=== PATIENT | male | born 1975 | race Caucasian/White ===

== ENCOUNTER → 2017-07-01 14:59 | Outpatient (CLI) | payer BC, SELFPAY ==
[2017-07-01 18:27] LABS: Anion Gap 12 (5-15); BUN 12 mg/dL (7-18); BUN/Creat Ratio 13.6 RATIO (10-20); Calcium,Total 9.1 mg/dL (8.5-10.1); Chloride 104 mmol/L (98-107); Cholesterol 168 mg/dL (200); Creatinine, Serum 0.88 mg/dL (0.70-1.30); EST Glomerular Filtration Rate 102 mL/min (>60); Est Glom Filt Rate - Afr Amer 123 mL/min (>60); Glucose 87 mg/dL (70-110); High Density Lipoprotein 36 mg/dL; Potassium 3.6 mmol/L (3.5-5.1); Sodium Level 140 mmol/L (136-145); Thyroid Stim Hormone (TSH) 1.14 uIU/mL (0.358-3.74); Triglycerides 164 mg/dL; Very Low Density Lipoprotein 33 mg/dL (5-40)
== END ==
PROVIDERS: Visit Provider Family Medicine
DX: Z00.00 Encounter for general adult medical examination without abnormal findings (principal)
CPT/HCPCS: 36415; 80048; 80061; 84403; 84443

== ENCOUNTER 2017-08-09 15:55 | Emergency (ER) | payer BC, SELFPAY ==
[2017-08-09 15:56] VITALS: BP 135/89; PULSE 117; RESP 18; TEMP 36.5; O2SAT 100; BMI 32.3
--- NOTE | 2017-08-09 16:50 | CT_ITS ---
STUDY: CT ABDOMEN AND PELVIS WITH CONTRAST REASON FOR EXAM: Male, 42 years old. Abdominal pain. RADIATION DOSAGE (If Supplied By Facility): CTDIvol = ( 16.91 ) mGy, DLP = ( 1388.03 ) mGycm TECHNIQUE: Transaxial images were obtained from the dome of the diaphragm to the symphysis pubis without oral contrast. 100CC ml of Isovue 300 contrast was administered. Sagittal and coronal images were reconstructed. Individualized dose optimization techniques were used for this CT. COMPARISON: None. FINDINGS: There is atelectasis at the lung bases. The visualized portions of the heart and pericardium are within normal limits. There are no calcified gallstones present. The liver is within normal limits. There are no suspicious hepatic lesions. The spleen is normal in size. The pancreas is within normal limits. The adrenal glands are within normal limits. There are no obstructing renal stones. There is no hydronephrosis. There are no focal renal lesions. Normal visualized stomach. There are multiple dilated loops of proximal to mid small bowel with collapsed loops noted distally. This is consistent with a small bowel obstruction. There is possible partial malrotation with the majority of the colon being in the right abdomen. However, the small bowel appears evenly distributed throughout the abdomen. The cecum is located in the right upper quadrant anteriorly. The appendix is normal. The aorta is normal in caliber. There is no abdominal or pelvic free air, free fluid, fluid collection or lymphadenopathy. There are no destructive osseous lesions. CT/Abdomen/Pelvis W IV Cont ONLY IMPRESSION: Small bowel obstruction. Possible partial malrotation with the majority of the colon being in the right abdomen and the cecum in the right upper quadrant anteriorly. However, the small bowel appears evenly distributed throughout the abdomen. Electronically Signed: Librado Valdez, at 17:58 EST Tel , Service support ,
--- NOTE | 2017-08-09 16:51 | ED.VISSUMM ---
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 Patient states he still has his appendix and gallbladder. He has had no further abdominal surgeries since he was very small. He normally does not have a lot of abdominal pain. He states around 6:00 this morning. Gradual onset of abdominal cramping that is progressively worse. It is now constant pain that waxes and wanes in severity. Associated nausea. No vomiting. No diarrhea. No fever. No dysuria. He denies any melena. He denies any abdominal trauma. Physical Examination: Middle-aged male complaining of pain. Vital signs are stable and afebrile. He does not look septic or toxic. He does have significant ways of pain. HEENT exam unremarkable. Neck nontender. Lungs clear to auscultation bilaterally. Heart regular rhythm no murmur. Heart rate approximately 110-120. Abdomen is mildly distended. Diffusely tender. Decreased bowel sounds. Well-healed large prior surgical incision. No obvious hernias or masses. This may be consistent with an early small bowel obstruction. External exam nontender. No hernias. No masses. He is moving all 4 extremities. Neurovascular intact. No edema. Back exam nontender. Neurologic exam normal. Test Results: CBC is elevated at 21,700. H&H of 19 and 55. Chemistries are unremarkable. BUN is 16 creatinine 1.1. Normal anion gap. Liver enzymes are unremarkable. Lipase is normal at 202. UA is pending. CT abdomen and pelvis with IV contrast shows dilated bowel consistent with small bowel obstruction and most likely a prior malrotation. No signs of perforation. This was read by the radiologist and I have him on page to discuss the CAT scan with him. Emergency Department Course and Treatment: Patient has waxing and waning abdominal pain with a large prior abdominal surgery from a congenital bowel abnormality. Screening labs along with urinalysis and CT will be obtained. He will be treated with IV Dilaudid and Zofran and IV fluids. Treatment Plan: I discussed patient's care with general surgery on-call Dr. Naveen Stone he has concerns with the patient's significant past medical history and prior surgery. He is concerned due to the patient's atypical abdominal anatomy and that there could potentially be bowel infarction developing. And was patient transferred to higher acuity tertiary center. I have [facility] page. Disposition: Admission Impression: Acute abdominal pain acute small bowel obstruction Leukocytosis This note was generated with [employer] dictation software. It may contain incorrect words, spelling, and punctuation that were not noted in review of the chart prior to signing ED Disposition - Plan for ED Patient: Chief Complaint: Abd Pain Referrals: Masoud Lundy [Primary Care Provider] -
--- NOTE | 2017-08-09 16:54 | ED.DCSUM_ITS ---
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 Patient states he still has his appendix and gallbladder. He has had no further abdominal surgeries since he was very small. He normally does not have a lot of abdominal pain. He states around 6: 00 this morning. Gradual onset of abdominal cramping that is progressively worse. It is now constant pain that waxes and wanes in severity. Associated nausea. No vomiting. No diarrhea. No fever. No dysuria. He denies any melena. He denies any abdominal trauma. Physical Examination: Middle-aged male complaining of pain. Vital signs are stable and afebrile. He does not look septic or toxic. He does have significant ways of pain. HEENT exam unremarkable. Neck nontender. Lungs clear to auscultation bilaterally. Heart regular rhythm no murmur. Heart rate approximately 110-120. Abdomen is mildly distended. Diffusely tender. Decreased bowel sounds. Well-healed large prior surgical incision. No obvious hernias or masses. This may be consistent with an early small bowel obstruction. External exam nontender. No hernias. No masses. He is moving all 4 extremities. Neurovascular intact. No edema. Back exam nontender. Neurologic exam normal. Test Results: CBC is elevated at 21,700. H&H of 19 and 55. Chemistries are unremarkable. BUN is 16 creatinine 1.1. Normal anion gap. Liver enzymes are unremarkable. Lipase is normal at 202. UA is pending. CT abdomen and pelvis with IV contrast shows dilated bowel consistent with small bowel obstruction and most likely a prior malrotation. No signs of perforation. This was read by the radiologist and I have him on page to discuss the CAT scan with him. Emergency Department Course and Treatment: Patient has waxing and waning abdominal pain with a large prior abdominal surgery from a congenital bowel abnormality. Screening labs along with urinalysis and CT will be obtained. He will be treated with IV Dilaudid and Zofran and IV fluids. Treatment Plan: I discussed patient's care with general surgery on-call Dr. Naveen Stone he has concerns with the patient's significant past medical history and prior surgery. He is concerned due to the patient's atypical abdominal anatomy and that there could potentially be bowel infarction developing. And was patient transferred to higher acuity tertiary center. I have [facility] page. Disposition: Admission Impression: Acute abdominal pain acute small bowel obstruction Leukocytosis This note was generated with [employer] dictation software. It may contain incorrect words, spelling, and punctuation that were not noted in review of the chart prior to signing ED Disposition - Plan for ED Patient: Chief Complaint: Abd Pain Referrals: Masoud Lundy [Primary Care Provider] -
[2017-08-09] MEDS: 0.9% Normal Saline 1,000 ML 1000 ML IV (16:59)
[2017-08-09] MEDS: HYDROmorphone 1 MG/ML Syringe IV ×3 (16:59→19:26)
[2017-08-09] MEDS: Ondansetron 4 MG/2 ML Vial IV (16:59)
[2017-08-09 17:02] LABS: Absolute Lymphocyte Count 1.24 X10^3/ul (0.83-4.51); Absolute Neutrophil Count 18.7 X10^3/uL (2.0-7.7); BUN 16 mg/dL (7-18); Basophil# 0.02 X10^3/uL; Basophil% 0.1 % (0-1); Eosinophil# 0.05 X10^3/uL; Eosinophils% 0.2 % (0-5); Glucose 122 mg/dL (74-106); Hematocrit 55.4 % (40-54); Lymphocyte # 1.24 X10^3/ul (4.0); Lymphocyte % 5.7 % (19-41); Mean Corp Hgb Conc 34.7 g/gl (32-36); Mean Corpuscular Volume 89.4 fL (80-94); Monocyte# 1.66 X10^3/uL; Monocyte% 7.7 % (0-10); Neutrophil # 18.67 X10^3/uL (2.7-7.7); Neutrophil % 86.1 % (47-70); Platelet Count 255 K/mm3 (150-450); RBC Distribution Width CV 12.2 % (11.6-14.6); RBC Distribution Width SD 39.3 fl (35.1-43.9); White Blood Count 21.7 K/mm3 (4.4-11.0)
[2017-08-09 17:03] LABS: Anion Gap 8 (5-15); BUN/Creat Ratio 14.5 RATIO (10-20); Calcium,Total 9.8 mg/dL (8.5-10.1); Chloride 104 mmol/L (98-107); EST Glomerular Filtration Rate 79 mL/min (>60); Est Glom Filt Rate - Afr Amer 95 mL/min (>60); Estimated Creatinine Clearance 95.08 ml/min; Potassium 3.7 mmol/L (3.5-5.1); Sodium Level 139 mmol/L (136-145)
[2017-08-09 17:17] LABS: Differential Indicated SCAN CRITERIA MET; Hemoglobin 19.2 g/dl (13.0-16.5); POSITIVE COUNT NO; POSITIVE DIFFERENTIAL YES; POSITIVE MORPHOLOGY NO
[2017-08-09 17:24] LABS: Anisocytosis RARE; Platelet Estimate ADEQUATE (ADEQ)
[2017-08-09 17:43] LABS: AST(SGOT) 26 U/L (15-37); Alanine Aminotransfer ALT/SGPT 50 U/L (16-61); Albumin, Serum 4.6 g/dL (3.2-5.0); Alkaline Phosphatase 140 U/L (45-117); Bilirubin, Direct 0.18 mg/dL (0.00-0.30); Globulin 4.1 g/dL (2.2-4.2); Lipase 202 U/L (73-393); Protein, Total 8.7 g/dL (6.4-8.2)
--- NOTE | 2017-08-09 19:31 | NURSING ---
[facility] ACCEPTED [id number] MELTON
[2017-08-09 19:37] LABS: Amylase 26 U/L (25-115)
--- NOTE | 2017-08-09 19:42 | PCM.CONS.GEN ---
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 He has required 3 separate dosing of Dilaudid which only lasts for 1 hour and then he has severe pain.. Laboratories markedly abnormal white count of 21.7. He is hemoconcentrated. He has a CT scan suggesting malrotation with small bowel obstruction. 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 He has intermittently had pain in the right mid upper abdomen. His pain today is acute and severe. Past Medical History Allergies CILLINS Allergy (Uncoded 08/09/17 15:58) Other Home Medications: Ambulatory Orders Medication Instructions Recorded NK [NK] 08/09/17 Smoking Status: Never smoker Patient Problems: Active and Suspected Problems Small bowel obstruction (Acute) Omphalocele (Acute) Malrotation colon (Acute) - Physical Exam Abdomen: Bowel Sounds Not Present, Distended, Tender Vital Signs Temp Pulse Resp BP Pulse Ox 97.7 F L 117 H 18 135/89 H 100 08/09/17 15:56 08/09/17 15:56 08/09/17 15:56 08/09/17 15:56 08/09/17 15:56 Weight: 232 lb Body Mass Index (BMI) 32.3 Laboratory Tests Past 24 Hrs 08/09/17 08/09/17 08/09/17 16:30 16:30 16:30 WBC 21.7 H RBC 6.20 Hgb 19.2 H* Hct 55.4 H MCV 89.4 MCH 31.0 MCHC 34.7 RDW 12.2 RDW Differential 39.3 Plt Count 255 MPV 10.0 Immature Gran % (Auto) 0.200 Neut % (Auto) 86.1 H Lymph % (Auto) 5.7 L Lanier % (Auto) 7.7 Eos % (Auto) 0.2 Baso % (Auto) 0.1 Absolute Neuts (auto) 18.7 H Absolute Lymphs (auto) 1.24 Total Counted Not Reportable Differential Comment SEE COMMENT Diff Path Review May foll Platelet Estimate ADEQUATE Anisocytosis RARE Sodium 139 Potassium 3.7 Chloride 104 Carbon Dioxide 27.0 Anion Gap 8 BUN 16 Creatinine 1.10 Estim Creat Clear Calc 95.08 Est GFR (MDRD) Af Amer 95 Est GFR (MDRD) Non-Af 79 BUN/Creatinine Ratio 14.5 Glucose 122 H Lactic Acid Calcium 9.8 Total Bilirubin 0.60 Direct Bilirubin 0.18 AST 26 ALT 50 Alkaline Phosphatase 140 H Total Protein 8.7 H Albumin 4.6 Globulin 4.1 Amylase Lipase 202 08/09/17 08/09/17 19:00 19:00 WBC RBC Hgb Hct MCV MCH MCHC RDW RDW Differential Plt Count MPV Immature Gran % (Auto) Neut % (Auto) Lymph % (Auto) Lanier % (Auto) Eos % (Auto) Baso % (Auto) Absolute Neuts (auto) Absolute Lymphs (auto) Total Counted Differential Comment Diff Path Review Platelet Estimate Anisocytosis Sodium Potassium Chloride Carbon Dioxide Anion Gap BUN Creatinine Estim Creat Clear Calc Est GFR (MDRD) Af Amer Est GFR (MDRD) Non-Af BUN/Creatinine Ratio Glucose Lactic Acid Pending Calcium Total Bilirubin Direct Bilirubin AST ALT Alkaline Phosphatase Total Protein Albumin Globulin Amylase 26 Lipase Assessment/Plan Active and Suspected Problems Small bowel obstruction (Acute) Omphalocele (Acute) Malrotation colon (Acute) His colon appears to be markedly decompressed. Appears to be slightly coiled in the pelvis and then mostly on the right. The small bowel appears to be significantly distended. Although his lactic acid level still pending I believe that he has an acute small bowel obstruction that will require urgent surgical intervention. Because of his previous congenital procedures this will clearly be at increased technical and operative risk. I recommend tertiary referral. The patient and Dr. Cayetano Salvador concur and appropriate transfer has been made. Naveen Stone M.D., F.A.C.S.
[2017-08-09 19:56] VITALS: BP 139/83; PULSE 108; RESP 18; TEMP 36.7; O2SAT 94
[2017-08-09] MEDS: HYDROmorphone 1 MG/ML Syringe 0.5 MG IV (20:22)
[2017-08-11 09:12] LABS: Pathologist Review Reviewed
== END 2017-08-09 20:28 | disposition short-term general hospital (02) ==
PROVIDERS: Emergency Provider Emergency Medicine; Family Provider Family Medicine; PCP Family Medicine
DX: K56.609 Unspecified intestinal obstruction, unspecified as to partial versus complete obstruction (principal); R10.84 Generalized abdominal pain; Q79.2 Exomphalos; Q43.3 Congenital malformations of intestinal fixation; D72.829 Elevated white blood cell count, unspecified
CPT/HCPCS: 74177; 80048; 80076; 82150; 83605; 83690; 85025; 96361; 96374; 96375; 96376; 99285; J7030; Q9967; A4216; J2405

== ENCOUNTER → 2019-05-09 10:19 | Outpatient (CLI) | payer BC, SELFPAY | PROVIDERS: Family Provider Family Medicine; PCP Family Medicine; Referring Provider Family Medicine; Visit Provider Family Medicine | DX: L02.91 Cutaneous abscess, unspecified (principal) | CPT/HCPCS: 87070; 87205 ==

== ENCOUNTER 2019-07-20 11:34 | Inpatient (IN) | payer BC, SELFPAY ==
[2019-07-20] VITALS (14 sets, daily range): BP systolic 96–151; BP diastolic 65–84; PULSE 73–137; RESP 16–18; TEMP 36.1–37.2; O2SAT 94–98; BMI 32.1; BMI 33.5
--- NOTE | 2019-07-20 11:35 | RAD_ITS ---
STUDY: X-RAY CHEST REASON FOR EXAM: Male, 44 years old. PT IN AFIB, HYPERTENSION TECHNIQUE: Single AP portable view of the chest. COMPARISON: None. FINDINGS: The lungs are clear and expanded. There is no demonstrated pleural abnormality. Normal size heart. Normal mediastinum and arnaldo. Normal visualized pulmonary arteries. Normal visualized aortic arch and descending thoracic aorta. Normal visualized thoracic spine. Normal visualized ribs, clavicles, and shoulders. There is no demonstrated abnormality of the visualized soft tissue structures of the upper abdomen. RAD/Chest 1 View (Portable) IMPRESSION: Normal x-ray examination of the chest. Electronically Signed: Patel Son MD at 12:02 EST Tel , Service support ,
--- NOTE | 2019-07-20 11:35 | EKG12_ITS ---
Test Reason : NEW ONSET AFIB Blood Pressure : / mmHG Vent. Rate : 156 BPM Atrial Rate : 178 BPM P-R Int : 000 ms QRS Dur : 076 ms QT Int : 250 ms P-R-T Axes : 000 021 050 degrees QTc Int : 402 ms Atrial fibrillation with rapid ventricular response Nonspecific T wave abnormality Abnormal ECG Confirmed by AMY MORA ([id number]), editorial intern TOYIN ZHENG ([id number]) on 07/23/2019 3:39:40 PM Referred By: Odette Morales Confirmed By:AMY MORA
--- NOTE | 2019-07-20 11:40 | ED.RN ---
NO OLD EKG
--- NOTE | 2019-07-20 11:48 | ED.VIS.GEN ---
History of Present Illness Chief Complaint: Palpitations Informant: Patient Onset: - - Unknown Context: Onset with activity Current Severity: Moderate Maximum Severity: Moderate Narrative: Patient presents from the PCPs office he had a routine visit and was found to be tachycardic, a office EKG showed atrial fibrillation. Patient overall is asymptomatic, he does not feel palpitations, he does not know an onset of his symptoms. Denies chest pain, shortness of breath fever or chills, he does snore quite a bit and sleeps in a different room than his secondary to his snoring, he has not had any obstructive sleep apnea testing. He does drink caffeine. He has no other symptoms Past Medical History - Allergies and Home Meds Allergies/Adverse Reactions: Allergies CILLINS Allergy (Uncoded 07/20/19 11:34) Other Primary Care Physician: Masoud Lundy [Primary Care Provider] - 2 Days Past Medical History: - - Hypertension. Smoking Status: Never smoker Review of Systems General: Denies: Fever Eyes: Denies: Visual changes - bilaterally ENT: Reports: - - Negative Cardiovascular: Denies: Chest pain Respiratory: Denies: Dyspnea, Cough Gastrointestinal: Denies: Abdominal pain, Nausea Genitourinary: Denies: Dysuria Skin: Denies: Rash Neurological: Denies: Headache, Weakness Endocrine: Denies: Polyuria Hematologic: Denies: Easy bruising Physical Exam Vital Signs/Narrative: Vital Signs Temp Pulse Resp BP Pulse Ox 07/20/19 11:35 96.9 F L 78 17 151/78 H 98 General: Well nourished, Obese Head: Normocephalic Eyes: Perrl, EOMI ENT: Moist mucous membranes Cardiovascular: Irregular, Tachycardia Respiratory: No distress, CTA bilaterally Abdomen: Soft, Nontender Back: Nontender, Normal Inspection. Negative for: CVA tenderness Extremities: Nontender, No edema Skin: Normal color Neurological: Alert, Oriented x3, Normal Sensation Psychological: Normal affect Diagnostic/Tx/Re-eval Chest X-Ray - ED: 1 View, Read by ED Physician, Read by Radiologist, Normal, Heart, Lungs, Mediastinum, Bony Structures - Rhythm Strip Rhythm Strip: A-fib Rate: 156 Ectopy: None - EKG Initial EKG Interpretation: - - Atrial fibrillation with a rate of 156. Normal QTc interval. Nonspecific ST changes throughout. Interpreted by emergency doctor - Medical Decision Making Patient's heart rate significantly improved, however it still in the 110s and 120s, I talked to his PCP who would like the patient admitted, I gave him p.oBob Hearn, he can probably go to a regular floor. Otherwise he has elevated hemoglobin level but not white count or platelets. This may need to be worked up outpatient. The likely cause of his A. fib is undiagnosed obstructive sleep apnea. ED Disposition - Plan for ED Patient: Disposition: Acute Care [facility] Diagnosis: Atrial fibrillation
[2019-07-20] MEDS: dilTIAZem 25 MG/5 ML Vial 20 MG IV BOLUS ×2 (11:49→15:38)
[2019-07-20] MEDS: Aspirin 81 MG TAB.CHEW 324 MG PO (11:55)
[2019-07-20 11:56] LABS: Absolute Lymphocyte Count 2.37 X10^3/uL (0.83-4.51); Absolute Neutrophil Count 5.4 X10^3/uL (2.0-7.7); Basophil# 0.07 X10^3/uL; Basophil% 0.8 % (0-1); Eosinophil# 0.19 X10^3/uL; Eosinophils% 2.1 % (0-5); Hematocrit 53.9 % (40-54); Lymphocyte # 2.37 X10^3/ul (4.0); Lymphocyte % 26.1 % (19-41); Mean Corp Hgb Conc 33.4 g/dL (32-36); Mean Corpuscular Volume 92.9 fL (80-94); Mean Platelet Vol. 9.8 fl (6.2-12.0); Monocyte# 1.01 X10^3/uL; Monocyte% 11.1 % (0-10); NRBC Flagged by Analyzer 0 % (0-5); Neutrophil % 59.6 % (47-70); Platelet Count 240 K/mm3 (150-450); RBC Distribution Width CV 12.2 % (11.6-14.6); RBC Distribution Width SD 42.2 fl (35.1-43.9); White Blood Count 9.1 K/mm3 (4.4-11.0)
[2019-07-20 12:05] LABS: Differential Indicated SCAN CRITERIA MET
[2019-07-20 12:09] LABS: Anion Gap 4 (5-15); BUN 15 mg/dL (7-18); BUN/Creat Ratio 13.8 RATIO (10-20); Calcium,Total 9.3 mg/dL (8.5-10.1); Chloride 108 mmol/L (98-107); Creatinine, Serum 1.09 mg/dL (0.70-1.30); EST Glomerular Filtration Rate 79 mL/min (>60); Est Glom Filt Rate - Afr Amer 95 mL/min (>60); Estimated Creatinine Clearance 94.03 ml/min; Glucose 126 mg/dL (74-106); Potassium 4.3 mmol/L (3.5-5.1); Sodium Level 139 mmol/L (136-145)
[2019-07-20] MEDS: dilTIAZem 25 MG/5 ML Vial 10 MG IV BOLUS (12:37)
[2019-07-20] MEDS: dilTIAZem CD 240 MG Capsule PO (12:52)
--- NOTE | 2019-07-20 14:37 | ECHOCS_ITS ---
Reason For Study: Afib, Aflutter Procedure This was a 2D Doppler, Color Flow transthoracic echocardiogram. Contrast injection was performed. Exam performed portable in patient room. Left Ventricle Mildly dilated left ventricle. The estimated ejection fraction is 40 %. Unable to assess diastolic dysfunction due to arrhythmia. There is moderate global hypokinesis of the left ventricle. Right Ventricle Normal size and thickness. Normal systolic function. Atria Normal left atrium. Normal right atrium. Normal atrial septum. Mitral Valve The mitral valve is structurally normal. No prolapse or stenosis seen. Trivial mitral valve insufficiency. Tricuspid Valve Normal tricuspid valve. Trivial tricuspid valve insufficiency. Right ventricular systolic pressure estimated to be 33 mmHg. Aortic Valve Normal aortic valve. Trisinus/trileaflet aortic valve. Pulmonic Valve Normal pulmonic valve. Great Vessels Normal aortic root. Normal arch. Normal inferior vena cava. Inferior vena cava collapse with sniff. Pericardium/Pleural No pericardial effusion. Medication Diluted definity 5ml given slow IV push to enhance endocardial definition. MMode/2D Measurements & Calculations LVIDd: 4.6 cm IVSd: 1.1 cm Ao root diam: 2.9 cm LVIDs: 3.7 cm LVPWd: 1.3 cm RVDd: 3.3 cm FS: 19.5 % LAV(MOD-bp): 41.4 ml LA A4 area: 16.2 cm2 LA dimension(2D): 4.4 cm LAV(MOD-bp) Indexed: 18.5 ml/m2 LAV(MOD-sp2): 42.1 ml LAV(MOD-sp4): 41.5 ml RA A4 area: 7.7 cm2 Doppler Measurements & Calculations MV E max eva: 70.4 cm/sec Ao V2 max: 112.5 cm/sec LV V1 max: 82.6 cm/sec Ao max P.1 mmHg LV V1 max P.8 mmHg Ao V2 mean: 87.0 cm/sec Ao mean P.2 mmHg Ao V2 VTI: 18.8 cm PA V2 max: 76.2 cm/sec TR max vea: 212.2 cm/sec TR max P.0 mmHg Interpretation Summary Mildly dilated left ventricle. The estimated ejection fraction is 40 %. Unable to assess diastolic dysfunction due to arrhythmia. There is moderate global hypokinesis of the left ventricle. Trivial mitral valve insufficiency. Trivial tricuspid valve insufficiency. Right ventricular systolic pressure estimated to be 33 mmHg. The study was technically difficult. There is no comparison study available. Contrast injection was performed. Ordering Physician: Odette Morales Referring Physician: Masoud Lundy Performed By: Joellen Fowler, ROBSON, RVT
[2019-07-20 15:13] LABS: AST(SGOT) 35 U/L (15-37); Alanine Aminotransfer ALT/SGPT 58 U/L (16-61); Albumin, Serum 4.1 g/dL (3.2-5.0); Alkaline Phosphatase 126 U/L (45-117); Bilirubin, Direct 0.16 mg/dL (0.00-0.30); Globulin 3.8 g/dL (2.2-4.2); Magnesium 2.1 mg/dL (1.6-2.6); Protein, Total 7.9 g/dL (6.4-8.2); Thyroid Stim Hormone (TSH) 0.99 uIU/mL (0.358-3.74)
[2019-07-20] MEDS: 0.9% Normal Saline 1,000 ML 75 ML IV (15:36)
[2019-07-20] MEDS: Metoprolol Tartrate 50 MG Tablet PO ×2 (15:36→22:07)
[2019-07-20] MEDS: Enoxaparin 100 MG/ML Syringe SC ×2 (15:39→22:07)
--- NOTE | 2019-07-20 17:22 | EKG12_ITS ---
Test Reason : RHYTHM CHANGE Blood Pressure : / mmHG Vent. Rate : 069 BPM Atrial Rate : 069 BPM P-R Int : 138 ms QRS Dur : 082 ms QT Int : 392 ms P-R-T Axes : 030 022 013 degrees QTc Int : 420 ms Normal sinus rhythm Normal ECG When compared with ECG of 20-JUL-2019 11:43, MANUAL COMPARISON REQUIRED, DATA IS UNCONFIRMED Confirmed by AMY MORA ([id number]), scientific editor MICHELLE ABARCA ([id number]) on 07/26/2019 9:52:08 AM Referred By: Odette Morales Confirmed By:AMY MORA
--- NOTE | 2019-07-20 20:30 | PCM.HP.STD ---
Problem List (1) Marijuana smoker Status: Chronic (2) Tobacco dependence due to chewing tobacco Status: Chronic (3) Tobacco dependence due to cigarettes Status: Chronic (4) Hypertension Status: Chronic (5) Anxiety Status: Chronic (6) Sleep-disordered breathing Status: Chronic Comment: suspect KATELIN (7) Polycythemia Status: Acute (8) Atrial fibrillation Status: Acute Qualifiers: Atrial fibrillation type: paroxysmal Qualified Code(s): I48.0 - Paroxysmal atrial fibrillation Comment: With rapid ventricular response (9) Malrotation colon Status: Chronic (10) Omphalocele Status: Resolved (11) Small bowel obstruction Status: Resolved (12) Hyperglycemia Status: Acute (13) Lesion of buccal mucosa Status: Acute Comment: right side near the upper back teeth - lesion is pale and white, non-tender History of Present Illness Date of Admission: 07/20/19 Chief Complaint: sent to the Ed by Dr. Lundy for PAF with RVR The patient is a 44 year old M with a past medical history of hypertension, tobacco dependence with cigarettes, tobacco dependence with chewing tobacco, marijuana use and anxiety who presented to the ED at [facility] from Dr. Masoud Lundy's office because he was noted to be in atrial fibrillation with rapid ventricular response. Patient denies chest pain, palpitations, syncope or any history of cardiovascular disease. No history of strokes or TIAs. His states that she and her have not slept together for at least 1 year because he snores so loudly. She has also observed him to stop breathing while sleeping and then jerk and take a deep breath. He is chronically tired. Denies restless leg. He has never had a sleep study. He has not seen a primary care physician in about 10 years. Vital signs at presentation to the emergency department were temperature 96.9, pulse rate was in the 150s, blood pressure was 151/78, respiratory rate was 17 and he was 98% saturated on room air. The hemoglobin is increased at 18 with a hematocrit of 53.9. The white blood cell differential is within normal limits. Platelets are also normal. MCV and MCH are normal. Potassium is 4.3 and the BUN is 15 with a creatinine of 1.09. A random blood sugar was elevated at 126 and he has no history of diabetes mellitus. LFTs were unremarkable. Troponin was less than 0.015. TSH is normal at 0.99. Chest x-ray showed no pleural effusions, infiltrates or pulmonary vascular congestion. He was treated with 20 mg of IV Cardizem in the emergency department with subsequent improvement in heart rate. He admits to being very stressed in his job. Past Medical History Past Medical History (Chronic Problems): Chronic Problems Malrotation colon (Chronic) Marijuana smoker (Chronic) Tobacco dependence due to chewing tobacco (Chronic) Tobacco dependence due to cigarettes (Chronic) Hypertension (Chronic) Anxiety (Chronic) Sleep-disordered breathing (Chronic) suspect KATELIN Allergies CILLINS Allergy (Uncoded 07/20/19 11:34) Other Home Medications: Ambulatory Orders Medication Instructions Recorded Lisinopril [Zestril] 10 mg PO DAILY 07/20/19 Multivitamin with Minerals 1 ea PO DAILY 07/20/19 [Multiple Vitamin] Surgical History: - - Abdominal surgery to repair and omphalocele and vasectomy Psychiatric History: Anxiety Lives: Spouse/ Significant Other Smoking Status: Current some day smoker Tobacco Use: Cigarettes, Chew - everyday Alcohol: Occasional Drugs: Marijuana - *Family History Maternal History Items: Cancer - His mother with lung cancer Paternal History Items: Heart Disease Review of Systems Constitutional: Denies: Chills, Fever, Weight Change HEENT: Denies: Head Aches, Sinus Congestion, Sinus Drainage, Sore Throat Cardiovascular: Denies: Chest Pain, Claudication, Edema, Light Headedness, Orthopnea, Palpitations, Syncope Respiratory: Reports: Shortness of breath upon exertion - sometimes. Denies: Cough, Shortness of breath at rest, Sputum production Gastrointestinal: Denies: Abdominal Pain, Constipation, Diarrhea, Nausea, Vomiting Genitourinary: Denies: Dysuria Musculoskeletal: Denies: Joint Pain, Joint Tenderness Skin: Denies: Jaundice, Rash, Wounds Neurological: Denies: Slurred speech, Confusion, Focal weakness, Numbness, Tingling, Tremor, Seizures Psychiatric: Denies: Anxiety, Depression, Homicidal Ideations, Suicidal Ideations Endocrine: Reports: Change in Body Habitus - has been trying to lose weight. Denies: Heat/ Cold Intolerance Hematologic/ Lymphatic: Denies: Easy Bruising, Easy Bleeding, Hx of blood clot VTE Information - Inpt Only VTE Present on Admission: No VTE Mechan Device Prophylaxis: None VTE Pharm Prophylaxis ordered?: No Reason prophylaxis not ordered:: Treatment Not Indicated - on full dose Lovenox for PAF Patient Problems: Active and Suspected Problems Atrial fibrillation (Acute) With rapid ventricular response Polycythemia (Acute) Hyperglycemia (Acute) Lesion of buccal mucosa (Acute) right side near the upper back teeth - lesion is pale and white, non-tender - Physical Exam Vitals/I&O's: Vital Signs Temp Pulse Resp BP Pulse Ox 98.7 F 77 16 116/84 H 98 07/20/19 14:47 07/20/19 19:00 07/20/19 14:47 07/20/19 14:47 07/20/19 14:47 Oxygen Delivery Method Room Air Weight: 240 lb 4.862 oz Body Mass Index (BMI) 33.5 General: Alert, Oriented x3, Cooperative, No apparent distress, Well developed, Well nourished HEENT: Atraumatic, PERRLA, EOMI, Normocephalic Oral: Moist Mucosa, - - he has a white lesion of the buccal mucosa on the right side near the upper back molar Neck: Supple, No JVD, Negative Carotid Bruits Lungs: Clear to auscultation, Normal air movement Cardiovascular: Normal S1, Normal S2, No murmurs, Irregular Rate - he is AF and the HR is ranging from 118 - 150, No rub noted, No Gallop Abdomen: Bowel Sounds Present, Soft, Non Tender, Non-Distended Extremities: No clubbing, No cyanosis, No edema, Capillary Refill Less than 3 Seconds Skin: No rashes, No breakdown Musculoskeletal: No Tenderness to Palpation of Joints or Extremities Neurological: Cranial nerves II-XII grossly intact, Neuro grossly intact Psych/Mental Status: Appropriate, Anxious Laboratory Results 07/20/19 11:45: WBC 9.1, RBC 5.80, Hgb 18.0 H*, Hct 53.9, MCV 92.9, MCH 31.0, MCHC 33.4, RDW Std Deviation 42.2, RDW Coeff of [place] 12.2, Plt Count 240, MPV 9.8, Immature Gran % (Auto) 0.300, Neut % (Auto) 59.6, Lymph % (Auto) 26.1, [place] % (Auto) 11.1 H, Eos % (Auto) 2.1, Baso % (Auto) 0.8, Absolute Neuts (auto) 5.4, Absolute Lymphs (auto) 2.37, Nucleated RBC % 0, Differential Comment COMMENT, Diff Path Review October foll 07/20/19 11:45: Sodium 139, Potassium 4.3, Chloride 108 H, Carbon Dioxide 27.0, Anion Gap 4 L, BUN 15, Creatinine 1.09, Estim Creat Clear Calc 94.03, Est GFR (MDRD) Af Amer 95, Est GFR (MDRD) Non-Af 79, BUN/Creatinine Ratio 13.8, Glucose 126 H, Calcium 9.3, Troponin I < 0.015 07/20/19 11:45: Magnesium 2.1, Total Bilirubin 0.70, Direct Bilirubin 0.16, AST 35, ALT 58, Alkaline Phosphatase 126 H, Total Protein 7.9, Albumin 4.1, Globulin 3.8, TSH 0.99 07/20/19 15:00: Troponin I < 0.015 07/20/19 18:20: Troponin I < 0.015 Current Medications Acetaminophen (Tylenol) 650 mg PO Q6H PRN PRN PRN Reason: Pain Score 1-10/Temp > 100.7 F Aspirin (Aspirin) 325 mg PO DAILY@0800 [facility] Enoxaparin Sodium (Lovenox) 100 mg 1 mg/kg (100 mg) SC Q12 [facility] Last Admin: 07/20/19 15:39 Dose: 100 mg Documented by: Sodium Chloride () 1,000 mls @ 75 mls/hr IV .[id number] [facility] Last Admin: 07/20/19 15:36 Dose: 75 mls/hr Documented by: Sodium Chloride () 250 mls @ 15 mls/hr IV .[id number] PRN PRN Reason: Saline Flush Sodium Chloride () 250 mls @ 15 mls/hr IV .[id number] PRN PRN Reason: Additional IVPB Infusion Metoprolol Tartrate (Lopressor (Beta Darnell)) 50 mg PO BID [facility] Last Admin: 07/20/19 15:36 Dose: 50 mg Documented by: Ondansetron HCl (Zofran) 4 mg IV Q8H PRN PRN PRN Reason: NAUSEA/VOMITING Sodium Chloride () 10 - 40 ml IV UD PRN PRN Reason: SALINE FLUSH Temazepam (Restoril) 15 mg PO QHS PRN PRN PRN Reason: INSOMNIA Assessment/Plan All Active Problems Atrial fibrillation (Acute) Polycythemia (Acute) Hyperglycemia (Acute) Lesion of buccal mucosa (Acute) Omphalocele (Resolved) Small bowel obstruction (Resolved) Impressions 1. Paroxysmal atrial fibrillation with rapid ventricular response -patient is not aware of being in atrial fibrillation and the duration is indeterminate at this time. TSH is normal. Echocardiogram has been ordered. He is very anxious and rather than giving Cardizem will start metoprolol to blunt the catecholamine response. Check a magnesium level. Potassium is 4.3. Will need an evaluation for coronary artery disease at some point with a stress test. Check a lipid panel in the AM. Maintain the potassium at 4 or above and the magnesium at 2 or above. 2. sleep disordered breathing - suspect KATELIN. Will need referred to pulmonary medicine for a sleep study. 3. Anxiety-smokes marijuana to help control anxiety. He has a very stressful job. May benefit from psychotherapy and/or medication to control his anxiety. 4. Polycythemia-possibly related to smoking? 5. Buccal mucosal lesion in a patient who chews tobacco daily on the right side near the upper back molar. I suggested he follow up with a dentist or an oral surgeon to have this looked at and possibly biopsied. 6. Tobacco dependence with cigarettes and chew. Smoking cessation and chewing cessation was advised and the patient was given counseling. Will order inpatient smoking cessation counseling. 7. Hyperglycemia in a patient who has no history of diabetes mellitus-hemoglobin A1c ordered 8. Hypertension-discontinue lisinopril and start a beta-darnell. Patient has had a chronic dry cough in the morning to the point where he actually gags and vomits. This may be a adverse reaction to the MARCOS inhibitor. We will know if the cough resolves with cessation of the Lisinopril. Code Visit OBSV E&M: 86083 Initial observation care L2
[2019-07-20] MEDS: Temazepam 15 MG Capsule PO (22:07)
[2019-07-21] VITALS (11 sets, daily range): BP systolic 111–144; BP diastolic 67–76; PULSE 57–88; RESP 16–18; TEMP 36.6–36.9; O2SAT 96–97
[2019-07-21] MEDS: 0.9% Normal Saline 1,000 ML 75 ML IV (04:49)
--- NOTE | 2019-07-21 06:56 | STEWCON_ITS ---
Reason For Study: AFIB/FLUTTER Stress Results Protocol: Norm Protocol WITH DEFINITY Maximum Predicted HR: 178 bpm Target HR: 151 bpm % Maximum Predicted HR: 86 % DurationHeart Rate Stage (mm:ss) (bpm) BP Comment BASELINE 72 118/844 CC DEFINITY FOR ENTIRE TEST STAGE 1 3:00 98 130/84 STAGE 2 3:00 112 132/82 STAGE 3 3:00 126 158/80SL. SOB, LEG DISCOMFORT STAGE 4 1:15 153 / RECOVERY 93 130/80 Stress Duration: 10:15 mm:ss Maximum Stress HR: 153 bpm Baseline Echocardiogram Findings The estimated ejection fraction is 40 %. Stress Echo Wall motion Data Resting WM Intermediate WM Stress WM Resting Wall Motion Wall Motion Stress Global moderate LV dysfunction All torres appear to contract with an EF of 40% at rest. normally at peak exercise. Maximum LVEF of 55%. EKG Data The baseline ECG displays normal sinus rhythm. The patient exercised according to the regular Norm protocol for a total duration of 10:15. The maximum heart rate attained was 153 beats per minute. This was 85% of maximum predicted heart rate. The patient exercised into stage 4 of the Norm protocol. During stress, there were no ST or T wave changes noted to suggest ischemia. No clinical angina was noted. Interpretation Summary The estimated ejection fraction is 40 %. Normal, adequate, treadmill echocardiogram. Negative for ischemia by EKG and echocardiographic criteria. No anginal symptoms noted. Rare PVC noted. Average exercise capacity for age. Test terminated due to target heart rate achieved and leg discomfort. Patient had baseline global LV dysfunction of a moderate degree with an EF around 40% which improved to 55% at peak exercise. Patient tolerated procedure well. Decrease sensitivity due to poor echo windows requiring Definity agent. No complications. The study was technically difficult. Contrast injection was performed. Ordering Physician: Radhames Salas Referring Physician: Odette Morales Performed By: Meri Torres RDCS
[2019-07-21 08:10] LABS: Absolute Neutrophil Count 6.7 X10^3/uL (2.0-7.7); Basophil# 0.06 X10^3/uL; Basophil% 0.5 % (0-1); Eosinophil# 0.29 X10^3/uL; Eosinophils% 2.6 % (0-5); Hematocrit 45.8 % (40-54); Hemoglobin 15.2 g/dL (13.0-16.5); Lymphocyte % 26.4 % (19-41); Mean Corp Hgb Conc 33.2 g/dL (32-36); Mean Corpuscular Hgb 31.5 pg (27.0-32.0); Mean Corpuscular Volume 94.8 fL (80-94); Mean Platelet Vol. 10.8 fl (6.2-12.0); Monocyte# 1.03 X10^3/uL; Monocyte% 9.4 % (0-10); NRBC Flagged by Analyzer 0 % (0-5); Neutrophil # 6.69 X10^3/uL (2.7-7.7); Neutrophil % 60.8 % (47-70); Platelet Count 181 K/mm3 (150-450); RBC Distribution Width CV 12.4 % (11.6-14.6); RBC Distribution Width SD 43.2 fl (35.1-43.9); Red Blood Count 4.83 M/mm3 (4.6-6.2)
[2019-07-21 08:35] LABS: Cholesterol 141 mg/dL (200); High Density Lipoprotein 29 mg/dL; Triglycerides 174 mg/dL; Very Low Density Lipoprotein 35 mg/dL (5-40)
[2019-07-21] MEDS: Aspirin 325 MG Tablet PO (09:19)
[2019-07-21] MEDS: Metoprolol Tartrate 50 MG Tablet PO (09:19)
[2019-07-21 09:38] LABS: Hemoglobin A1c 5.6 % (4.2-6.3)
--- NOTE | 2019-07-21 10:11 | PCM.CONS.C ---
Problem List (1) Atrial fibrillation Status: Acute Qualifiers: Atrial fibrillation type: paroxysmal Qualified Code(s): I48.0 - Paroxysmal atrial fibrillation Comment: With rapid ventricular response (2) Tobacco dependence due to chewing tobacco Status: Chronic (3) Hypertension Status: Chronic (4) Sleep-disordered breathing Status: Chronic Comment: suspect KATELIN Reason for Consult Date of Consultation: 07/21/19 Reason for Consultation: Atrial fibrillation, LV dysfunction, possible obstructive sleep apnea, tobacco abuse. History of Present Illness: The patient is a 44 year old M moderately obese, nondiabetic, non-cigarette smoking but uses chewing tobacco, excessive use of caffeine on a daily basis, with no previous known history of coronary occlusive disease. Patient was recently diagnosed with hypertension about 3 months ago and has been treated with antihypertensive therapy in the form of lisinopril only. He has no known history of atrial fibrillation and was seen in his PCPs office yesterday after a very hectic morning. Patient had been under significant stress and upon arrival he was found to be in new onset asymptomatic atrial fibrillation. He was referred to [facility] where an EKG was performed which showed atrial fibrillation with rapid ventricular response. No acute changes noted. He ruled out for myocardial infarction. In addition he underwent a 2D echo with Doppler on 07/20/2019 with the following results: Mildly dilated left ventricle. The estimated ejection fraction is 40 %. Unable to assess diastolic dysfunction due to arrhythmia. There is moderate global hypokinesis of the left ventricle. Trivial mitral valve insufficiency. Trivial tricuspid valve insufficiency. Right ventricular systolic pressure estimated to be 33 mmHg. Patient appears to be in atrial fibrillation. The study was technically difficult. There is no comparison study available. Contrast injection was performed. The patient spontaneously converted to normal sinus rhythm, and underwent a walking treadmill echocardiogram on 07/21/2019. Patient's baseline LVEF was around 40% which improved around 55%, he walked for 10 minutes 15 seconds, had no anginal symptoms and had global improvement of his LV function to a maximum 55%. Decrease sensitivity due to poor echo windows requiring Definity agent. On further history the patient is unaware of his atrial fibrillation, denies any chest pain, angina, shortness of breath or dyspnea on exertion. He has been compliant with his lisinopril. He notes that he has an excessive snore, and was scheduled to undergo a sleep study about 2 years ago but this did not take place. 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 Patient drinks a significant amount of caffeine but denies any illicit substances or [id number] medications. He drinks about 2 beers several times per week, but used to drink more than that when he was younger. [] Past Medical History Allergies/Adverse Reactions: Allergies CILLINS Allergy (Uncoded 07/20/19 11:34) Other Home Medications: Ambulatory Orders Medication Instructions Recorded Lisinopril [Zestril] 10 mg PO DAILY 07/20/19 Multivitamin with Minerals 1 ea PO DAILY 07/20/19 [Multiple Vitamin] Past Medical History (Chronic Problems): Chronic Problems Malrotation colon (Chronic) Marijuana smoker (Chronic) Tobacco dependence due to chewing tobacco (Chronic) Tobacco dependence due to cigarettes (Chronic) Hypertension (Chronic) Anxiety (Chronic) Sleep-disordered breathing (Chronic) suspect KATELIN Surgical History: - - Abdominal surgery to repair and omphalocele and vasectomy Psychiatric History: Anxiety - *Family History Maternal History Items: Cancer - His mother with lung cancer Paternal History Items: Heart Disease Lives: Spouse/ Significant Other Smoking Status: Current some day smoker Tobacco Use: Cigarettes, Chew - everyday Alcohol: Occasional Drugs: Marijuana Review of Systems - Review of Systems General: Denies: Fever, Night Sweats, Fatigue Cardiovascular: Denies: Chest Discomfort, Shortness of Breath, Orthopnea, PND, Peripheral Edema, Palpitations, Lightheadedness, Dizziness, Near Syncope, Syncope Respiratory: Denies: Cough, Sputum Production, Hemoptysis Gastrointestinal: Denies: Hematemesis, Hematochezia, Melena Genitourinary: Denies: Dysuria, Hematuria Skin: Denies: Rash Subjectve: Patient laying in bed, no acute distress. Objective: Vital Signs Temp Pulse Resp BP Pulse Ox 98.4 F 77 18 124/70 H 96 07/21/19 09:16 07/21/19 09:19 07/21/19 09:16 07/21/19 09:16 07/21/19 09:16 Oxygen Delivery Method Room Air Weight: 240 lb 4.862 oz Body Mass Index (BMI) 33.5 Intake and Output for Last 24 Hours 07/19/19 07/20/19 07/21/19 23:59 23:59 23:59 Intake Total 480 / 480 1661.25 / 1661.25 Balance 480 / 480 1661.25 / 1661.25 General: Awake, Alert, Oriented x 3 HEENT: PERRL, EOMI, Sclera Non Icteric Neck: Supple, Good ROM, No Lymph Node Enlargement Lungs: Clear to auscultation Cardiovascular: Regular Rhythm, Normal S1, Normal S2, No Murmurs, No Rubs, No Gallops Vascular: No Carotid Bruits, Normal Femoral Pulses, Normal Radial Pulses, Normal Dorsalis Pedal Pulse, Normal Posterior Tibial Pulses Abdomen: Bowel Sounds Present, Soft, Non Tender, No HSM, No Organomegaly Extremities: No Cyanosis, No Clubbing, No edema Neurological: No Focal Motor or Sensory Deficit 07/20/19 11:45: WBC 9.1, RBC 5.80, Hgb 18.0 H*, Hct 53.9, MCV 92.9, MCH 31.0, MCHC 33.4, Plt Count 240, MPV 9.8, Immature Gran % (Auto) 0.300, Neut % (Auto) 59.6, Lymph % (Auto) 26.1, [place] % (Auto) 11.1 H, Eos % (Auto) 2.1, Baso % (Auto) 0.8, Absolute Neuts (auto) 5.4, Nucleated RBC % 0 07/20/19 11:45: Sodium 139, Potassium 4.3, Chloride 108 H, Carbon Dioxide 27.0, Anion Gap 4 L, BUN 15, Creatinine 1.09, Est GFR (MDRD) Af Amer 95, Est GFR (MDRD) Non-Af 79, BUN/Creatinine Ratio 13.8, Glucose 126 H, Calcium 9.3, Troponin I < 0.015 07/20/19 11:45: Magnesium 2.1, Total Bilirubin 0.70, Direct Bilirubin 0.16 07/20/19 15:00: Troponin I < 0.015 07/20/19 18:20: Troponin I < 0.015 07/21/19 06:44: Triglycerides 174, Cholesterol 141, LDL Cholesterol 77, VLDL Cholesterol 35, HDL Cholesterol 29 L 07/21/19 06:44: Hemoglobin A1c 5.6 07/21/19 06:44: WBC 11.0, RBC 4.83, Hgb 15.2, Hct 45.8, MCV 94.8 H, MCH 31.5, MCHC 33.2, Plt Count 181, MPV 10.8, Immature Gran % (Auto) 0.300, Neut % (Auto) 60.8, Lymph % (Auto) 26.4, [place] % (Auto) 9.4, Eos % (Auto) 2.6, Baso % (Auto) 0.5, Absolute Neuts (auto) 6.7, Nucleated RBC % 0 Rhythm: EKG: ECHO: As above Stress Test: Cardiac Cath: PCI: CT Surgery: Holter monitor: EPS: PPM: CXR: Chest CT Scan: Assessment/Plan 1. LV dysfunction: Patient has evidence of moderate LV dysfunction by echocardiogram, confirmed by stress echocardiogram as well. His baseline LVEF is 40% and he now presents with asymptomatic atrial fibrillation superimposed on LV dysfunction. Although the patient's stress test was negative for overt ischemia, and he had global improvement of his LV function, he nonetheless has evidence of global LV dysfunction which may be coronary related. Patient is several risk factors for coronary occlusive disease including his age, previous smoker, marijuana use, and hyperglycemia. To ensure the patient can endure an exercise program and that he has no reversible causes of his LV dysfunction, I recommended the patient undergo a left heart catheterization this upcoming Tuesday to confirm/deny the presence of significant coronary occlusive disease. If he has no significant coronary occlusive disease, we will discontinue his Plavix and treat him medically. In the meantime I recommend that we start him on Coreg 3.125 mg p.o. twice daily for heart rate control and afterload reduction. We will titrate this up to assist with heart rate control. In addition he will continue his lisinopril 20 mg p.o. daily for afterload reduction. I do not believe he requires diuretic therapy at this time. In addition I strongly recommended he discontinue all tobacco products, including chewing tobacco as he has a buccal mucosa lesion, discontinue all coffee and caffeine which may contribute to his atrial fibrillation, discontinue all alcohol which may contribute to his cardiomyopathy and discontinue marijuana as well. Hopefully with medications, cardiac rehab, and substance abuse cessation, his LV function will improve. We will repeat his echocardiogram in 3 to 4 months time. 2. Obstructive sleep apnea: Patient has signs and symptoms of possible obstructive sleep apnea, and I believe would benefit from an outpatient sleep study. 3. Hyperlipidemia: His LDL cholesterol is at goal and his HDL is low most likely secondary to tobacco abuse and genetic predisposition. Will await evaluation of his coronary arteries prior to application of antilipid therapy. 4. Atrial fibrillation: The patient is asymptomatic paroxysmal atrial fibrillation which is converted to normal sinus rhythm. I do not believe he requires antiarrhythmic therapy at this time. We will continue subcu Lovenox for prophylaxis while in the hospital. Given his LV dysfunction as well as the asymptomatic paroxysmal nature of his atrial fibrillation, the patient may benefit from transient use of anticoagulation at home until he has demonstrated that his atrial fibrillation has improved. Would recommend a 30-day event monitor to determine if he has multiple episodes of atrial fibrillation that may be contributing to his LV dysfunction. 4. Thank you very much for the opportunity to participate in the cardiac care of your patient. Consultation time took place between 930 and 10 AM. Code Visit Inpatient E&M: 75581 Init Hosp L2
[2019-07-21] MEDS: Clopidogrel Bisulfate 300 MG Tablet PO (11:31)
--- NOTE | 2019-07-21 13:17 | PN_ITS ---
Patient Problems: Active and Suspected Problems Atrial fibrillation (Acute) With rapid ventricular response Polycythemia (Acute) Hyperglycemia (Acute) Lesion of buccal mucosa (Acute) right side near the upper back teeth - lesion is pale and white, non-tender Subjective: Patient seen and examined. He was admitted from his PCPs office after he was found to be in a A. fib. He had never had palpitations and had no history of A. fib. He has been managed for new onset A. fib. Cardiology was consulted. Patient feels well this morning. He denied any chest pain, palpitations or dizziness, nausea vomiting or diarrhea. Review of systems otherwise negative. Labs and vitals reviewed. TSH was 0.99. Vitals/I&O's: Vital Signs Temp Pulse Resp BP Pulse Ox 98.4 F 77 18 124/70 H 96 07/21/19 09:16 07/21/19 09:19 07/21/19 09:16 07/21/19 09:16 07/21/19 11:00 Oxygen Delivery Method Room Air Weight: 240 lb 4.862 oz Body Mass Index (BMI) 33.5 Intake and Output for Last 24 Hours 07/19/19 07/20/19 07/21/19 23:59 23:59 23:59 Intake Total 480 / 480 2187.50 / 2187.50 Balance 480 / 480 2187.50 / 2187.50 General: Alert, Oriented x3, Cooperative, No apparent distress HEENT: Atraumatic, PERRLA, EOMI, Normocephalic Oral: Dry Mucosa Neck: Supple, No JVD, Negative Carotid Bruits Lungs: Clear to auscultation, Normal air movement, No rhonchi, No wheeze, No rales Cardiovascular: Regular rate, Regular Rhythm, Normal S1, Normal S2, No murmurs Abdomen: Bowel Sounds Present, Soft, Non Tender, Non-Distended, No Hepato-sp lenomegaly Extremities: No clubbing, No cyanosis, No edema, Capillary Refill Less than 3 Seconds Skin: No rashes, No breakdown Musculoskeletal: No Tenderness to Palpation of Joints or Extremities Lymphatic: No Cervical, Supraclavicular, or Inguinal Adenopathy Neurological: Cranial nerves II-XII grossly intact, Neuro grossly intact, Motor Exam 5/5 strength throughout Psych/Mental Status: Normal Affect, Appropriate, Alert and oriented to time, place, person, mood and affect Laboratory Results 07/20/19 11:45: Magnesium 2.1, Total Bilirubin 0.70, Direct Bilirubin 0.16, AST 35, ALT 58, Alkaline Phosphatase 126 H, Total Protein 7.9, Albumin 4.1, Globulin 3.8, TSH 0.99 07/20/19 15:00: Troponin I < 0.015 07/20/19 18:20: Troponin I < 0.015 07/21/19 06:44: Triglycerides 174, Cholesterol 141, LDL Cholesterol 77, VLDL Cholesterol 35, HDL Cholesterol 29 L 07/21/19 06:44: Hemoglobin A1c 5.6 07/21/19 06:44: WBC 11.0, RBC 4.83, Hgb 15.2, Hct 45.8, MCV 94.8 H, MCH 31.5, MCHC 33.2, RDW Std Deviation 43.2, RDW Coeff of [place] 12.4, Plt Count 181, MPV 10. 8, Immature Gran % (Auto) 0.300, Neut % (Auto) 60.8, Lymph % (Auto) 26.4, [place] % (Auto) 9.4, Eos % (Auto) 2.6, Baso % (Auto) 0.5, Absolute Neuts (auto) 6.7, Absolute Lymphs (auto) 2.90, Nucleated RBC % 0 Diagnostic Data Chest X-Ray 07/20/19 11:35 IMPRESSION: Normal x-ray examination of the chest. Electronically Signed: Paetl Son MD at 12:02 EST Tel , Service support , Current Medications Acetaminophen (Tylenol) 650 mg PO Q6H PRN PRN PRN Reason: Pain Score 1-10/Temp > 100.7 F Aspirin (Aspirin) 325 mg PO DAILY@0800 [facility] Last Admin: 07/21/19 09:19 Dose: 325 mg Documented by: Carvedilol (Coreg) 3.125 mg PO BID [facility] Clopidogrel Bisulfate (Plavix) 75 mg PO DAILY [facility] Enoxaparin Sodium (Lovenox) 100 mg 1 mg/kg (100 mg) SC Q12 [facility] Last Admin: 07/21/19 08:48 Dose: Not Given Documented by: Sodium Chloride () 250 mls @ 15 mls/hr IV .[id number] PRN PRN Reason: Saline Flush Sodium Chloride () 250 mls @ 15 mls/hr IV .[id number] PRN PRN Reason: Additional IVPB Infusion Ondansetron HCl (Zofran) 4 mg IV Q8H PRN PRN PRN Reason: NAUSEA/VOMITING Sodium Chloride () 10 - 40 ml IV UD PRN PRN Reason: SALINE FLUSH Temazepam (Restoril) 15 mg PO QHS PRN PRN PRN Reason: INSOMNIA Last Admin: 07/20/19 22:07 Dose: 15 mg Documented by: STROKE Vital Signs/Narrative: Vital Signs Pulse Pulse Ox 07/21/19 11:00 96 07/21/19 09:19 77 Medical Necessity - Tobacco Use Smoking Status: Current some day smoker Tobacco Use: Cigarettes, Chew - everyday Assessment/Plan All Active Problems Atrial fibrillation (Acute) Polycythemia (Acute) Hyperglycemia (Acute) Lesion of buccal mucosa (Acute) Omphalocele (Resolved) Small bowel obstruction (Resolved) 1. New onset paroxysmal afib * was in RVR when he was admitted, but has now converted to sinus rhythm * TSH was 0.99. * cardiology consulted; on therapeutic lovenox * on carvedilol * magnesium was 2.1. K was 4.3 * He likely has KATELIN, which is contributing to Afib * 2D echo: showed EF of 40%, with moderate global hypokinesis of left ventricle; unable to assess diastolic dysfunction due to arrhythmia. RVSP of 33mmHg * per cardiology, for cardiac cath Tuesday 2. Probable KATELIN * says he snores at home; likely has KATELIN which is contributing to Afib. * will need sleep study on outpatient basis. * 3.Secondary polycythemia:Hb was 18. now 15.2. 4. Hyperglycemia: was 126. A1C was 5.6. Will monitor 5.Hypertension: lisinopril discontinued o/a of chronic cough, which may be a side effect of lisinopril. No on carvedilol. 6. Buccal lesion: has a history of chewing tobaccoe daily. Will need follow up with dentist/oral surgeon to get it biopsied and evaluated DVT propylaxis: on therapeutic lovenox Code Visit OBSV E&M: 33462 Subsequent observation care L2
--- NOTE | 2019-07-21 17:02 | CM.UR ---
Heart Cath is planned for Tuesday07/23/19. According to his Vinod plan via website using his ID, in network facilities include (but not limited to): [facility] for any additional questions, contact case management.
[2019-07-21] MEDS: Carvedilol 3.125 MG TABLET PO (21:11)
[2019-07-21] MEDS: Enoxaparin 100 MG/ML Syringe SC (21:11)
[2019-07-22] VITALS (9 sets, daily range): BP systolic 116–145; BP diastolic 71–99; PULSE 64–88; RESP 16; TEMP 36.6–37.1; O2SAT 97–100
[2019-07-22] MEDS: Carvedilol 3.125 MG TABLET PO ×2 (09:04→21:08)
[2019-07-22] MEDS: Aspirin 325 MG Tablet PO (09:04)
[2019-07-22] MEDS: Clopidogrel Bisulfate 75 MG Tablet PO (09:04)
--- NOTE | 2019-07-22 11:25 | PN.CARD_ITS ---
Subjectve: Patient doing well this morning, no 24-hour events. Telemetry negative. Objective: Vital Signs Temp Pulse Resp BP Pulse Ox 97.8 F 72 16 138/99 H 97 07/22/19 09:00 07/22/19 09:00 07/22/19 09:00 07/22/19 09:00 07/22/19 09:54 Oxygen Delivery Method Room Air Weight: 240 lb 4.862 oz Body Mass Index (BMI) 33.5 Intake and Output for Last 24 Hours 07/20/19 07/21/19 07/22/19 23:59 23:59 23:59 Intake Total 480 / 480 3067.50 / 3067.50 120 / 120 Balance 480 / 480 3067.50 / 3067.50 120 / 120 General: Awake, Alert, Oriented x 3 HEENT: PERRL, EOMI, Sclera Non Icteric Neck: Supple, Good ROM, No Lymph Node Enlargement Lungs: Clear to auscultation Cardiovascular: Regular Rhythm, Normal S1, Normal S2, No Murmurs, No Rubs, No Gallops Vascular: No Carotid Bruits, Normal Femoral Pulses, Normal Radial Pulses, Normal Dorsalis Pedal Pulse, Normal Posterior Tibial Pulses Abdomen: Bowel Sounds Present, Soft, Non Tender, No HSM, No Organomegaly Extremities: No Cyanosis, No Clubbing, No edema Neurological: No Focal Motor or Sensory Deficit Rhythm: EKG: ECHO: Stress Test: Cardiac Cath: PCI: CT Surgery: Holter monitor: EPS: PPM: CXR: Chest CT Scan: Medical Necessity - Tobacco Use Smoking Status: Current some day smoker Tobacco Use: Cigarettes, Chew - everyday Assessment/Plan 1. LV dysfunction: Patient has evidence of moderate LV dysfunction by echocardiogram, confirmed by stress echocardiogram as well. His baseline LVEF is 40% and he now presents with asymptomatic atrial fibrillation superimposed on LV dysfunction. Although the patient's stress test was negative for overt ischemia, and he had global improvement of his LV function, he nonetheless has evidence of global LV dysfunction which may be coronary related. Patient is several risk factors for coronary occlusive disease including his age, previous smoker, marijuana use, and hyperglycemia. To ensure the patient can endure an exercise program and that he has no rever sible causes of his LV dysfunction, I recommended the patient undergo a left heart catheterization this upcoming 07/23/2019, to confirm/deny the presence of significant coronary occlusive disease. If he has no significant coronary occlusive disease, we will discontinue his Plavix and treat him medically. In the meantime I recommend that we start him on Coreg 3.125 mg p.o. twice daily for heart rate control and afterload reduction. We will titrate this up to assist with heart rate control. In addition he will continue his lisinopril 20 mg p.o. daily for afterload reduction. I do not believe he requires diuretic therapy at this time. In addition I strongly recommended he discontinue all tobacco products, including chewing tobacco as he has a buccal mucosa lesion, discontinue all coffee and caffeine which may contribute to his atrial fibrillation, discontinue all alcohol which may contribute to his cardiomyopathy and discontinue marijuana as well. Hopefully with medications, cardiac rehab, and substance abuse cessation, his LV function will improve. We will repeat his echocardiogram in 3 to 4 months time. 2. Obstructive sleep apnea: Patient has signs and symptoms of possible obstructive sleep apnea, and I believe would benefit from an outpatient sleep study. 3. Hyperlipidemia: His LDL cholesterol is at goal and his HDL is low most likely secondary to tobacco abuse and genetic predisposition. Will await evaluation of his coronary arteries prior to application of antilipid therapy. 4. Atrial fibrillation: The patient developed asymptomatic paroxysmal atrial fibrillation which is converted to normal sinus rhythm. I do not believe he requires antiarrhythmic therapy at this time. We will continue subcu Lovenox for prophylaxis while in the hospital. Given his LV dysfunction as well as the asymptomatic paroxysmal nature of his atrial fibrillation, the patient may benefit from transient use of anticoagulation at home until he has demonstrated that his atrial fibrillation has improved. Would recommend a 30-day event monitor to determine if he has multiple episodes of atrial fibrillation that may be contributing to his LV dysfunction. If his catheterization is negative he may discharged home tomorrow morning. We will start anticoagulation therapy with Eliquis 5 mg p.o. twice daily 3 days after his catheterization. 4. Thank you very much for the opportunity to participate in the cardiac care of your patient. Cardiac catheterization to follow tomorrow morning, 07/23/2019. Code Visit Inpatient E&M: 11833 Subs Hosp L2
--- NOTE | 2019-07-22 12:45 | PN_ITS ---
Patient Problems: Active and Suspected Problems Atrial fibrillation (Acute) With rapid ventricular response Polycythemia (Acute) Hyperglycemia (Acute) Lesion of buccal mucosa (Acute) right side near the upper back teeth - lesion is pale and white, non-tender Subjective: Patient seen and examined. He had no complaints. He is for cardiac cath tomorrow. Labs and vitals reviewed. He has remained hemodynamically stable. Vitals/I&O's: Vital Signs Temp Pulse Resp BP Pulse Ox 97.8 F 72 16 138/99 H 97 07/22/19 09:00 07/22/19 09:00 07/22/19 09:00 07/22/19 09:00 07/22/19 09:54 Oxygen Delivery Method Room Air Weight: 240 lb 4.862 oz Body Mass Index (BMI) 33.5 Intake and Output for Last 24 Hours 07/20/19 07/21/19 07/22/19 23:59 23:59 23:59 Intake Total 480 / 480 3067.50 / 3067.50 520 / 520 Balance 480 / 480 3067.50 / 3067.50 520 / 520 General: Alert, Oriented x3, Cooperative, No apparent distress HEENT: Atraumatic, PERRLA, EOMI, Normocephalic Oral: Moist Mucosa Neck: Supple, No JVD, Negative Carotid Bruits Lungs: Clear to auscultation, Normal air movement, No rhonchi, No wheeze Cardiovascular: Regular rate, Regular Rhythm, Normal S1, Normal S2, No murmurs Abdomen: Bowel Sounds Present, Soft, Non Tender Extremities: No clubbing, No cyanosis, No edema, Capillary Refill Less than 3 Seconds Skin: No rashes, No breakdown Musculoskeletal: No Tenderness to Palpation of Joints or Extremities Lymphatic: No Cervical, Supraclavicular, or Inguinal Adenopathy Neurological: Cranial nerves II-XII grossly intact, Neuro grossly intact, Motor Exam 5/5 strength throughout Psych/Mental Status: Normal Affect, Appropriate, Alert and oriented to time, place, person, mood and affect Current Medications Acetaminophen (Tylenol) 650 mg PO Q6H PRN PRN PRN Reason: Pain Score 1-10/Temp > 100.7 F Aspirin (Aspirin) 325 mg PO DAILY@0800 [facility] Last Admin: 07/22/19 09:04 Dose: 325 mg Documented by: Carvedilol (Coreg) 3.125 mg PO BID [facility] Last Admin: 07/22/19 09:04 Dose: 3.125 mg Documented by: Clopidogrel Bisulfate (Plavix) 75 mg PO DAILY [facility] Last Admin: 07/22/19 09:04 Dose: 75 mg Documented by: Diphenhydramine HCl (Benadryl) 50 mg PO X1 ONE Stop: 07/23/19 07:01 Enoxaparin Sodium (Lovenox) 100 mg 1 mg/kg (100 mg) SC Q12 [facility] Last Admin: 07/22/19 09:03 Dose: Not Given Documented by: Sodium Chloride () 250 mls @ 15 mls/hr IV .[id number] PRN PRN Reason: Saline Flush Sodium Chloride () 250 mls @ 15 mls/hr IV .[id number] PRN PRN Reason: Additional IVPB Infusion Sodium Chloride () 1,000 mls @ 15 mls/hr IV .Q48H [facility] Ondansetron HCl (Zofran) 4 mg IV Q8H PRN PRN PRN Reason: NAUSEA/VOMITING Polyethylene Glycol (Miralax) 17 gm PO BID [facility] Sodium Chloride () 10 - 40 ml IV UD PRN PRN Reason: SALINE FLUSH Temazepam (Restoril) 15 mg PO QHS PRN PRN PRN Reason: INSOMNIA Last Admin: 07/20/19 22:07 Dose: 15 mg Documented by: STROKE Vital Signs/Narrative: Vital Signs Temp Pulse Resp BP Pulse Ox 07/22/19 09:54 97 07/22/19 09:00 97.8 F 72 16 138/99 H 100 Medical Necessity - Tobacco Use Smoking Status: Current some day smoker Tobacco Use: Cigarettes, Chew - everyday Assessment/Plan All Active Problems Atrial fibrillation (Acute) Polycythemia (Acute) Hyperglycemia (Acute) Lesion of buccal mucosa (Acute) Omphalocele (Resolved) Small bowel obstruction (Resolved) 1. New onset paroxysmal afib * in sinus rhythm now. * TSH was 0.99. * cardiology consulted; on therapeutic lovenox * on carvedilol * He likely has KATELIN, which is contributing to Afib * 2D echo: showed EF of 40%, with moderate global hypokinesis of left ventricle; unable to assess diastolic dysfunction due to arrhythmia. RVSP of 33mmHg * he had stress echocardiogram, which was negative for ischemia. * per cardiology, for cardiac cath tomorrow * 2. Probable KATELIN * says he snores at home; likely has KATELIN which is contributing to Afib. * will need sleep study on outpatient basis and follow up with pulmonology * 3.Secondary polycythemia:Hb was 18. now 15.2. 4. Hyperglycemia: was 126. A1C was 5.6. 5.Hypertension: lisinopril discontinued o/a of chronic cough. Now on carvedilol. 6. Buccal lesion: has a history of chewing tobacco daily. Will need follow up with dentist/oral surgeon to get it biopsied and evaluated DVT prophylaxis: on therapeutic lovenox. consider switching to DOACs after cardiac cath Code Visit Inpatient E&M: 93393 Subs Hosp L2
[2019-07-22] MEDS: Polyethylene Glycol 3350 17 GM PACKET PO ×2 (13:12→21:08)
[2019-07-22] MEDS: Enoxaparin 100 MG/ML Syringe SC (21:08)
[2019-07-23] VITALS (14 sets, daily range): BP systolic 108–140; BP diastolic 57–90; PULSE 61–87; RESP 14–18; TEMP 36.6; O2SAT 93–100
--- NOTE | 2019-07-23 05:55 | EKG12_ITS ---
Test Reason : AM EKG Blood Pressure : / mmHG Vent. Rate : 068 BPM Atrial Rate : 068 BPM P-R Int : 138 ms QRS Dur : 084 ms QT Int : 398 ms P-R-T Axes : 029 042 030 degrees QTc Int : 423 ms Normal sinus rhythm Normal ECG When compared with ECG of 20-JUL-2019 17:33, MANUAL COMPARISON REQUIRED, DATA IS UNCONFIRMED Confirmed by AMY MORA ([id number]), film editor MICHELLE ABARCA ([id number]) on 07/26/2019 9:59:42 AM Referred By: Odette Morales Confirmed By:AMY MORA
[2019-07-23 05:59] LABS: Absolute Lymphocyte Count 2.35 X10^3/uL (0.83-4.51); Absolute Neutrophil Count 3.6 X10^3/uL (2.0-7.7); Basophil# 0.05 X10^3/uL; Basophil% 0.7 % (0-1); Eosinophil# 0.25 X10^3/uL; Eosinophils% 3.5 % (0-5); Hematocrit 46.4 % (40-54); Hemoglobin 15.4 g/dL (13.0-16.5); Lymphocyte # 2.35 X10^3/ul (4.0); Mean Corp Hgb Conc 33.2 g/dL (32-36); Mean Corpuscular Hgb 31.2 pg (27.0-32.0); Mean Corpuscular Volume 94.1 fL (80-94); Mean Platelet Vol. 10.2 fl (6.2-12.0); Monocyte# 0.79 X10^3/uL; Monocyte% 11.1 % (0-10); NRBC Flagged by Analyzer 0 % (0-5); Neutrophil # 3.64 X10^3/uL (2.7-7.7); Neutrophil % 51.1 % (47-70); Platelet Count 183 K/mm3 (150-450); RBC Distribution Width SD 41.4 fl (35.1-43.9); Red Blood Count 4.93 M/mm3 (4.6-6.2); White Blood Count 7.1 K/mm3 (4.4-11.0)
[2019-07-23 06:23] LABS: Anion Gap 5 (5-15); BUN 13 mg/dL (7-18); BUN/Creat Ratio 14.5 RATIO (10-20); Calcium,Total 8.8 mg/dL (8.5-10.1); Chloride 106 mmol/L (98-107); EST Glomerular Filtration Rate 99 mL/min (>60); Est Glom Filt Rate - Afr Amer 120 mL/min (>60); Estimated Creatinine Clearance 113.88 ml/min; Glucose 99 mg/dL (74-106); Potassium 3.9 mmol/L (3.5-5.1); Sodium Level 140 mmol/L (136-145)
[2019-07-23] MEDS: Aspirin 325 MG Tablet PO (06:37)
[2019-07-23] MEDS: Carvedilol 3.125 MG TABLET PO (06:37)
[2019-07-23] MEDS: Clopidogrel Bisulfate 75 MG Tablet PO (06:37)
[2019-07-23] MEDS: 0.9% Saline Lock 10 ML Syringe IV (06:42)
[2019-07-23] MEDS: 0.9% Normal Saline 1,000 ML 15 ML IV (06:55)
[2019-07-23] MEDS: DiphenhydrAMINE 25 MG Capsule 50 MG PO (06:55)
--- NOTE | 2019-07-23 08:19 | CL.D_ITS ---
Patient Name: RHYS GUDINO Study Date: 07/23/2019 Performing: Radhames Salas MD Ht: 70.86 inches 180 cm : 1975 Wt: 240.3 lbs 109 kg Age: 44 Gender: male BSA: 2.28 PROCEDURE(S) PERFORMED PE31-PEN/COR/LV CLINICAL PROFILE AND INDICATIONS Indications: Suspected CAD, Cardiac Arrythmia, LV Dysfunction Heart Failure: NYHA Class: 2, Newly Diagnosed: Yes, Heart Failure Type: Systolic Stress/Imaging Date: 07/21/2019 Angina Classification Anginal Classification w/in 2 Weeks: Anginal Equivalent Dyspnea CAD Presentations: No Sxs, no angina. Comorbidities/Risk Factors: Hypertension Dyslipidemia CONCLUSIONS Global LV systolic dysfunction- Moderate LVEF: by LV gram 45 % Elevated Left Ventricular End Diastolic Pressure RECOMMENDATIONS Management as per referring Hotel Receptionist d/c plavix, reduce to baby asa for non obst. CAD, start cozaar 25mg po daily. start lipitor 20mg po q hs. Outpatient sleep study. 30 day event monitor for PAF and start eliquis in 3 days for asymptomat ic PAF. Manual sheath removal. D/w with Dr Elizabeth. DESCRIPTION OF PROCEDURE The patient arrived to the procedure lab. The risks and benefits of the procedure as well as a full d escription of our services here and current unavailability of surgical backup were fully explained to the patient and/or their significant other prior to the catheterization. The Timeout was completed, verifying the correct patient and procedure. The patient's procedural site was prepped and draped in the usual fashion. Local anesthetic was given subcutaneously to right groin region with Lidocaine 2%. Using a modified Seldinger technique, arterial access was obtained via the right femoral artery, a 4 Fr sheath was inserted Left Coronary Artery selective angiography was performed in multiple views us ing a 4 Fr. JL5 catheter. Right Coronary Artery selective angiography was then performed in multiple views using a 4 Fr. 3DRC catheter. Left Ventriculography was performed in CHUA projection using a 4 Fr . Pigtail catheter. LV to AO pullback pressures were then recorded.The arterial sheath was pulled and manual compression applied until hemostasis is achieved. CORONARY ANGIOGRAPHY DOMINANCE: Right Dominant LEFT HEART ASSESSMENT Left Ventricular Ejection Fraction: by LV Gram 45 % Global Hypokinesis - Moderate Depressed Left Ventricular systolic function LVEDP: 20 mmHg Elevated Left Ventricular End Diastolic Pressure LEFT MAIN: Angiographically normal LEFT ANTERIOR DESCENDING ARTERY: Angiographically normal CIRCUMFLEX ARTERY: Angiographically normal RIGHT CORONARY ARTERY: PROX RCA: Mild luminal irregularities less than 30% COMPLICATIONS No Complications PROCEDURE MEDICATIONS Versed 1 mg IV Oxygen: 2 L/min via nasal cannula SUMMARY OF HEMODYNAMIC DATA Time AIR REST ECG 07:37:14 AO 148/91 (117) SA 07:55:38 LV 136/-11, 9 08:01:21 LV 139/-13, 20 08:01:28 LVp 146/-16, 19 08:01:31 AOp 133/77 (102) 08:01:36 Signed By Radhames Salas MD On 07/23/2019 8:18:08 AM Radhames Salas MD
[2019-07-23] MEDS: Losartan Potassium 25 MG Tablet PO (09:49)
--- NOTE | 2019-07-23 12:13 | PN_ITS ---
Patient Problems: Active and Suspected Problems Atrial fibrillation (Acute) With rapid ventricular response Hyperglycemia (Acute) Polycythemia (Acute) Lesion of buccal mucosa (Acute) right side near the upper back teeth - lesion is pale and white, non-tender Vitals/I&O's: Vital Signs Temp Pulse Resp BP Pulse Ox 97.8 F 87 16 108/69 98 07/23/19 09:10 07/23/19 11:25 07/23/19 11:25 07/23/19 11:25 07/23/19 11:25 Oxygen Delivery Method Room Air Weight: 109 kg Body Mass Index (BMI) 33.5 Intake and Output for Last 24 Hours 07/21/19 07/22/19 07/23/19 23:59 23:59 23:59 Intake Total 3547.50 / 3547.50 920 / 920 840 / 840 Output Total 825 / 825 Balance 3547.50 / 3547.50 920 / 920 Laboratory Results 07/23/19 05:20: WBC 7.1, RBC 4.93, Hgb 15.4, Hct 46.4, MCV 94.1 H, MCH 31.2, MCHC 33.2, RDW Std Deviation 41.4, RDW Coeff of Carol Ann 12.0, Plt Count 183, MPV 10.2, Immature Gran % (Auto) 0.600, Neut % (Auto) 51.1, Lymph % (Auto) 33.0, [place] % (Auto) 11.1 H, Eos % (Auto) 3.5, Baso % (Auto) 0.7, Absolute Neuts (auto) 3.6, Absolute Lymphs (auto) 2.35, Nucleated RBC % 0 07/23/19 05:20: Sodium 140, Potassium 3.9, Chloride 106, Carbon Dioxide 29.0, Anion Gap 5, BUN 13, Creatinine 0.90, Estim Creat Clear Calc 113.88, Est GFR (MDRD) Af Amer 120, Est GFR (MDRD) Non-Af 99, BUN/Creatinine Ratio 14.5, Glucose 99, Calcium 8.8 Current Medications Acetaminophen (Tylenol) 650 mg PO Q6H PRN PRN PRN Reason: Pain Score 1-10/Temp > 100.7 F Aspirin (Aspirin, Baby) 81 mg PO DAILY@0800 [facility] Atorvastatin Calcium (Lipitor) 20 mg PO QHS [facility] Carvedilol (Coreg) 3.125 mg PO BID [facility] Last Admin: 07/23/19 06:37 Dose: 3.125 mg Documented by: Heparin Sodium (Beef Lung) (Heparin 500 Unit/5 Ml (100/Ml)) 500 unit IV UD PRN PRN Reason: HEPARIN FLUSH Sodium Chloride () 250 mls @ 15 mls/hr IV .[id number] PRN PRN Reason: Saline Flush Sodium Chloride () 250 mls @ 15 mls/hr IV .[id number] PRN PRN Reason: Additional IVPB Infusion Sodium Chloride () 1,000 mls @ 15 mls/hr IV .Q48H [facility] Last Admin: 07/23/19 06:55 Dose: 15 mls/hr Documented by: Labetalol HCl (Trandate) 5 mg IV X1 PRN PRN Reason: SBP > 160 prior to sheath pull Stop: 07/25/19 08:05 Losartan Potassium (Cozaar) 25 mg PO DAILY [facility] Last Admin: 07/23/19 09:49 Dose: 25 mg Documented by: Ondansetron HCl (Zofran) 4 mg IV Q8H PRN PRN PRN Reason: NAUSEA/VOMITING Polyethylene Glycol (Miralax) 17 gm PO BID [facility] Last Admin: 07/23/19 09:49 Dose: Not Given Documented by: Sodium Chloride () 10 - 40 ml IV UD PRN PRN Reason: SALINE FLUSH Last Admin: 07/23/19 06:42 Dose: 10 ml Documented by: Temazepam (Restoril) 15 mg PO QHS PRN PRN PRN Reason: INSOMNIA Last Admin: 07/20/19 22:07 Dose: 15 mg Documented by: STROKE Vital Signs/Narrative: Vital Signs Temp Pulse Resp BP Pulse Ox 07/23/19 11:25 87 16 108/69 98 07/23/19 11:03 84 07/23/19 10:25 86 14 132/72 H 95 07/23/19 09:55 77 16 138/85 H 96 07/23/19 09:25 74 16 121/71 H 98 07/23/19 09:10 97.8 F 78 14 131/74 H 96 07/23/19 08:55 70 18 125/69 H 93 07/23/19 08:40 79 16 120/75 95 07/23/19 08:25 78 16 138/89 H 97 Medical Necessity - Tobacco Use Smoking Status: Current some day smoker Tobacco Use: Cigarettes, Chew - everyday Assessment/Plan All Active Problems Atrial fibrillation (Acute) Hyperglycemia (Acute) Polycythemia (Acute) Lesion of buccal mucosa (Acute) Omphalocele (Resolved) Small bowel obstruction (Resolved)
--- NOTE | 2019-07-23 12:42 | CASEMGMT ---
TIFFANY WILSON assessment: Face to Face with patient for initial transition planning/care coordination assessment. RN KATIE introduced self and role at [facility], pt voices understanding and consents to assessment at this time. Pt is sitting up in bed in no distress at this time. Pt is A/Ox4 at this time and answers all questions appropriately at this time. Pt's is at bedside during assessment. Care providers, pharmacy, and demographics verified at this time. Presentation: Sent from PCP office for afib on EKG Admitting dx: Afib RVR PCP: [facility]ron Specialists: Pt states currently no specialists. Preferred Pharmacy: [facility] Insurance: Tobias Prescription Benefit: Tobias Living Will/HPOA: Pt states has LW/HPOA and they are currently on file at [facility] at this time. Pt's , Lilibeth Bentley, is HPOA. LNOK: Lilibeth Bentley, /HPOA Living Arrangements: Pt states lives with in home and states no concerns at home at this time. Pt is independent with ADL's. Transportation: Pt states drives self and states no transportation concerns at this time. DME/HHC: Pt states no current DME or need for any at this time. Pt states no hx of HHC or SNF. Pt states no concerns with going home at time of discharge. 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 Pt states does not smoke cigarettes and rarely drinks ETOH. Pt states no further concerns/needs at this time. CM to follow for any further discharge planning/needs. Advised pt to ask for CM if any further questions/concerns/needs arise, voices understanding. Pt Goal: Home Plan[place] WIL[place]
--- NOTE | 2019-07-23 12:45 | PCM.DC ---
- Discharge Diagnoses Current Active Problems: Current Active and Chronic Problems Atrial fibrillation (Acute) With rapid ventricular response Hypertension (Chronic) Hyperglycemia (Acute) Sleep-disordered breathing (Chronic) suspect KATELIN Polycythemia (Acute) Tobacco dependence due to cigarettes (Chronic) Marijuana smoker (Chronic) Tobacco dependence due to chewing tobacco (Chronic) Anxiety (Chronic) Lesion of buccal mucosa (Acute) right side near the upper back teeth - lesion is pale and white, non-tender Reason(s) for Visit for Discharge Instructions: Abnormal EKG You will use the following diet at home:: Cardiac Your food should be the consistency of: Regular Your liquids should be the consistency of: Regular/Thin Discharge Activity: Return to Normal Activity Instructions: Atrial Fibrillation, Controlling High Blood Pressure, Eating a Low-Salt Diet, Low-Salt Choices, Taking Blood Pressure Medications, Taking Your Blood Pressure, Planning to Quit Smoking, The Benefits of Living Smoke Free Additional Instructions: Start taking Eliquis in 3 days, on 07/26/19. Take note of changes to your medications. Take all your medications as prescribed. Take your blood pressure everyday and show a log of your BP to your primary care doctor. Allergies/Adverse Reactions: Allergies CILLINS Allergy (Uncoded 07/20/19 11:34) Other Medications to take at Discharge Multivitamin with Minerals [Multiple Vitamin] 1 ea PO DAILY 07/20/19 Acetaminophen [Tylenol Tablet] 650 mg PO Q6H PRN PRN tab 07/23/19 Apixaban [Eliquis] 5 mg PO BID 30 Days #60 tab 07/23/19 Aspirin [Aspirin, Baby] 81 mg PO DAILY@0800 30 Days #30 tab.chew 07/23/19 Atorvastatin Calcium [Lipitor] 20 mg PO QHS #30 tab 07/23/19 Carvedilol [Coreg (Beta Darnell)] 3.125 mg PO BID 30 Days #60 tab 07/23/19 Losartan Potassium [Cozaar] 25 mg PO DAILY 30 Days #30 tab 07/23/19 The following prescriptions were given: Aspirin [Aspirin, Baby] 81 mg PO DAILY@0800 30 Days #30 tab.chew Transmission Status: P[facility] to [facility] Carvedilol [Coreg (Beta Darnell)] 3.125 mg PO BID 30 Days #60 tab Losartan Potassium [Cozaar] 25 mg PO DAILY 30 Days #30 tab Apixaban [Eliquis] 5 mg PO BID 30 Days #60 tab Transmission Status: Pending to [facility] Atorvastatin Calcium [Lipitor] 20 mg PO QHS #30 tab Transmission Status: Pending to [facility] Orders to be completed after discharge: 30 Day Event Recorder [facility] [[facility]] Location: None Selected Primary Care Physician: Masoud Lundy [Primary Care Provider] - Please follow up with your Primary Care Physician in: withi 1-2 weeks Test Results: Test results from this visit will be discussed in further detail at your follow-up appointment, if applicable. Please Follow Up With: Maria Isabel Contreras PA When: in 4 weeks Proposed Discharge Date: 07/23/19
--- NOTE | 2019-07-23 12:51 | PCM.DC.SUM ---
Discharge Date and Diagnosis Date of Admission: 07/20/19 Date of Discharge: 07/23/19 - Primary Discharge Diagnosis Active and Suspected Problems New onset paroxysmal atrial fibrillation with RVR Probable KATELIN Secondary polycythemia Hyperglycemia without diabetes - Secondary Discharge Diagnosis Chronic Problems Hypertension (Chronic) Sleep-disordered breathing (Chronic) suspect KATELIN Tobacco dependence due to cigarettes (Chronic) Marijuana smoker (Chronic) Tobacco dependence due to chewing tobacco (Chronic) Malrotation colon (Chronic) Anxiety (Chronic) Hospital Course and Treatment Imaging Results: Clinical Impression(s) from Imaging Studies Chest X-Ray 07/20/19 11:35 IMPRESSION: Normal x-ray examination of the chest. Electronically Signed: Patel Son MD at 12:02 EST Tel , Service support , Cardiology Operations: None Procedures: Cardiac catheterization Summary of Care Provided: The patient is a 44 year old M with past medical history of hypertension, nicotine dependence with cigarettes and chewing tobacco, marijuana use, anxiety/depression was admitted from the primary care doctor's office with atrial fibrillation with RVR. Patient had denied any symptoms of chest pain or palpitations dizziness. He was treated with IV Cardizem in the emergency department, and continued on metoprolol. Patient converted to normal sinus rhythm. Cardiology was consulted. 2D echo showed moderate global hypokinesis of the left ventricle. Patient underwent cardiac cath that showed minimal coronary artery disease. It was recommended that he follows up with his primary care doctor for sleep study. He was continued on aspirin, statin, beta-darnell. His home lisinopril was switched to losartan and carvedilol on account of cough. He was advised to quit smoking and using illicit drugs. Was discharged also on Eliquis which he would resume 3 days from discharge. He was also discharged on a 30-day event monitor. He will follow-up with cardiology in a month. Subjective: On the day of discharge, patient was seen and examined. Denied any new complaints. - Physical Exam Vitals/I&O's: Vital Signs Temp Pulse Resp BP Pulse Ox 97.8 F 84 16 126/75 H 95 07/23/19 09:10 07/23/19 12:30 07/23/19 12:30 07/23/19 12:30 07/23/19 12:30 Oxygen Delivery Method Room Air Weight: 109 kg Body Mass Index (BMI) 33.5 Intake and Output for Last 24 Hours 07/21/19 07/22/19 07/23/19 23:59 23:59 23:59 Intake Total 3547.50 / 3547.50 920 / 920 840 / 840 Output Total 825 / 825 Balance 3547.50 / 3547.50 920 / 920 General: Alert, Oriented x3, Cooperative, No apparent distress HEENT: Atraumatic, PERRLA, EOMI, Normocephalic Neck: Supple Lungs: Clear to auscultation, Normal air movement Cardiovascular: Regular rate, Regular Rhythm, Normal S1, Normal S2, No murmurs Abdomen: Bowel Sounds Present, Soft, Non Tender, Non-Distended, No Hepato-splenomegaly, - - No hematoma or tenderness at the right groin site Extremities: No edema Skin: No rashes, No breakdown Musculoskeletal: No Tenderness to Palpation of Joints or Extremities Lymphatic: No Cervical, Supraclavicular, or Inguinal Adenopathy Neurological: Cranial nerves II-XII grossly intact, Neuro grossly intact Psych/Mental Status: Normal Affect, Appropriate Laboratory Results 07/23/19 05:20: WBC 7.1, RBC 4.93, Hgb 15.4, Hct 46.4, MCV 94.1 H, MCH 31.2, MCHC 33.2, RDW Std Deviation 41.4, RDW Coeff of Carol Ann 12.0, Plt Count 183, MPV 10.2, Immature Gran % (Auto) 0.600, Neut % (Auto) 51.1, Lymph % (Auto) 33.0, [place] % (Auto) 11.1 H, Eos % (Auto) 3.5, Baso % (Auto) 0.7, Absolute Neuts (auto) 3.6, Absolute Lymphs (auto) 2.35, Nucleated RBC % 0 07/23/19 05:20: Sodium 140, Potassium 3.9, Chloride 106, Carbon Dioxide 29.0, Anion Gap 5, BUN 13, Creatinine 0.90, Estim Creat Clear Calc 113.88, Est GFR (MDRD) Af Amer 120, Est GFR (MDRD) Non-Af 99, BUN/Creatinine Ratio 14.5, Glucose 99, Calcium 8.8 Current Medications Acetaminophen (Tylenol) 650 mg PO Q6H PRN PRN PRN Reason: Pain Score 1-10/Temp > 100.7 F Aspirin (Aspirin, Baby) 81 mg PO DAILY@0800 [facility] Atorvastatin Calcium (Lipitor) 20 mg PO QHS [facility] Carvedilol (Coreg) 3.125 mg PO BID [facility] Last Admin: 07/23/19 06:37 Dose: 3.125 mg Documented by: Heparin Sodium (Beef Lung) (Heparin 500 Unit/5 Ml (100/Ml)) 500 unit IV UD PRN PRN Reason: HEPARIN FLUSH Sodium Chloride () 250 mls @ 15 mls/hr IV .[id number] PRN PRN Reason: Saline Flush Sodium Chloride () 250 mls @ 15 mls/hr IV .[id number] PRN PRN Reason: Additional IVPB Infusion Sodium Chloride () 1,000 mls @ 15 mls/hr IV .Q48H [facility] Last Admin: 07/23/19 06:55 Dose: 15 mls/hr Documented by: Labetalol HCl (Trandate) 5 mg IV X1 PRN PRN Reason: SBP > 160 prior to sheath pull Stop: 07/25/19 08:05 Losartan Potassium (Cozaar) 25 mg PO DAILY [facility] Last Admin: 07/23/19 09:49 Dose: 25 mg Documented by: Ondansetron HCl (Zofran) 4 mg IV Q8H PRN PRN PRN Reason: NAUSEA/VOMITING Polyethylene Glycol (Miralax) 17 gm PO BID [facility] Last Admin: 07/23/19 09:49 Dose: Not Given Documented by: Sodium Chloride () 10 - 40 ml IV UD PRN PRN Reason: SALINE FLUSH Last Admin: 07/23/19 06:42 Dose: 10 ml Documented by: Temazepam (Restoril) 15 mg PO QHS PRN PRN PRN Reason: INSOMNIA Last Admin: 07/20/19 22:07 Dose: 15 mg Documented by: Discharge Diet: Low fat/ Low Cholesterol, 2000 mg Sodium Diet Discharge Activity: Return to Normal Activity Home Medications: Medications to take at Discharge Multivitamin with Minerals [Multiple Vitamin] 1 ea PO DAILY 07/20/19 Acetaminophen [Tylenol Tablet] 650 mg PO Q6H PRN PRN tab 07/23/19 Apixaban [Eliquis] 5 mg PO BID 30 Days #60 tab 07/23/19 Aspirin [Aspirin, Baby] 81 mg PO DAILY@0800 30 Days #30 tab.chew 07/23/19 Atorvastatin Calcium [Lipitor] 20 mg PO QHS #30 tab 07/23/19 Carvedilol [Coreg (Beta Darnell)] 3.125 mg PO BID 30 Days #60 tab 07/23/19 Losartan Potassium [Cozaar] 25 mg PO DAILY 30 Days #30 tab 07/23/19 Following Prescrptions Were Given to Patient: Aspirin [Aspirin, Baby] 81 mg PO DAILY@0800 30 Days #30 tab.chew Transmission Status: Received by [facility] Carvedilol [Coreg (Beta Darnell)] 3.125 mg PO BID 30 Days #60 tab Losartan Potassium [Cozaar] 25 mg PO DAILY 30 Days #30 tab Apixaban [Eliquis] 5 mg PO BID 30 Days #60 tab Transmission Status: Received by [facility] Atorvastatin Calcium [Lipitor] 20 mg PO QHS #30 tab Transmission Status: Received by [facility] [id number] Other Amb Orders: 30 Day Event Recorder Prevent[facility] [[facility]] Location: None Selected Phase II, Outpatient Cardiac Rehab Location: None Selected Primary Care Physician: Masoud Lundy [Primary Care Provider] - Please follow up with your Primary Care Physician in: withi 1-2 weeks Please Follow Up With: Maria Isabel Contreras PA When: in 4 weeks Patient Instructions: Controlling High Blood Pressure, Low-Salt Choices, Planning to Quit Smoking, The Benefits of Living Smoke Free, Atrial Fibrillation, Eating a Low-Salt Diet, Taking Blood Pressure Medications, Taking Your Blood Pressure Disposition: Home Minutes spent on discharge:: 40 Patient Condition:: Stable Medical Necessity - Tobacco Use Smoking Status: Current some day smoker Tobacco Use: Cigarettes, Chew - everyday Meaningful Use Info Meaningful Use Diagnoses (Choose all that apply): None applicable Code Visit Inpatient E&M: 90925 Disch Hosp
--- NOTE | 2019-07-23 13:35 | CASEMGMT ---
Pt to be sent home on Eliquis at discharge and med already e-scribed to [facility] previously. Call to Keyana at [facility] and she states that pt's co-pay for Eliquis is $35 at this time. Pt/ updated at this time and pt given $10 co-pay card with instructions at this time, voice understanding. Pt/ voice no further questions/concerns/needs at this time. SStfrancesco ALLEN CM
[2019-07-23 14:33] LABS: Pathologist Review Reviewed
== END 2019-07-23 13:44 | disposition home or self-care (01) | DRG 287 ==
LOC: ED 12:59 → PCU 14:23
PROVIDERS: Student in an Organized Health Care Education/Training Program; Admitting Provider Internal Medicine; Emergency Provider Emergency Medicine; PCP Family Medicine; Referring Provider Internal Medicine; Visit Provider Internal Medicine
DX: I48.0 Paroxysmal atrial fibrillation (principal); I50.20 Unspecified systolic (congestive) heart failure; D75.1 Secondary polycythemia; G47.33 Obstructive sleep apnea (adult) (pediatric); R73.9 Hyperglycemia, unspecified; F12.90 Cannabis use, unspecified, uncomplicated; F41.9 Anxiety disorder, unspecified; F17.220 Nicotine dependence, chewing tobacco, uncomplicated; F17.210 Nicotine dependence, cigarettes, uncomplicated; K13.70 Unspecified lesions of oral mucosa; I25.10 Atherosclerotic heart disease of native coronary artery without angina pectoris; I11.0 Hypertensive heart disease with heart failure
CPT/HCPCS: 36415; 71045; 80048; 80061; 80076; 83036; 83735; 84443; 84484; 85025; 93005; 93017; 93306; 93350; 93458; 99152; 99153; 99285; J7030; Q9957; Q9967; A4216; C1769; C1894; C8928; C8929

== ENCOUNTER 2019-07-30 17:08 | Emergency (ER) | payer BC, SELFPAY ==
[2019-07-20 14:58] VITALS: BMI 33.5
[2019-07-30 17:10] VITALS: BP 152/114; PULSE 82; RESP 16; TEMP 36.6; O2SAT 98; BMI 34.2
[2019-07-30 17:30] VITALS: BP 113/85; PULSE 157; RESP 13; O2SAT 97
--- NOTE | 2019-07-30 17:31 | EKG12_ITS ---
Test Reason : PALPS Blood Pressure : / mmHG Vent. Rate : 151 BPM Atrial Rate : 416 BPM P-R Int : 000 ms QRS Dur : 074 ms QT Int : 292 ms P-R-T Axes : 000 022 045 degrees QTc Int : 462 ms Atrial fibrillation with rapid ventricular response with premature ventricular or aberrantly conducte d complexes Abnormal ECG Confirmed by STEPHEN GARCIA, PARVIZ ([id number]), editor greeting card MICHELLE ABARCA ([id number]) on 08/01/2019 1:51:44 PM Referred By: Confirmed By:PARVIZ MITCHELL MD
--- NOTE | 2019-07-30 17:35 | RAD_ITS ---
STUDY: X-RAY CHEST REASON FOR EXAM: Male, 44 years old. PALPITATIONS, IRREGULAR HEART RATE, PAIN TECHNIQUE: Single AP portable view of the chest. COMPARISON: 07/20/2019. FINDINGS: The lungs are clear and expanded. There is no demonstrated pleural abnormality. Normal size heart. Normal mediastinum and arnaldo. Normal visualized pulmonary arteries. Normal visualized aortic arch and descending thoracic aorta. Normal visualized thoracic spine. Normal visualized ribs, clavicles, and shoulders. There is no demonstrated abnormality of the visualized soft tissue structures of the upper abdomen. RAD/Chest 1 View (Portable) IMPRESSION: Normal x-ray examination of the chest. Electronically Signed: David Galicia MD at 17:56 EST , Service support ,
[2019-07-30 17:41] LABS: Absolute Lymphocyte Count 2.45 X10^3/uL (0.83-4.51); Absolute Neutrophil Count 9.3 X10^3/uL (2.0-7.7); Basophil# 0.09 X10^3/uL; Basophil% 0.7 % (0-1); Eosinophil# 0.16 X10^3/uL; Eosinophils% 1.2 % (0-5); Hematocrit 51.2 % (40-54); Hemoglobin 17.6 g/dL (13.0-16.5); Lymphocyte # 2.45 X10^3/ul (4.0); Mean Corp Hgb Conc 34.4 g/dL (32-36); Mean Corpuscular Hgb 31.4 pg (27.0-32.0); Mean Corpuscular Volume 91.4 fL (80-94); Mean Platelet Vol. 9.9 fl (6.2-12.0); Monocyte# 1.58 X10^3/uL; Monocyte% 11.6 % (0-10); NRBC Flagged by Analyzer 0 % (0-5); Neutrophil # 9.27 X10^3/uL (2.7-7.7); Neutrophil % 68.1 % (47-70); POSITIVE DIFFERENTIAL YES; Platelet Count 268 K/mm3 (150-450); RBC Distribution Width CV 11.8 % (11.6-14.6); RBC Distribution Width SD 39.2 fl (35.1-43.9); White Blood Count 13.6 K/mm3 (4.4-11.0)
[2019-07-30 17:45] LABS: Differential Indicated SCAN CRITERIA MET
[2019-07-30] MEDS: 0.9% Normal Saline 1,000 ML 1000 ML IV (17:46)
[2019-07-30 17:54] VITALS: PULSE 90; RESP 20; O2SAT 96
[2019-07-30 18:07] LABS: AST(SGOT) 21 U/L (15-37); Alanine Aminotransfer ALT/SGPT 61 U/L (16-61); Albumin, Serum 3.7 g/dL (3.2-5.0); Alkaline Phosphatase 119 U/L (45-117); Anion Gap 5 (5-15); BUN 15 mg/dL (7-18); BUN/Creat Ratio 14.3 RATIO (10-20); Chloride 105 mmol/L (98-107); Creatinine, Serum 1.05 mg/dL (0.70-1.30); EST Glomerular Filtration Rate 82 mL/min (>60); Est Glom Filt Rate - Afr Amer 99 mL/min (>60); Estimated Creatinine Clearance 97.61 ml/min; Globulin 3.7 g/dL (2.2-4.2); Glucose 104 mg/dL (74-106); Potassium 4.1 mmol/L (3.5-5.1); Protein, Total 7.4 g/dL (6.4-8.2); Sodium Level 137 mmol/L (136-145)
[2019-07-30 18:23] LABS: Differential Comment SCANNED
[2019-07-30 18:31] VITALS: BP 129/98; PULSE 93; RESP 20; O2SAT 97
--- NOTE | 2019-07-30 18:34 | EKG12_ITS ---
Test Reason : REPEAT EKG Blood Pressure : / mmHG Vent. Rate : 086 BPM Atrial Rate : 086 BPM P-R Int : 140 ms QRS Dur : 082 ms QT Int : 358 ms P-R-T Axes : 025 012 018 degrees QTc Int : 428 ms Sinus rhythm with Premature atrial complexes Otherwise normal ECG Confirmed by STEPHEN GARCIA, PARVIZ ([id number]), publication editor MICHELLE ABARCA ([id number]) on 08/01/2019 1:52:01 PM Referred By: MONICA Confirmed By:PARVIZ MITCHELL MD
--- NOTE | 2019-07-30 18:58 | ED.VISSUMM ---
- ER Visit Summary Date of Service: 07/30/19 Chief Complaint: Palpitations History of Present Illness: The patient is a 44 M who presents with palpitations that began today. Patient states the patient is began rather suddenly. Patient states he feels some fluttering in his chest. Patient states he was recently diagnosed with atrial fibrillation but he converted spontaneously. Patient has been on Eliquis for the past week. Patient states he feels the fluttering over the left chest area. Patient states nothing makes it better or worse. Patient denies any nausea or vomiting. Patient denies any diaphoresis. Patient denies any fevers or chills. Patient denies any shortness of breath. Physical Examination: Vital signs are stable except for a tachycardia of 151 and a mildly elevated blood pressure 152/114. Patient is afebrile. Patient is in no acute distress. Oral mucosa is pink and moist. Oropharynx is clear. Neck is supple. Trachea is midline. There is no JVD. Heart was irregularly irregular and tachycardic. Lungs are clear and equal bilaterally. Abdomen is soft. Bowel sounds are normal. Cranial nerves II through XII are intact. There are no focal motor or sensory deficits noted peer extremities are intact. There is no tenderness or edema. Test Results: Initial EKG showed atrial fibrillation with a rate of 151. There are no acute ST or T wave changes. Portable chest x-ray was obtained. There is no acute cardiopulmonary process. CBC, comprehensive metabolic profile, troponin were obtained and were essentially within normal limits. Emergency Department Course and Treatment: Patient was given IV fluids here. Patient converted to a normal sinus rhythm spontaneously. Repeat EKG showed normal sinus rhythm with a rate of 86. There are occasional PACs noted. There are no acute ST or T wave changes. Patient was feeling better on reevaluation. Patient was instructed to continue his medications as previously prescribed. Patient was instructed to follow-up with his primary care physician and manufacturing sales representative as scheduled. Patient understood and was agreeable with the plan. All questions were answered. Disposition: Discharge home Impression: Paroxysmal atrial fibrillation This note was generated with [employer] software. It may contain incorrect words, spelling, and punctuation that were not noted in review of the chart prior to signing ED Disposition - Plan for ED Patient: Disposition: Home or Assisted Living Diagnosis: Paroxysmal atrial fibrillation Instructions: Atrial Fibrillation Referrals: Masoud Lundy [Primary Care Provider] - Keep [facility]lin appointment Radhames Salas MD [STAFF PHYSICIAN] - Keep [facility]lin appointment
[2019-07-30 19:02] VITALS: PULSE 92; RESP 20; O2SAT 97
[2019-07-30 19:27] VITALS: BP 123/98; PULSE 91; RESP 18; O2SAT 93
[2019-07-31 14:41] LABS: Pathologist Review Reviewed
== END 2019-07-30 19:32 | disposition home or self-care (01) ==
PROVIDERS: Emergency Provider Emergency Medicine; PCP Family Medicine
DX: I48.0 Paroxysmal atrial fibrillation (principal); I10 Essential (primary) hypertension; Z79.01 Long term (current) use of anticoagulants; Z79.82 Long term (current) use of aspirin
CPT/HCPCS: 71045; 80053; 84484; 85025; 93005; 96360; 96361; 99284; J7030

== ENCOUNTER → 2019-08-03 14:18 | Outpatient (CLI) | payer BC, SELFPAY ==
[2019-07-20 14:58] VITALS: BMI 33.5
== END ==
PROVIDERS: PCP Family Medicine; Referring Provider Internal Medicine Cardiovascular Disease; Visit Provider Internal Medicine Cardiovascular Disease
DX: G47.30 Sleep apnea, unspecified (principal); G47.10 Hypersomnia, unspecified; D75.1 Secondary polycythemia; I48.91 Unspecified atrial fibrillation; I10 Essential (primary) hypertension
CPT/HCPCS: 95806

== ENCOUNTER → 2019-08-30 13:00 | Outpatient (CLI) | payer BC, SELFPAY ==
[2019-08-21 08:12] VITALS: BMI 34.2
== END ==
PROVIDERS: PCP Family Medicine; Referring Provider Nurse Practitioner Acute Care; Visit Provider Nurse Practitioner Acute Care
DX: G47.10 Hypersomnia, unspecified (principal); G47.30 Sleep apnea, unspecified

== ENCOUNTER 2020-03-09 11:19 | Emergency (ER) | payer BC, SELFPAY ==
[2019-08-21 08:12] VITALS: BMI 34.2
[2020-03-09 11:20] VITALS: BP 161/108; PULSE 94; RESP 16; TEMP 36.3; O2SAT 97; BMI 32.1
[2020-03-09 11:21] VITALS: BP 161/108; PULSE 94; RESP 16; TEMP 36.3; O2SAT 97
--- NOTE | 2020-03-09 11:39 | ED.VIS.GEN ---
History of Present Illness <John Graves - Last Filed: 03/09/20 13:51> Informant: Patient Onset: Days Narrative: 45-year-old male with past medical history of ABob banegas on Eliquis, hemorrhoids presents with rectal pain and swelling. He states 4 days ago he started having rectal pain which he attributed to his hemorrhoids. Over the last 4 days he noticed the area became swollen and more painful. No drainage or bleeding. He has pain with bowel movements and started using a stool softener. No pain in his abdomen or scrotum. No history of perirectal abscess. Denies fevers, chills, nausea, vomiting, or urinary symptoms. <Manju Gamlbe - Last Filed: 03/09/20 17:30> Chief Complaint: Abscess Past Medical History - Family History Maternal Family History: Family History (Last Reviewed 08/21/19 @ 08:51 by Alexa Desai NP, FLAVOR ROOM WORKER-C) Mother Cancer Paternal Family History: Family History (Last Reviewed 08/21/19 @ 08:51 by Alexa Desai NP, FLAVOR ROOM WORKER-C) Mother Cancer <John Graves - Last Filed: 03/09/20 13:51> Past Medical History: - - Atrial fibrillation, hemorrhoids Surgical History: - - Abdominal surgery to repair and omphalocele and vasectomy Smoking Status: Former smoker - Family History Maternal Family History: Family History (Last Reviewed 08/21/19 @ 08:51 by Alexa Desai NP, FLAVOR ROOM WORKER-C) Mother Cancer Family History: Reports: Cancer - His mother with lung cancer Paternal Family History: Family History (Last Reviewed 08/21/19 @ 08:51 by Alexa Desai NP, FLAVOR ROOM WORKER-C) Mother Cancer Family History: Reports: Heart Disease <Manju Gamble - Last Filed: 03/09/20 17:30> - Allergies and Home Meds Allergies/Adverse Reactions: Allergies CILLINS Allergy (Uncoded 03/09/20 11:20) Other Primary Care Physician: Naveen Stone MD [STAFF PHYSICIAN] - Review of Systems General: Denies: Chills, Fever, Sweats Eyes: Denies: Visual changes - bilaterally, Diplopia ENT: Denies: Rhinorrhea, Sore throat Cardiovascular: Denies: Chest pain, Palpitations Respiratory: Denies: Dyspnea, Cough, Dyspnea on exertion Gastrointestinal: Reports: - - Localized swelling near rectum. Denies: Abdominal pain, Nausea, Vomiting, Diarrhea, Constipation, Melena, Hematochezia Genitourinary: Denies: Dysuria, Hematuria, Frequency Musculoskeletal: Denies: Back pain, Extremity Pain Skin: Denies: Rash, Wounds Neurological: Denies: Headache, Weakness, Numbness <Manju Gamble - Last Filed: 03/09/20 17:30> Physical Exam Vital Signs/Narrative: Vital Signs Temp Pulse Resp BP Pulse Ox 03/09/20 13:08 97.4 F L 94 16 161/108 H 97 03/09/20 11:21 97.4 F L 94 16 161/108 H 97 03/09/20 11:20 97.4 F L 94 16 161/108 H 97 <John Graves - Last Filed: 03/09/20 13:51> Vital Signs/Narrative: Vital Signs Temp Pulse Resp BP Pulse Ox 03/09/20 11:21 97.4 F L 94 16 161/108 H 97 03/09/20 11:20 97.4 F L 94 16 161/108 H 97 Inital Vital Signs reviewed: Yes General: Well nourished, Well developed, No Acute Distress Head: Normocephalic, Atraumatic Eyes: EOMI ENT: Moist mucous membranes, No rhinorrhea Neck: Supple, Nontender Cardiovascular: Regular rate, Regular rhythm, No murmurs Respiratory: No distress, CTA bilaterally, Chest nontender Abdomen: Soft, Nontender, Nondistended, Normal bowel sounds : - - Localized 1 x 1 cm swelling at 6 o'clock position of rectum, erythematous and indurated. No drainage or surrounding erythema. Back: Normal Inspection Extremities: No edema Skin: Normal color, No rash Neurological: Alert, Oriented x3, Cranial nerves II-XII grossly intact <Manju Gamble - Last Filed: 03/09/20 17:30> Diagnostic/Tx/Re-eval - Medical Decision Making I supervised the PA and have performed my own pertinent history and physical. Results and treatment plan were discussed. HPI: Patient reports that he has pain around his anus that began 4 days ago. Is been gradually increasing. The area is now swollen. He denies any blood in his stools or black tarry stools. He denies abdominal pain. No constitutional symptoms. No fever, chills, nausea, or vomiting. PE: Vitals: Stable. Afebrile. General: Well-nourished and well-developed. Head: Normocephalic atraumatic. Neck: Supple, no lymphadenopathy. No JVD. Nontender. Cardiovascular: Regular rate and rhythm. No murmurs. Respiratory: No respiratory distress. Clear to auscultation bilaterally. Abdominal: Soft, nontender, nondistended, normal bowel sounds. No guarding, rebound, or peritoneal signs. Rectal: At 6:00 in the prone position there is a tender, swollen area that that appears fluctuant. There is no overlying erythema. Back: Nontender. Extremities: Nontender, no edema. Skin: Normal color, no rash. Neurologic: Alert and oriented ?3. Cranial nerves II through XII are intact. Normal strength and sensation. Psych: Normal affect. Emergency Department course: Patient CT was consistent with a perianal abscess. He was discussed with Dr. Naveen Stone as he had taken a dose of Eliquis this morning. It is felt that this will not improve without drainage. He had this drained at the bedside and tolerated it well. Treatment Plan: Patient will be discharged with Cipro and Flagyl. Instructed to use Tylenol and/or ibuprofen for pain. Take fiber supplements. Hold his Eliquis for the next week. Follow-up with Dr. Stone in the office in 3 days for another exam. Return to the emergency department for any worsening symptoms. Procedure Note: Abscess was cleansed with chlorhexidine soap. Anesthetized with 1% lidocaine with epinephrine. A stab incision was made with an 11 scalpel blade. A moderate amount of pus was drained. The wound was copiously irrigated with normal saline. It was loosely packed with iodoform gauze. The patient tolerated it well. This note was generated with [employer] dictation software. It may contain incorrect words, spelling, and punctuation that were not noted in review of the chart prior to signing. <John Graves - Last Filed: 03/09/20 13:51> Clinical Impression(s) from Imaging Studies Pelvis CT 03/09/20 11:42 IMPRESSION: 1. 1.9 x 2.3 x 3.5 cm anterior perianal abscess. No pelvic cavity/peritoneal extension. 2. 1.7 cm focal cyst of the prostate without significant adjacent stranding. Differential diagnosis but midline prostatic cyst are typically Mullerian duct or utriculus cysts. Stable since 2018. Electronically Signed: Robby Farfan MD (Brooks) at 12:38 EDT , Service support , Laboratory Data 03/09/20 03/09/20 11:48 11:48 WBC 9.0 RBC 4.84 Hgb 15.0 Hct 45.3 MCV 93.6 MCH 31.0 MCHC 33.1 RDW Std Deviation 41.2 RDW Coeff of Carol Ann 11.9 Plt Count 175 MPV 9.4 Immature Gran % (Auto) 0.300 Neut % (Auto) 76.7 H Lymph % (Auto) 11.0 L [place] % (Auto) 10.3 H Eos % (Auto) 1.3 Baso % (Auto) 0.4 Absolute Neuts (auto) 6.9 Absolute Lymphs (auto) 0.99 Nucleated RBC % 0 Sodium 140 Potassium 4.1 Chloride 110 H Carbon Dioxide 25.0 Anion Gap 5 BUN 9 Creatinine 0.88 Estim Creat Clear Calc 115.28 Est GFR (MDRD) Af Amer 122 Est GFR (MDRD) Non-Af 100 BUN/Creatinine Ratio 10.2 Glucose 134 H Calcium 8.6 - Medical Decision Making Patient presented with ernesto-rectal swelling. He appears well and nontoxic. Vital signs within normal limits. He has focal 1x1cm erythematous area of swelling near posterior midline rectum. With concern for ernesto-rectal abscess, I did not want to perform I&D as he is on Eliquis. CT was obtained and showed perirectal abscess. Case was discussed with general surgery who recommended I&D. My attending performed I&D?see procedure note. Moderate amount of pus was drained. Patient was discharged with Cipro and Flagyl and will take OTC pain meds and fiber supplements. He is following up with general surgery in 3 days. He was agreeable with this plan and discharged home in stable condition. <Manju Gamble - Last Filed: 03/09/20 17:30> ED Disposition <John Graves - Last Filed: 03/09/20 13:51> <Reina Gamblea - Last Filed: 03/09/20 17:30> - Plan for ED Patient: Disposition: Home or Assisted Living Diagnosis: Perirectal abscess Instructions: ED Abscess Incision And Drainage Prescriptions: Ciprofloxacin [Cipro] 500 mg PO BID 7 Days #14 tab Transmission Status: Received by JACQUIE CASH RD metroNIDAZOLE [Flagyl] 500 mg PO Q8H #21 tab Transmission Status: Received by JACQUIE CASH RD Referrals: Naveen Stone MD [STAFF PHYSICIAN] - Additional Instructions: Call General Surgery for appt on Tuesday.
--- NOTE | 2020-03-09 11:42 | CT_ITS ---
STUDY: CT PELVIS WITH CONTRAST REASON FOR EXAM: Male, 45 years old. ELODIA-RECTAL ABSCESS -- HX-BORN W/ INTESTINES ON OUTSIDE OF BODY RADIATION DOSAGE (If Supplied By Facility): CTDIvol = ( 28.21 ) mGy, DLP = ( 979.26 ) mGycm TECHNIQUE: Transaxial imaging of the pelvis was performed without oral contrast. 100CC ISOVUE 300 was administered intravenously. Individualized dose optimization techniques were used for this CT. COMPARISON: 08/09/2017 FINDINGS: Normal urinary bladder. Normal visualized small intestine. 1.9 x 2.3 x 3.5 cm focal fluid collection with mild wall enhancement is seen along the anterior anal wall (image 62 series 2; image 77 series 601). The perirectal fat is unremarkable without additional fluid collection. No extension of stranding/inflammation into the peritoneal/pelvic cavity. Along the posterior prostate gland, there is a focal low-density structure measuring 1.7 cm. No adjacent stranding. There is no pelvic fluid. There is no pelvic lymphadenopathy or mass lesion. Normal visualized pelvic arteries. Normal abdominal wall. Normal osseous structures. CT/Pelvis WITH IV Contrast IMPRESSION: 1. 1.9 x 2.3 x 3.5 cm anterior perianal abscess. No pelvic cavity/peritoneal extension. 2. 1.7 cm focal cyst of the prostate without significant adjacent stranding. Differential diagnosis but midline prostatic cyst are typically Mullerian duct or utriculus cysts. Stable since 2017. Electronically Signed: Robby Farfan MD ([place]) at 12:38 EDT , Service support ,
[2020-03-09 11:54] LABS: Absolute Lymphocyte Count 0.99 X10^3/uL (0.83-4.51); Absolute Neutrophil Count 6.9 X10^3/uL (2.0-7.7); Basophil# 0.04 X10^3/uL; Basophil% 0.4 % (0-1); Eosinophil# 0.12 X10^3/uL; Eosinophils% 1.3 % (0-5); Hematocrit 45.3 % (40-54); Lymphocyte # 0.99 X10^3/ul (4.0); Mean Corp Hgb Conc 33.1 g/dL (32-36); Mean Corpuscular Volume 93.6 fL (80-94); Mean Platelet Vol. 9.4 fl (6.2-12.0); Monocyte# 0.93 X10^3/uL; Monocyte% 10.3 % (0-10); NRBC Flagged by Analyzer 0 % (0-5); Neutrophil % 76.7 % (47-70); Platelet Count 175 K/mm3 (150-450); RBC Distribution Width CV 11.9 % (11.6-14.6); RBC Distribution Width SD 41.2 fl (35.1-43.9); Red Blood Count 4.84 M/mm3 (4.6-6.2)
[2020-03-09 12:10] LABS: Anion Gap 5 (5-15); BUN 9 mg/dL (7-18); BUN/Creat Ratio 10.2 RATIO (10-20); Calcium,Total 8.6 mg/dL (8.5-10.1); Chloride 110 mmol/L (98-107); Creatinine, Serum 0.88 mg/dL (0.70-1.30); EST Glomerular Filtration Rate 100 mL/min (>60); Est Glom Filt Rate - Afr Amer 122 mL/min (>60); Estimated Creatinine Clearance 115.28 ml/min; Glucose 134 mg/dL (74-106); Potassium 4.1 mmol/L (3.5-5.1); Sodium Level 140 mmol/L (136-145)
[2020-03-09 13:08] VITALS: BP 161/108; PULSE 94; RESP 16; TEMP 36.3; O2SAT 97
== END 2020-03-09 13:51 | disposition home or self-care (01) ==
PROVIDERS: Emergency Provider Physician Assistant; PCP Family Medicine
DX: K61.2 Anorectal abscess (principal); I48.91 Unspecified atrial fibrillation; Z87.891 Personal history of nicotine dependence; Z79.01 Long term (current) use of anticoagulants
CPT/HCPCS: 46050; 72193; 80048; 85025; 99283; Q9967; A4216

== ENCOUNTER 2020-10-29 15:55 | Emergency (ER) | payer BC, SELFPAY ==
[2020-10-29 15:56] VITALS: BP 122/94; PULSE 73; RESP 15; TEMP 36.1; O2SAT 99; BMI 32.3
--- NOTE | 2020-10-29 16:14 | EDS_ITS ---
HPI History of Present Illness Chief Complaint: Abscess Informant: patient Onset/Context/Timing Onset: Days (5) Context: Gradual Onset Timing: Continuous Quality: Stabbing, aching, pressure Location: Perirectal area Current Severity: Severe Maximum Severity: Severe Worsened by: Sitting and pressure Relieved by: Nothing Narrative Narrative: Patient presents with possible perirectal abscess that has gradually been getting worse over the past 5 days. Patient states he had a similar episode Patient states this feels similar to the pain he felt prior to the incision and drainage approximately 9 months ago and had incision and drainage at that time.. Patient describes the pain as stabbing, aching, and pressure. Patient states the pain is worse with sitting. Patient states nothing seems to help with it. Patient denies any discharge or drainage. Patient denies any fevers or chills. Prior similar symptoms: Yes PFSH COUNTS INCLUDE 234 BEDS AT THE [facility] Medical History (Updated 10/29/20 @ 17:[address] Kal Cosme, DO) Anxiety Atrial fibrillation Hypertension Marijuana smoker Perianal abscess Polycythemia Sleep-disordered breathing Tobacco dependence due to chewing tobacco Tobacco dependence due to cigarettes Home Medications multivitamin with minerals 1 ea PO DAILY 07/20/19 [History Last Taken 07/20/19] acetaminophen 650 mg PO Q6H PRN PRN tab 07/23/19 [Rx Last Taken Unknown] albuterol sulfate 90 mcg/actuation aerosol inhaler 2 puff INHALATION Q6H PRN 08/21/19 [History Last Taken Unknown] metronidazole 500 mg PO Q8H #21 tab 03/09/20 [Rx Last Taken Unknown] atorvastatin 20 mg tablet 20 mg PO QHS #30 tab 08/05/20 [Rx Last Taken Unknown] carvedilol 6.25 mg tablet 6.25 mg PO BID #60 tab 08/05/20 [Rx Last Taken Unknown] digoxin 250 mcg (0.25 mg) tablet 250 mcg PO DAILY #30 tab 08/12/20 [Rx Last Taken Unknown] losartan 25 mg tablet 25 mg PO DAILY #30 tab 08/14/20 [Rx Last Taken Unknown] apixaban 5 mg tablet 5 mg PO BID #60 tab 08/20/20 [Rx Last Taken Unknown] ciprofloxacin HCl 500 mg PO BID #20 tablet 10/29/20 [Rx Last Taken Unknown] metronidazole [Flagyl] 500 mg PO TID 10 Days #30 tab 10/29/20 [Rx Last Taken Unknown] Allergy/AdvReac Type Severity Reaction Status Date / Time CILLINS Allergy Other Uncoded 03/12/20 14:15 Family History Mother Cancer Lung Surgical History No pertinent past surgical history Social History Smoking Status: Former smoker quit date: 07/07/19 Smokeless tobacco user: chewing tobacco ROS ROS ED Constitutional Constitutional ED: Denies chills or fever(s) Eyes Eyes: Denies blurry vision or change in vision ENT ENT ED: Denies rhinorrhea or sore throat Cardiovascular Cardiovascular: Denies chest pain or palpitations Respiratory/Chest Respiratory/Chest: Denies cough or dyspnea Gastrointestinal Gastrointestinal: Denies nausea or vomiting Genitourinary Genitourinary ED: Denies dysuria or hematuria Musculoskeletal Musculoskeletal: Denies back pain or neck pain Integumentary Reports abscess; Denies rash Neurologic Neurologic: Denies headache(s) or weakness Allergic/Immunologic Allergic/Immunologic ED: Denies mouth swelling or urticaria EXAM Physical Exam Const Vital Signs: 10/29/20 15:56 Temperature 97 F L Temperature Source Temporal Pulse Rate 73 Respiratory Rate 15 Blood Pressure 122/94 H Blood Pressure Mean 103 Pulse Ox 99 Oxygen Delivery Method Room Air Positive well nourished and well developed General Appearance ED: well developed HEENT Reports moist mucous membranes Neck supple and no JVD Resp normal respiratory effort and clear to auscultation bilaterally Cardio regular rate and regular rhythm GI normal to inspection, nondistended, normoactive bowel sounds and non-tender GI Narrative: There is some tenderness and a small perirectal abscess on the anterior aspect of the anus. There is no discharge or drainage. There is mild fluctuance. There is no surrounding erythema or induration. Palpation: soft Neuro oriented x3, CN's II-XII intact bilaterally and no sensory deficits noted Sensorium / Orientation: alert Motor Exam: strength 5/5 throughout MDM MDM MDM Narrative Medical decision making narrative: Patient was given a dose of Cipro and Flagyl here. Patient was given prescriptions for Cipro and Flagyl. The area was cleaned with chlorhexidine prep. The area was anesthetized with 1% lidocaine with epinephrine locally. A small linear incision was made using an 11 blade scalpel. A large amount of purulent drainage was expressed. The wound was left open. Small iodoform packing wick was placed in the incision. Patient tolerated the procedure well. Patient was instructed to follow-up with his [place] [facility] physician in 5 to 7 days. Patient understood and was agreeable with the plan. All questions were answered. Procedures Other Procedures Procedure(s): Incision and drainage: The area was cleaned with chlorhexidine prep. The area was anesthetized with 1% lidocaine with epinephrine locally. A small linear incision was made using an 11 blade scalpel. A large amount of purulent drainage was expressed. A small wick of iodoform packing was placed in the wound. Dressing was applied. Patient tolerated the procedure well. Discharge Plan Triage Chief Complaint: Abscess ED Provider: Kal Cosme Dx/Rx/DC Orders Clinical Impression: Abscess, perirectal Instructions: ED ABSCESS [facility] Prescriptions: New ciprofloxacin HCl [ciprofloxacin HCl] 500 MG tablet 500 mg PO BID Qty: 20 RF: 0 metronidazole [Flagyl] 500 mg tablet 500 mg PO TID 10 Days Qty: 30 RF: 0 No Action albuterol sulfate [Ventolin HFA] 90 mcg/actuation HFA aerosol inhaler 2 puff INHALATION Q6H PRN (Reason: Sob &/Or Wheezing) RF: 0 multivitamin with minerals 1 EACH tablet 1 ea PO DAILY RF: 0 acetaminophen 325 MG tablet 650 mg PO Q6H PRN PRN (Reason: Pain Score 1-10/Temp > 100.7 F) RF: 0 metronidazole 500 MG tablet 500 mg PO Q8H Qty: 21 RF: 0 atorvastatin 20 mg tablet 20 mg PO QHS Qty: 30 RF: 11 carvedilol 6.25 mg tablet 6.25 mg PO BID Qty: 60 RF: 11 digoxin 250 mcg (0.25 mg) tablet 250 mcg PO DAILY Qty: 30 RF: 11 losartan 25 mg tablet 25 mg PO DAILY Qty: 30 RF: 12 apixaban 5 mg tablet 5 mg PO BID Qty: 60 RF: 11 Primary Care Provider: Masoud Lundy Referrals: Masoud Lundy [Primary Care Provider] - 3-5 Days Disposition Disposition: Home, self care
[2020-10-29] MEDS: Lidocaine 1% /Epi 1:100 (20ml) 20 ML Vial INFILT (16:31)
[2020-10-29] MEDS: metroNIDAZOLE 500 MG Tablet PO (16:31)
[2020-10-29] MEDS: Ciprofloxacin 500 MG Tablet PO (16:31)
== END 2020-10-29 17:37 | disposition home or self-care (01) ==
PROVIDERS: Emergency Provider Emergency Medicine; PCP Family Medicine
DX: K61.1 Rectal abscess (principal); I10 Essential (primary) hypertension; I48.91 Unspecified atrial fibrillation; F17.220 Nicotine dependence, chewing tobacco, uncomplicated; Z79.01 Long term (current) use of anticoagulants; Z79.899 Other long term (current) drug therapy
CPT/HCPCS: 46040; 46050; 99283

== ENCOUNTER 2021-05-25 10:16 | Emergency (ER) | payer BC, SELFPAY ==
[2021-05-25] VITALS (10 sets, daily range): BP systolic 108–147; BP diastolic 68–130; PULSE 90–165; RESP 13–20; TEMP 36.4; O2SAT 95–98; BMI 33.2
--- NOTE | 2021-05-25 10:40 | EKG12_ITS ---
Test Reason : CP Blood Pressure : / mmHG Vent. Rate : 149 BPM Atrial Rate : 129 BPM P-R Int : 000 ms QRS Dur : 088 ms QT Int : 292 ms P-R-T Axes : 000 023 220 degrees QTc Int : 459 ms Atrial fibrillation Nonspecific T wave abnormality Poor R wave progression Abnormal ECG Confirmed by STEPHEN GARCIA, PARVIZ ([id number]), photographic editor MICHELLE ABARCA ([id number]) on 05/27/2021 9:39:24 AM Referred By: FRANKLIN/MISTI Confirmed By:PARVIZ MITCHELL MD
--- NOTE | 2021-05-25 10:40 | RAD_ITS ---
STUDY: X-RAY CHEST REASON FOR EXAM: Male, 46 years old. Chest pain TECHNIQUE: Single AP portable view of the chest. COMPARISON: Comparison is made with prior examination dated 07/30/2019. FINDINGS: EKG electrodes are seen. The lungs are clear and expanded. There is no demonstrated pleural abnormality. Normal size heart. Normal mediastinum and arnaldo. Normal visualized pulmonary arteries. Normal visualized aortic arch and descending thoracic aorta. Normal visualized thoracic spine. Normal visualized ribs, clavicles, and shoulders. There is no demonstrated abnormality of the visualized soft tissue structures of the upper abdomen. RAD/Chest 1 View (Portable) IMPRESSION: Normal x-ray examination of the chest. Electronically Signed: Julio Cesar Alex MD at 11:06 EST , Service support ,
[2021-05-25] MEDS: Aspirin 81 MG TAB.CHEW 324 MG PO (10:50)
--- NOTE | 2021-05-25 11:04 | EDS_ITS ---
HPI History of Present Illness Chief Complaint: Chest Pain Narrative Narrative: 46-year-old male with history of hypertension, hyperglycemia, atrial fibrillation presenting with shortness of breath for weeks. He is not describing any chest pain. He states he has had a longstanding history of atrial fibrillation for the last couple of years which was just prior to COVID- pandemic. He states that he was put on Cardizem and digoxin and eventually discharged home. He states he was given like 50 refills. He has not followed up with his primary care physician. He has been back to the ER couple of times but spontaneously converted to sinus rhythm. Over the last couple of weeks he notes that his symptoms have been worse intermittently and more frequently. He states he can feel a little sweaty when he feels like he is in A. fib. Patient states he had COVID- and June of this year and states he has never felt quite right since. He states he is always a little bit short of breath. He is not had any fever or chills. No black or bloody stools. [facility] Medical History (Updated 05/25/21 @ 12:[address] Juan Bethea, ) Anxiety Atrial fibrillation Hypertension Marijuana smoker Perianal abscess Polycythemia Sleep-disordered breathing Tobacco dependence due to chewing tobacco Tobacco dependence due to cigarettes Home Medications multivitamin with minerals 1 ea PO DAILY 07/20/19 [History Last Taken 07/20/19] acetaminophen 650 mg PO Q6H PRN PRN tab 07/23/19 [Rx Last Taken Unknown] albuterol sulfate 90 mcg/actuation aerosol inhaler 2 puff INHALATION Q6H PRN 08/21/19 [History Last Taken Unknown] metronidazole 500 mg PO Q8H #21 tab 03/09/20 [Rx Last Taken Unknown] atorvastatin 20 mg tablet 20 mg PO QHS #30 tab 08/05/20 [Rx Last Taken Unknown] carvedilol 6.25 mg tablet 6.25 mg PO BID #60 tab 08/05/20 [Rx Last Taken Unknown] digoxin 250 mcg (0.25 mg) tablet 250 mcg PO DAILY #30 tab 08/12/20 [Rx Last Taken Unknown] losartan 25 mg tablet 25 mg PO DAILY #30 tab 08/14/20 [Rx Last Taken Unknown] apixaban 5 mg tablet 5 mg PO BID #60 tab 08/20/20 [Rx Last Taken Unknown] ciprofloxacin HCl 500 mg PO BID #20 tablet 10/29/20 [Rx Last Taken Unknown] metronidazole [Flagyl] 500 mg PO TID 10 Days #30 tab 10/29/20 [Rx Last Taken Unknown] metoprolol succinate 50 mg PO DAILY #30 ea 05/25/21 [Rx Last Taken Unknown] Allergy/AdvReac Type Severity Reaction Status Date / Time CILLINS Allergy Other Uncoded 05/25/21 10:20 Family History Mother Cancer Lung Surgical History No pertinent past surgical history Social History Smoking Status: Former smoker quit date: 07/07/19 Smokeless tobacco user: chewing tobacco ROS ROS ED Constitutional Constitutional ED: Denies chills or fever(s) Eyes Eyes: Denies blurry vision or change in vision ENT ENT ED: Denies rhinorrhea or sore throat Cardiovascular Cardiovascular: Reports palpitations and racing heartbeat Respiratory/Chest Respiratory/Chest: Reports cough and dyspnea Gastrointestinal Gastrointestinal: Denies abdominal pain, nausea or vomiting Genitourinary Genitourinary ED: Denies dysuria or hematuria Musculoskeletal Musculoskeletal: Denies arthralgias or myalgias Integumentary Denies Abrasions or rash Neurologic Neurologic: Denies headache(s) Psychiatric Psychiatric: Denies anxiety or depression EXAM Physical Exam Const Vital Signs: 05/25/21 10:17 05/25/21 10:20 05/25/21 10:44 Temperature 97.6 F L 97.6 F L Temperature Source Temporal Temporal Pulse Rate 165 H 165 H Respiratory Rate 20 H 20 H Blood Pressure 147/130 H 147/130 H Blood Pressure Mean 135 135 Pulse Ox 98 98 95 Oxygen Delivery Method Room Air Room Air Room Air Oxygen Flow Rate (L/min) 2 05/25/21 11:12 05/25/21 11:14 05/25/21 11:15 Temperature Temperature Source Pulse Rate 151 H 115 H 109 H Respiratory Rate Blood Pressure Blood Pressure Mean Pulse Ox Oxygen Delivery Method Oxygen Flow Rate (L/min) 05/25/21 11:17 05/25/21 11:18 05/25/21 11:43 Temperature Temperature Source Pulse Rate 90 90 90 Respiratory Rate 13 Blood Pressure 129/98 H Blood Pressure Mean 108 Pulse Ox 96 Oxygen Delivery Method Room Air Oxygen Flow Rate (L/min) Positive well nourished General Appearance ED: NAD; Negative for pallor HEENT Reports moist mucous membranes normocephalic and atraumatic Eyes PERRL and EOMs intact bilaterally Cardio Rate: tachycardic Rhythm: abnormal rhythm irregularly irregular Extremity General Extremety ED: Yes edema; Negative for tenderness General Extremity: edema Neuro oriented x3 Sensorium / Orientation: awake and alert Psych mental status grossly normal Skin General Skin Exam: Negative for jaundice or pallor Heart Score History: Slightly/Non-Suspicious ECG: Normal Age: </= 45 years Risk Factors: >/= 3 Risk Factors or History of CAD Troponin: </= Normal Limit Score: 2 MDM MDM MDM Narrative Medical decision making narrative: 46-year-old male presenting with dyspnea. He states this has been worse over the last 2 weeks although he does relate a history of a couple of years of intermittent episodes of symptomatic atrial fibrillation. Patient is anticoagulated on Eliquis. He takes digoxin to 50 mcg daily as well as carvedilol 0.25 mg daily. He is taking these long-term. 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 Over the last 2 weeks he has noticed worsening and has some mild lower extremity edema as well as mild dyspnea. Patient is not hypoxic or tachypneic and denies any chest pain. Patient CBC shows he has slight leukocytosis of 13.7. Hemoglobin is elevated at 17.6. Platelets are normal. Renal function and electrolytes are normal. BNP is elevated at 413. High-sensitivity troponin is 46. Digoxin level is 0.92 and therefore within normal limits. Chest x-ray on my interpretation shows no acute cardiopulmonary process and the radiologist does agree. EKG is atrial fibrillation at 149 bpm. When I evaluated in the room he was about 160. Patient given 25 Cardizem and his heart rate came down to the 80s and 90s and he felt improved. I feel like the slight dyspnea in the lower extremity edema is likely due to being in A. fib more often more persistently. His heart rate is now controlled. 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 I do not believe that cardioversion would be valuable given this. I spoke with Dr. Rizo regarding this and he recommended taking the patient off of digoxin and putting him on Toprol-XL 50 mg p.o. daily and he could see him in follow-up outpatient. Patient was amenable to this. He acknowledged understanding of all instructions. He was discharged home in stable condition. He is given return precautions. Impression: 1. Atrial fibrillation with RVR 2. Dyspnea Lab Data Labs: Laboratory Results - last 24 hr 05/25/21 05/25/21 05/25/21 10:23 10:23 10:23 WBC 13.7 H RBC 5.69 Hgb 17.6 H Hct 53.9 MCV 94.7 H MCH 30.9 MCHC 32.7 RDW Std Deviation 44.1 H RDW Coeff of Carol Ann 12.7 Plt Count 223 MPV 10.8 Immature Gran % (Auto) 0.400 Neut % (Auto) 72.1 H Lymph % (Auto) 16.2 L [place] % (Auto) 9.1 Eos % (Auto) 1.6 Baso % (Auto) 0.6 Absolute Neuts (auto) 9.9 H Absolute Lymphs (auto) 2.22 Nucleated RBC % 0 Sodium 140 Potassium 4.6 Chloride 104 Carbon Dioxide 30.0 Anion Gap 6 BUN 13 Creatinine 1.05 Estim Creat Clear Calc 95.62 Est GFR (MDRD) Af Amer 99 Est GFR (MDRD) Non-Af 82 BUN/Creatinine Ratio 12.4 Glucose 133 H Calcium 9.3 Troponin I High Sens 46 B-Natriuretic Peptide 413.4 H Digoxin 05/25/21 10:23 WBC RBC Hgb Hct MCV MCH MCHC RDW Std Deviation RDW Coeff of Carol Ann Plt Count MPV Immature Gran % (Auto) Neut % (Auto) Lymph % (Auto) [place] % (Auto) Eos % (Auto) Baso % (Auto) Absolute Neuts (auto) Absolute Lymphs (auto) Nucleated RBC % Sodium Potassium Chloride Carbon Dioxide Anion Gap BUN Creatinine Estim Creat Clear Calc Est GFR (MDRD) Af Amer Est GFR (MDRD) Non-Af BUN/Creatinine Ratio Glucose Calcium Troponin I High Sens B-Natriuretic Peptide Digoxin 0.92 Radiography Diagnostic Testing: Clinical Impression(s) from Imaging Studies Chest X-Ray 05/25/21 10:40 IMPRESSION: Normal x-ray examination of the chest. Electronically Signed: Julio Cesar Alex MD at 11:06 EST , Service support , Discharge Plan Triage Chief Complaint: Chest Pain ED Provider: Juan Bethea Dx/Rx/DC Orders Clinical Impression: Atrial fibrillation Instructions: ED AFIB Prescriptions: New metoprolol succinate 50 mg capsule,sprinkle,ER 24hr 50 mg PO DAILY Qty: 30 RF: 0 No Action albuterol sulfate [Ventolin HFA] 90 mcg/actuation HFA aerosol inhaler 2 puff INHALATION Q6H PRN (Reason: Sob &/Or Wheezing) RF: 0 multivitamin with minerals 1 EACH tablet 1 ea PO DAILY RF: 0 acetaminophen 325 MG tablet 650 mg PO Q6H PRN PRN (Reason: Pain Score 1-10/Temp > 100.7 F) RF: 0 metronidazole 500 MG tablet 500 mg PO Q8H Qty: 21 RF: 0 ciprofloxacin HCl [ciprofloxacin HCl] 500 MG tablet 500 mg PO BID Qty: 20 RF: 0 metronidazole [Flagyl] 500 mg tablet 500 mg PO TID 10 Days Qty: 30 RF: 0 atorvastatin 20 mg tablet 20 mg PO QHS Qty: 30 RF: 11 carvedilol 6.25 mg tablet 6.25 mg PO BID Qty: 60 RF: 11 digoxin 250 mcg (0.25 mg) tablet 250 mcg PO DAILY Qty: 30 RF: 11 losartan 25 mg tablet 25 mg PO DAILY Qty: 30 RF: 12 apixaban 5 mg tablet 5 mg PO BID Qty: 60 RF: 11 Primary Care Provider: Masoud Lundy Referrals: Jose Antonio Rizo MD [STAFF PHYSICIAN] - As soon as possible Masoud Lundy [Primary Care Provider] - Activity Restrictions/Additional Instructions: Please discontinue taking your digoxin and start taking your metoprolol 50 mg p.o. daily. Please follow-up with Dr. Rizo as we discussed Disposition Disposition: Home, Self Care
[2021-05-25 11:09] LABS: Absolute Lymphocyte Count 2.22 X10^3/uL (0.83-4.51); Absolute Neutrophil Count 9.9 X10^3/uL (2.0-7.7); Basophil# 0.08 X10^3/uL; Basophil% 0.6 % (0-1); Eosinophil# 0.22 X10^3/uL; Eosinophils% 1.6 % (0-5); Hematocrit 53.9 % (40-54); Hemoglobin 17.6 g/dL (13.0-16.5); Lymphocyte # 2.22 X10^3/ul (0.83-4.51); Lymphocyte % 16.2 % (19-41); Mean Corp Hgb Conc 32.7 g/dL (32-36); Mean Corpuscular Hgb 30.9 pg (27.0-32.0); Mean Corpuscular Volume 94.7 fL (80-94); Mean Platelet Vol. 10.8 fl (6.2-12.0); Monocyte# 1.24 X10^3/uL; Monocyte% 9.1 % (0-10); NRBC Flagged by Analyzer 0 % (0-5); Neutrophil # 9.86 X10^3/uL (2.7-7.7); Neutrophil % 72.1 % (47-70); Platelet Count 223 K/mm3 (150-450); RBC Distribution Width CV 12.7 % (11.6-14.6); RBC Distribution Width SD 44.1 fl (35.1-43.9); Red Blood Count 5.69 M/mm3 (4.6-6.2); White Blood Count 13.7 K/mm3 (4.4-11.0)
[2021-05-25] MEDS: dilTIAZem 25 MG/5 ML Vial IV BOLUS (11:11)
[2021-05-25 11:18] LABS: Anion Gap 6 (5-15); BUN 13 mg/dL (7-18); BUN/Creat Ratio 12.4 RATIO (10-20); Calcium,Total 9.3 mg/dL (8.5-10.1); Chloride 104 mmol/L (98-107); Creatinine, Serum 1.05 mg/dL (0.70-1.30); EST Glomerular Filtration Rate 82 mL/min (>60); Est Glom Filt Rate - Afr Amer 99 mL/min (>60); Estimated Creatinine Clearance 95.62 ml/min; Glucose 133 mg/dL (74-106); Potassium 4.6 mmol/L (3.5-5.1); Sodium Level 140 mmol/L (136-145); Troponin-I HS 46 pg/mL (3.0-78.0)
[2021-05-25 11:39] LABS: BNP,B-Type NATRIURETIC PEPTIDE 413.4 pg/mL (0-100)
[2021-05-25 11:52] LABS: Digoxin Level 0.92 ng/mL (0.80-2.00)
[2021-05-25] MEDS: Metoprolol(XL)Succ 50 MG Tablet PO (13:17)
== END 2021-05-25 13:22 | disposition home or self-care (01) ==
PROVIDERS: Emergency Provider Student in an Organized Health Care Education/Training Program; PCP Family Medicine
DX: I48.91 Unspecified atrial fibrillation (principal); I25.10 Atherosclerotic heart disease of native coronary artery without angina pectoris; I10 Essential (primary) hypertension; F17.220 Nicotine dependence, chewing tobacco, uncomplicated; Z79.01 Long term (current) use of anticoagulants; Z79.899 Other long term (current) drug therapy; Z86.16 Personal history of COVID-19
CPT/HCPCS: 71045; 80048; 80162; 83880; 84484; 85025; 93005; 99284; A4216

== ENCOUNTER 2021-06-04 15:55 | Inpatient (IN) | payer BC, SELFPAY ==
[2021-06-04] VITALS (47 sets, daily range): BP systolic 60–157; BP diastolic 34–102; PULSE 48–168; RESP 14–40; TEMP 36.2–36.7; O2SAT 86–100; BMI 32.3
--- NOTE | 2021-06-04 16:27 | EKG12_ITS ---
Test Reason : PALPS Blood Pressure : / mmHG Vent. Rate : 165 BPM Atrial Rate : 375 BPM P-R Int : 000 ms QRS Dur : 080 ms QT Int : 280 ms P-R-T Axes : 000 035 -50 degrees QTc Int : 463 ms Atrial fibrillation Nonspecific T wave abnormality Abnormal ECG Confirmed by NERY GARCIA, JES ([id number]), rewrite editor GABRIELA IVY ([id number]) on 06/10/2021 11:16:17 AM Referred By: MR Confirmed By:JES GABRIEL MD
--- NOTE | 2021-06-04 16:35 | RAD_ITS ---
INDICATION: chest pain EXAMINATION/TECHNIQUE: X-RAY - XR Chest 1 View COMPARISON: 05/25/2021. FINDINGS: The lungs are clear. The heart is mildly enlarged. No pleural effusion or pneumothorax. No acute osseous abnormalities. RAD/Chest 1 View (Portable) IMPRESSION: No acute radiographic abnormalities. Electronically Signed: Charles Mccray MD at 17:31 EST Tel , Service support ,
[2021-06-04] MEDS: Aspirin 81 MG TAB.CHEW 324 MG PO (16:37)
[2021-06-04] MEDS: 0.9% Normal Saline 1,000 ML 1000 ML IV (16:37)
[2021-06-04 16:43] LABS: Absolute Lymphocyte Count 3.09 X10^3/uL (0.83-4.51); Absolute Neutrophil Count 8.9 X10^3/uL (2.0-7.7); Basophil# 0.08 X10^3/uL; Basophil% 0.6 % (0-1); Eosinophil# 0.18 X10^3/uL; Eosinophils% 1.3 % (0-5); Hematocrit 50.4 % (40-54); Hemoglobin 17.2 g/dL (13.0-16.5); Lymphocyte # 3.09 X10^3/ul (0.83-4.51); Lymphocyte % 22.8 % (19-41); Mean Corp Hgb Conc 34.1 g/dL (32-36); Mean Corpuscular Hgb 31.6 pg (27.0-32.0); Mean Corpuscular Volume 92.6 fL (80-94); Mean Platelet Vol. 10.8 fl (6.2-12.0); Monocyte# 1.23 X10^3/uL; Monocyte% 9.1 % (0-10); NRBC Flagged by Analyzer 0 % (0-5); Neutrophil # 8.93 X10^3/uL (2.7-7.7); Neutrophil % 65.8 % (47-70); Platelet Count 196 K/mm3 (150-450); RBC Distribution Width CV 12.8 % (11.6-14.6); Red Blood Count 5.44 M/mm3 (4.6-6.2); White Blood Count 13.6 K/mm3 (4.4-11.0)
--- NOTE | 2021-06-04 16:47 | EDS_ITS ---
HPI History of Present Illness Chief Complaint: Palpitations Informant: patient and spouse/S.O. Narrative Narrative: Patient was sent in with planned admission for rate control and management of atrial fibrillation. He states he was first diagnosed about 2 years ago he was placed on meds. Castro hit after he saw the ladle handler once. He had refills so he really just took his meds and did not worry about this. He states he would have runs of atrial fibrillation mostly late at night. They would normally last about 20 minutes and go away. Over the last few weeks or months they have been worsening. His rates going higher and the episodes last longer. He is now really been in atrial fibrillation for likely a couple weeks. He was seen here about 10 days ago. He had excellent rate control with meds. Cardiology was consulted. His meds were changed but he has not yet been able to follow-up. He just stopped digoxin and started metoprolol about 1 week ago because it took a few days to get the prescription filled. He states when the rate hits about 190 he gets very symptomatic with shortness of breath and a little bit of tightness. He does not really have chest pain. He has no nausea vomiting. When the rate is down he feels better. However, his rates generally been quite high for a while. He saw his primary physician today who had his rate about 170 in the office and felt that they have been trying to manage his rate and rhythm as an outpatient unsuccessfully and he should come in the hospital at this time for further management. Nothing specifically makes his rate go higher or lower at this time. He is on Eliquis. [facility] Medical History (Updated 06/04/21 @ 16:[address] Syed Webster MD) Anxiety Atrial fibrillation Hypertension Marijuana smoker Perianal abscess Polycythemia Sleep-disordered breathing Tobacco dependence due to chewing tobacco Tobacco dependence due to cigarettes Home Medications multivitamin with minerals 1 ea PO DAILY 07/20/19 [History Last Taken 07/20/19] acetaminophen 650 mg PO Q6H PRN PRN tab 07/23/19 [Rx Last Taken Unknown] albuterol sulfate 90 mcg/actuation aerosol inhaler 2 puff INHALATION Q6H PRN 08/21/19 [History Last Taken Unknown] atorvastatin 20 mg tablet 20 mg PO QHS #30 tab 08/05/20 [Rx Last Taken Unknown] carvedilol 6.25 mg tablet 6.25 mg PO BID #60 tab 08/05/20 [Rx Last Taken Unknown] losartan 25 mg tablet 25 mg PO DAILY #30 tab 08/14/20 [Rx Last Taken Unknown] apixaban 5 mg tablet 5 mg PO BID #60 tab 08/20/20 [Rx Last Taken Unknown] metoprolol succinate [Kapspargo Sprinkle] 50 mg PO DAILY 06/04/21 [History Last Taken Unknown] Allergy/AdvReac Type Severity Reaction Status Date / Time CILLINS Allergy Other Uncoded 06/04/21 16:40 Family History Mother Cancer Lung Surgical History No pertinent past surgical history Social History Smoking Status: Former smoker quit date: 07/07/19 Smokeless tobacco user: chewing tobacco ROS ROS ED Constitutional Constitutional ED: Denies chills, fever(s) or sweats Eyes Eyes: Denies blurry vision ENT ENT ED: Denies rhinorrhea or sore throat Cardiovascular Cardiovascular: Reports palpitations and racing heartbeat; Denies chest pain Respiratory/Chest Respiratory/Chest: Reports cough and dyspnea; Denies dyspnea on exertion or sputum Gastrointestinal Gastrointestinal: Denies nausea or vomiting Genitourinary Genitourinary ED: Denies dysuria Musculoskeletal Musculoskeletal: Denies arthralgias, myalgias or neck pain Integumentary Denies rash Neurologic Neurologic: Denies headache(s), paresthesias or weakness Endocrine Endocrinology: Denies polydipsia or polyuria Allergic/Immunologic Allergic/Immunologic ED: Denies mouth swelling or urticaria EXAM Physical Exam Const Vital Signs: 06/04/21 15:55 06/04/21 16:39 06/04/21 16:42 Temperature 97.4 F L Temperature Source Temporal Pulse Rate 160 H 168 H Respiratory Rate 16 Respiratory Effort Short of Breath Blood Pressure 114/98 H Blood Pressure Mean 103 Blood Pressure Source Blood Pressure Position Blood Pressure Location Pulse Ox 96 Oxygen Delivery Method Room Air 06/04/21 16:54 06/04/21 17:34 06/04/21 18:15 Temperature 97.4 F L 97.4 F L 98.1 F Temperature Source Temporal Temporal Temporal Pulse Rate 162 H 142 H 151 H Respiratory Rate 20 H 22 H 22 H Respiratory Effort Blood Pressure 157/100 H 101/67 120/99 H Blood Pressure Mean 119 78 106 Blood Pressure Source Monitor Monitor Monitor Blood Pressure Position Semi-Fowlers Semi-Fowlers Blood Pressure Location Right Arm Right Arm Pulse Ox 98 98 98 Oxygen Delivery Method Room Air Room Air Room Air 06/04/21 18:17 Temperature 98.1 F Temperature Source Temporal Pulse Rate 151 H Respiratory Rate 22 H Respiratory Effort Blood Pressure 120/99 H Blood Pressure Mean 106 Blood Pressure Source Blood Pressure Position Blood Pressure Location Pulse Ox 98 Oxygen Delivery Method Room Air Positive well nourished and well developed General Appearance ED: well developed and NAD; Negative for cyanotic or diaphoretic HEENT Negative for trauma or tenderness Eyes General Eye ED: Negative for pale conjunctiva or scleral icterus Neck no JVD Chest Wall inspection of chest normal Resp normal respiratory effort and clear to auscultation bilaterally Auscultation: Negative for rales, rhonchi or wheezes Cardio Rate: tachycardic Rhythm: abnormal rhythm GI normal to inspection, nondistended, normoactive bowel sounds and non-tender Palpation: soft Extremity normal to inspection General Extremety ED: Negative for edema or tenderness General Extremity: Negative for edema Neuro Sensorium / Orientation: alert; Negative for lethargic or stuporous Psych mental status grossly normal Skin no rashes or lesions noted MDM MDM MDM Narrative Medical decision making narrative: Patient's white count is slightly elevated as is his hemoglobin. Electrolytes are overall normal. Glucose has minimal elevation at 128. He does report history of glucose intolerance or prediabetes. TSH and troponin and magnesium are normal. Chest x-ray shows no acute process. Patient's placed on Cardizem drip. We started at 5. We went up to 10 mg/h. His heart rate has come down a bit but the lowest I have seen is the high 120s. This is a 40 beat drop. His blood pressure is hanging about 109. I think we need to slowly improve this. Plan is to admit him. I did discuss case with hospitalist. Hospitalist also talked with cardiology. They plan to come in and do cardioversion on this patient. He is having some difficulty controlling his rate. Hopefully they can get him into a normal rhythm. Lab Data Attestation: I reviewed the patient's lab results. Labs: Laboratory Results - last 24 hr 06/04/21 06/04/21 16:30 16:30 WBC 13.6 H RBC 5.44 Hgb 17.2 H Hct 50.4 MCV 92.6 MCH 31.6 MCHC 34.1 RDW Std Deviation 43.0 RDW Coeff of Carol Ann 12.8 Plt Count 196 MPV 10.8 Immature Gran % (Auto) 0.400 Neut % (Auto) 65.8 Lymph % (Auto) 22.8 [place] % (Auto) 9.1 Eos % (Auto) 1.3 Baso % (Auto) 0.6 Absolute Neuts (auto) 8.9 H Absolute Lymphs (auto) 3.09 Nucleated RBC % 0 Sodium 137 Potassium 4.2 Chloride 106 Carbon Dioxide 22.0 Anion Gap 9 BUN 12 Creatinine 0.94 Estim Creat Clear Calc 106.81 Est GFR (MDRD) Af Amer 112 Est GFR (MDRD) Non-Af 93 BUN/Creatinine Ratio 12.8 Glucose 128 H Calcium 8.7 Magnesium 2.0 Troponin I High Sens 54 TSH 1.87 Radiography Diagnostic Testing: Clinical Impression(s) from Imaging Studies Chest X-Ray 06/04/21 16:35 IMPRESSION: No acute radiographic abnormalities. Electronically Signed: Charles Mccray MD at 17:31 EST Tel , Service support , EKG Initial EKG: Comments: EKG shows atrial fibrillation with rapid rate of 165. No ventricular ectopy. Nonspecific ST and T wave change but no significant ST elevation or depression. QRS duration and QTc normal. Critical Care Time Critical Care Time: Yes Critical care time (excluding procedures): 30-74 minutes, Discussing w/Patient &/or Family/Bioinformatics Engineer, Discussing w/Consultants, Arranging Admission or Transfer, Performing Direct Patient Care at Bedside and - (35 minutes, repeat evaluation, watching monitor, adjusting meds, consultations, documentation.) Discharge Plan Dx/Rx/DC Orders Clinical Impression: Atrial fibrillation with RVR, Dyspnea Disposition Disposition: Acute Care [facility]
[2021-06-04 17:01] LABS: Anion Gap 9 (5-15); BUN 12 mg/dL (7-18); BUN/Creat Ratio 12.8 RATIO (10-20); Calcium,Total 8.7 mg/dL (8.5-10.1); Chloride 106 mmol/L (98-107); Creatinine, Serum 0.94 mg/dL (0.70-1.30); EST Glomerular Filtration Rate 93 mL/min (>60); Est Glom Filt Rate - Afr Amer 112 mL/min (>60); Estimated Creatinine Clearance 106.81 ml/min; Glucose 128 mg/dL (74-106); Potassium 4.2 mmol/L (3.5-5.1); Sodium Level 137 mmol/L (136-145); Thyroid Stim Hormone (TSH) 1.87 uIU/mL (0.358-3.74); Troponin-I HS 54 pg/mL (3.0-78.0)
[2021-06-04] MEDS: Midazolam 2 MG/2 ML Syringe IV (18:48)
--- NOTE | 2021-06-04 18:48 | ED.RN ---
VERSED GIVEN BY CHAUNCEY BECKWITH
[2021-06-04] MEDS: Propofol 200 MG/20 ML Vial 100 MG IV BOLUS (18:50)
[2021-06-04] MEDS: Metoprolol Tartrate 5 MG/5 ML Vial IV (19:04)
[2021-06-04] MEDS: Propofol 200 MG/20 ML Vial 70 MG IV BOLUS (19:07)
--- NOTE | 2021-06-04 19:11 | ED.RN ---
PT RESPIRATIONS INCREASING. COLOR IS [facility] ON NRB. DR ALAN AT THE BEDSIDE.
[2021-06-04] MEDS: Flumazenil 0.5 MG/5 ML Vial 0.2 MG IV (19:20)
--- NOTE | 2021-06-04 19:20 | PCM.HP.STD ---
Documented by User: RAYMUNDO Panchal 06/04/21 20:38 HPI - General General Date of Admission: 06/04/21 Date of Service: 06/04/21 Chief Complaint: Elevated heart rate HPI Narrative CHARLES GUDINO, is a 46 M who presents with complaints of elevated heart rate. Patient states that he was diagnosed with atrial fibrillation approximately 2 years ago and has been taking his medications including Eliquis, digoxin, carvedilol. Patient recently was seen in the ER and was switched from digoxin to metoprolol. Patient states over the past 3 weeks his heart rate has been going higher and higher and he has been in atrial fibrillation more often. Patient reports chest tightness but no palpitations. Patient states that he also has shortness of breath with exertion during the periods of chest tightness and elevated heart rate. [facility] Medical History Anxiety Atrial fibrillation Hypertension Marijuana smoker Perianal abscess Polycythemia Sleep-disordered breathing Tobacco dependence due to chewing tobacco Tobacco dependence due to cigarettes Home Medications multivitamin with minerals 1 ea PO DAILY 07/20/19 [History Last Taken 07/20/19] acetaminophen 650 mg PO Q6H PRN PRN tab 07/23/19 [Rx Last Taken Unknown] albuterol sulfate 90 mcg/actuation aerosol inhaler 2 puff INHALATION Q6H PRN 08/21/19 [History Last Taken Unknown] atorvastatin 20 mg tablet 20 mg PO QHS #30 tab 08/05/20 [Rx Last Taken Unknown] carvedilol 6.25 mg tablet 6.25 mg PO BID #60 tab 08/05/20 [Rx Last Taken Unknown] losartan 25 mg tablet 25 mg PO DAILY #30 tab 08/14/20 [Rx Last Taken Unknown] apixaban 5 mg tablet 5 mg PO BID #60 tab 08/20/20 [Rx Last Taken Unknown] metoprolol succinate [Kapspargo Sprinkle] 50 mg PO DAILY 06/04/21 [History Last Taken Unknown] Allergy/AdvReac Type Severity Reaction Status Date / Time CILLINS Allergy Other Uncoded 06/04/21 16:40 Family History (Updated 06/04/21 @ 21:[address] Fozia Barajas MD) Mother Cancer Hx Lung CA. Father Heart disease Surgical History (Updated 06/04/21 @ 21:[address] Fozia Barajas MD) Hx of abdominal surgery Social History (Updated 06/04/21 @ 21:[address] Fozia Barajas MD) household members: spouse Smoking Status: Former smoker quit date: 07/07/19 Smokeless tobacco user: chewing tobacco alcohol intake: current alcohol intake frequency: holidays/special occasions only substance use type: does not use caffeine: No ROS Constitutional Constitutional: Denies anorexia, chills, fatigue, fever(s), malaise or weakness Cardiovascular Cardiovascular: Reports arrhythmia on telemetry, dyspnea, irregular heart rhythm and rapid heart rate; Denies chest pain, edema or palpitations Respiratory/Chest Respiratory/Chest: Denies cough, shortness of breath at rest or shortness of breath with exertion Gastrointestinal Gastrointestinal: Denies abdominal pain, constipation, diarrhea, nausea or vomiting Genitourinary Genitourinary: Denies dysuria Musculoskeletal Musculoskeletal: Denies back pain, extremity pain, joint pain, joint stiffness or joint swelling Integumentary Integumentary: Denies dry skin Neurologic Neurologic: Denies abnormal gait, abnormal speech, confusion, dizziness or focal weakness Psychiatric Psychiatric: Denies anxiety or depression Endocrine Endocrinology: Denies change in body appearance Hematologic/Lymphatic Hematologic/Lymphatic: Denies anemia Vital Signs Vital Signs Vital Signs: 06/04/21 15:55 06/04/21 16:39 06/04/21 16:42 Temperature 97.4 F L Temperature Source Temporal Pulse Rate 160 H 168 H Respiratory Rate 16 Respiratory Effort Short of Breath Blood Pressure 114/98 H Blood Pressure Mean 103 Blood Pressure Source Blood Pressure Position Blood Pressure Location Pulse Ox 96 Oxygen Delivery Method Room Air 06/04/21 16:54 06/04/21 17:34 06/04/21 18:15 Temperature 97.4 F L 97.4 F L 98.1 F Temperature Source Temporal Temporal Temporal Pulse Rate 162 H 142 H 151 H Respiratory Rate 20 H 22 H 22 H Respiratory Effort Blood Pressure 157/100 H 101/67 120/99 H Blood Pressure Mean 119 78 106 Blood Pressure Source Monitor Monitor Monitor Blood Pressure Position Semi-Fowlers Semi-Fowlers Blood Pressure Location Right Arm Right Arm Pulse Ox 98 98 98 Oxygen Delivery Method Room Air Room Air Room Air 06/04/21 18:17 06/04/21 18:45 Temperature 98.1 F Temperature Source Temporal Pulse Rate 151 H 163 H Respiratory Rate 22 H Respiratory Effort Blood Pressure 120/99 H Blood Pressure Mean 106 Blood Pressure Source Blood Pressure Position Blood Pressure Location Pulse Ox 98 Oxygen Delivery Method Room Air Weight Weight: 232 lb Body Mass Index (BMI) 32.3 Physical Exam Const alert, oriented x3 and no apparent distress General Appearance: cooperative HEENT normocephalic and head/scalp atraumatic Eyes conjunctivae normal and no scleral icterus Neck supple General: trachea midline Resp normal respiratory effort, normal air movement and clear to auscultation bilaterally Cardio S1 normal heart sound, S2 normal heart sound and peripheral pulses 2+ throughout Rate: tachycardic Rhythm: abnormal rhythm irregularly irregular GI normal to inspection, nondistended, normoactive bowel sounds, soft to palpation and non-tender Extremity normal capillary refill and no clubbing, cyanosis or edema General Extremity: no tenderness to palpation of joints or extremities Skin General Skin Exam: no breakdown and turgor normal Lesions: no lesions Rashes: no rashes Neuro oriented x3, moves all extremities, no focal motor deficits and no sensory deficits noted Psych thought process normal, cooperative and affect normal Appearance: appropriate Results Lab / Micro Data Result Diagrams: 06/04/21 16:30 06/04/21 16:30 Labs: Laboratory Results - last 24 hr 06/04/21 16:30: WBC 13.6 H, RBC 5.44, Hgb 17.2 H, Hct 50.4, MCV 92.6, MCH 31.6, MCHC 34.1, RDW Std Deviation 43.0, RDW Coeff of Carol Ann 12.8, Plt Count 196, MPV 10.8, Immature Gran % (Auto) 0.400, Neut % (Auto) 65.8, Lymph % (Auto) 22.8, [place] % (Auto) 9.1, Eos % (Auto) 1.3, Baso % (Auto) 0.6, Absolute Neuts (auto) 8.9 H, Absolute Lymphs (auto) 3.09, Nucleated RBC % 0 06/04/21 16:30: Sodium 137, Potassium 4.2, Chloride 106, Carbon Dioxide 22.0, Anion Gap 9, BUN 12, Creatinine 0.94, Estim Creat Clear Calc 106.81, Est GFR (MDRD) Af Amer 112, Est GFR (MDRD) Non-Af 93, BUN/Creatinine Ratio 12.8, Glucose 128 H, Calcium 8.7, Magnesium 2.0, Troponin I High Sens 54, TSH 1.87 Radiology Impression Chest X-Ray 06/04/21 16:35 IMPRESSION: No acute radiographic abnormalities. Electronically Signed: Charles Mccray MD at 17:31 EST Tel , Service support , Assessment & Plan Assessment/Plan (1) Atrial fibrillation with RVR: PLAN: Patient is a 46-year-old male who originally presented with chest tightness and was found to be in atrial fibrillation with RVR. Patient has a history of A. fib for the past 2 years and is chronically anticoagulated with Eliquis. Patient was recently switched from digoxin to metoprolol and states that over the past 3 weeks he has continued to have more frequent spells of atrial fibrillation with higher heart rates in the 150s to 170s. Following decision for admission cardiology consulted and decision was made to attempt cardioversion while patient in ER. Per Dr. Bower of cardiology patient was cardioverted first at 150 and 250 and finally at 300 and patient persisted in atrial fibrillation. Patient was also given 2 doses of amiodarone 150 mg as well as IV metoprolol 5 mg x 1 1. Atrial fibrillation with RVR -Admit to ICU for continuous cardiac and pulse ox monitoring -Consult life tester outboard motors -Patient became hypotensive following cardioversion and administration of the above medications. Cardizem drip discontinued at this time -As needed metoprolol 2.5 mg IV every 4 hours as needed ordered for a heart rate of greater than 140 -Cardiac enzymes ordered -Vital signs per protocol -Echocardiogram ordered for a.m. -CBC, BMP, mag ordered for a.m. 2. Acute hypoxic respiratory failure, multifactorial, obstructive sleep apnea history along with sedation given for cardioversion -Patient currently on BiPAP -N.p.o. until patient no longer on continuous BiPAP -As patient becomes more alert okay to wean patient to nasal cannula oxygen as tolerated -ABG demonstrates pH 7.29, bicarbonate 11.8, O2 saturation 100, PCO2 24.4, PO2 283. Consistent with patient hyperventilation prior to administration of BiPAP. -Due to patient's reporting of being ill approximately 3 weeks ago prior to onset of atrial fibrillation exacerbation Castro PCR ordered. 3. Hypotension -Secondary to administration of beta-blockers and calcium channel blockers following unsuccessful cardioversion attempts. -Patient's blood pressure currently 87/34 -Vital signs per protocol, every hour for ICU DVT prophylaxis-chronically anticoagulated with Eliquis This patient was seen by RAYMUNDO Panchal under the supervision of Dr. Barajas. Documented by User: Dr. Fozia Barajas MD 06/04/21 21:36 HPI - General General Date of Admission: 06/04/21 [facility] Medical History Anxiety Atrial fibrillation Hypertension Marijuana smoker Perianal abscess Polycythemia Sleep-disordered breathing Tobacco dependence due to chewing tobacco Tobacco dependence due to cigarettes Home Medications multivitamin with minerals 1 ea PO DAILY 07/20/19 [History Last Taken 07/20/19] acetaminophen 650 mg PO Q6H PRN PRN tab 07/23/19 [Rx Last Taken Unknown] albuterol sulfate 90 mcg/actuation aerosol inhaler 2 puff INHALATION Q6H PRN 08/21/19 [History Last Taken Unknown] atorvastatin 20 mg tablet 20 mg PO QHS #30 tab 08/05/20 [Rx Last Taken Unknown] carvedilol 6.25 mg tablet 6.25 mg PO BID #60 tab 08/05/20 [Rx Last Taken Unknown] losartan 25 mg tablet 25 mg PO DAILY #30 tab 08/14/20 [Rx Last Taken Unknown] apixaban 5 mg tablet 5 mg PO BID #60 tab 08/20/20 [Rx Last Taken Unknown] metoprolol succinate [Kapspargo Sprinkle] 50 mg PO DAILY 06/04/21 [History Last Taken Unknown] Allergy/AdvReac Type Severity Reaction Status Date / Time CILLINS Allergy Other Uncoded 06/04/21 16:40 Family History (Updated 06/04/21 @ 21:[address] Fozia Barajas MD) Mother Cancer Hx Lung CA. Father Heart disease Surgical History (Updated 06/04/21 @ 21:[address] Fozia Barajas MD) Hx of abdominal surgery Social History (Updated 06/04/21 @ 21:[address] Fozia Barajas MD) household members: spouse Smoking Status: Former smoker quit date: 07/07/19 Smokeless tobacco user: chewing tobacco alcohol intake: current alcohol intake frequency: holidays/special occasions only substance use type: does not use caffeine: No Results Lab / Micro Data Result Diagrams: 06/04/21 16:30 06/04/21 16:30
--- NOTE | 2021-06-04 19:23 | ED.RN ---
MULTIPLE ATTEMPTS AT BLOOD GAS ATTEMPTED
[2021-06-04] MEDS: Ondansetron 4 MG/2 ML Vial IV (19:48)
--- NOTE | 2021-06-04 19:56 | ED.RN ---
GAMBOA CATHETER INSERTED BY BRET ALLEN
[2021-06-04] MEDS: Phenylephrine 10 MG/ML Vial IV (19:57)
[2021-06-04] MEDS: Phenylephrine 10 MG/ML Vial 20 MG IV (20:00)
--- NOTE | 2021-06-04 20:10 | RAD_ITS ---
EXAM: XR CHEST, 1 VIEW CLINICAL INDICATION: hypoxia TECHNIQUE: Frontal view of the chest. This report was created using [employer] report generation technology. COMPARISON: 06/04/2021 chest x-ray that was performed at 5:00 PM FINDINGS: LUNGS AND PLEURAL SPACES: Age-indeterminate bronchitis. Subsegmental/partial atelectasis at the medial lower lungs. No definite consolidation. No pneumothorax. No effusion. HEART: Unremarkable. Cardiac silhouette not enlarged. MEDIASTINUM: Central airways and mediastinal contour are unremarkable. BONES/JOINTS: No suspicious lytic or sclerotic lesions of bone. SOFT TISSUES: Unremarkable. RAD/Chest 1 View (Portable) IMPRESSION: Age-indeterminate bronchitis and subsegmental/partial atelectasis at the medial lower lobes with no definite pneumonia or other acute disease. Electronically Signed: Reagan Mohamud MD at 21:35 EST Tel , Service support ,
[2021-06-04 20:31] LABS: Allen Test Positive; Base Excess -15 mmol/L (-2 to +2); Bicarbonate 11.8 mmol/L (22-26); Blood Gas Specimen Type ART; FI02 100; O2 Delivery Device BiPAP; PEEP 6; PO2 283 mmHG (75-100); RR 14; SITE L Radial; SO2 100 % (95-99); Total Carbon Dioxide 13 mmol/L; pCO2 24.4 mmHg (35-45); pH 7.29 (7.35-7.45)
--- NOTE | 2021-06-04 20:31 | CON.PCM.CA_ITS ---
HPI Consult Data Date of Consult: 06/06/21 HPI Narrative HPI Narrative: CHARLES GUDINO, is a 46 M who presents with atrial fibrillation with ventricular rate in the 160s despite IV diltiazem drip. Patient reports a history of atrial fibrillation. He says it was initially diagnosed about [address] Salas, was placed on metoprolol and Eliquis, says he has been compliant with Eliquis over the past 2 years without fail, reports no bleeding diathesis. 2 weeks ago had upper respiratory symptoms. Today he felt the onset of atrial fibrillation around 11:00 in the morning, and it has persisted. On he admits to drinking, usually drinks hard liquor. Quantity unclear. Patient reports that the palpitations are annoying, and he is getting fatigued. There are EKGs in the system that have shown sinus rhythm and also atrial fibrillation. When in atrial fibrillation he has poor R wave progression. Patient has been seen in the emergency department on few occasions for Abe rectal abscess. He has history of hypertension, tobacco dependence, very likely has obstructive sleep apnea. His ventricular rate was sustained in the 160s despite being on IV diltiazem at 15 mg/h. Last meal was this morning, half a protein bar. On physical examination he was alert talkative, not in respiratory distress had minimal cough no carotid bruit or jugular venous distention no scleral icterus lungs clear anteriorly posteriorly diminished breath sounds without crepitations or rhonchi heart sounds were distant irregularly irregular tachycardic no murmur rub or gallop abdomen nontender extremities no edema distal pulses are symmetric moving all extremities skin shows no petechia or rash. EKG and chest x-ray reviewed. No gross abnormalities on chest x-ray. Laboratory data reviewed Due to persistent tachycardia around 160, and due to patient's request, attempt was made at electrical cardioversion. Please refer to procedural details. Patient received 2 mg of IV Versed. He received 60 mg of IV propofol. This was followed by synchronous DC shock of 150 J x 1, transiently converted to sinus and then reverted back into atrial fibri llation/flutter with RVR, a second shock of 250 J was then provided in a synchronous fashion, again transiently regained sinus rhythm then went back into atrial fibrillation and atrial flutter with ventricular rates in the 150s. Patient was given 150 mg of IV amiodarone. Patient received 5 mg of IV metoprolol. Diltiazem drip was increased to 20 mg an hour. Heart rate still sustained in the 150s and 160s. A second dose of 150 mg of immediate IV amiodarone was given and patient was noted to be dusky, shallow breathing, oxygen saturation fluctuated between 80s and 90s, respiratory therapy was at the bedside the entire time, supplemental oxygen was provided, patient was placed on a Ventimask, patient became very restless, complained of needing to urinate, attempted obtaining a blood gas was unsuccessful, patient's blood pressure was difficult to obtain, but he was moving around, and sometimes responding to questions. He was given 0.2 mg of IV Romazicon. He was given IV Noble-Synephrin e. 1 ampoule of calcium gluconate was administered. ER physician and hospitalist and nurse practitioner were all at the bedside. Twelve-lead EKG showed atrial fibrillation without any diagnostic ST-T abnormalities. Patient was then placed on BiPAP. Patient received IV Noble-Synephrine. Blood pressure improved transiently. However blood pressure then dropped into the 80s systolic again. At this point Levophed was initiated. Please refer to notes by Dr. Monahan for details. Patient was still awake and responding when he was not falling asleep. He is clearly behaving like someone with obstructive sleep apnea. Assessment: 1. Patient with refractory atrial fibrillation/flutter with rapid ventricular rate 2. Bradycardia and hypotension following attempted electrical cardioversion and the use of AV esme blocking agents and antiarrhythmics 3. Patient has been on anticoagulation with Eliquis 4. Obstructive sleep apnea 5. Obesity 6. Alcohol abuse 7. Given young age of onset, structural heart disease needs to be excluded. High level of suspicion for atrial septal defect or patent foramen ovale. 8. Recent upper respiratory symptoms-? Covid Recommendations: 1. Diltiazem has been discontinued 2. Patient will be placed on IV Levophed for pressure support 3. Arterial blood gas has been drawn and results are pending 4. Multidisciplinary team approach to care to include ER physician hospitalist and myself. 5. Patient will be transferred to the cardiac intensive care unit. 6. Echocardiogram in the morning 7. IV metoprolol 2.5 mg every 4 hours as needed heart rate greater than 110, hold if systolic blood pressure less than 100. Additional recommendations to be based on clinical course and findings I was at patient's bedside from 18 45-20 15. Thank you, Sincerely, Billie Bower MD [facility] Medical History Anxiety Atrial fibrillation Hypertension Marijuana smoker Perianal abscess Polycythemia Sleep-disordered breathing Tobacco dependence due to chewing tobacco Tobacco dependence due to cigarettes Home Medications multivitamin with minerals 1 ea PO DAILY 07/20/19 [History Last Taken 07/20/19] acetaminophen 650 mg PO Q6H PRN PRN tab 07/23/19 [Rx Last Taken Unknown] albuterol sulfate 90 mcg/actuation aerosol inhaler 2 puff INHALATION Q6H PRN 08/21/19 [History Last Taken Unknown] atorvastatin 20 mg tablet 20 mg PO QHS #30 tab 08/05/20 [Rx Last Taken Unknown] carvedilol 6.25 mg tablet 6.25 mg PO BID #60 tab 08/05/20 [Rx Last Taken Unknown] losartan 25 mg tablet 25 mg PO DAILY #30 tab 08/14/20 [Rx Last Taken Unknown] apixaban 5 mg tablet 5 mg PO BID #60 tab 08/20/20 [Rx Last Taken Unknown] metoprolol succinate [K[place]sp[place] Sprinkle] 50 mg PO DAILY 06/04/21 [History Last Taken Unknown] Allergy/AdvReac Type Severity Reaction Status Date / Time CILLINS Allergy Other Uncoded 06/04/21 16:40 Family History (Updated 06/04/21 @ 21:[address] Fozia Barajas MD) Mother Cancer Hx Lung CA. Father Heart disease Surgical History (Updated 06/04/21 @ 21:[address] Fozia Barajas MD) Hx of abdominal surgery Social History (Updated 06/04/21 @ 21:[address] Fozia Barajas MD) household members: spouse Smoking Status: Former smoker quit date: 07/07/19 Smokeless tobacco user: chewing tobacco alcohol intake: current alcohol intake frequency: holidays/special occasions only substance use type: does not use caffeine: No Risk Stratification Risk Stratification Applicable: Yes Age >/= 65: No >/= 3 CAD Risk Factors (HTN, HLD, DM, family hx of CAD, or current smoker): No Aspirin Use in the Past 7 Days: No Severe Angina (>/= episodes in 24 hours): No EKG ST Changes >/= 0.5mm: No Positive Cardiac Marker: No KALIN Risk Stratification Score: 0 KALIN % Risk: 5% Risk Objective Data Vital Signs: Vital Signs Temp Pulse Resp BP Pulse Ox 98.1 F 163 H 22 H 120/99 H 98 06/04/21 18:17 06/04/21 18:45 06/04/21 18:17 06/04/21 18:17 06/04/21 18:17 Oxygen Delivery Method Room Air Weight: 232 lb Body Mass Index (BMI) 32.3 Intake & Output: Intake and Output for Last 24 Hours 06/02/21 06/03/21 06/04/21 23:59 23:59 23:59 Intake Total 17.66 / 17.66 Balance 17.66 / 17.66 Lab / Micro Data Result Diagrams: 06/06/21 05:36 06/06/21 05:36 Labs: Laboratory Results - last 24 hr 06/04/21 16:30: WBC 13.6 H, RBC 5.44, Hgb 17.2 H, Hct 50.4, MCV 92.6, MCH 31.6, MCHC 34.1, RDW Std Deviation 43.0, RDW Coeff of Carol Ann 12.8, Plt Count 196, MPV 10.8, Immature Gran % (Auto) 0.400, Neut % (Auto) 65.8, Lymph % (Auto) 22.8, Phelps % (Auto) 9.1, Eos % (Auto) 1.3, Baso % (Auto) 0.6, Absolute Neuts (auto) 8.9 H, Absolute Lymphs (auto) 3.09, Nucleated RBC % 0 06/04/21 16:30: Sodium 137, Potassium 4.2, Chloride 106, Carbon Dioxide 22.0, Anion Gap 9, BUN 12, Creatinine 0.94, Estim Creat Clear Calc 106.81, Est GFR (MDRD) Af Amer 112, Est GFR (MDRD) Non-Af 93, BUN/Creatinine Ratio 12.8, Glucose 128 H, Calcium 8.7, Magnesium 2.0, Troponin I High Sens 54, TSH 1.87 ABG Data ABG results: ABG 06/04/21 20:26 Specimen Type ART Sample Site L Radial pH 7.29 L Bicarbonate Actual 11.8 L Total CO2 13 Base Excess -15 L O2 Saturation 100 H O2 % 100 ABG pCO2 24.4 L ABG pO2 283 H Jose Test Positive Respiration Rate 14 O2 Delivery Device BiPAP POC PEEP 6 Clinical Comments 17/11 14 100% Cardiology Labs/Tests 06/04/21 16:30: WBC 13.6 H, RBC 5.44, Hgb 17.2 H, Hct 50.4, MCV 92.6, MCH 31.6, MCHC 34.1, Plt Count 196, MPV 10.8, Immature Gran % (Auto) 0.400, Neut % (Auto) 65.8, Lymph % (Auto) 22.8, Phelps % (Auto) 9.1, Eos % (Auto) 1.3, Baso % (Auto) 0.6, Absolute Neuts (auto) 8.9 H, Nucleated RBC % 0 06/04/21 16:30: Sodium 137, Potassium 4.2, Chloride 106, Carbon Dioxide 22.0, Anion Gap 9, BUN 12, Creatinine 0.94, Est GFR (MDRD) Af Amer 112, Est GFR (MDRD) Non-Af 93, BUN/Creatinine Ratio 12.8, Glucose 128 H, Calcium 8.7, Magnesium 2.0 06/04/21 20:26: pH 7.29 L, Bicarbonate Actual 11.8 L, Base Excess -15 L, O2 Saturation 100 H, ABG pCO2 24.4 L, ABG pO2 283 H, Jose Test Positive Rhythm: EKG: ECHO: Stress Test: Cardiac Cath: PCI: CT Surgery: Holter monitor: EPS: PPM: CXR: Chest CT Scan: Radiography Diagnostic Testing: Radiology Impression Chest X-Ray 06/04/21 16:35 IMPRESSION: No acute radiographic abnormalities. Electronically Signed: Charles Mccray MD at 17:31 EST Tel , Service support ,
--- NOTE | 2021-06-04 20:39 | ED.RN ---
CARDIZEM INCREASED BY [facility] PER DR ALAN AT THE BEDSIDE
[2021-06-04] MEDS: 0.9% Normal Saline 1,000 ML 999 ML IV ×2 (21:00→21:35)
[2021-06-04 21:41] LABS: Bedside Glucose 198 mg/dL (70-110)
--- NOTE | 2021-06-04 21:56 | CM.ED ---
SW Note SW spoke to patient's RN Darlene. is not present and does not plan to come to the ED. SW remains available if needs arise. Yu BENJAMIN
--- NOTE | 2021-06-04 23:06 | CPS ---
Pt.'s breathing has improved over the past few hours on BiPAP. Placed on 3L NC, with appropriate oxygen saturations.
[2021-06-05] VITALS (47 sets, daily range): BP systolic 74–164; BP diastolic 32–143; PULSE 53–136; RESP 16–26; TEMP 36.1–36.8; O2SAT 93–99; BMI 34.0
--- NOTE | 2021-06-05 00:43 | CARDIOVERS ---
Cardioversion Cardioversion: Clinical indication : Sustained atrial fibrillation/flutter with ventricular rates in the 160s, symptomatic Patient has been on Eliquis for 2 years. Patient has prior history of atrial fibrillation. Informed consent was obtained. Patient's heart rate could not be trolled despite maximum dose of IV diltiazem infusion. Anterior posterior approach was used. Heart rate blood pressure and oxygen saturation was monitored throughout. Respiratory therapy assisted with airway management. 2 mg of Versed and 60 mg of IV propofol was administered for the initial cardioversion. An shock of 150 J was delivered in a biphasic synchronized manner via anterior posterior approach, patient transiently converted to sinus rhythm and then reverted back to atrial fibrillation/flutter with rapid ventricular rate. 70 mg of IV propofol was administered, airway and breathing was monitored. A second shock of 250 J was then delivered in a biphasic synchronized manner via an anterior posterior approach, did not sustain sinus rhythm, went back into atrial fibrillation/flutter with rapid ventricular rate. Patient was given 2 g of IV magnesium sulfate, and 150 mg of IV amiodarone. When heart rate consistently elevated the 150s, a second dose of amiodarone 150 mg IV was given. Patient did not convert to normal sinus rhythm. To enhance recovery, 0.2 mg of Romazicon was administered intravenously. Summary: Cardioversion was not successful and sustaining sinus rhythm. Patient reverted to atrial fibrillation/flutter, ventricular heart rate however improved to the low 100 range.
--- NOTE | 2021-06-05 00:51 | PCM.PN.BLA ---
Progress Note 2199: I was notified by ER physician about persistent hypotension, and to reevaluate patient, consider possible echocardiogram. Patient's systolic blood pressure hovered in the 80s. Patient had been on maximum dose of Levophed. Rhythm was atrial fibrillation with controlled ventricular rate. Patient was however awake and conversing. He said he was tired and thirsty. He would follow simple commands. Patient was on maximum dose of Levophed. His lungs were clear and heart sounds were irregular and distant. Hospitalist service was getting ready to place a central line via right femoral approach. After this, I performed bedside echocardiogram. Due to patient's body habitus it was technically challenging. I visually estimate patient's left ventricular ejection fraction to be about 35% there is mild LV dilatation. Did not appreciate regional wall motion abnormality. Left atrium appeared significantly dilated. Right ventricular size and systolic function appeared normal. There was no pericardial effusion. Was not able to perform color or Doppler. Patient was able to be switched from BiPAP to nasal cannula. Respiratory therapy did this. He continued to be able to converse. Discussed clinical scenario with patient's at the bedside. She reports that patient had been sick for about 4 months. She reports that he would get atrial fibrillation whenever he laid flat. She had noticed that his energy level was decreasing and that he was getting short of breath. Patient only reported symptoms for couple of weeks. Patient was apparently seen in our emergency department and released. The arterial line set up was in the intensive care unit. After patient was transferred up there, and we were able to gather the supplies, right radial arterial access was attempted multiple times, without success. At this point patient's blood pressure was in the 90s systolic. He was sleepy but easily arousable, and was following commands, asking for apple juice. Additional attempts were not pursued. I am deferring arterial line placement to the mechanical engineering advisor. Bedside time in the emergency room and up in the ICU 2 hours
[2021-06-05 01:48] LABS: Absolute Lymphocyte Count 2.19 X10^3/uL (0.83-4.51); Absolute Neutrophil Count 21.6 X10^3/uL (2.0-7.7); Basophil# 0.06 X10^3/uL; Basophil% 0.2 % (0-1); Eosinophil# 0.03 X10^3/uL; Eosinophils% 0.1 % (0-5); Hemoglobin 18.8 g/dL (13.0-16.5); Lymphocyte # 2.19 X10^3/ul (0.83-4.51); Lymphocyte % 8.3 % (19-41); Mean Corp Hgb Conc 31.4 g/dL (32-36); Mean Corpuscular Hgb 31.4 pg (27.0-32.0); Mean Corpuscular Volume 100.2 fL (80-94); Mean Platelet Vol. 10.8 fl (6.2-12.0); Monocyte# 1.67 X10^3/uL; Monocyte% 6.3 % (0-10); NRBC Flagged by Analyzer 0.3 % (0-5); Neutrophil # 21.62 X10^3/uL (2.7-7.7); Neutrophil % 81.6 % (47-70); POSITIVE DIFFERENTIAL YES; POSITIVE MORPHOLOGY YES; Platelet Count 125 K/mm3 (150-450); RBC Distribution Width SD 48.4 fl (35.1-43.9); Red Blood Count 5.98 M/mm3 (4.6-6.2); White Blood Count 26.5 K/mm3 (4.4-11.0)
[2021-06-05 01:58] LABS: Hematocrit 59.9 % (40-54)
[2021-06-05 01:59] LABS: Differential Indicated SCAN CRITERIA MET
[2021-06-05 02:14] LABS: Lactic Acid 4.5 mmol/L (0.4-1.9)
[2021-06-05 02:15] LABS: Anion Gap 10 (5-15); BUN 18 mg/dL (7-18); Calcium,Total 7.8 mg/dL (8.5-10.1); Chloride 109 mmol/L (98-107); EST Glomerular Filtration Rate 44 mL/min (>60); Est Glom Filt Rate - Afr Amer 53 mL/min (>60); Estimated Creatinine Clearance 55.78 ml/min; Glucose 158 mg/dL (74-106); Potassium 6.6 mmol/L (3.5-5.1); Sodium Level 137 mmol/L (136-145); Troponin-I HS 22 pg/mL (3.0-78.0)
[2021-06-05] MEDS: Dextrose 50%-Water 25 GM/50 ML DISP.SYRIN IV (02:57)
[2021-06-05] MEDS: Calcium Gluconate 1 GM/10 ML Vial IV (03:34)
[2021-06-05 05:44] LABS: Reflex Lactate? Y
[2021-06-05 05:46] LABS: Blood Gas Specimen Type VEN; VBG BASE EXCESS -8 mmol/L (-1.0-3.5); VBG Bicarbonate 20 mmol/L (22-26); VBG PO2 34 mmHg (25-40); VBG SO2 55 % (50-70); VBG TCO2 21 mmol/L (23-33); VBG pCO2 44.6 mmHg (41-51); VBG pH 7.25 (7.32-7.42)
[2021-06-05 08:35] LABS: Lactic Acid 3.3 mmol/L (0.4-1.9)
[2021-06-05] MEDS: Sodium Bicarbonate 8.4% 50 ML Syringe 50 MEQ IV (09:47)
[2021-06-05 10:00] LABS: Absolute Lymphocyte Count 2.24 X10^3/uL (0.83-4.51); Absolute Neutrophil Count 20.3 X10^3/uL (2.0-7.7); Basophil# 0.07 X10^3/uL; Basophil% 0.3 % (0-1); Eosinophil# 0.01 X10^3/uL; Hematocrit 53.5 % (40-54); Hemoglobin 17.2 g/dL (13.0-16.5); Lymphocyte # 2.24 X10^3/ul (0.83-4.51); Lymphocyte % 9.2 % (19-41); Mean Corp Hgb Conc 32.1 g/dL (32-36); Mean Corpuscular Hgb 31.8 pg (27.0-32.0); Mean Corpuscular Volume 98.9 fL (80-94); Mean Platelet Vol. 11.3 fl (6.2-12.0); Monocyte# 1.57 X10^3/uL; Monocyte% 6.4 % (0-10); NRBC Flagged by Analyzer 0.1 % (0-5); Neutrophil # 20.32 X10^3/uL (2.7-7.7); Neutrophil % 83.2 % (47-70); POSITIVE DIFFERENTIAL YES; Platelet Count 134 K/mm3 (150-450); RBC Distribution Width CV 12.9 % (11.6-14.6); RBC Distribution Width SD 46.9 fl (35.1-43.9); Red Blood Count 5.41 M/mm3 (4.6-6.2); White Blood Count 24.4 K/mm3 (4.4-11.0)
[2021-06-05 10:01] LABS: Differential Indicated SCAN CRITERIA MET
[2021-06-05 10:03] LABS: Anion Gap 6 (5-15); BUN 18 mg/dL (7-18); BUN/Creat Ratio 12.2 RATIO (10-20); Calcium,Total 8.1 mg/dL (8.5-10.1); Chloride 109 mmol/L (98-107); Creatinine, Serum 1.47 mg/dL (0.70-1.30); EST Glomerular Filtration Rate 55 mL/min (>60); Est Glom Filt Rate - Afr Amer 67 mL/min (>60); Glucose 129 mg/dL (74-106); Potassium 5.1 mmol/L (3.5-5.1); Sodium Level 139 mmol/L (136-145)
[2021-06-05 10:33] LABS: Platelet Estimate SLT DEC (ADEQ); Reactive Lymphocyte RARE; Red Cell Morphology NORM C+C NORMAL (NORM C&C)
--- NOTE | 2021-06-05 11:19 | CASEMGMT ---
RN CM [employer] CONSULTING ARCHITECT CM to room to meet with patient for initial transition planning/care coordination assessment. RN KATIE introduced self and role at [facility]. Pt voices understanding and consents to assessment at this time. Pt resting in bed in no distress at this time. Pt is A/O at this time and answers all questions appropriately. Care providers, pharmacy, and demographics verified/updated at this time. PCP: Dr Lundy Specialists: none Preferred Pharmacy: [facility] Insurance: [place] Prescription Benefit: Yes. Pt has been on Eliquis @ home prior to admission. Pt states he has never used the 30-day Eliquis savings card. Card provided to pt at this time and instructed on use. He voices understanding and appreciation. Living Will/HPOA: Has both. is POA LNOK: , September Living Arrangements: Lives in 2-story home w/3 steps to enter. FFSU. Lives w/ and 2 adult children--ages 19 and 21. Independent w/ADL's. does all home tasks and manages pt's meds and appts. Transportation: Pt and . DME: Denies using any DME and denies needs. HHC/SNF: No hx of either. No needs identified. Pt wishes to return home and states has no concerns with going home at time of discharge. Pt voices no further concerns/needs at this time. Advised pt to ask for CM if any further questions/concerns/needs arise. Voices understanding. PLAN: Home w/family support and discharge plans in place. Janey BOONE RN, CM
[2021-06-05] MEDS: APIXABAN 5 MG TABLET PO ×2 (11:58→20:31)
--- NOTE | 2021-06-05 15:59 | ECHOD_ITS ---
Reason For Study: Afib, Aflutter Procedure This was a 2D Doppler, Color Flow transthoracic echocardiogram. Contrast injection was performed. Exam performed portable in ICU/CCU. Left Ventricle Technically difficult study, image quality 4-5 out of 10. Contrast was used to enhance wall motion interpretation. There is severe global LV systolic dysfunction, visually estimated left ventricular ejection fraction is about 20% LV cavity is dilated, measuring 6.1 cm at end systole. LV systolic dysfunction appears global. LV wall thickness appears normal. Right Ventricle Right ventricular size and systolic function appear grossly normal. Atria There is significant left atrial enlargement. Left atrial volume index is reported to be 43.5 mL/m??, may be an underestimate. Normal right atrium. Mitral Valve There is at least moderate/2+ mitral regurgitation, multiple jets, mechanism mitral annular dilatation. ER all of mitral regurgitation jet is 0.2 cm??. Mitral valve itself appears appears structurally normal. Tricuspid Valve Structurally normal tricuspid valve. 3+ tricuspid regurgitation RV systolic pressure 46 mmHg consistent with at least moderate pulmonary hypertension. Great Vessels and partially collapses. Pericardium/Pleural There is no pericardial constriction. Medication Diluted definity 2ml given slow IV push to enhance endocardial definition. MMode/2D Measurements & Calculations LVIDd: 6.8 cm IVSd: 0.88 cm Ao root diam: 3.0 cm LVIDs: 6.1 cm LVPWd: 0.81 cm RVDd: 4.2 cm FS: 9.9 % LAV(MOD-bp): 97.7 ml LVAd ap4: 40.6 cm2 SV(MOD-sp4): 54.1 ml LAV(MOD-bp) Indexed: 43.5 ml/m2 LVLd ap4: 7.8 cm LAV(MOD-sp2): 106.4 ml EDV(MOD-sp4): 174.5 ml LAV(MOD-sp4): 85.9 ml EDV(sp4-el): 180.2 ml LVAs ap4: 31.6 cm2 LVLs ap4: 6.9 cm ESV(MOD-sp4): 120.4 ml ESV(sp4-el): 123.4 ml EF(MOD-sp4): 31.0 % EF(sp4-el): 31.5 % SV(sp4-el): 56.8 ml LA dimension(2D): 5.5 cm LA A4 area: 26.7 cm2 RA A4 area: 21.5 cm2 Doppler Measurements & Calculations MV E max miguel angel: 90.6 cm/sec Lat Peak E' Miguel Angel: 8.6 cm/sec Med Peak E' Miguel Angel: 5.3 cm/sec MV A max miguel angel: 100.0 cm/sec E/E' lat: 10.5 E/E' med: 17.1 MV E/A: 0.91 Ao V2 max: 99.7 cm/sec LV V1 max: 76.8 cm/sec PA V2 max: 64.2 cm/sec Ao max P.0 mmHg LV V1 max P.4 mmHg Ao V2 mean: 74.4 cm/sec Ao mean P.4 mmHg Ao V2 VTI: 15.0 cm TR max miguel angel: 337.7 cm/sec TR max P.6 mmHg ECHO/Echo Complete W/ Contrast Interpretation Summary Technically difficult study. Severe global LV systolic dysfunction, visually estimated left ventricular ejec tion fraction is about 20% Dilated left ventricular cavity Dilated left atrium, left atrial volume index 4 4 mL/m?? Preserved RV systolic function 2+ mitral regurgitation 3+ tricuspid regurgitation RV systolic pressure 46 mmHg Probable diastolic dysfunction No pericardial effusion Inferior vena cava partially collapses with sniff test, and is mildly dilated. Compared to a previous study from July 2019, left ventricular ejection frac tion has deteriorated significantly from 40% then to 20% now, LV cavity has dilated, RV systolic pres sure has increased, mitral and tricuspid regurgitations have worsened. Patient's cardiomyopathy may be related to tachycardia versus other reasons suc h as alcohol. It is to be noted that patient was in normal sinus rhythm at the time of the study. Needs close cardiology follow-up and medication adjustment. Ordering Physician: Danay Marie Referring Physician: Masoud Lundy Performed By: Joellen Fowler RDCS, RVT
--- NOTE | 2021-06-05 17:35 | NURSING ---
This RN is taking over care at this time.
[2021-06-05] MEDS: guaiFENesin Dm 10 ML UDC PO (17:58)
[2021-06-05] MEDS: Metoprolol(XL)Succ 25 MG Tablet PO (17:59)
--- NOTE | 2021-06-05 18:09 | PCS.PANDOC ---
PANDEMIC DOCUMENTATION INITIATED: Date: 01/19/2021 Time: 190
--- NOTE | 2021-06-05 19:54 | PCM.PN.HOSP ---
Subjective Subjective Patient was seen and examined today, he was moved from the ICU to PCU today, patient appears medically stable at this time, is not on any oxygen. I talked at length with his who was in the room at the time my examination. Also talked with cardiology today, we have decided to place the patient back on a beta-paula, patient is echocardiogram today showed a low EF of 20%. Patient's rhythm appears to be a sinus tachycardia at this time. Objective Data Objective Data Vital Signs: Vital Signs Temp Pulse Resp BP Pulse Ox 98.2 F 107 H 16 131/95 H 98 06/05/21 17:40 06/05/21 19:00 06/05/21 17:40 06/05/21 17:59 06/05/21 17:40 Oxygen Flow Rate (L/min) [9] 2 Oxygen Flow Rate (L/min) [8] 2 Oxygen Flow Rate (L/min) [7] 2 Oxygen Flow Rate (L/min) [6] 2 Oxygen Flow Rate (L/min) [5] 2 Oxygen Flow Rate (L/min) [1 ( 2 Initial Baseline)] Oxygen Flow Rate (L/min) 2 Oxygen Delivery Method [9] Nasal Cannula Oxygen Delivery Method [8] Nasal Cannula Oxygen Delivery Method [7] Nasal Cannula Oxygen Delivery Method [6] Nasal Cannula Oxygen Delivery Method [5] Nasal Cannula Oxygen Delivery Method [3] Nasal Cannula Oxygen Delivery Method [1 ( Nasal Cannula Initial Baseline)] Oxygen Delivery Method Room Air Weight: 112.582 kg Body Mass Index (BMI) 34.0 Intake & Output: Intake and Output for Last 24 Hours 06/03/21 06/04/21 06/05/21 23:59 23:59 23:59 Intake Total 3350.46 / 3490.55 2132.49 / 2132.49 Output Total 675 / 675 Balance 3350.46 / 3490.55 1457.49 / 1457.49 Lab / Micro Data Result Diagrams: 06/06/21 05:36 06/06/21 05:36 Labs: Laboratory Results - last 24 hr 06/04/21 20:58: POC Glucose 198 H 06/04/21 21:20: Sodium Cancelled, Potassium Cancelled, Chloride Cancelled, Carbon Dioxide Cancelled, Anion Gap Cancelled, BUN Cancelled, Creatinine Cancelled, Estim Creat Clear Calc Cancelled, Est GFR (MDRD) Af Amer Cancelled, Est GFR (MDRD) Non-Af Cancelled, BUN/Creatinine Ratio Cancelled, Glucose Cancelled, Calcium Cancelled, Troponin I High Sens Cancelled 06/04/21 21:33: COVID-19 ([facility]) Not Detected 06/05/21 01:30: Lactic Acid 4.5 H* 06/05/21 01:30: WBC 26.5 H, RBC 5.98, Hgb 18.8 H*, Hct 59.9 H, MCV 100.2 H D, MCH 31.4, MCHC 31.4 L D, RDW Std Deviation 48.4 H, RDW Coeff of Carol Ann 13.0, Plt Count 125 L, MPV 10.8, Immature Gran % (Auto) 3.500 H, Neut % (Auto) 81.6 H, Lymph % (Auto) 8.3 L, Butler % (Auto) 6.3, Eos % (Auto) 0.1, Baso % (Auto) 0.2, Absolute Neuts (auto) 21.6 H, Absolute Lymphs (auto) 2.19, Nucleated RBC % 0.3, Diff Path Review October06/05/21 01:30: Troponin I High Sens Cancelled 06/05/21 01:30: Sodium 137, Potassium 6.6 H*, Chloride 109 H, Carbon Dioxide 18.0 L, Anion Gap 10, BUN 18, Creatinine 1.80 H, Estim Creat Clear Calc 55.78, Est GFR (MDRD) Af Amer 53 L, Est GFR (MDRD) Non-Af 44 L, BUN/Creatinine Ratio 10.0, Glucose 158 H, Calcium 7.8 L, Troponin I High Sens 22 06/05/21 07:30: Lactic Acid 3.3 H* 06/05/21 09:40: WBC 24.4 H, RBC 5.41, Hgb 17.2 H, Hct 53.5, MCV 98.9 H, MCH 31.8, MCHC 32.1, RDW Std Deviation 46.9 H, RDW Coeff of Carol Ann 12.9, Plt Count 134 L, MPV 11.3, Immature Gran % (Auto) 0.900, Neut % (Auto) 83.2 H, Lymph % (Auto) 9.2 L, Butler % (Auto) 6.4, Eos % (Auto) 0.0, Baso % (Auto) 0.3, Absolute Neuts (auto) 20.3 H, Absolute Lymphs (auto) 2.24, Nucleated RBC % 0.1, Diff Path Review May foll, Reactive Lymphocytes RARE, Platelet Estimate SLT DEC, RBC Morphology NORM C+C 06/05/21 09:40: Sodium 139, Potassium 5.1, Chloride 109 H, Carbon Dioxide 24.0, Anion Gap 6, BUN 18, Creatinine 1.47 H, Estim Creat Clear Calc 68.30, Est GFR (MDRD) Af Amer 67, Est GFR (MDRD) Non-Af 55 L, BUN/Creatinine Ratio 12.2, Glucose 129 H, Calcium 8.1 L ABG Data ABG results: ABG 06/04/21 06/05/21 06/05/21 20:26 04:18 04:21 Specimen Type ART Cancelled PHUONG Sample Site L Radial Cancelled pH 7.29 L Bicarbonate Actual 11.8 L Total CO2 13 Base Excess -15 L O2 Saturation 100 H O2 % 100 Cancelled ABG pCO2 24.4 L ABG pO2 283 H Jose Test Positive VBG pH Cancelled 7.25 L VBG pH (Temp Correct) Cancelled VBG pCO2 (Temp Corrct Cancelled VBG pO2 Cancelled 34 VBG HCO3 Cancelled 20 L VBG Total CO2 Cancelled 21 L VBG O2 Sat (Calc) Cancelled 55 VBG Base Excess Cancelled -8 L POC Mix VBG pCO2 Pt Tmp Cancelled 44.6 Respiration Rate 14 Cancelled O2 Delivery Device BiPAP Cancelled Liter Flow Cancelled Minute Volume Cancelled Inspiratory Time Cancelled Expiratory Time Cancelled Tidal Volume Cancelled Mean Airway Pressure Cancelled POC PEEP 6 Cancelled Peak Inspir Pressure Cancelled POC Pressure Suppt Cancelled Pressure Control Cancelled EPAP Cancelled IPAP Cancelled Blood Gas Comments Cancelled Crit Call To/Read Back Cancelled Blood Gas Notified Whom Cancelled Blood Gas Notified Time Cancelled Clinical Comments 17/11 14 100% Cancelled Radiography Diagnostic Testing: Radiology Impression Chest X-Ray 06/04/21 20:10 IMPRESSION: Age-indeterminate bronchitis and subsegmental/partial atelectasis at the medial lower lobes with no definite pneumonia or other acute disease. Electronically Signed: Reagan Mohamud MD at 21:35 EST Tel , Service support , Physical Exam Const alert, oriented x3, no apparent distress and healthy appearing General Appearance: cooperative, well kempt and well developed Orientation / Consciousness: awake, oriented to person, oriented to place and oriented to time HEENT normocephalic, head/scalp atraumatic and moist oral mucous membranes Head and Scalp: normocephalic Eyes PERRL, EOMs intact bilaterally and conjunctivae normal Neck nuchal rigidity, supple, no JVD, thyroid normal and no carotid bruits General: trachea midline Resp normal respiratory effort, no retractions, no use of accessory muscles and clear to auscultation bilaterally Auscultation: Negative for rales, rhonchi or wheezes Cardio regular rate, regular rhythm, S1 normal heart sound, S2 normal heart sound, no murmurs, no rub and no gallops GI normal to inspection, nondistended, normoactive bowel sounds, soft to palpation, non-tender and non-distended Extremity no clubbing, cyanosis or edema Skin no rashes or lesions noted General Skin Exam: no breakdown Neuro oriented x3, CN's II-XII intact bilaterally, no focal motor deficits and no sensory deficits noted Sensorium / Orientation: awake and alert Speech: speech normal Psych thought process normal and affect normal Assessment & Plan Assessment/Plan (1) Atrial fibrillation with RVR: PLAN: 1. Atrial fibrillation with RVR-patient is currently in sinus tachycardia, I discussed his care with cardiology and will start the patient back on a beta-paula today. #2 paroxysmal atrial fibrillation-again patient will be treated with medication #3 cardiomyopathy with reduced ejection fraction-etiology unclear at this point, patient may need to undergo a cardiac catheterization to determine the etiology of his cardiomyopathy #4 chronic anxiety-patient will be placed on BuSpar at the time of discharge from the hospital #5 obstructive sleep apnea #6 essential hypertension-patient will be treated with medications Charges/Coding Visit Charges Inpatient E&M: 88091 Subs Hosp L2
--- NOTE | 2021-06-05 19:58 | PN.CARD_ITS ---
Subjective Subjective Patient seen on rounds this afternoon. Laying flat in bed, awake alert, oriented x3, speaking in full sentences. Says he is fatigued. is at the bedside. Tolerating p.o. Objective Data On physical examination I appreciate no jugular venous distention no carotid bruit. Blood pressures have improved heart rates have improved, in fact he has sinus tachycardia now. He has sustained sinus rhythm. Oxygen saturation is 98% on room air. Color looks good. Breath sounds are distant without crepitations or rhonchi heart sounds are regular I do not appreciate any murmur rub or gallop abdomen is soft, there are extensive scars from childhood surgery. The right groin is soft, central line was removed this morning. Echocardiogram report is in chart. It shows dilated left ventricle with severe global LV systolic dysfunction, LVEF is about 20% which is down from 40% reported on a previous echo from about 2 years ago, there is 2+ mitral 3+ tricuspid regurgitation. No pericardial effusion. Assessment: 1. Patient presented with atrial fibrillation/flutter mostly atrial fibrillation with ventricular rates in the 160s, despite several attempts to slow heart rate down with maximum dose of IV diltiazem, IV metoprolol, patient symptomatic with arterial hypotension 2. Patient confirms that he has stayed on Eliquis, high risk medication for at least 2 years, since atrial fibrillation was originally diagnosed. 3. reports a 3 to 4-month history of progressive decline in functional status, with shortness of breath and fatigue, patient reports a 3 to 4-week history of similar episodes. 4. Bedside echo by me yesterday in the emergency department suggested LVEF of 35% but technically challenging given body habitus. Echocardiogram today shows the above-mentioned ejection fraction of about 20% 5. Arterial hypotension has resolved 6. Patient had metabolic acidosis yesterday 7. Elevated white blood cell count without source of infection-related to acute stress? 8. History of alcohol use quantification difficult 9. Patient's cardiomyopathy is most likely related to tachycardia that has probably persisted for weeks. 10. Patient has so far received total of 300 mg of IV amiodarone. His EKG shows left atrial enlargement. QTC is normal. Recommendations: 1. Now that we have adequate blood pressure, would start Entresto 24/26 p.o. twice daily and follow potassium blood pressure and renal function. If patient develops arterial hypotension, we can reduce the dose to half a tablet p.o. twice daily. Hold if systolic blood pressures less than 95 .now that patient is on lisinopril, will need lisinopril washout for 36 hours prior to starting this. 2. Metoprolol succinate 25 mg p.o. daily 3. Continue anticoagulation with Eliquis 5 mg p.o. twice daily 4. Consideration may be given to adding digoxin if heart rate remains in the low 100 range 5. Patient needs very close follow-up with cardiology, to optimize heart failure therapy and address definitive treatment of atrial dysrhythmia. 6. Keep magnesium greater than 2 potassium greater than 4 7. If patient goes back into atrial fibrillation, would have to consider antiarrhythmic therapy prior to discharge probably. 8. Consider nocturnal pulse oximetry if able prior to discharge given high suspicion of obstructive sleep apnea. 9. Discussed with hospitalist. Vital Signs: Vital Signs Temp Pulse Resp BP Pulse Ox 98.2 F 107 H 16 131/95 H 98 06/05/21 17:40 06/05/21 19:00 06/05/21 17:40 06/05/21 17:59 06/05/21 17:40 Oxygen Flow Rate (L/min) [9] 2 Oxygen Flow Rate (L/min) [8] 2 Oxygen Flow Rate (L/min) [7] 2 Oxygen Flow Rate (L/min) [6] 2 Oxygen Flow Rate (L/min) [5] 2 Oxygen Flow Rate (L/min) [1 ( 2 Initial Baseline)] Oxygen Flow Rate (L/min) 2 Oxygen Delivery Method [9] Nasal Cannula Oxygen Delivery Method [8] Nasal Cannula Oxygen Delivery Method [7] Nasal Cannula Oxygen Delivery Method [6] Nasal Cannula Oxygen Delivery Method [5] Nasal Cannula Oxygen Delivery Method [3] Nasal Cannula Oxygen Delivery Method [1 ( Nasal Cannula Initial Baseline)] Oxygen Delivery Method Room Air Weight: 248 lb 3.213 oz Body Mass Index (BMI) 34.0 Intake & Output: Intake and Output for Last 24 Hours 06/03/21 06/04/21 06/05/21 23:59 23:59 23:59 Intake Total 3350.46 / 3490.55 2132.49 / 2132.49 Output Total 675 / 675 Balance 3350.46 / 3490.55 1457.49 / 1457.49 Lab / Micro Data Result Diagrams: 06/05/21 09:40 06/05/21 09:40 Labs: Laboratory Results - last 24 hr 06/04/21 20:58: POC Glucose 198 H 06/04/21 21:20: Sodium Cancelled, Potassium Cancelled, Chloride Cancelled, Carbon Dioxide Cancelled, Anion Gap Cancelled, BUN Cancelled, Creatinine Cancelled, Estim Creat Clear Calc Cancelled, Est GFR (MDRD) Af Amer Cancelled, Est GFR (MDRD) Non-Af Cancelled, BUN/Creatinine Ratio Cancelled, Glucose Cancelled, Calcium Cancelled, Troponin I High Sens Cancelled 06/04/21 21:33: COVID-19 ([facility]) Not Detected 06/05/21 01:30: Lactic Acid 4.5 H* 06/05/21 01:30: WBC 26.5 H, RBC 5.98, Hgb 18.8 H*, Hct 59.9 H, MCV 100.2 H D, MCH 31.4, MCHC 31.4 L D, RDW Std Deviation 48.4 H, RDW Coeff of Carol Ann 13.0, Plt Count 125 L, MPV 10.8, Immature Gran % (Auto) 3.500 H, Neut % (Auto) 81.6 H, Lymph % (Auto) 8.3 L, [place] % (Auto) 6.3, Eos % (Auto) 0.1, Baso % (Auto) 0.2, Absolute Neuts (auto) 21.6 H, Absolute Lymphs (auto) 2.19, Nucleated RBC % 0.3, Diff Path Review October06/05/21 01:30: Troponin I High Sens Cancelled 06/05/21 01:30: Sodium 137, Potassium 6.6 H*, Chloride 109 H, Carbon Dioxide 18.0 L, Anion Gap 10, BUN 18, Creatinine 1.80 H, Estim Creat Clear Calc 55.78, Est GFR (MDRD) Af Amer 53 L, Est GFR (MDRD) Non-Af 44 L, BUN/Creatinine Ratio 10.0, Glucose 158 H, Calcium 7.8 L, Troponin I High Sens 22 06/05/21 07:30: Lactic Acid 3.3 H* 06/05/21 09:40: WBC 24.4 H, RBC 5.41, Hgb 17.2 H, Hct 53.5, MCV 98.9 H, MCH 31.8, MCHC 32.1, RDW Std Deviation 46.9 H, RDW Coeff of Carol Ann 12.9, Plt Count 134 L, MPV 11.3, Immature Gran % (Auto) 0.900, Neut % (Auto) 83.2 H, Lymph % (Auto) 9.2 L, [place] % (Auto) 6.4, Eos % (Auto) 0.0, Baso % (Auto) 0.3, Absolute Neuts (auto) 20.3 H, Absolute Lymphs (auto) 2.24, Nucleated RBC % 0.1, Diff Path Review October, Reactive Lymphocytes RARE, Platelet Estimate SLT DEC, RBC Morphology NORM C+C 06/05/21 09:40: Sodium 139, Potassium 5.1, Chloride 109 H, Carbon Dioxide 24.0, Anion Gap 6, BUN 18, Creatinine 1.47 H, Estim Creat Clear Calc 68.30, Est GFR (MDRD) Af Amer 67, Est GFR (MDRD) Non-Af 55 L, BUN/Creatinine Ratio 12.2, Glucose 129 H, Calcium 8.1 L ABG Data ABG results: ABG 06/04/21 06/05/21 06/05/21 20:26 04:18 04:21 Specimen Type ART Cancelled PHUONG Sample Site L Radial Cancelled pH 7.29 L Bicarbonate Actual 11.8 L Total CO2 13 Base Excess -15 L O2 Saturation 100 H O2 % 100 Cancelled ABG pCO2 24.4 L ABG pO2 283 H Jose Test Positive VBG pH Cancelled 7.25 L VBG pH (Temp Correct) Cancelled VBG pCO2 (Temp Corrct Cancelled VBG pO2 Cancelled 34 VBG HCO3 Cancelled 20 L VBG Total CO2 Cancelled 21 L VBG O2 Sat (Calc) Cancelled 55 VBG Base Excess Cancelled -8 L POC Mix VBG pCO2 Pt Tmp Cancelled 44.6 Respiration Rate 14 Cancelled O2 Delivery Device BiPAP Cancelled Liter Flow Cancelled Minute Volume Cancelled Inspiratory Time Cancelled Expiratory Time Cancelled Tidal Volume Cancelled Mean Airway Pressure Cancelled POC PEEP 6 Cancelled Peak Inspir Pressure Cancelled POC Pressure Suppt Cancelled Pressure Control Cancelled EPAP Cancelled IPAP Cancelled Blood Gas Comments Cancelled Crit Call To/Read Back Cancelled Blood Gas Notified Whom Cancelled Blood Gas Notified Time Cancelled Clinical Comments 17/11 14 100% Cancelled Cardiology Labs/Tests 06/04/21 20:26: pH 7.29 L, Bicarbonate Actual 11.8 L, Base Excess -15 L, O2 Saturation 100 H, ABG pCO2 24.4 L, ABG pO2 283 H, Jose Test Positive 06/04/21 21:20: Sodium Cancelled, Potassium Cancelled, Chloride Cancelled, Carbon Dioxide Cancelled, Anion Gap Cancelled, BUN Cancelled, Creatinine Cancelled, Est GFR (MDRD) Af Amer Cancelled, Est GFR (MDRD) Non-Af Cancelled, BUN/Creatinine Ratio Cancelled, Glucose Cancelled, Calcium Cancelled 06/05/21 01:30: Lactic Acid 4.5 H* 06/05/21 01:30: WBC 26.5 H, RBC 5.98, Hgb 18.8 H*, Hct 59.9 H, MCV 100.2 H D, MCH 31.4, MCHC 31.4 L D, Plt Count 125 L, MPV 10.8, Immature Gran % (Auto) 3.500 H, Neut % (Auto) 81.6 H, Lymph % (Auto) 8.3 L, [place] % (Auto) 6.3, Eos % (Auto) 0.1, Baso % (Auto) 0.2, Absolute Neuts (auto) 21.6 H, Nucleated RBC % 0.3 06/05/21 01:30: Sodium 137, Potassium 6.6 H*, Chloride 109 H, Carbon Dioxide 18.0 L, Anion Gap 10, BUN 18, Creatinine 1.80 H, Est GFR (MDRD) Af Amer 53 L, Est GFR (MDRD) Non-Af 44 L, BUN/Creatinine Ratio 10.0, Glucose 158 H, Calcium 7.8 L 06/05/21 04:18: VBG pH Cancelled, VBG pO2 Cancelled, VBG HCO3 Cancelled, VBG O2 Sat (Calc) Cancelled, VBG Base Excess Cancelled 06/05/21 04:21: VBG pH 7.25 L, VBG pO2 34, VBG HCO3 20 L, VBG O2 Sat (Calc) 55, VBG Base Excess -8 L 06/05/21 07:30: Lactic Acid 3.3 H* 06/05/21 09:40: WBC 24.4 H, RBC 5.41, Hgb 17.2 H, Hct 53.5, MCV 98.9 H, MCH 31.8, MCHC 32.1, Plt Count 134 L, MPV 11.3, Immature Gran % (Auto) 0.900, Neut % (Auto) 83.2 H, Lymph % (Auto) 9.2 L, [place] % (Auto) 6.4, Eos % (Auto) 0.0, Baso % (Auto) 0.3, Absolute Neuts (auto) 20.3 H, Nucleated RBC % 0.1 06/05/21 09:40: Sodium 139, Potassium 5.1, Chloride 109 H, Carbon Dioxide 24.0, Anion Gap 6, BUN 18, Creatinine 1.47 H, Est GFR (MDRD) Af Amer 67, Est GFR (MDRD) Non-Af 55 L, BUN/Creatinine Ratio 12.2, Glucose 129 H, Calcium 8.1 L Rhythm: EKG: ECHO: Stress Test: Cardiac Cath: PCI: CT Surgery: Holter monitor: EPS: PPM: CXR: Chest CT Scan: Radiography Diagnostic Testing: Radiology Impression Chest X-Ray 06/04/21 20:10 IMPRESSION: Age-indeterminate bronchitis and subsegmental/partial atelectasis at the medial lower lobes with no definite pneumonia or other acute disease. Electronically Signed: Reagan Mohamud MD at 21:35 EST Tel , Service support ,
[2021-06-05] MEDS: Psyllium 1 PACKET PO (20:25)
[2021-06-05] MEDS: Atorvastatin Calcium 20 MG Tablet PO (20:31)
[2021-06-05] MEDS: MELATONIN 3 MG TABLET PO (20:32)
[2021-06-05] MEDS: LORazepam 1 MG Tablet PO (22:37)
[2021-06-06] VITALS (32 sets, daily range): BP systolic 89–122; BP diastolic 57–99; PULSE 109–130; RESP 17–30; TEMP 36.5–37.3; O2SAT 92–98
[2021-06-06] MEDS: Amiodarone 360 MG in Dextrose 5% Viaflo Bag 192.8 ML 16.7 MG CONT INF
[2021-06-06] MEDS: Metoprolol Tartrate 5 MG/5 ML Vial 2.5 MG IV ×3 (00:07→06:10)
--- NOTE | 2021-06-06 01:00 | NURSING ---
This rn taking over pts care at this time.
--- NOTE | 2021-06-06 03:08 | PCM.HOSP.N ---
Hospitalist Note About midnight, Patient was again noted to go back into atrial fibrillation with a heart rate of 120-130s and maintained blood pressures that were solid >100/80. I did talk to Dr. Bower who recommended that we give 150 mg amiodarine followed by low rate infusion and give 2.5 mg Lopressor IV as needed for elevated HR. We did note improvement of his heart rate upon receiving medication. Rodrick Rey MD
[2021-06-06] MEDS: guaiFENesin Dm 10 ML UDC PO (05:03)
--- NOTE | 2021-06-06 05:48 | RAD_ITS ---
History: cough EXAMINATION/TECHNIQUE: XR Chest 1 View: COMPARISON: 06/04/21 FINDINGS: LINES/DEVICES: None. LUNGS: No consolidation, edema or effusion. No pneumothorax. MEDIASTINUM AND CARDIOVASCULAR STRUCTURES: Cardiac silhouette is enlarged with evidence of central vascular congestion. Central airways are unremarkable. BONES AND SOFT TISSUES: Unremarkable. RAD/Chest 1 View (Portable) IMPRESSION: Cardiomegaly and central congesion. No edema or infiltrate. at 0736 Reported and signed by: Steve Lopez MD Electronically Signed: Steve Lopez MD at 7:35 EST Tel , Service support ,
[2021-06-06] MEDS: 0.9% Saline Lock 10 ML Syringe IV ×2 (06:12→14:44)
[2021-06-06 06:28] LABS: Absolute Lymphocyte Count 3.01 X10^3/uL (0.83-4.51); Absolute Neutrophil Count 10.7 X10^3/uL (2.0-7.7); Basophil# 0.05 X10^3/uL; Basophil% 0.3 % (0-1); Eosinophil# 0.14 X10^3/uL; Eosinophils% 0.9 % (0-5); Hematocrit 49.5 % (40-54); Hemoglobin 16.2 g/dL (13.0-16.5); Lymphocyte # 3.01 X10^3/ul (0.83-4.51); Lymphocyte % 19.7 % (19-41); Mean Corp Hgb Conc 32.7 g/dL (32-36); Mean Corpuscular Hgb 31.7 pg (27.0-32.0); Mean Corpuscular Volume 96.9 fL (80-94); Mean Platelet Vol. 11.5 fl (6.2-12.0); Monocyte% 8.5 % (0-10); NRBC Flagged by Analyzer 0.3 % (0-5); Neutrophil # 10.72 X10^3/uL (2.7-7.7); Platelet Count 104 K/mm3 (150-450); RBC Distribution Width SD 46.4 fl (35.1-43.9); Red Blood Count 5.11 M/mm3 (4.6-6.2); White Blood Count 15.3 K/mm3 (4.4-11.0)
[2021-06-06 06:58] LABS: Anion Gap 7 (5-15); BUN 20 mg/dL (7-18); Calcium,Total 8.4 mg/dL (8.5-10.1); Chloride 107 mmol/L (98-107); Creatinine, Serum 1.11 mg/dL (0.70-1.30); EST Glomerular Filtration Rate 76 mL/min (>60); Est Glom Filt Rate - Afr Amer 92 mL/min (>60); Estimated Creatinine Clearance 90.45 ml/min; Glucose 109 mg/dL (74-106); Magnesium 2.3 mg/dL (1.6-2.6); Sodium Level 135 mmol/L (136-145)
[2021-06-06] MEDS: Lisinopril 5 MG Tablet PO (08:57)
[2021-06-06] MEDS: Metoprolol(XL)Succ 50 MG Tablet PO (08:57)
[2021-06-06] MEDS: Psyllium 1 PACKET PO (09:04)
--- NOTE | 2021-06-06 11:23 | PN.HOSP_ITS ---
Documented by User: RAYMUNDO Panchal 06/06/21 11:27 Subjective Subjective Patient seen and examined. Patient lying in bed no distress noted. Patient noted to be in atrial fibrillation this morning and converted overnight. Objective Data Objective Data Vital Signs: Vital Signs Temp Pulse Resp BP Pulse Ox 97.7 F L 129 H 24 H 122/99 H 96 06/06/21 09:00 06/06/21 09:00 06/06/21 09:00 06/06/21 09:00 06/06/21 09:00 Oxygen Flow Rate (L/min) [9] 2 Oxygen Flow Rate (L/min) [8] 2 Oxygen Flow Rate (L/min) [7] 2 Oxygen Flow Rate (L/min) [6] 2 Oxygen Flow Rate (L/min) [5] 2 Oxygen Flow Rate (L/min) [1 ( 2 Initial Baseline)] Oxygen Flow Rate (L/min) 2 Oxygen Delivery Method [9] Nasal Cannula Oxygen Delivery Method [8] Nasal Cannula Oxygen Delivery Method [7] Nasal Cannula Oxygen Delivery Method [6] Nasal Cannula Oxygen Delivery Method [5] Nasal Cannula Oxygen Delivery Method [3] Nasal Cannula Oxygen Delivery Method [1 ( Nasal Cannula Initial Baseline)] Oxygen Delivery Method Room Air Weight: 253 lb 4.978 oz Body Mass Index (BMI) 34.0 Intake & Output: Intake and Output for Last 24 Hours 06/04/21 06/05/21 06/06/21 23:59 23:59 23:59 Intake Total 3350.46 / 3490.55 2222.49 / 2235.49 853.48 / 853.48 Output Total 675 / 675 Balance 3350.46 / 3490.55 1547.49 / 1560.49 853.48 / 853.48 Lab / Micro Data Result Diagrams: 06/06/21 05:36 06/06/21 05:36 Labs: Laboratory Results - last 24 hr 06/06/21 05:36: WBC 15.3 H, RBC 5.11, Hgb 16.2, Hct 49.5, MCV 96.9 H, MCH 31.7, MCHC 32.7, RDW Std Deviation 46.4 H, RDW Coeff of Carol Ann 13.0, Plt Count 104 L, MPV 11.5, Immature Gran % (Auto) 0.600, Neut % (Auto) 70.0, Lymph % (Auto) 19.7, [place] % (Auto) 8.5, Eos % (Auto) 0.9, Baso % (Auto) 0.3, Absolute Neuts (auto) 10.7 H, Absolute Lymphs (auto) 3.01, Nucleated RBC % 0.3 06/06/21 05:36: Sodium 135 L, Potassium 4.0, Chloride 107, Carbon Dioxide 21.0, Anion Gap 7, BUN 20 H, Creatinine 1.11, Estim Creat Clear Calc 90.45, Est GFR (MDRD) Af Amer 92, Est GFR (MDRD) Non-Af 76, BUN/Creatinine Ratio 18.0, Glucose 109 H, Calcium 8.4 L, Magnesium 2.3 Radiography Diagnostic Testing: Radiology Impression Chest X-Ray 06/06/21 05:48 IMPRESSION: Cardiomegaly and central congesion. No edema or infiltrate. at 0736 Reported and signed by: Steve Lopez MD Electronically Signed: Steve Lopez MD at 7:35 EST Tel , Service support , Physical Exam Const alert, oriented x3 and no apparent distress General Appearance: cooperative HEENT normocephalic and head/scalp atraumatic Eyes conjunctivae normal and no scleral icterus Neck supple General: trachea midline Resp normal respiratory effort, normal air movement and clear to auscultation bilaterally Cardio S1 normal heart sound, S2 normal heart sound and peripheral pulses 2+ throughout Rate: tachycardic Rhythm: abnormal rhythm irregularly irregular GI normal to inspection, nondistended, normoactive bowel sounds, soft to palpation and non-tender Extremity normal capillary refill and no clubbing, cyanosis or edema General Extremity: no tenderness to palpation of joints or extremities Skin General Skin Exam: no breakdown and turgor normal Lesions: no lesions Rashes: no rashes Neuro oriented x3, moves all extremities, no focal motor deficits and no sensory deficits noted Psych thought process normal, cooperative and affect normal Appearance: appropriate Assessment & Plan Assessment/Plan (1) Atrial fibrillation with RVR: PLAN: 1. Atrial fibrillation with RVR -Patient returned atrial fibrillation overnight was given a 150 mg amiodarone bolus and metoprolol increased to 50 mg daily -Continue cardiac monitoring, cardiology following. 2. HFrEF -Echo demonstrates EF 20%, possibly secondary to prolonged atrial fibrillation -Patient initiated on lisinopril 3. Anxiety -Patient initiated on buspirone DVT prophylaxis-chronically anticoagulated with Eliquis This patient was seen by Danay Marie, TANG-C under the supervision of Dr. Rutledge. Documented by User: Dr. Louie Rutledge, 06/06/21 16:44 Objective Data Lab / Micro Data Result Diagrams: 06/06/21 05:36 06/06/21 05:36 Charges/Coding Addendum Addendum: Patient was seen and examined independently of Estefani Marie, overnight the patient went back into atrial fibrillation, multiple medications were tried to slow the patient's rate down, minimal success was obtained, patient was placed on amiodarone today by cardiology and I increase patient's beta-paula dose. Patient became hypotensive this afternoon and was given fluid. Dr. Bower the broomcorn thresher on-call recommended transferring the patient to a tertiary acility, no beds were available at most facilities but they agreed to take the patient at and stated that a bed could be available tomorrow for the patient. On examination he appeared mildly anxious. Vital signs as documented. Skin warm and dry and without overt rashes. Neck without JVD, neck was supple, trachea midline, thyroid was normal. Lungs clear bilaterally, normal air movement was noted. Heart exam notable for irregular rhythm, normal sounds and absence of murmurs, rubs or gallops. Abdomen unremarkable and without evidence of organomegaly, masses, or abdominal aortic enlargement. Bowel sounds are present, abdomen is not distended. Extremities nonedematous, no cyanosis was noted, no clubbing was noted. Neuro: Cranial nerves II through XII are grossly intact, no focal motor deficits were noted, sensation to light touch and pinprick intact, motor exam 5/5 throughout. Psych: Patient is alert and oriented x3, he does appear mildly anxious Assessment: #1 atrial fibrillation with rapid ventricular response-continue present treatment with rate limiting medications and Eliquis #2 cardiomyopathy with reduced ejection fraction-etiology unclear, patient will be transferred to tertiary facility for further study when a bed becomes available #3 chronic anxiety-patient was placed on BuSpar today and he is also on Xanax as needed. #4 obstructive sleep apnea-it is unknown if the patient uses his CPAP machine at home #5 essential hypertension-patient's blood pressure medications will be held due to his hypotension #6 paroxysmal atrial fibrillation-patient currently is on Eliquis and we are attempting to control his rate with rate control medications. #7 hypotension-patient will be given fluid boluses to see if it would bring his pressure up, we will have to be careful due to potential for CHF due to the patient's low EF. I have reviewed Estefani Marie's progress note including her medical assessment and plan of care and endorse it. Visit Charges Inpatient E&M: 87001 Subs Hosp L2
[2021-06-06] MEDS: APIXABAN 5 MG TABLET PO ×2 (11:41→22:06)
[2021-06-06] MEDS: busPIRone 5 MG Tablet 10 MG PO ×2 (12:24→22:06)
--- NOTE | 2021-06-06 15:03 | EKG12_ITS ---
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 Rate : 077 BPM Atrial Rate : 077 BPM P-R Int : 168 ms QRS Dur : 086 ms QT Int : 406 ms P-R-T Axes : 051 078 -42 degrees QTc Int : 459 ms Poor data quality, interpretation may be adversely affected Normal sinus rhythm Nonspecific ST and T wave abnormality Abnormal ECG When compared with ECG of 07-JUN-2021 23:21, MANUAL COMPARISON REQUIRED, DATA IS UNCONFIRMED Confirmed by ARPIT GARCIA, TOMÁS ([id number]), dictionary editor MICHELLE ABARCA ([id number]) on 06/18/2021 1:56:57 PM Referred By: DAVE Confirmed By:MAX MUNSON MD
[2021-06-06] MEDS: Ondansetron 4 MG/2 ML Vial IV (15:15)
--- NOTE | 2021-06-06 15:16 | EKG12_ITS ---
Test Reason : Blood Pressure : / mmHG Vent. Rate : 120 BPM Atrial Rate : 357 BPM P-R Int : 000 ms QRS Dur : 084 ms QT Int : 348 ms P-R-T Axes : 000 075 075 degrees QTc Int : 491 ms Atrial fibrillation Nonspecific T wave abnormality Abnormal ECG When compared with ECG of 05-JUN-2021 06:06, MANUAL COMPARISON REQUIRED, DATA IS UNCONFIRMED Confirmed by ARPIT GARCIA, TOMÁS ([id number]), international editorial producer MICHELLE ABARCA ([id number]) on 06/18/2021 2:01:00 PM Referred By: ALFA Confirmed By:MAX MUNSON MD
[2021-06-06] MEDS: ALPRAZolam 0.5 MG Tablet PO (16:08)
[2021-06-06 16:20] LABS: Allen Test Positive; Base Excess -6 mmol/L (-2 to +2); Bicarbonate 18.2 mmol/L (22-26); Blood Gas Specimen Type ART; FI02 21; O2 Delivery Device Room Air; PO2 65 mmHG (75-100); SITE R Radial; SO2 94 % (95-99); Total Carbon Dioxide 19 mmol/L; pCO2 27.3 mmHg (35-45); pH 7.43 (7.35-7.45)
--- NOTE | 2021-06-06 16:20 | RAD_ITS ---
STUDY: X-RAY - ABDOMEN/PELVIS REASON FOR EXAM: Male, 46 years old. nausea TECHNIQUE: Single AP view of the abdomen / pelvis. COMPARISON: None. FINDINGS: Excluded lung bases. There is an unremarkable bowel gas pattern. There is no demonstrated free abdominal air. The visualized liver, spleen and kidneys are grossly normal in size and morphology. Normal soft tissue structures. Normal visualized osseous structures. RAD/Abdomen Single View (Portable) IMPRESSION: Nonobstructive bowel gas pattern. Electronically Signed: Robby Farfan MD (Brooks) at 16:46 EST , Service support ,
[2021-06-06] MEDS: Metoprolol(XL)Succ 25 MG Tablet PO (18:16)
--- NOTE | 2021-06-06 19:01 | PCM.PN.CARD ---
Subjective Subjective We have had continued challenges with heart rate management in this patient who reverted back to atrial fibrillation yesterday. Discussed with hospitalist, we gave him IV amiodarone 150 mg followed by amiodarone drip at 0.5 mg/min, with transient improvement in heart rate. This morning amiodarone had been discontinued, and patient's heart rate went up into the 140s. Blood pressure hovers in the 80s and 90s. Actually blood pressure is less reliable when patient is tachycardic and in atrial fibrillation. He is nauseous, and has thrown up on 2 occasions. He reports feeling lousy. He says he is going to . Oxygen saturations have been in the high 90s on 2 L nasal cannula. On examination he is not appearing toxic or diaphoretic, his lungs are actually clear with distant breath sounds heart sounds are irregularly irregular without murmur rub or gallop his abdomen is mildly distended nontender no guarding, but bowel sounds are very hypoactive. He says he had a very small bowel movement, and has passed a little bit of gas. Laboratory data reviewed. Assessment: 1. Refractory atrial fibrillation with rapid ventricular rate, 2. Arterial hypotension interferes with adequate medication therapy for atrial fibrillation 3. LV ejection fraction of 20% limits the use of medications for heart rate management 4. Cardiomyopathy-(acute on chronic cardiomyopathy related to tachycardia is the most possible explanation) 5. Troponin levels have been negative 6. He may be developing ileus, he has had extensive bowel surgery in the past and has had ileus previously requiring a week of hospital stay 7. IV metoprolol has not helped bring his heart rate down, p.o. metoprolol dose was increased. 8. We have been contacting tertiary care center for transferring this patient, and are awaiting bed. Recommendations: 1. Symptomatic management of nausea and vomiting 2. Continue IV amiodarone at 1 mg/min for rate control 3. Twelve-lead EKG was reviewed and QTC is around 400 ms 4. Given his LVEF of 20% blood pressure in the 90s is acceptable for him 5. Arterial blood gas was repeated, and has improved compared to admission arterial blood gas 6. Agree with KUB, discussed with hospitalist service 7. NPO/ice chips/clear liquids 8. Keep potassium greater than 4 and magnesium greater than 2 9. May have to switch to IV metoprolol if ileus is present, would use 2.5 mg IV every 3 hours, but hold if heart rate is less than 100 or systolic blood pressure is less than 90. 10. Discussed with [facility], both TANG Heaton and myself spoke with electrician constructor supervisor, patient is on their list for transfer, and we are told that a bed will be available tomorrow morning. 11. I did contemplate electrical cardioversion, but this patient had a very rough time with IV sedation, and he did not sustain sinus rhythm, so I will continue attempts at rate control. 12. Can add a dose of digoxin, or give a loading dose of digoxin 0.25 mg IV x1 then 0.125 mg IV every 6 hours for a total of 1 mg, but would not give more than that because of the interaction between amiodarone and digoxin. 13. Discussed with patient's who was at the bedside and she is in agreement with our plan to transfer patient. Objective Data Vital Signs: Vital Signs Temp Pulse Resp BP Pulse Ox 98.7 F 109 H 27 H 113/95 H 92 06/06/21 17:00 06/06/21 18:16 06/06/21 18:00 06/06/21 18:00 06/06/21 18:00 Oxygen Flow Rate (L/min) [9] 2 Oxygen Flow Rate (L/min) [8] 2 Oxygen Flow Rate (L/min) [7] 2 Oxygen Flow Rate (L/min) [6] 2 Oxygen Flow Rate (L/min) [5] 2 Oxygen Flow Rate (L/min) [1 ( 2 Initial Baseline)] Oxygen Flow Rate (L/min) 2 Oxygen Delivery Method [9] Nasal Cannula Oxygen Delivery Method [8] Nasal Cannula Oxygen Delivery Method [7] Nasal Cannula Oxygen Delivery Method [6] Nasal Cannula Oxygen Delivery Method [5] Nasal Cannula Oxygen Delivery Method [3] Nasal Cannula Oxygen Delivery Method [1 ( Nasal Cannula Initial Baseline)] Oxygen Delivery Method Room Air Weight: 253 lb 4.978 oz Body Mass Index (BMI) 34.0 Intake & Output: Intake and Output for Last 24 Hours 06/04/21 06/05/21 06/06/21 23:59 23:59 23:59 Intake Total 3350.46 / 3490.55 2222.49 / 2235.49 1763.50 / 1763.50 Output Total 675 / 675 Balance 3350.46 / 3490.55 1547.49 / 1560.49 1763.50 / 1763.50 Lab / Micro Data Result Diagrams: 06/06/21 05:36 06/06/21 05:36 Labs: Laboratory Results - last 24 hr 06/06/21 05:36: WBC 15.3 H, RBC 5.11, Hgb 16.2, Hct 49.5, MCV 96.9 H, MCH 31.7, MCHC 32.7, RDW Std Deviation 46.4 H, RDW Coeff of Carol Ann 13.0, Plt Count 104 L, MPV 11.5, Immature Gran % (Auto) 0.600, Neut % (Auto) 70.0, Lymph % (Auto) 19.7, [place] % (Auto) 8.5, Eos % (Auto) 0.9, Baso % (Auto) 0.3, Absolute Neuts (auto) 10.7 H, Absolute Lymphs (auto) 3.01, Nucleated RBC % 0.3 06/06/21 05:36: Sodium 135 L, Potassium 4.0, Chloride 107, Carbon Dioxide 21.0, Anion Gap 7, BUN 20 H, Creatinine 1.11, Estim Creat Clear Calc 90.45, Est GFR (MDRD) Af Amer 92, Est GFR (MDRD) Non-Af 76, BUN/Creatinine Ratio 18.0, Glucose 109 H, Calcium 8.4 L, Magnesium 2.3 ABG Data ABG results: ABG 06/06/21 16:13 Specimen Type ART Sample Site R Radial pH 7.43 Bicarbonate Actual 18.2 L Total CO2 19 Base Excess -6 L O2 Saturation 94 L O2 % 21 ABG pCO2 27.3 L ABG pO2 65 L Jose Test Positive O2 Delivery Device Room Air Cardiology Labs/Tests 06/06/21 05:36: WBC 15.3 H, RBC 5.11, Hgb 16.2, Hct 49.5, MCV 96.9 H, MCH 31.7, MCHC 32.7, Plt Count 104 L, MPV 11.5, Immature Gran % (Auto) 0.600, Neut % (Auto) 70.0, Lymph % (Auto) 19.7, [place] % (Auto) 8.5, Eos % (Auto) 0.9, Baso % (Auto) 0.3, Absolute Neuts (auto) 10.7 H, Nucleated RBC % 0.3 06/06/21 05:36: Sodium 135 L, Potassium 4.0, Chloride 107, Carbon Dioxide 21.0, Anion Gap 7, BUN 20 H, Creatinine 1.11, Est GFR (MDRD) Af Amer 92, Est GFR (MDRD) Non-Af 76, BUN/Creatinine Ratio 18.0, Glucose 109 H, Calcium 8.4 L, Magnesium 2.3 06/06/21 16:13: pH 7.43, Bicarbonate Actual 18.2 L, Base Excess -6 L, O2 Saturation 94 L, ABG pCO2 27.3 L, ABG pO2 65 L, Jose Test Positive Rhythm: EKG: ECHO: Stress Test: Cardiac Cath: PCI: CT Surgery: Holter monitor: EPS: PPM: CXR: Chest CT Scan: Radiography Diagnostic Testing: Radiology Impression Chest X-Ray 06/06/21 05:48 IMPRESSION: Cardiomegaly and central congesion. No edema or infiltrate. at 0736 Reported and signed by: Steve Lopez MD Electronically Signed: Steve Lopez MD at 7:35 EST Tel , Service support , KUB X-Ray 06/06/21 16:20 IMPRESSION: Nonobstructive bowel gas pattern. Electronically Signed: Robby Farfan MD (Brooks) at 16:46 EST , Service support ,
[2021-06-06] MEDS: Atorvastatin Calcium 20 MG Tablet PO (22:06)
[2021-06-06] MEDS: Senna/Docusate Sodium 1 Tablet 2 TABLET PO (22:07)
[2021-06-07] VITALS (36 sets, daily range): BP systolic 90–143; BP diastolic 62–108; PULSE 87–129; RESP 14–27; TEMP 36.6–37; O2SAT 92–100
[2021-06-07] MEDS: guaiFENesin Dm 10 ML UDC PO ×4 (00:48→19:38)
[2021-06-07 06:25] LABS: Absolute Lymphocyte Count 3.39 X10^3/uL (0.83-4.51); Basophil# 0.08 X10^3/uL; Basophil% 0.5 % (0-1); Eosinophil# 0.08 X10^3/uL; Eosinophils% 0.5 % (0-5); Hematocrit 51.4 % (40-54); Hemoglobin 17.1 g/dL (13.0-16.5); Lymphocyte # 3.39 X10^3/ul (0.83-4.51); Mean Corp Hgb Conc 33.3 g/dL (32-36); Mean Corpuscular Hgb 31.5 pg (27.0-32.0); Mean Corpuscular Volume 94.8 fL (80-94); Mean Platelet Vol. 12.6 fl (6.2-12.0); Monocyte% 11.7 % (0-10); NRBC Flagged by Analyzer 0.2 % (0-5); Neutrophil # 9.98 X10^3/uL (2.7-7.7); Neutrophil % 64.7 % (47-70); POSITIVE DIFFERENTIAL YES; Platelet Count 100 K/mm3 (150-450); RBC Distribution Width CV 13.2 % (11.6-14.6); Red Blood Count 5.42 M/mm3 (4.6-6.2); White Blood Count 15.4 K/mm3 (4.4-11.0)
[2021-06-07 06:29] LABS: Differential Indicated SCAN CRITERIA MET
[2021-06-07 06:57] LABS: Anion Gap 9 (5-15); BUN 19 mg/dL (7-18); BUN/Creat Ratio 16.5 RATIO (10-20); Calcium,Total 8.1 mg/dL (8.5-10.1); Chloride 106 mmol/L (98-107); Creatinine, Serum 1.15 mg/dL (0.70-1.30); EST Glomerular Filtration Rate 73 mL/min (>60); Est Glom Filt Rate - Afr Amer 89 mL/min (>60); Glucose 111 mg/dL (74-106); Potassium 4.4 mmol/L (3.5-5.1); Sodium Level 135 mmol/L (136-145)
[2021-06-07] MEDS: busPIRone 5 MG Tablet 10 MG PO ×2 (08:14→21:04)
[2021-06-07] MEDS: APIXABAN 5 MG TABLET PO ×2 (08:14→21:03)
[2021-06-07] MEDS: Lisinopril 5 MG Tablet PO (08:14)
[2021-06-07] MEDS: Metoprolol(XL)Succ 100 MG Tablet PO (08:15)
[2021-06-07] MEDS: Senna/Docusate Sodium 1 Tablet 2 TABLET PO ×2 (08:15→21:05)
[2021-06-07] MEDS: 0.9% Saline Lock 10 ML Syringe IV ×3 (08:23→22:30)
--- NOTE | 2021-06-07 10:49 | PN.HOSP_ITS ---
Documented by User: RAYMUNDO Panchal 06/07/21 10:53 Subjective Subjective Patient seen and examined. Patient lying in bed no distress noted. Patient does report that he has had episodes of vomiting overnight, as needed Zofran ordered. Patient awaiting transfer to . Objective Data Objective Data Vital Signs: Vital Signs Temp Pulse Resp BP Pulse Ox 98.4 F 116 H 23 H 118/86 H 99 06/07/21 07:00 06/07/21 10:00 06/07/21 10:00 06/07/21 10:00 06/07/21 10:00 Oxygen Flow Rate (L/min) [9] 2 Oxygen Flow Rate (L/min) [8] 2 Oxygen Flow Rate (L/min) [7] 2 Oxygen Flow Rate (L/min) [6] 2 Oxygen Flow Rate (L/min) [5] 2 Oxygen Flow Rate (L/min) [1 ( 2 Initial Baseline)] Oxygen Flow Rate (L/min) 2 Oxygen Delivery Method [9] Nasal Cannula Oxygen Delivery Method [8] Nasal Cannula Oxygen Delivery Method [7] Nasal Cannula Oxygen Delivery Method [6] Nasal Cannula Oxygen Delivery Method [5] Nasal Cannula Oxygen Delivery Method [3] Nasal Cannula Oxygen Delivery Method [1 ( Nasal Cannula Initial Baseline)] Oxygen Delivery Method Room Air Weight: 246 lb 4.101 oz Body Mass Index (BMI) 34.0 Intake & Output: Intake and Output for Last 24 Hours 06/05/21 06/06/21 06/07/21 23:59 23:59 23:59 Intake Total 2222.49 / 2235.49 1847.00 / 1863.70 182.25 / 182.25 Output Total 675 / 675 Balance 1547.49 / 1560.49 1847.00 / 1863.70 182.25 / 182.25 Lab / Micro Data Result Diagrams: 06/07/21 05:30 06/07/21 05:30 Labs: Laboratory Results - last 24 hr 06/07/21 05:30: WBC 15.4 H, RBC 5.42, Hgb 17.1 H, Hct 51.4, MCV 94.8 H, MCH 31.5, MCHC 33.3, RDW Std Deviation 46.0 H, RDW Coeff of Carol Ann 13.2, Plt Count 100 L, MPV 12.6 H, Immature Gran % (Auto) 0.600, Neut % (Auto) 64.7, Lymph % (Auto) 22.0, [place] % (Auto) 11.7 H, Eos % (Auto) 0.5, Baso % (Auto) 0.5, Absolute Neuts (auto) 10.0 H, Absolute Lymphs (auto) 3.39, Nucleated RBC % 0.2, Diff Path Review October foll 06/07/21 05:30: Sodium 135 L, Potassium 4.4, Chloride 106, Carbon Dioxide 20.0 L , Anion Gap 9, BUN 19 H, Creatinine 1.15, Estim Creat Clear Calc 87.30, Est GFR (MDRD) Af Amer 89, Est GFR (MDRD) Non-Af 73, BUN/Creatinine Ratio 16.5, Glucose 111 H, Calcium 8.1 L ABG Data ABG results: ABG 06/06/21 16:13 Specimen Type ART Sample Site R Radial pH 7.43 Bicarbonate Actual 18.2 L Total CO2 19 Base Excess -6 L O2 Saturation 94 L O2 % 21 ABG pCO2 27.3 L ABG pO2 65 L Jose Test Positive O2 Delivery Device Room Air Radiography Diagnostic Testing: Radiology Impression KUB X-Ray 06/06/21 16:20 IMPRESSION: Nonobstructive bowel gas pattern. Electronically Signed: Robby Farfan MD (Brooks) at 16:46 EST , Service support , Physical Exam Const alert, oriented x3 and no apparent distress General Appearance: cooperative, well kempt and well developed Orientation / Consciousness: awake HEENT normocephalic, head/scalp atraumatic and moist oral mucous membranes Eyes conjunctivae normal and no scleral icterus Neck supple and thyroid normal General: trachea midline Resp normal respiratory effort, normal air movement and clear to auscultation bilaterally Cardio regular rate, regular rhythm, S1 normal heart sound, S2 normal heart sound and peripheral pulses 2+ throughout Rate: tachycardic Rhythm: abnormal rhythm irregularly irregular GI normal to inspection, nondistended, normoactive bowel sounds, soft to palpation and non-tender Extremity normal to inspection, normal capillary refill and no clubbing, cyanosis or edema General Extremity: no tenderness to palpation of joints or extremities Skin no rashes or lesions noted General Skin Exam: no breakdown and turgor normal Lesions: no lesions Rashes: no rashes Neuro oriented x3, moves all extremities, no focal motor deficits and no sensory deficits noted Sensorium / Orientation: awake and alert Speech: speech normal Psych thought process normal, cooperative and affect normal Appearance: appropriate Assessment & Plan Assessment/Plan (1) Atrial fibrillation with RVR: PLAN: 1. Atrial fibrillation with RVR -Continue amiodarone drip 0.5 mg -Continue cardiac monitoring, cardiology following. -Patient awaiting transfer to for EP eval 2. HFrEF -Echo demonstrates EF 20%, possibly secondary to prolonged atrial fibrillation -Patient initiated on lisinopril 3. Anxiety -Patient initiated on buspirone -As needed Xanax ordered DVT prophylaxis-chronically anticoagulated with Eliquis This patient was seen by Danay Marie NP-C under the supervision of Dr. Rutledge. Documented by User: Dr. Louie Rutledge DO 06/07/21 17:45 Objective Data Lab / Micro Data Result Diagrams: 06/07/21 05:30 06/07/21 05:30 Charges/Coding Addendum Addendum: Patient was seen and examined today independently of Estefani Marie, he remains in atrial fibrillation with rates up into the 1 teens to 120s, we increased his Toprol-XL today, I briefly talked with cardiology about his care. We are still awaiting confirmation of a bed at who is excepted the patient for transfer. Patient does complain of nausea with administration of IV metoprolol for some reason. On examination he appeared in good health and spirits. Vital signs as documented. Skin warm and dry and without overt rashes. Neck without JVD, neck was supple, trachea midline, thyroid was normal. Lungs clear bilaterally, normal air movement was noted. Heart exam notable for irregular rhythm, normal sounds and absence of murmurs, rubs or gallops. Abdomen unremarkable and without evidence of organomegaly, masses, or abdominal aortic enlargement. Bowel sounds are present, abdomen is not distended. Extremities nonedematous, no cyanosis was noted, no clubbing was noted. Neuro: Cranial nerves II through XII are grossly intact, no focal motor deficits were noted, sensation to light touch and pinprick intact, motor exam 5/5 throughout. Psych: Patient is alert and oriented x3, he does not appear anxious or depressed, he does not appear agitated. Assessment: #1 atrial fibrillation with RVR-patient remains on amiodarone at this time as well as a beta-paula, cardiology is consulted and is participating in his care #2 essential hypertension-patient currently is on rate limiting medications which can also be used for blood pressure control #3 cardiomyopathy with reduced ejection fraction-etiology unclear, patient is awaiting transfer to a tertiary facility, he will most probably undergo cardiac catheterization there. #4 chronic anxiety-patient is on BuSpar and Xanax as needed #5 paroxysmal atrial fibrillation-patient is currently on Eliquis chronically I have reviewed Estefani Marie's progress note including her medical assessment and plan of care and endorse it. Visit Charges Inpatient E&M: 20203 Subs Hosp L2
--- NOTE | 2021-06-07 14:12 | EKG12_ITS ---
Test Reason : PCI Blood Pressure : / mmHG Vent. Rate : 096 BPM Atrial Rate : 096 BPM P-R Int : 156 ms QRS Dur : 084 ms QT Int : 372 ms P-R-T Axes : 059 051 221 degrees QTc Int : 469 ms Normal sinus rhythm Possible Left atrial enlargement Nonspecific T wave abnormality Prolonged QT Abnormal ECG Confirmed by STEPHEN GARCIA, PARVIZ ([id number]), film editor MICHELLE ABARCA ([id number]) on 06/18/2021 8:15:11 AM Referred By: Confirmed By:PARVIZ MITCHELL MD
[2021-06-07] MEDS: Metoprolol Tartrate 5 MG/5 ML Vial 2.5 MG IV (14:50)
--- NOTE | 2021-06-07 15:07 | EKG12_ITS ---
Test Reason : DAILY EKG Blood Pressure : / mmHG Vent. Rate : 131 BPM Atrial Rate : 153 BPM P-R Int : 000 ms QRS Dur : 084 ms QT Int : 310 ms P-R-T Axes : 000 068 203 degrees QTc Int : 457 ms Atrial fibrillation Nonspecific T wave abnormality Abnormal ECG When compared with ECG of 06-JUN-2021 15:16, MANUAL COMPARISON REQUIRED, DATA IS UNCONFIRMED Confirmed by ARPIT GARCIA, TOMÁS ([id number]), editor sound MICHELLE ABARCA ([id number]) on 06/18/2021 2:00:45 PM Referred By: MATTHEW Confirmed By:MAX MUNSON MD
--- NOTE | 2021-06-07 15:26 | PN.CARD_ITS ---
Subjective Subjective Patient continued to feel very tired, still nauseous, tolerating Gatorade, passed gas, had liquid bowel movements. Abdominal distention is better. Objective Data Heart rate remains in the 100-1 15 range, rhythm is atrial fibrillation, QTC does not up. Prolonged, IV amiodarone is infusing at 0.5 mg/min, metoprolol succinate dose was increased to 100 mg daily. Blood pressure is better low 100s to 110 systolic range. Lungs clear heart sounds irregularly irregular abdomen soft bowel sounds present extremities no edema. Patient is very sleepy but oriented x3. Awaiting transfer to [facility] when bed opens up. Assessment: Atrial fibrillation, refractory to medications, along with tachycardia mediated cardiomyopathy, LVEF 20% Patient remains on high risk medications amiodarone and Eliquis. Ileus has improved LVEF 20%, most consistent with acute on chronic left heart failure related to tachycardia Electrical cardioversion at this point may be much more successful in sustaining sinus rhythm given that patient has been on IV amiodarone now for close to 36 hours. Patient will need further work-up for his cardiomyopathy. Patient is best served in a tertiary care center. High suspicion for obstructive sleep apnea Recommendations 1. Continue IV amiodarone at 0.5 mg/min 2. Could increase the dose of metoprolol succinate to 125 mg daily 3. Patient is best served with Entresto rather than MARCOS inhibitor or ang iotensin receptor paula. Now the patient is on lisinopril, will need washout for 36 hours borderline blood pressure may be a limiting factor in using this medication right now. 4. Discussed with primary care team. 5. Outpatient evaluation and treatment of obstructive sleep apnea Vital Signs: Vital Signs Temp Pulse Resp BP Pulse Ox 98.6 F 120 H 14 90/62 99 06/07/21 12:00 06/07/21 15:00 06/07/21 15:00 06/07/21 15:00 06/07/21 15:00 Oxygen Flow Rate (L/min) [9] 2 Oxygen Flow Rate (L/min) [8] 2 Oxygen Flow Rate (L/min) [7] 2 Oxygen Flow Rate (L/min) [6] 2 Oxygen Flow Rate (L/min) [5] 2 Oxygen Flow Rate (L/min) [1 ( 2 Initial Baseline)] Oxygen Flow Rate (L/min) 2 Oxygen Delivery Method [9] Nasal Cannula Oxygen Delivery Method [8] Nasal Cannula Oxygen Delivery Method [7] Nasal Cannula Oxygen Delivery Method [6] Nasal Cannula Oxygen Delivery Method [5] Nasal Cannula Oxygen Delivery Method [3] Nasal Cannula Oxygen Delivery Method [1 ( Nasal Cannula Initial Baseline)] Oxygen Delivery Method Room Air Weight: 246 lb 4.101 oz Body Mass Index (BMI) 34.0 Intake & Output: Intake and Output for Last 24 Hours 06/05/21 06/06/21 06/07/21 23:59 23:59 23:59 Intake Total 2222.49 / 2235.49 1847.00 / 1863.70 385.76 / 385.76 Output Total 675 / 675 Balance 1547.49 / 1560.49 1847.00 / 1863.70 385.76 / 385.76 Lab / Micro Data Result Diagrams: 06/07/21 05:30 06/07/21 05:30 Labs: Laboratory Results - last 24 hr 06/07/21 05:30: WBC 15.4 H, RBC 5.42, Hgb 17.1 H, Hct 51.4, MCV 94.8 H, MCH 31.5, MCHC 33.3, RDW Std Deviation 46.0 H, RDW Coeff of Carol Ann 13.2, Plt Count 100 L, MPV 12.6 H, Immature Gran % (Auto) 0.600, Neut % (Auto) 64.7, Lymph % (Auto) 22.0, [place] % (Auto) 11.7 H, Eos % (Auto) 0.5, Baso % (Auto) 0.5, Absolute Neuts (auto) 10.0 H, Absolute Lymphs (auto) 3.39, Nucleated RBC % 0.2, Diff Path Review October06/07/21 05:30: Sodium 135 L, Potassium 4.4, Chloride 106, Carbon Dioxide 20.0 L , Anion Gap 9, BUN 19 H, Creatinine 1.15, Estim Creat Clear Calc 87.30, Est GFR (MDRD) Af Amer 89, Est GFR (MDRD) Non-Af 73, BUN/Creatinine Ratio 16.5, Glucose 111 H, Calcium 8.1 L ABG Data ABG results: ABG 06/06/21 16:13 Specimen Type ART Sample Site R Radial pH 7.43 Bicarbonate Actual 18.2 L Total CO2 19 Base Excess -6 L O2 Saturation 94 L O2 % 21 ABG pCO2 27.3 L ABG pO2 65 L Jose Test Positive O2 Delivery Device Room Air Cardiology Labs/Tests 06/06/21 16:13: pH 7.43, Bicarbonate Actual 18.2 L, Base Excess -6 L, O2 Saturation 94 L, ABG pCO2 27.3 L, ABG pO2 65 L, Jose Test Positive 06/07/21 05:30: WBC 15.4 H, RBC 5.42, Hgb 17.1 H, Hct 51.4, MCV 94.8 H, MCH 31.5, MCHC 33.3, Plt Count 100 L, MPV 12.6 H, Immature Gran % (Auto) 0.600, Neut % (Auto) 64.7, Lymph % (Auto) 22.0, [place] % (Auto) 11.7 H, Eos % (Auto) 0.5, Baso % (Auto) 0.5, Absolute Neuts (auto) 10.0 H, Nucleated RBC % 0.2 06/07/21 05:30: Sodium 135 L, Potassium 4.4, Chloride 106, Carbon Dioxide 20.0 L , Anion Gap 9, BUN 19 H, Creatinine 1.15, Est GFR (MDRD) Af Amer 89, Est GFR (MDRD) Non-Af 73, BUN/Creatinine Ratio 16.5, Glucose 111 H, Calcium 8.1 L Rhythm: EKG: ECHO: Stress Test: Cardiac Cath: PCI: CT Surgery: Holter monitor: EPS: PPM: CXR: Chest CT Scan: Radiography Diagnostic Testing: Radiology Impression KUB X-Ray 06/06/21 16:20 IMPRESSION: Nonobstructive bowel gas pattern. Electronically Signed: Robby Farfan MD (Brooks) at 16:46 EST , Service support ,
[2021-06-07] MEDS: Metoprolol(XL)Succ 25 MG Tablet PO (16:17)
[2021-06-07] MEDS: Benzonatate 100 MG Capsule 200 MG PO (18:03)
[2021-06-07] MEDS: ALPRAZolam 0.5 MG Tablet PO (19:42)
[2021-06-07] MEDS: Atorvastatin Calcium 20 MG Tablet PO (21:04)
[2021-06-07] MEDS: Ondansetron 4 MG/2 ML Vial IV (22:30)
[2021-06-07] MEDS: BENZOCAINE/MENTHOL 1 LOZENGE MUCOUS MEM (23:23)
[2021-06-08] VITALS (36 sets, daily range): BP systolic 69–133; BP diastolic 50–107; PULSE 72–98; RESP 13–28; TEMP 30.4–36.8; O2SAT 92–100
--- NOTE | 2021-06-08 01:29 | EKG12_ITS ---
Test Reason : NSR Blood Pressure : / mmHG Vent. Rate : 086 BPM Atrial Rate : 086 BPM P-R Int : 156 ms QRS Dur : 084 ms QT Int : 406 ms P-R-T Axes : 052 067 016 degrees QTc Int : 485 ms Normal sinus rhythm Nonspecific T wave abnormality Prolonged QT Abnormal ECG When compared with ECG of 07-JUN-2021 15:07, MANUAL COMPARISON REQUIRED, DATA IS UNCONFIRMED Confirmed by ARPIT GARCIA, TOMÁS ([id number]), web editor MICHELLE ABARCA ([id number]) on 06/18/2021 1:58:09 PM Referred By: DR CASTRO Confirmed By:MAX MUNSON MD
[2021-06-08] MEDS: Albuterol 2.5 MG/3 ML VIAL.NEB. INHALATION ×3 (01:33→05:45)
[2021-06-08 06:16] LABS: Absolute Lymphocyte Count 2.28 X10^3/uL (0.83-4.51); Absolute Neutrophil Count 10.1 X10^3/uL (2.0-7.7); Basophil# 0.05 X10^3/uL; Basophil% 0.3 % (0-1); Eosinophil# 0.02 X10^3/uL; Eosinophils% 0.1 % (0-5); Hematocrit 50.7 % (40-54); Hemoglobin 16.8 g/dL (13.0-16.5); Lymphocyte # 2.28 X10^3/ul (0.83-4.51); Lymphocyte % 15.4 % (19-41); Mean Corp Hgb Conc 33.1 g/dL (32-36); Mean Corpuscular Volume 96.6 fL (80-94); Mean Platelet Vol. 12.7 fl (6.2-12.0); Monocyte# 2.35 X10^3/uL; Monocyte% 15.9 % (0-10); NRBC Flagged by Analyzer 0.1 % (0-5); Neutrophil # 10.05 X10^3/uL (2.7-7.7); Neutrophil % 67.8 % (47-70); POSITIVE DIFFERENTIAL YES; Platelet Count 110 K/mm3 (150-450); RBC Distribution Width CV 13.3 % (11.6-14.6); RBC Distribution Width SD 47.6 fl (35.1-43.9); Red Blood Count 5.25 M/mm3 (4.6-6.2); White Blood Count 14.8 K/mm3 (4.4-11.0)
[2021-06-08 06:44] LABS: Anion Gap 10 (5-15); BUN 17 mg/dL (7-18); BUN/Creat Ratio 17.3 RATIO (10-20); Calcium,Total 8.3 mg/dL (8.5-10.1); Chloride 106 mmol/L (98-107); Creatinine, Serum 0.98 mg/dL (0.70-1.30); EST Glomerular Filtration Rate 88 mL/min (>60); Est Glom Filt Rate - Afr Amer 107 mL/min (>60); Estimated Creatinine Clearance 102.45 ml/min; Glucose 145 mg/dL (74-106); Sodium Level 136 mmol/L (136-145)
[2021-06-08 07:00] LABS: Differential Indicated SCAN CRITERIA MET
--- NOTE | 2021-06-08 07:59 | PN.CARD_ITS ---
Subjective Subjective Patient seen and evaluated. Appears to be doing much better at this time. Has converted back to sinus rhythm. Objective Data Vital Signs: Vital Signs Temp Pulse Resp BP Pulse Ox 97.9 F 93 24 H 133/107 H 95 06/08/21 04:00 06/08/21 07:00 06/08/21 07:00 06/08/21 07:00 06/08/21 07:00 Oxygen Flow Rate (L/min) [9] 2 Oxygen Flow Rate (L/min) [8] 2 Oxygen Flow Rate (L/min) [7] 2 Oxygen Flow Rate (L/min) [6] 2 Oxygen Flow Rate (L/min) [5] 2 Oxygen Flow Rate (L/min) [1 ( 2 Initial Baseline)] Oxygen Flow Rate (L/min) 2 Oxygen Delivery Method [9] Nasal Cannula Oxygen Delivery Method [8] Nasal Cannula Oxygen Delivery Method [7] Nasal Cannula Oxygen Delivery Method [6] Nasal Cannula Oxygen Delivery Method [5] Nasal Cannula Oxygen Delivery Method [3] Nasal Cannula Oxygen Delivery Method [1 ( Nasal Cannula Initial Baseline)] Oxygen Delivery Method Room Air Weight: 252 lb 6.868 oz Body Mass Index (BMI) 34.0 Intake & Output: Intake and Output for Last 24 Hours 06/06/21 06/07/21 06/08/21 23:59 23:59 23:59 Intake Total 1847.00 / 1863.70 639.36 / 656.06 133.60 / 133.60 Balance 1847.00 / 1863.70 639.36 / 656.06 133.60 / 133.60 Lab / Micro Data Result Diagrams: 06/08/21 05:18 06/08/21 05:18 Labs: Laboratory Results - last 24 hr 06/08/21 05:18: WBC 14.8 H, RBC 5.25, Hgb 16.8 H, Hct 50.7, MCV 96.6 H, MCH 32.0, MCHC 33.1, RDW Std Deviation 47.6 H, RDW Coeff of Carol Ann 13.3, Plt Count 110 L, MPV 12.7 H, Immature Gran % (Auto) 0.500, Neut % (Auto) 67.8, Lymph % (Auto) 15.4 L, [place] % (Auto) 15.9 H, Eos % (Auto) 0.1, Baso % (Auto) 0.3, Absolute Neuts (auto) 10.1 H, Absolute Lymphs (auto) 2.28, Nucleated RBC % 0.1, Diff Path Review October06/08/21 05:18: Sodium 136, Potassium 4.0, Chloride 106, Carbon Dioxide 20.0 L, Anion Gap 10, BUN 17, Creatinine 0.98, Estim Creat Clear Calc 102.45, Est GFR (MDRD) Af Amer 107, Est GFR (MDRD) Non-Af 88, BUN/Creatinine Ratio 17.3, Glucose 145 H, Calcium 8.3 L Cardiology Labs/Tests 06/08/21 05:18: WBC 14.8 H, RBC 5.25, Hgb 16.8 H, Hct 50.7, MCV 96.6 H, MCH 32.0, MCHC 33.1, Plt Count 110 L, MPV 12.7 H, Immature Gran % (Auto) 0.500, Neut % (Auto) 67.8, Lymph % (Auto) 15.4 L, [place] % (Auto) 15.9 H, Eos % (Auto) 0.1, Baso % (Auto) 0.3, Absolute Neuts (auto) 10.1 H, Nucleated RBC % 0.1 06/08/21 05:18: Sodium 136, Potassium 4.0, Chloride 106, Carbon Dioxide 20.0 L, Anion Gap 10, BUN 17, Creatinine 0.98, Est GFR (MDRD) Af Amer 107, Est GFR (MDRD) Non-Af 88, BUN/Creatinine Ratio 17.3, Glucose 145 H, Calcium 8.3 L Rhythm: EKG: ECHO: Stress Test: Cardiac Cath: PCI: CT Surgery: Holter monitor: EPS: PPM: CXR: Chest CT Scan: Physical Exam Const alert, oriented x3 and no apparent distress General Appearance: cooperative HEENT hearing grossly normal bilaterally Head and Scalp: atraumatic Eyes EOMs intact bilaterally Neck General: normal visual inspection Chest inspection of chest normal and palpation of chest normal Resp normal respiratory effort Auscultation: clear to auscultation bilaterally Cardio regular rate, regular rhythm, S1 normal heart sound and S2 normal heart sound Jugular Venous Distention: JVD GI normal to inspection, nondistended, normoactive bowel sounds Extremity normal capillary refill and no pedal edema Peripheral Pulses: Yes pulses 2+ throughout and femoral pulses present Skin no rashes or lesions noted Neuro oriented x3 and CN's II-XII intact bilaterally Psych Appearance: grossly normal and appropriate Assessment & Plan Assessment/Plan (1) Atrial fibrillation with RVR: PLAN: Patient presented with atrial fibrillation with a rapid ventricular response rate. Has now converted back to sinus rhythm on IV amiodarone. Remains on oral Eliquis which will be continued. We will DC IV amiodarone and put on low-dose amiodarone for a short duration. We will recommend continuing beta-paula. Patient was previously on Toprol but would recommend switching to carvedilol 25 mg twice a day We will continue lisinopril for now and eventually switch to Entresto Addendum: Patient apparently got hypotensive following administration of lisinopril and carvedilol. Being transferred to the ICU to be transiently treated with pressor agents. Would likely need reduction of the above medication dosages. (2) Cardiomyopathy: PLAN: Patient has severe cardiomyopathy estimated ejection fraction of 20% likely tachycardia mediated. We will proceed with guideline directed medical therapy with carvedilol 25 mg twice a day Lisinopril with eventual transition to Entresto Would recommend Lasix or spironolactone Would also consider Farxiga At this time I do not think there is a need to transfer him to [facility]. He can be observed and hopefully discharge later today (3) Hypertension: PLAN: Blood pressure appears to be under fair control. Would continue current medications as outlined above. He will be arranged to have outpatient follow-up Thank you for allowing me to participate in the care of your patient. Please don't hesitate to call if any issues arise.
[2021-06-08] MEDS: Amiodarone 200 MG Tablet PO (08:43)
[2021-06-08] MEDS: busPIRone 5 MG Tablet 10 MG PO ×2 (08:43→21:41)
[2021-06-08] MEDS: APIXABAN 5 MG TABLET PO ×2 (08:44→21:41)
[2021-06-08] MEDS: Senna/Docusate Sodium 1 Tablet 2 TABLET PO (08:44)
[2021-06-08] MEDS: Lisinopril 10 MG Tablet PO (08:47)
[2021-06-08] MEDS: Carvedilol 25 MG Tablet PO (08:47)
[2021-06-08] MEDS: 0.9% Saline Lock 10 ML Syringe IV (08:48)
[2021-06-08] MEDS: 0.9% Normal Saline 1,000 ML 999 ML IV (10:30)
--- NOTE | 2021-06-08 10:38 | NURSING ---
Patient pale, cool, purple in color, clammy, diapheretic, nauseous, hypotenive. Dr Darrius nguyen. Order for fluid blous obtained and given.
--- NOTE | 2021-06-08 10:50 | CASEMGMT ---
Social Work Responding to TOPPER PRESS OPERATOR, family not present. Nursing calling family already, spouse is in route to hospital. Will continue to follow as needed. Dayanara Macias MSW, NICK-S
--- NOTE | 2021-06-08 10:51 | NURSING ---
Patient's Lilibeth called at this time to update on patient condition. A INVOICE CLASSIFICATION CLERK was called due to patient being hypotensive, diaphoretic, symptomatic. Lilibeth verbalized understanding and informed this RN that she is on her way to the hospital.
[2021-06-08 11:05] LABS: Base Excess -6 mmol/L (-2 to +2); Bicarbonate 18.4 mmol/L (22-26); Blood Gas Specimen Type ART; O2 Delivery Device Cannula; PO2 196 mmHG (75-100); SITE R Radial; SO2 100 % (95-99); Total Carbon Dioxide 19 mmol/L; pCO2 27.9 mmHg (35-45); pH 7.43 (7.35-7.45)
--- NOTE | 2021-06-08 11:15 | CASEMGMT ---
Social Work Patient spouse now present. Met with patient spouse in room by patient bedside. Offered support. Patient spouse reports to have all questions answered currently. Nursing updating patient spouse. Will continue to follow as needed. Dayanara ENNIS, CAROLINA
--- NOTE | 2021-06-08 11:59 | CASEMGMT ---
Social Work Patient moved to ICU. This licensed clinical social worker met with patient spouse in waiting room. Continued support provided. Will continue to follow. Dayanara ENNIS, MANUELS
[2021-06-08 12:01] LABS: Bedside Glucose 121 mg/dL (70-110)
--- NOTE | 2021-06-08 13:28 | EX.PCM.CONCC ---
Assessment & Plan Assessment/Plan (1) Hypotension: QUALIFIERS: Hypotension type: hypotension due to drug Qualified Code(s): I95.2 - Hypotension due to drugs (2) Cardiomyopathy: QUALIFIERS: Cardiomyopathy type: dilated Qualified Code(s): I42.0 - Dilated cardiomyopathy (3) KATELIN (obstructive sleep apnea): (4) Polycythemia: PLAN: RECOMMENDATIONS: 1. Medication alteration per cardiology 2. Hold on further fluid boluses for now 3. Keep patient on room air or saturations between 90 and 94% at all times 4. Await transfer to 5. Patient would likely benefit from diuretics if blood pressure allows 6. Monitor oxygen saturations with exertion IMPRESSIONS: 1. Acute hypotension secondary to medical therapy Patient with congestive heart failure with A. fib with RVR. Clinical suspicion for hypotension related to lisinopril. Cardiology is following. Patient is currently in normal sinus rhythm. Patient responsive to fluid resuscitation. Patient with much more mitral regurgitation, likely overestimating EF on echocardiogram. [facility] has been notified and has accepted the patient, but no bed is available at this time. Cannot exclude the need for pressor agents, so patient will be monitored in the intensive care unit. Defer to cardiology on decrease of medications. Patient is on Eliquis at baseline, so bleeding complications associated with line insertion should be noted. 2. Cor pulmonale/chronic systolic CHF/polycythemia/A. fib with RVR Patient with significant worsening in hemodynamics. Unclear if patient has increased mitral regurgitation secondary to dilatation. Patient likely requires a heart catheterization at some point, but it appears as though this is being deferred until patient goes to a tertiary center. Patient has had significant polycythemia and may be having exertional hypoxia leading to a secondary polycythemia. Patient does have obstructive sleep apnea. Will monitor with continuous pulse ox. Defer to cardiology on medications. Ultimately, patient would likely benefit from diuretics from a cor pulmonale standpoint, but given hypotension this will be held off for now. 3. KATELIN/tobacco dependence/anxiety/obesity Complicates care, management, recovery and prognosis. Can offer nicotine patches if necessary. We will need to monitor closely if patient is given anxiolytics as this could worsen hypotension. HPI Consult Data Date of Consult: 06/08/21 HPI Narrative HPI Narrative: RHYS GUDINO is a 46 M, with past medical history listed below, who presented to [facility] on 06/04/2021 secondary to palpitations. Patient reportedly had had progressive worsening over the last 10 to 14 days. Patient did have a history of systolic congestive heart failure as far back as 2018 and was being treated with medical therapy. Patient has been seen by his primary care physician noting a rate of 170 in the office, but was unsuccessful in treating as an outpatient, so came to the ER for evaluation. Patient is on Eliquis at baseline. In the ER, patient was afebrile, but tachycardic as high as 168 bpm. Patient was noted to have elevated diastolics as high as 100 mmHg. Patient was tolerating room air well at that time. Laboratory work-up showed a white blood cell count of 13.6, hemoglobin of 17.2 and a platelet count of 196. Creatinine was within normal limits at 0.94, along with TSH of 1.87. Chest x-ray showed only cardiomegaly and EKG showed A. fib with RVR. Given failure of cardioversion in the ER, the patient was admitted to the ICU for medical management. Patient did require BiPAP after receiving sedation for cardioversion. Patient also noted to have some hypotension, so was admitted to the intensive care unit. Patient was rapidly transitioned to the floor. This morning a rapid response was called secondary to hypotension. Patient was noted to have blood pressures as low as 78/50 despite Trendelenburg, but was in sinus rhythm. Patient was given 1.5 L of IV fluids with some improvement in blood pressure, but patient was ultimately transferred to the intensive care unit for further evaluation. The hospitalist has reportedly discussed with [facility] about possible transfer. They have accepted him, but he does not have a bed at this time. In the intensive care unit, patient was evaluated. Patient subjectively felt better compared to when he was on PCU. Patient was tired and was asking to be able to go to sleep. Patient's was at the bedside. Patient was appropriate and able to answer questions correctly. Patient has not required supplemental oxygen previously. Patient reportedly has been told he has asthma in the past but grew out of it. Patient does not report any history of sleep apnea, but this has been mentioned in outpatient documentation. Since being in the intensive care unit, patient's blood pressures have been improved. Did discuss with the patient about the possibility of needing to start pressors and placement of the central line, but he is hoping to avoid this as anything that can go wrong will go wrong when I have a procedure. Review of systems otherwise negative from a constitutional, HEENT, respiratory, cardiovascular, GI, genitourinary, musculoskeletal, skin, neurologic, psychiatric and hematologic system unless stated above. [facility] Medical History Anxiety Atrial fibrillation Hypertension Marijuana smoker Perianal abscess Polycythemia Sleep-disordered breathing Tobacco dependence due to chewing tobacco Tobacco dependence due to cigarettes Home Medications multivitamin with minerals 1 ea PO DAILY 07/20/19 [History Last Taken 07/20/19] acetaminophen 650 mg PO Q6H PRN PRN tab 07/23/19 [Rx Last Taken Unknown] albuterol sulfate 90 mcg/actuation aerosol inhaler 2 puff INHALATION Q6H PRN 08/21/19 [History Last Taken Unknown] atorvastatin 20 mg tablet 20 mg PO QHS #30 tab 08/05/20 [Rx Last Taken Unknown] carvedilol 6.25 mg tablet 6.25 mg PO BID #60 tab 08/05/20 [Rx Last Taken Unknown] losartan 25 mg tablet 25 mg PO DAILY #30 tab 08/14/20 [Rx Last Taken Unknown] apixaban 5 mg tablet 5 mg PO BID #60 tab 08/20/20 [Rx Last Taken Unknown] metoprolol succinate [Kapspargo Sprinkle] 50 mg PO DAILY 06/04/21 [History Last Taken Unknown] Allergy/AdvReac Type Severity Reaction Status Date / Time CILLINS Allergy Other Uncoded 06/04/21 16:40 Family History Mother Cancer Hx Lung CA. Father Heart disease Surgical History Hx of abdominal surgery Social History household members: spouse Smoking Status: Former smoker quit date: 07/07/19 Smokeless tobacco user: chewing tobacco alcohol intake: current alcohol intake frequency: holidays/special occasions only substance use type: does not use caffeine: No ROS ROS Narrative See HPI Physical Exam Const alert, oriented x3 and no apparent distress General Appearance: cooperative HEENT hearing grossly normal bilaterally HEENT Narrative: Slightly flushed face Head and Scalp: atraumatic Eyes EOMs intact bilaterally Neck supple, no meningeal signs and no JVD General: normal visual inspection Chest inspection of chest normal Chest: symmetrical chest wall rise; Negative for crepitus Resp normal respiratory effort Auscultation: clear to auscultation bilaterally; Negative for rales, rhonchi or wheezes Cardio regular rate, regular rhythm, S1 normal heart sound and S2 normal heart sound Jugular Venous Distention: JVD GI normal to inspection, nondistended, normoactive bowel sounds Extremity normal capillary refill and no pedal edema Peripheral Pulses: Yes pulses 2+ throughout and femoral pulses present Skin no rashes or lesions noted Neuro oriented x3 and CN's II-XII intact bilaterally Psych Appearance: grossly normal and appropriate Lab / Micro Data Result Diagrams: 06/08/21 05:18 06/08/21 05:18 Labs: Laboratory Results - last 24 hr 06/08/21 05:18: WBC 14.8 H, RBC 5.25, Hgb 16.8 H, Hct 50.7, MCV 96.6 H, MCH 32.0, MCHC 33.1, RDW Std Deviation 47.6 H, RDW Coeff of Carol Ann 13.3, Plt Count 110 L, MPV 12.7 H, Immature Gran % (Auto) 0.500, Neut % (Auto) 67.8, Lymph % (Auto) 15.4 L, [place] % (Auto) 15.9 H, Eos % (Auto) 0.1, Baso % (Auto) 0.3, Absolute Neuts (auto) 10.1 H, Absolute Lymphs (auto) 2.28, Nucleated RBC % 0.1, Diff Path Review October06/08/21 05:18: Sodium 136, Potassium 4.0, Chloride 106, Carbon Dioxide 20.0 L, Anion Gap 10, BUN 17, Creatinine 0.98, Estim Creat Clear Calc 102.45, Est GFR (MDRD) Af Amer 107, Est GFR (MDRD) Non-Af 88, BUN/Creatinine Ratio 17.3, Glucose 145 H, Calcium 8.3 L 06/08/21 10:35: POC Glucose 121 H ABG Data ABG results: ABG 06/08/21 10:58 Specimen Type ART Sample Site R Radial pH 7.43 Bicarbonate Actual 18.4 L Total CO2 19 Base Excess -6 L O2 Saturation 100 H ABG pCO2 27.9 L ABG pO2 196 H O2 Delivery Device Cannula Liter Flow 10.0 Echocardiogram completed 06/05/2020 shows severe LV systolic dysfunction with an EF dropping from 40% to 20%. LV is dilated and RV systolic pressure is increased. Patient also noted to have worsening mitral and tricuspid regurgitations with an RVSP of 46 mmHg. Charges/Coding Visit Charges Inpatient E&M: 71749 Init Hosp L3
[2021-06-08 13:39] LABS: Pathologist Review Reviewed
[2021-06-08 14:04] LABS: Pathologist Review Reviewed
--- NOTE | 2021-06-08 14:18 | PCM.PN.HOSP ---
Subjective Subjective Follow-up on hypotension: Patient was seen and examined. There was a rapid response in which patient was found to be hypotensive, BP 69/51, clammy and diaphoretic. Patient received fluid boluses but remained hypotensive. He was transferred to ICU for closer monitoring. Still waiting on bed in . Objective Data Objective Data Vital Signs: Vital Signs Temp Pulse Resp BP Pulse Ox 96.4 F L 76 18 92/62 97 06/08/21 13:30 06/08/21 14:00 06/08/21 14:00 06/08/21 14:00 06/08/21 14:00 Oxygen Flow Rate (L/min) [9] 2 Oxygen Flow Rate (L/min) [8] 2 Oxygen Flow Rate (L/min) [7] 2 Oxygen Flow Rate (L/min) [6] 2 Oxygen Flow Rate (L/min) [5] 2 Oxygen Flow Rate (L/min) [1 ( 2 Initial Baseline)] Oxygen Flow Rate (L/min) 2 Oxygen Delivery Method [9] Nasal Cannula Oxygen Delivery Method [8] Nasal Cannula Oxygen Delivery Method [7] Nasal Cannula Oxygen Delivery Method [6] Nasal Cannula Oxygen Delivery Method [5] Nasal Cannula Oxygen Delivery Method [3] Nasal Cannula Oxygen Delivery Method [1 ( Nasal Cannula Initial Baseline)] Oxygen Delivery Method Nasal Cannula Weight: 114.5 kg Body Mass Index (BMI) 34.0 Intake & Output: Intake and Output for Last 24 Hours 06/06/21 06/07/21 06/08/21 23:59 23:59 23:59 Intake Total 1847.00 / 1863.70 639.36 / 656.06 1658.15 / 1658.15 Balance 1847.00 / 1863.70 639.36 / 656.06 1658.15 / 1658.15 Lab / Micro Data Result Diagrams: 06/08/21 05:18 06/08/21 05:18 Labs: Laboratory Results - last 24 hr 06/07/21 05:30: Diff Path Review Reviewed 06/08/21 05:18: WBC 14.8 H, RBC 5.25, Hgb 16.8 H, Hct 50.7, MCV 96.6 H, MCH 32.0, MCHC 33.1, RDW Std Deviation 47.6 H, RDW Coeff of Carol Ann 13.3, Plt Count 110 L, MPV 12.7 H, Immature Gran % (Auto) 0.500, Neut % (Auto) 67.8, Lymph % (Auto) 15.4 L, [place] % (Auto) 15.9 H, Eos % (Auto) 0.1, Baso % (Auto) 0.3, Absolute Neuts (auto) 10.1 H, Absolute Lymphs (auto) 2.28, Nucleated RBC % 0.1, Diff Path Review Reviewed 06/08/21 05:18: Sodium 136, Potassium 4.0, Chloride 106, Carbon Dioxide 20.0 L, Anion Gap 10, BUN 17, Creatinine 0.98, Estim Creat Clear Calc 102.45, Est GFR (MDRD) Af Amer 107, Est GFR (MDRD) Non-Af 88, BUN/Creatinine Ratio 17.3, Glucose 145 H, Calcium 8.3 L 06/08/21 10:35: POC Glucose 121 H ABG Data ABG results: ABG 06/08/21 10:58 Specimen Type ART Sample Site R Radial pH 7.43 Bicarbonate Actual 18.4 L Total CO2 19 Base Excess -6 L O2 Saturation 100 H ABG pCO2 27.9 L ABG pO2 196 H O2 Delivery Device Cannula Liter Flow 10.0 Physical Exam Narrative Physical exam: General: Alert, Oriented x3, Cooperative, appeared diaphoretic HEENT: Atraumatic Oral: Moist Mucosa Neck: Supple Lungs: Diminished to auscultation Cardiovascular: HS I+II, regular, no murmurs Abdomen: Bowel Sounds Present, Soft, Non Tender Extremities: No edema Assessment & Plan Assessment/Plan (1) Atrial fibrillation with RVR: PLAN: 1. Hypotension likely secondary to beta-paula side-effect Status post fluid boluses Will monitor in ICU 2. Atrial fibrillation with RVR, in NSR now, Off coreg and amiodarone Cardiology following Awaiting UA transfer for EP eval 3. HFrEF, EF of 20%, likely tachycardia mediated. Hold off on lisinopril in light of Hypertension 4. Anxiety, continue on buspirone 5. DVT prophylaxis- on Eliquis Charges/Coding Visit Charges Inpatient E&M: 60531 [facility] Hosp L3
[2021-06-08 14:32] LABS: Pathologist Review Reviewed
[2021-06-08] MEDS: Atorvastatin Calcium 20 MG Tablet PO (21:41)
[2021-06-09] VITALS (31 sets, daily range): BP systolic 77–124; BP diastolic 55–99; PULSE 75–128; RESP 18–25; TEMP 35.5–36.9; O2SAT 90–99
--- NOTE | 2021-06-09 07:43 | PCM.PN.HOSP ---
Subjective Subjective Follow-up on hypotension: Patient was seen and examined. Overnight, he did not require any pressors. Blood pressure remains relatively low but his map is above 65. He denied any dizziness or palpitations. He looks improved Objective Data Objective Data Vital Signs: Vital Signs Temp Pulse Resp BP Pulse Ox 97.8 F 78 18 82/65 L 99 06/09/21 04:00 06/09/21 07:00 06/09/21 07:00 06/09/21 07:00 06/09/21 07:00 Oxygen Flow Rate (L/min) [9] 2 Oxygen Flow Rate (L/min) [8] 2 Oxygen Flow Rate (L/min) [7] 2 Oxygen Flow Rate (L/min) [6] 2 Oxygen Flow Rate (L/min) [5] 2 Oxygen Flow Rate (L/min) [1 ( 2 Initial Baseline)] Oxygen Flow Rate (L/min) 0 Oxygen Delivery Method [9] Nasal Cannula Oxygen Delivery Method [8] Nasal Cannula Oxygen Delivery Method [7] Nasal Cannula Oxygen Delivery Method [6] Nasal Cannula Oxygen Delivery Method [5] Nasal Cannula Oxygen Delivery Method [3] Nasal Cannula Oxygen Delivery Method [1 ( Nasal Cannula Initial Baseline)] Oxygen Delivery Method Room Air Weight: 114.6 kg Body Mass Index (BMI) 34.0 Intake & Output: Intake and Output for Last 24 Hours 06/07/21 06/08/21 06/09/21 23:59 23:59 23:59 Intake Total 639.36 / 656.06 1658.15 / 2008.15 350 / 350 Output Total 1000 / 1000 Balance 639.36 / 656.06 1658.15 / 1508.15 -650 / -650 Lab / Micro Data Result Diagrams: 06/08/21 05:18 06/08/21 05:18 Labs: Laboratory Results - last 24 hr 06/05/21 09:40: Diff Path Review Reviewed 06/07/21 05:30: Diff Path Review Reviewed 06/08/21 05:18: Diff Path Review Reviewed 06/08/21 10:35: POC Glucose 121 H ABG Data ABG results: ABG 06/08/21 10:58 Specimen Type ART Sample Site R Radial pH 7.43 Bicarbonate Actual 18.4 L Total CO2 19 Base Excess -6 L O2 Saturation 100 H ABG pCO2 27.9 L ABG pO2 196 H O2 Delivery Device Cannula Liter Flow 10.0 Physical Exam Narrative Physical exam: General: Alert, Oriented x3, Cooperative, obese, not pale, not jaundiced HEENT: Atraumatic Oral: Moist Mucosa Neck: Supple Lungs: Diminished to auscultation Cardiovascular: HS I+II, regular, no murmurs Abdomen: Bowel Sounds Present, Soft, Non Tender Extremities: No edema Assessment & Plan Assessment/Plan (1) Atrial fibrillation with RVR: PLAN: 1. Hypotension likely secondary to beta-paula side-effect, Blood pressure appears to have stabilized Status post fluid boluses -1.5 L yesterday Will continue monitor in ICU 2. Atrial fibrillation with RVR, in NSR now, Off coreg and amiodarone Cardiology following Awaiting UA transfer for EP eval 3. Acute on chronic HFrEF, EF of 20%, severe global left ventricular systolic dysfunction, likely tachycardia mediated. 2D echo in 2019 showed an EF of 40% Hold off on lisinopril in light of Hypertension 4. Anxiety, continue on buspirone 5. DVT prophylaxis- on Eliquis Charges/Coding Visit Charges Inpatient E&M: 16209 Subs Hosp L3
--- NOTE | 2021-06-09 07:53 | PN.CC_ITS ---
Assessment & Plan Assessment/Plan (1) Hypotension: QUALIFIERS: Hypotension type: hypotension due to drug Qualified Code(s): I95.2 - Hypotension due to drugs (2) Cardiomyopathy: QUALIFIERS: Cardiomyopathy type: dilated Qualified Code(s): I42.0 - Dilated cardiomyopathy (3) KATELIN (obstructive sleep apnea): (4) Polycythemia: PLAN: RECOMMENDATIONS: 1. Defer to cardiology on antihypertensives 2. Hold on further fluid boluses for now 3. Keep patient on room air or saturations between 90 and 94% at all times 4. Await transfer to 5. Could consider diuretics if blood pressure improves 6. Monitor oxygen saturations with exertion 7. Okay to leave the intensive care unit IMPRESSIONS: 1. Acute hypotension secondary to medical therapy Patient with congestive heart failure with A. fib with RVR initially. Clinical suspicion for hypotension related to medications. Cardiology is following. Patient is currently in normal sinus rhythm. Patient responsive to fluid resuscitation. No further fluid resuscitation is indicated. Patient with much more mitral regurgitation, likely overestimating EF on echocardiogram. [facility] has been notified and has accepted the patient, but no bed is available at this time. Patient has stabilized from a hemodynamic standpoint. Okay to go back to the floor from my perspective. Defer to cardiology on decrease of medications. Patient is on Eliquis at baseline, so bleeding complications associated with line insertion should be noted. 2. Cor pulmonale/chronic systolic CHF/polycythemia/A. fib with RVR Patient with significant worsening in hemodynamics. Unclear if patient has increased mitral regurgitation secondary to dilatation. Patient likely requires a heart catheterization at some point, but it appears as though this is being deferred until patient goes to a tertiary center. Patient has had significant polycythemia and may be having exertional hypoxia leading to a secondary polycythemia. Patient does have obstructive sleep apnea. Will monitor with continuous pulse ox. Defer to cardiology on medications. Ultimately, patient would likely benefit from diuretics from a cor pulmonale standpoint, but given hypotension this will be held off for now. 3. KATELIN/tobacco dependence/anxiety/obesity Complicates care, management, recovery and prognosis. Can offer nicotine patches if necessary. We will need to monitor closely if patient is given anxiolytics as this could worsen hypotension. Subjective Subjective Patient did okay overnight. No additional fluid boluses were indicated. Patient did not have a central line or pressors started. Patient states he feels back to his baseline this morning. Patient did refuse antihypertensive me dications overnight and states I will not be taking any today either. Objective Data Objective Data Vital Signs: Vital Signs Temp Pulse Resp BP Pulse Ox 36.6 C 78 18 82/65 L 99 06/09/21 04:00 06/09/21 07:00 06/09/21 07:00 06/09/21 07:00 06/09/21 07:00 Oxygen Flow Rate (L/min) [9] 2 Oxygen Flow Rate (L/min) [8] 2 Oxygen Flow Rate (L/min) [7] 2 Oxygen Flow Rate (L/min) [6] 2 Oxygen Flow Rate (L/min) [5] 2 Oxygen Flow Rate (L/min) [1 ( 2 Initial Baseline)] Oxygen Flow Rate (L/min) 0 Oxygen Delivery Method [9] Nasal Cannula Oxygen Delivery Method [8] Nasal Cannula Oxygen Delivery Method [7] Nasal Cannula Oxygen Delivery Method [6] Nasal Cannula Oxygen Delivery Method [5] Nasal Cannula Oxygen Delivery Method [3] Nasal Cannula Oxygen Delivery Method [1 ( Nasal Cannula Initial Baseline)] Oxygen Delivery Method Room Air Weight: 114.6 kg Body Mass Index (BMI) 34.0 Intake & Output: Intake and Output for Last 24 Hours 06/07/21 06/08/21 06/09/21 23:59 23:59 23:59 Intake Total 639.36 / 656.06 1658.15 / 2008.15 350 / 350 Output Total 1000 / 1000 Balance 639.36 / 656.06 1658.15 / 1508.15 -650 / -650 Lab / Micro Data Result Diagrams: 06/08/21 05:18 06/08/21 05:18 Labs: Laboratory Results - last 24 hr 06/05/21 09:40: Diff Path Review Reviewed 06/07/21 05:30: Diff Path Review Reviewed 06/08/21 05:18: Diff Path Review Reviewed 06/08/21 10:35: POC Glucose 121 H ABG Data ABG results: ABG 06/08/21 10:58 Specimen Type ART Sample Site R Radial pH 7.43 Bicarbonate Actual 18.4 L Total CO2 19 Base Excess -6 L O2 Saturation 100 H ABG pCO2 27.9 L ABG pO2 196 H O2 Delivery Device Cannula Liter Flow 10.0 Physical Exam Const alert, oriented x3 and no apparent distress General Appearance: cooperative HEENT hearing grossly normal bilaterally Head and Scalp: atraumatic Eyes EOMs intact bilaterally Neck supple, no meningeal signs and no JVD General: normal visual inspection Chest inspection of chest normal Chest: symmetrical chest wall rise; Negative for crepitus Resp normal respiratory effort Auscultation: clear to auscultation bilaterally; Negative for rales, rhonchi or wheezes Cardio regular rate, regular rhythm, S1 normal heart sound and S2 normal heart sound Jugular Venous Distention: JVD GI normal to inspection, nondistended, normoactive bowel sounds Extremity normal capillary refill and no pedal edema Peripheral Pulses: Yes pulses 2+ throughout and femoral pulses present Skin no rashes or lesions noted Neuro oriented x3 and CN's II-XII intact bilaterally Psych Appearance: grossly normal and appropriate Charges/Coding Visit Charges Inpatient E&M: 37951 Subs Hosp L2
--- NOTE | 2021-06-09 07:59 | PCM.PN.CARD ---
Subjective Subjective Patient seen and evaluated. Events of yesterday noted. Patient did not react well to beta-paula or MARCOS inhibitor. The dose was probably too high. Objective Data Vital Signs: Vital Signs Temp Pulse Resp BP Pulse Ox 97.8 F 78 18 82/65 L 99 06/09/21 04:00 06/09/21 07:00 06/09/21 07:00 06/09/21 07:00 06/09/21 07:00 Oxygen Flow Rate (L/min) [9] 2 Oxygen Flow Rate (L/min) [8] 2 Oxygen Flow Rate (L/min) [7] 2 Oxygen Flow Rate (L/min) [6] 2 Oxygen Flow Rate (L/min) [5] 2 Oxygen Flow Rate (L/min) [1 ( 2 Initial Baseline)] Oxygen Flow Rate (L/min) 0 Oxygen Delivery Method [9] Nasal Cannula Oxygen Delivery Method [8] Nasal Cannula Oxygen Delivery Method [7] Nasal Cannula Oxygen Delivery Method [6] Nasal Cannula Oxygen Delivery Method [5] Nasal Cannula Oxygen Delivery Method [3] Nasal Cannula Oxygen Delivery Method [1 ( Nasal Cannula Initial Baseline)] Oxygen Delivery Method Room Air Weight: 252 lb 10.396 oz Body Mass Index (BMI) 34.0 Intake & Output: Intake and Output for Last 24 Hours 06/07/21 06/08/21 06/09/21 23:59 23:59 23:59 Intake Total 639.36 / 656.06 1658.15 / 2008.15 350 / 350 Output Total 1000 / 1000 Balance 639.36 / 656.06 1658.15 / 1508.15 -650 / -650 Lab / Micro Data Result Diagrams: 06/08/21 05:18 06/08/21 05:18 Labs: Laboratory Results - last 24 hr 06/05/21 09:40: Diff Path Review Reviewed 06/07/21 05:30: Diff Path Review Reviewed 06/08/21 05:18: Diff Path Review Reviewed 06/08/21 10:35: POC Glucose 121 H ABG Data ABG results: ABG 06/08/21 10:58 Specimen Type ART Sample Site R Radial pH 7.43 Bicarbonate Actual 18.4 L Total CO2 19 Base Excess -6 L O2 Saturation 100 H ABG pCO2 27.9 L ABG pO2 196 H O2 Delivery Device Cannula Liter Flow 10.0 Cardiology Labs/Tests 06/08/21 10:58: pH 7.43, Bicarbonate Actual 18.4 L, Base Excess -6 L, O2 Saturation 100 H, ABG pCO2 27.9 L, ABG pO2 196 H Rhythm: EKG: ECHO: Stress Test: Cardiac Cath: PCI: CT Surgery: Holter monitor: EPS: PPM: CXR: Chest CT Scan: Physical Exam Const alert, oriented x3 and no apparent distress General Appearance: cooperative HEENT hearing grossly normal bilaterally Head and Scalp: atraumatic Eyes EOMs intact bilaterally Neck General: normal visual inspection Chest inspection of chest normal and palpation of chest normal Resp normal respiratory effort Auscultation: clear to auscultation bilaterally Cardio regular rate, regular rhythm, S1 normal heart sound and S2 normal heart sound Jugular Venous Distention: JVD GI normal to inspection, nondistended, normoactive bowel sounds Extremity normal capillary refill and no pedal edema Peripheral Pulses: Yes pulses 2+ throughout and femoral pulses present Skin no rashes or lesions noted Neuro oriented x3 and CN's II-XII intact bilaterally Psych Appearance: grossly normal and appropriate Assessment & Plan Assessment/Plan (1) Atrial fibrillation with RVR: PLAN: Patient presented with atrial fibrillation with a rapid ventricular response rate. Has now converted back to sinus rhythm on IV amiodarone. Remains on oral Eliquis which will be continued. We will DC IV amiodarone and put on low-dose amiodarone for a short duration. For now hesitant to restart beta-paula as patient appears to be maintaining sinus rhythm. (2) Cardiomyopathy: QUALIFIERS: Cardiomyopathy type: dilated Qualified Code(s): I42.0 - Dilated cardiomyopathy PLAN: Patient has severe cardiomyopathy estimated ejection fraction of 20% likely tachycardia mediated. We will proceed with guideline directed medical therapy with Toprol 12.5 mg once a day after blood pressure is noted to be over 110 systolic Lisinopril with eventual transition to Entresto Would recommend Lasix or spironolactone Would also consider Dixie (3) Hypertension: PLAN: Blood pressure appears to be under fair control. Would continue current medications as outlined above. Thank you for allowing me to participate in the care of your patient. Please don't hesitate to call if any issues arise.
[2021-06-09] MEDS: APIXABAN 5 MG TABLET PO ×2 (09:44→20:57)
[2021-06-09] MEDS: busPIRone 5 MG Tablet 10 MG PO ×2 (09:44→20:58)
[2021-06-09] MEDS: Amiodarone 200 MG Tablet PO (09:44)
[2021-06-09 14:26] LABS: Pathologist Review Reviewed
[2021-06-09 16:24] LABS: Absolute Lymphocyte Count 2.14 X10^3/uL (0.83-4.51); Absolute Neutrophil Count 6.4 X10^3/uL (2.0-7.7); Basophil# 0.04 X10^3/uL; Basophil% 0.4 % (0-1); Eosinophil# 0.16 X10^3/uL; Eosinophils% 1.5 % (0-5); Hematocrit 49.2 % (40-54); Hemoglobin 15.8 g/dL (13.0-16.5); Lymphocyte # 2.14 X10^3/ul (0.83-4.51); Lymphocyte % 20.6 % (19-41); Mean Corp Hgb Conc 32.1 g/dL (32-36); Mean Corpuscular Hgb 31.3 pg (27.0-32.0); Mean Corpuscular Volume 97.6 fL (80-94); Mean Platelet Vol. 12.2 fl (6.2-12.0); Monocyte# 1.58 X10^3/uL; Monocyte% 15.2 % (0-10); NRBC Flagged by Analyzer 0.3 % (0-5); Neutrophil # 6.41 X10^3/uL (2.7-7.7); Neutrophil % 61.8 % (47-70); POSITIVE DIFFERENTIAL YES; Platelet Count 146 K/mm3 (150-450); RBC Distribution Width CV 13.3 % (11.6-14.6); RBC Distribution Width SD 48.1 fl (35.1-43.9); Red Blood Count 5.04 M/mm3 (4.6-6.2); White Blood Count 10.4 K/mm3 (4.4-11.0)
[2021-06-09] MEDS: Metoprolol(XL)Succ 25 MG Tablet PO (16:25)
[2021-06-09] MEDS: 0.9% Saline Lock 10 ML Syringe IV (16:34)
[2021-06-09 16:35] LABS: Anion Gap 8 (5-15); BUN 12 mg/dL (7-18); BUN/Creat Ratio 12.6 RATIO (10-20); Calcium,Total 8.4 mg/dL (8.5-10.1); Chloride 103 mmol/L (98-107); Creatinine, Serum 0.96 mg/dL (0.70-1.30); EST Glomerular Filtration Rate 91 mL/min (>60); Est Glom Filt Rate - Afr Amer 110 mL/min (>60); Estimated Creatinine Clearance 104.58 ml/min; Glucose 97 mg/dL (74-106); Potassium 3.9 mmol/L (3.5-5.1); Sodium Level 139 mmol/L (136-145)
[2021-06-09 17:08] LABS: Differential Comment SCANNED; Differential Indicated SCAN CRITERIA MET
[2021-06-09] MEDS: Atorvastatin Calcium 20 MG Tablet PO (20:58)
--- NOTE | 2021-06-10 07:48 | PCM.DC.SUM ---
Providers Date of Admission: 06/04/21 Date of Discharge: 06/10/21 Primary Care Physician: Masoud Lundy Consultations 06/05/21 08:57 Consult: Cardiology Routine Consulting Provider: Billie Bower Reason for Consult: a-fib EMERGENT Consult: No Notified: Yes Date Notified: 06/05/21 Time Notified: 08:58 Method of Notification: Verbal Comments:: made aware in ED 06/0406/08/21 11:39 Consult: Data Examination Clerk / Pulmonary Medicine Routine Consulting Provider: Pulmonary Medicine diana [place] Reason for Consult: Hypotension EMERGENT Consult: No Notified: Yes Date Notified: 06/08/21 Time Notified: 11:38 Method of Notification: Verbal Reason For Visit: AFIB WITH RVR Diagnosis Discharge Diagnosis (1) Atrial fibrillation with RVR: Status: Acute Code(s): I48.91 - Unspecified atrial fibrillation (2) Hypotension: Status: Acute Code(s): I95.9 - Hypotension, unspecified Qualifiers: Hypotension type: hypotension due to drug Qualified Code(s): I95.2 - Hypotension due to drugs Medications at Discharge Home Medications multivitamin with minerals 1 ea PO DAILY 07/20/19 acetaminophen 650 mg PO Q6H PRN PRN tab 07/23/19 albuterol sulfate 90 mcg/actuation aerosol inhaler 2 puff INHALATION Q6H PRN 08/21/19 atorvastatin 20 mg tablet 20 mg PO QHS #30 tab 08/05/20 carvedilol 6.25 mg tablet 6.25 mg PO BID #60 tab 08/05/20 losartan 25 mg tablet 25 mg PO DAILY #30 tab 08/14/20 apixaban 5 mg tablet 5 mg PO BID #60 tab 08/20/20 metoprolol succinate [Kapspargo Sprinkle] 50 mg PO DAILY 06/04/21 Hospital Course Operations None Procedures 2-D Echocardiogram Summary of Care Provided Minutes Spent on Discharge: 45 Hospital Course: 46-year-old male with history of atrial fibrillation, on carvedilol, digoxin and Eliquis comes in with elevated heart rate. Patient stated that he was in the ED recently and was switched from digoxin to metoprolol. His heart rate has been steadily going up over the past 3 weeks prior to admission. Patient underwent emergent cardioversion by cardiology in the ED. Patient persisted in atrial fibrillation. He received 2 doses of amiodarone as well as IV metoprolol. She subsequently became hypotensive and was managed patient in the ICU, required Levophed. 2D echo done shows EF of 20% with 2+ mitral regurgitation as well as 3+ mitral regurgitation. This was a decrease from his previous 2D echo which was 40%. His cardiomyopathy was felt to be tachycardia mediated. Probably Takotsubo cardiomyopathy. Patient converted to normal sinus rhythm. It was recommended that patient be transferred to [facility] for EP eval. Patient became hypotensive on through morning. Rapid response was called. His systolic blood pressure was in the 70s. He received IV fluid boluses. Patient was transferred to ICU. He remained relatively hypotensive throughout the whole time. He did not require the use of Levophed. Patient was not maintained on any antihypertensives. He was accepted to [facility]. Physical Exam Narrative Physical exam: General: Alert, Oriented x3, Cooperative, obese, not pale, not jaundiced HEENT: Atraumatic Oral: Moist Mucosa Neck: Supple Lungs: Diminished to auscultation Cardiovascular: HS I+II, regular, no murmurs Abdomen: Bowel Sounds Present, Soft, Non Tender Extremities: No edema Weight / BMI Weight Weight: 114.6 kg Body Mass Index (BMI) 34.0 ABG / Lab / Microbiology Data Result Diagrams: 06/09/21 16:00 06/09/21 16:00 Laboratory: Laboratory Results - last 24 hr 06/05/21 01:30: Diff Path Review Reviewed 06/09/21 16:00: Sodium 139, Potassium 3.9, Chloride 103, Carbon Dioxide 28.0, Anion Gap 8, BUN 12, Creatinine 0.96, Estim Creat Clear Calc 104.58, Est GFR (MDRD) Af Amer 110, Est GFR (MDRD) Non-Af 91, BUN/Creatinine Ratio 12.6, Glucose 97, Calcium 8.4 L 06/09/21 16:00: WBC 10.4, RBC 5.04, Hgb 15.8, Hct 49.2, MCV 97.6 H, MCH 31.3, MCHC 32.1, RDW Std Deviation 48.1 H, RDW Coeff of Carol Ann 13.3, Plt Count 146 L, MPV 12.2 H, Immature Gran % (Auto) 0.500, Neut % (Auto) 61.8, Lymph % (Auto) 20.6, [place] % (Auto) 15.2 H, Eos % (Auto) 1.5, Baso % (Auto) 0.4, Absolute Neuts (auto) 6.4, Absolute Lymphs (auto) 2.14, Nucleated RBC % 0.3, Differential Comment SCANNED Radiography Diagnostic Testing: Radiology Impression Echocardiogram 06/05/21 15:59 Interpretation Summary Technically difficult study. Severe global LV systolic dysfunction, visually estimated left ventricular ejection fraction is about 20% Dilated left ventricular cavity Dilated left atrium, left atrial volume index 4 4 mL/m?? Preserved RV systolic function 2+ mitral regurgitation 3+ tricuspid regurgitation RV systolic pressure 46 mmHg Probable diastolic dysfunction No pericardial effusion Inferior vena cava partially collapses with sniff test, and is mildly dilated. Compared to a previous study from July 2019, left ventricular ejection fraction has deteriorated significantly from 40% then to 20% now, LV cavity has dilated, RV systolic pressure has increased, mitral and tricuspid regurgitations have worsened. Patient's cardiomyopathy may be related to tachycardia versus other reasons such as alcohol. It is to be noted that patient was in normal sinus rhythm at the time of the study. Needs close cardiology follow-up and medication adjustment. Ordering Physician: Danay Marie Referring Physician: Masoud Lundy Performed By: Joellen Fowler, ROBSON, RVT D/C Instructions Discharge Diet: Low fat / Low cholesterol, 6 Cup Fluid Restriction and 2000 mg Sodium Diet Discharge Activity: Return to Normal Activity Meaningful Use Info Meaningful Use Diagnoses (Choose all that apply): CHF CHF MARCOS/ARB ordered at discharge?: No Reason MARCOS/ARB not ordered?: Hypotension Documented LVEF (%): 20 Discharge Plan Admission Admit Date/Time: 06/04/21 20:18 Attending Provider: Mariana Christian Primary Care Provider: Masoud Lundy Consulting Providers: Billie Bower ; Norm Hawley ; Eduard Moran ; Alexa Desai GAMING CASHIER Discharge Orders/Prescriptions Prescriptions: No Action albuterol sulfate [Ventolin HFA] 90 mcg/actuation HFA aerosol inhaler 2 puff INHALATION Q6H PRN (Reason: Sob &/Or Wheezing) RF: 0 multivitamin with minerals 1 EACH tablet 1 ea PO DAILY RF: 0 acetaminophen 325 MG tablet 650 mg PO Q6H PRN PRN (Reason: Pain Score 1-10/Temp > 100.7 F) RF: 0 Kapspargo Sprinkle 50 mg Capsule,Sprinkle,Er 24hr 50 mg PO DAILY RF: 0 atorvastatin 20 mg tablet 20 mg PO QHS Qty: 30 RF: 11 carvedilol 6.25 mg tablet 6.25 mg PO BID Qty: 60 RF: 11 losartan 25 mg tablet 25 mg PO DAILY Qty: 30 RF: 12 apixaban 5 mg tablet 5 mg PO BID Qty: 60 RF: 11 Referrals / Follow Up: Masoud Lundy [Primary Care Provider] - Disposition Disposition (needs filled in before D/C Order can be placed): Acute Care Hospital Charges/Coding Visit Charges Inpatient E&M: 09451 Disch Hosp
== END 2021-06-10 00:15 | disposition short-term general hospital (02) | DRG 308 ==
LOC: ED 16:42 → PCU 18:55 → ICU 20:09 → PCU 06-06 03:16 → ICU 06-10 01:29
PROVIDERS: Internal Medicine; Internal Medicine Critical Care Medicine; Nurse Practitioner Family; Admitting Provider Family Medicine; Emergency Provider Emergency Medicine; PCP Family Medicine; Visit Provider Internal Medicine
DX: I48.0 Paroxysmal atrial fibrillation (principal); J96.01 Acute respiratory failure with hypoxia; I50.23 Acute on chronic systolic (congestive) heart failure; I11.0 Hypertensive heart disease with heart failure; I95.2 Hypotension due to drugs; T46.4X5A Adverse effect of angiotensin-converting-enzyme inhibitors, initial encounter; T44.7X5A Adverse effect of beta-adrenoreceptor antagonists, initial encounter; I48.92 Unspecified atrial flutter; E78.5 Hyperlipidemia, unspecified; I42.0 Dilated cardiomyopathy; D75.1 Secondary polycythemia; I27.81 Cor pulmonale (chronic); I08.1 Rheumatic disorders of both mitral and tricuspid valves; G47.33 Obstructive sleep apnea (adult) (pediatric); R11.2 Nausea with vomiting, unspecified; F17.220 Nicotine dependence, chewing tobacco, uncomplicated; F41.9 Anxiety disorder, unspecified; F10.10 Alcohol abuse, uncomplicated; Y90.9 Presence of alcohol in blood, level not specified; E66.9 Obesity, unspecified; Z68.34 Body mass index [BMI] 34.0-34.9, adult; Z91.19 Patient's noncompliance with other medical treatment and regimen; Z79.01 Long term (current) use of anticoagulants; Z79.899 Other long term (current) drug therapy
CPT/HCPCS: 36415; 36600; 71045; 74018; 80048; 82803; 82962; 83605; 83735; 84443; 84484; 85025; 87635; 92960; 93005; 93306; 94002; 94640; 97802; 99152; 99153; 99285; J7030; J7040; J7050; Q9957; U0005; A4216; C8929; J0610; J1940; J2405; J3490; U0003

== ENCOUNTER 2021-06-15 07:14 | Emergency (ER) | payer BC, SELFPAY ==
[2021-06-15 07:15] VITALS: BP 137/106; PULSE 110; RESP 18; TEMP 36.8; O2SAT 99; BMI 31.2
--- NOTE | 2021-06-15 07:26 | CT_ITS ---
STUDY: CT PELVIS WITHOUT CONTRAST REASON FOR EXAM: Male, 46 years old. Perirectal abscess RADIATION DOSAGE (If Supplied By Facility): CTDIvol = ( 28.21 ) mGy, DLP = ( 1085.03 ) mGycm TECHNIQUE: Transaxial imaging of the pelvis was performed with oral contrast, and without intravenous administration of contrast material. Individualized dose optimization techniques were used for this CT. COMPARISON: None. FINDINGS: There is a 3.1cm x 5.6 cmx 3.1 cm well-defined rounded soft tissue density in the posterior aspect of the perineum just can''t the to the anal verge. This corresponds to the clinical suspicion of perirectal abscess. Normal urinary bladder. Small right hydrocele. Normal visualized small intestine. Normal visualized colon. There is no pelvic fluid. There is no pelvic mass lesion or lymphadenopathy. Normal visualized pelvic arteries. Normal abdominal wall. Normal osseous structures. CT/Pelvis without IV Contrast IMPRESSION: 3.1 cm x 5.2 cm x 3.1 cm well-defined density in the perineum just distal to the anal verge. This is in keeping with the patient''s clinical suspicion for perirectal abscess. Electronically Signed: Julio Cesar Alex MD at 8:22 EST , Service support ,
--- NOTE | 2021-06-15 07:27 | EX.ED.DYSGE1 ---
HPI History of Present Illness Chief Complaint: Abscess Informant: patient Onset/Context/Timing Onset: Days Context: Gradual Onset Current Severity: Moderate Maximum Severity: Moderate Narrative Narrative: Patient presents secondary to concern for perianal abscess. Patient states he had 2 prior perianal abscesses. He was recently in the hospital for cardiac ablation and states he was laying in bed for several days. He noted some swelling there but was discharged home within the past day or 2. Last evening he felt the swelling became worse. His PCP called in a prescription for doxycycline for him. He denies fever or chills. No spontaneous drainage. [facility] Medical History Anxiety Atrial fibrillation Hypertension Marijuana smoker Perianal abscess Polycythemia Sleep-disordered breathing Tobacco dependence due to chewing tobacco Tobacco dependence due to cigarettes Home Medications multivitamin with minerals 1 ea PO DAILY 07/20/19 [History Last Taken 07/20/19] acetaminophen 650 mg PO Q6H PRN PRN tab 07/23/19 [Rx Last Taken Unknown] albuterol sulfate 90 mcg/actuation aerosol inhaler 2 puff INHALATION Q6H PRN 08/21/19 [History Last Taken Unknown] atorvastatin 20 mg tablet 20 mg PO QHS #30 tab 08/05/20 [Rx Last Taken Unknown] apixaban 5 mg tablet 5 mg PO BID #60 tab 08/20/20 [Rx Last Taken Unknown] metoprolol succinate [Kapspargo Sprinkle] 25 mg PO DAILY 06/04/21 [History Last Taken Unknown] amiodarone 400 mg PO BID 06/15/21 [History Last Taken Unknown] doxycycline hyclate 100 mg PO BID 06/15/21 [History Last Taken Unknown] furosemide 40 mg PO DAILY 06/15/21 [History Last Taken Unknown] pantoprazole 40 mg PO DAILY 06/15/21 [History Last Taken Unknown] sacubitril-valsartan 1 tab PO BID 06/15/21 [History Last Taken Unknown] Allergy/AdvReac Type Severity Reaction Status Date / Time CILLINS Allergy Other Uncoded 06/15/21 07:17 Family History Mother Cancer Hx Lung CA. Father Heart disease Surgical History Hx of abdominal surgery Social History household members: spouse Smoking Status: Former smoker quit date: 07/07/19 Smokeless tobacco user: chewing tobacco alcohol intake: current alcohol intake frequency: holidays/special occasions only substance use type: does not use caffeine: No ROS ROS ED Constitutional Constitutional ED: Denies chills or fever(s) Eyes Eyes: Denies change in vision ENT ENT ED: Denies sore throat Cardiovascular Cardiovascular: Denies chest pain Respiratory/Chest Respiratory/Chest: Denies cough or dyspnea Gastrointestinal Gastrointestinal: Reports other Details: Perirectal pain ; Denies abdominal pain, diarrhea, nausea or vomiting Genitourinary Genitourinary ED: Denies dysuria Musculoskeletal Musculoskeletal: Denies back pain Integumentary Denies rash Neurologic Neurologic: Denies headache(s) or weakness Allergic/Immunologic Allergic/Immunologic ED: Denies urticaria EXAM Physical Exam Const Vital Signs: 06/15/21 07:15 06/15/21 10:05 Temperature 98.2 F Temperature Source Temporal Pulse Rate 110 H 99 Respiratory Rate 18 16 Blood Pressure 137/106 H 123/88 H Blood Pressure Mean 116 99 Pulse Ox 99 98 Oxygen Delivery Method Room Air Room Air Positive well nourished and well developed General Appearance ED: well developed HEENT Reports moist mucous membranes Eyes PERRL and EOMs intact bilaterally Neck no lymphadenopathy and supple Chest Wall inspection of chest normal and palpation of chest normal Resp normal respiratory effort and clear to auscultation bilaterally Cardio regular rate and regular rhythm GI normal to inspection, nondistended, normoactive bowel sounds and non-tender GI Narrative: 1 x 2 cm visible abscess in the perirectal area at the 6 o'clock position. Palpation: soft Extremity normal to inspection Neuro oriented x3 Sensorium / Orientation: alert Psych mental status grossly normal MDM MDM MDM Narrative Medical decision making narrative: Patient given morphine and Zofran for pain. Lab work and CT pelvis with IV contrast ordered. Lab Data Labs: Laboratory Results - last 24 hr 06/15/21 06/15/21 07:50 07:50 WBC 15.8 H RBC 6.07 Hgb 18.9 H* Hct 57.6 H MCV 94.9 H MCH 31.1 MCHC 32.8 RDW Std Deviation 45.3 H RDW Coeff of Carol Ann 13.0 Plt Count 207 MPV 10.5 Immature Gran % (Auto) 0.400 Neut % (Auto) 71.7 H Lymph % (Auto) 11.8 L [place] % (Auto) 13.8 H Eos % (Auto) 1.7 Baso % (Auto) 0.6 Absolute Neuts (auto) 11.3 H Absolute Lymphs (auto) 1.86 Nucleated RBC % 0 Differential Comment COMMENT Diff Path Review May foll Sodium 134 L Potassium 4.4 Chloride 102 Carbon Dioxide 24.0 Anion Gap 8 BUN 16 Creatinine 0.98 Estim Creat Clear Calc 102.45 Est GFR (MDRD) Af Amer 107 Est GFR (MDRD) Non-Af 89 BUN/Creatinine Ratio 16.4 Glucose 125 H Calcium 9.3 Radiography Diagnostic Testing: Clinical Impression(s) from Imaging Studies Pelvis CT 06/15/21 07:26 IMPRESSION: 3.1 cm x 5.2 cm x 3.1 cm well-defined density in the perineum just distal to the anal verge. This is in keeping with the patient''s clinical suspicion for perirectal abscess. Electronically Signed: Julio Cesar Alex MD at 8:22 EST , Service support , Treatment and Re-Evaluation Comments:: Lab work reveals a white count of 15.8. CT scan reveals a 3 x 5 x 3 cm perirectal abscess. I did review the patient's prior to records when he was here with perirectal abscess. He had similar presentation at that time with similar size abscess. Patient was consented for I&D. 1 cc of 1% lidocaine with epi infused locally. Stab incision with #11 blade. Copious pus and blood returns. Wound was irrigated. Small amount of quarter inch iodoform gauze packed in the wound. Patient is currently on doxycycline. I was initially going to switch him to Cipro and Flagyl, however he is currently on amiodarone and I do not want any interaction between Cipro and amiodarone. He will continue the doxycycline. Discharge Plan Triage Chief Complaint: Abscess ED Provider: Carey Scott Dx/Rx/DC Orders Clinical Impression: Abscess, perirectal Instructions: ED ABSCESS Alda-Anal IandD Prescriptions: No Action albuterol sulfate [Ventolin HFA] 90 mcg/actuation HFA aerosol inhaler 2 puff INHALATION Q6H PRN (Reason: Sob &/Or Wheezing) RF: 0 multivitamin with minerals 1 EACH tablet 1 ea PO DAILY RF: 0 acetaminophen 325 MG tablet 650 mg PO Q6H PRN PRN (Reason: Pain Score 1-10/Temp > 100.7 F) RF: 0 Kapspargo Sprinkle 50 mg Capsule,Sprinkle,Er 24hr 25 mg PO DAILY RF: 0 furosemide 40 mg Tablet 40 mg PO DAILY RF: 0 amiodarone 400 mg Tablet 400 mg PO BID RF: 0 pantoprazole 40 mg Tablet,Delayed Release (Dr/Ec) 40 mg PO DAILY RF: 0 sacubitril-valsartan 24-26 mg Tablet 1 tab PO BID RF: 0 doxycycline hyclate 100 mg capsule 100 mg PO BID RF: 0 atorvastatin 20 mg tablet 20 mg PO QHS Qty: 30 RF: 11 apixaban 5 mg tablet 5 mg PO BID Qty: 60 RF: 11 Primary Care Provider: Masoud Lundy Referrals: Naveen Stone MD [STAFF PHYSICIAN] - 1-2 Weeks Masoud Lundy [Primary Care Provider] - Keep [facility] appointment Disposition Disposition: Home, Self Care
[2021-06-15] MEDS: Morphine 4 MG/ML Syringe IV ×2 (07:51→10:03)
[2021-06-15] MEDS: Ondansetron 4 MG/2 ML Vial IV (07:51)
[2021-06-15 08:00] LABS: Absolute Lymphocyte Count 1.86 X10^3/uL (0.83-4.51); Absolute Neutrophil Count 11.3 X10^3/uL (2.0-7.7); Basophil# 0.09 X10^3/uL; Basophil% 0.6 % (0-1); Eosinophil# 0.27 X10^3/uL; Eosinophils% 1.7 % (0-5); Lymphocyte # 1.86 X10^3/ul (0.83-4.51); Lymphocyte % 11.8 % (19-41); Mean Corp Hgb Conc 32.8 g/dL (32-36); Mean Corpuscular Hgb 31.1 pg (27.0-32.0); Mean Corpuscular Volume 94.9 fL (80-94); Mean Platelet Vol. 10.5 fl (6.2-12.0); Monocyte# 2.17 X10^3/uL; Monocyte% 13.8 % (0-10); NRBC Flagged by Analyzer 0 % (0-5); Neutrophil % 71.7 % (47-70); POSITIVE DIFFERENTIAL YES; Platelet Count 207 K/mm3 (150-450); RBC Distribution Width SD 45.3 fl (35.1-43.9); Red Blood Count 6.07 M/mm3 (4.6-6.2); White Blood Count 15.8 K/mm3 (4.4-11.0)
[2021-06-15 08:04] LABS: Hematocrit 57.6 % (40-54)
[2021-06-15 08:05] LABS: Differential Indicated SCAN CRITERIA MET; Hemoglobin 18.9 g/dL (13.0-16.5)
[2021-06-15 08:13] LABS: Anion Gap 8 (5-15); BUN 16 mg/dL (7-18); BUN/Creat Ratio 16.4 RATIO (10-20); Calcium,Total 9.3 mg/dL (8.5-10.1); Chloride 102 mmol/L (98-107); Creatinine, Serum 0.98 mg/dL (0.70-1.30); EST Glomerular Filtration Rate 89 mL/min (>60); Est Glom Filt Rate - Afr Amer 107 mL/min (>60); Estimated Creatinine Clearance 102.45 ml/min; Glucose 125 mg/dL (74-106); Potassium 4.4 mmol/L (3.5-5.1); Sodium Level 134 mmol/L (136-145)
[2021-06-15 10:05] VITALS: BP 123/88; PULSE 99; RESP 16; O2SAT 98
[2021-06-15] MEDS: Lidocaine 1% /Epi 1:100 (20ml) 20 ML Vial INFILT (10:06)
[2021-06-15 10:32] VITALS: BP 129/62; PULSE 78; RESP 16; TEMP 36.3; O2SAT 97
[2021-06-15 14:03] LABS: Pathologist Review Reviewed
== END 2021-06-15 10:33 | disposition home or self-care (01) ==
PROVIDERS: Emergency Provider Emergency Medicine; PCP Family Medicine; Visit Provider Emergency Medicine
DX: K61.1 Rectal abscess (principal); I48.91 Unspecified atrial fibrillation; Z87.891 Personal history of nicotine dependence; I10 Essential (primary) hypertension; Z79.899 Other long term (current) drug therapy; F41.9 Anxiety disorder, unspecified; Z86.2 Personal history of diseases of the blood and blood-forming organs and certain disorders involving the immune mechanism; Z79.01 Long term (current) use of anticoagulants
CPT/HCPCS: 46050; 72192; 80048; 85025; 96374; 96375; 96376; 99284; A4216; J2405

== ENCOUNTER 2021-07-17 07:03 | Day surgery (SDC) | payer BC, SELFPAY ==
[2021-07-17] VITALS (7 sets, daily range): BP systolic 104–140; BP diastolic 75–95; PULSE 80–98; RESP 16–96; TEMP 36.3–37.1; O2SAT 95–99; BMI 31.6
--- NOTE | 2021-07-17 | COLBX_PTH ---
PATIENT: RHYS GUDINO LOC: EN U#:[id number] AGE/SX: 46/M ROOM: RE07/17/[address]: Dr. Naveen Stone MD : 1975 BED: DIS: 07/17/2021 SPEC #: [id number] RECD: 07/17/21 14:17 STATUS: DANYEL ELLINGTON #: [id number] ROBBIE: 07/17/21 00:[address]: Naveen Stone DEPT: SURGICAL PATHOLOGY RECD BY: Fuentes Bolaños ENTERED: 07/20/21 11:19 SP TYPE: COLON BX OTHR DR: MD Masoud Oseguera Tissues: A - COLON BIOPSY C - Gastric mucous membrane Procedures: Surgery Specimen Level IV HEADER OPERATION: Colonoscopy (MAC) with biopsy, ink marker, anoscopy PRE-OP DIAGNOSIS: Malrotation colon, perianal abscess TISSUE SUBMITTED: A ? Random colon biopsy, B ? Hepatic flexure biopsy MICROSCOPIC DIAGNOSIS A. Colon, random biopsy: No pathologic change. B. Colon at hepatic flexure, biopsy: Fragments of hyperplastic polyp. AM:marlen 07/21/2021 MICROSCOPIC DESCRIPTION Slides are reviewed. GROSS DESCRIPTION A - Received in fixative is one container labeled with the patient's name and designated random colon biopsy. The specimen consists of multiple irregular fragments of light mullen soft tissue that in aggregate measure 1 x 0.5 x 0.1 cm. The specimen is totally submitted in one cassette. B - Received in fixative is one container labeled with the patient's name and designated hepatic flexure biopsy. The specimen consists of multiple irregular fragments of light mullen soft tissue that in aggregate measure 1 x 0.5 x 0.1 cm. The specimen is totally submitted in one cassette. / SJ:marlen 07/20/2021 TC:5 CPT: 16883 x2
[2021-07-17] MEDS: Lactated Ringers 1,000 ML 15 ML IV (07:31)
--- NOTE | 2021-07-17 07:37 | HP.PCM_ITS ---
History and Physical Date of Admission: 07/17/21 Intake Intake Visit Reasons: Perianal Abcsess [facility] ER F/U 06/15 Chief Complaint: f/u perianal abscess Fire Claims Adjuster Required: No Is patient in pain?: No Allergies CILLINS Allergy (Uncoded 06/15/21 07:17) Other Medications multivitamin with minerals 1 ea PO DAILY 07/20/19 [History Confirmed 06/25/21] acetaminophen 650 mg PO Q6H PRN PRN tab 07/23/19 [Rx Confirmed 06/25/21] albuterol sulfate 90 mcg/actuation aerosol inhaler 2 puff INHALATION Q6H PRN 08/21/19 [History Confirmed 06/25/21] atorvastatin 20 mg tablet 20 mg PO QHS #30 tab 08/05/20 [Rx Confirmed 06/25/21] apixaban 5 mg tablet 5 mg PO BID #60 tab 08/20/20 [Rx Confirmed 06/25/21] metoprolol succinate [Kapspargo Sprinkle] 25 mg PO DAILY 06/04/21 [History Confirmed 06/25/21] furosemide 40 mg PO DAILY 06/15/21 [History Confirmed 06/25/21] pantoprazole 40 mg PO DAILY 06/15/21 [History Confirmed 06/25/21] sacubitril-valsartan 1 tab PO BID 06/15/21 [History Confirmed 06/25/21] amiodarone 200 mg tablet 200 mg PO DAILY 06/16/21 [History Confirmed 06/25/21] [facility] Medical History (Updated 06/25/21 @ 07:[address] Naveen Stone MD) Anxiety Atrial fibrillation with RVR (06/04/21) Elevated LFTs Essential hypertension Lesion of buccal mucosa Malrotation colon Marijuana smoker Non-ischemic cardiomyopathy Perianal abscess Persistent atrial fibrillation with rapid ventricular response (06/04/21) Polycythemia Shock liver Sleep-disordered breathing Tobacco dependence due to chewing tobacco Tobacco dependence due to cigarettes Surgical History (Updated 06/16/21 @ 13:59 by Holley Carter) History of cardioversion (06/05/21) History of left heart catheterization (07/23/19) History of radiofrequency ablation procedure for cardiac arrhythmia (06/11/21) Hx of abdominal surgery Family History Mother Cancer Hx Lung CA. Father Heart disease Social History household members: spouse Smoking Status: Former smoker quit date: 07/07/19 Smokeless tobacco user: chewing tobacco alcohol intake: current alcohol intake frequency: holidays/special occasions only substance use type: does not use caffeine: No HPI HPI HPI: RHYS GUDINO, is a 46 M who presents to the office today for surgical consultation regarding a perianal abscess. The patient was seen at the [facility] on June 15, [address] Dr[address] Carey Scott.. Patient noted at that time the had had 2 prior perianal abscesses. Apparently he was recently hospitalized for cardiac ablation lying in bed in the hospital for several days. Primary care physician placed him on doxycycline. On inspection there was a 1 x 2 cm visible abscess in the perianal area at the 6 o'clock position. The patient had an elevated white blood cell count of 15.8 and hemoglobin elevated 18.9 with a hematocrit of 57.6 and a platelet count of 207,000. BUN is [address] scan was obtained suggesting a 3.1 x 5.2 x 3.1 cm well-defined density in the peritoneum just distal to the anal verge in keeping with the diagnosis of perianal abscess. An incision and drainage was performed. Iodoform gauze was placed. The patient is on amiodarone and so continue treatment with doxycycline. Patient's most recent visit with me was March 12, 2020. At that time he was on Eliquis for atrial fibrillation. I performed a perianal abscess drainage in the office. It resolved conservatively. He did not require a anoscopy or ex amination under anesthesia or colonoscopy at that time. 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 His colon previously was noted to be somewhat coiled in the pelvis then mostly in the right side of the abdomen. He had had a small bowel obstruction and at that point because of his previous history I recommended tertiary referral. The patient states that he had COVID. He had diarrhea for months. He has had increased A. fib problems which resulted in the above. He states that he literally laid in an emergency room for 8 days while awaiting transfer. He was somewhat out of it and literally was laying in his whole stool. Multiple reasons for him to subsequently have developed a recurrent perianal abscess. Prior to the COVID and prior to the chronic diarrhea he had had absolutely clockwork type bowel habits. He is still on Eliquis. Since his cardiac ablation though he feels much better. Exam Const General: cooperative, healthy appearing, comfortable and no acute distress Nutritional Appearance: overweight HENMT Head: normal to inspection Eyes General: appearance normal, both eyes and all related structures Resp Effort & Inspection: normal respiratory effort Auscultation: clear to auscultation bilaterally Cardio Rate: regular rate Rhythm: regular rhythm GI Palpation: soft Other: Vertical midline incision with deformity, abdomen is soft, nontender, normal bowel sounds, no mass Digital rectal exam demonstrates significant internal hemorrhoids. Slightly enlarged prostate. No current visible abscess. No focal tenderness. Musc Cervical Spine: normal cervical lordosis Skin General: no rashes or lesions noted Neuro General: patient alert, patient awake and patient oriented x3 Extrem General: no calf tenderness Psych Appearance: grossly normal Assessment and Plan Assessment and Plan (1) Malrotation colon: Status: Acute (2) Perianal abscess: Status: Acute Plan - Dr. Naveen Stone MD: Patient with history of malrotation of the colon. Third time recurrent perianal abscess although on this occasion he had had Covid-19 and had multiple reasons for eliciting features with diarrhea and prolonged bedrest symptomatic atrial fibrillation requiring ablative treatment. It would appear that his current abscess once again has resolved. He has never had a colonoscopy. I recommend to him a colonoscopy with possible biopsy or polypectomy as indicated. Very careful inspection of the perianal area will be pursued. He has had an opportunity to ask and have questions answered and we will schedule and proceed at his discretion. I think it also be pertinent to have an anoscope available at that setting so that I could also do a rigid endoscopy at the same setting. The patient is on Eliquis therapy. We will have him hold that just the day prior to the procedure. Because of his cardiac history we will use monitored anesthesia care He has colonic malrotation. Significant number of loops in the pelvic area with then most of the colon on the right side of the abdomen. This likely will be a more challenging difficult exam. The patient is aware of this. Copy: Dr. Masoud Stone M.D., FDebraS. I have re-examined the patient. There are no clinical changes since date of exam.
--- NOTE | 2021-07-17 09:02 | OP.COLON_ITS ---
Patient Name: Charles Bentley Procedure Date: 07/17/2021 8:23 AM Date of : 1975 Age: 46 Procedure: Colonoscopy Indications: Clinically significant diarrhea of unexplained origin Providers: Naveen Stone MD Referring MD: Masoud Lundy MD Medicines: See the Anesthesia note for documentation of the administered medications Patient Profile: Last Colonoscopy: none. The patient's first colonoscopy is today. Complications: No immediate complications. Procedure: Pre-Anesthesia Assessment: - Prior to the procedure, a History and Physical was performed, and patient medications and allergies were reviewed. The patient's tolerance of previous anesthesia was also reviewed. The risks and benefits of the procedure and the sedation options and risks were discussed with the patient. All questions were answered, and informed consent was obtained. Prior Anticoagulants: The patient has taken Eliquis (apixaban), last dose was 2 days prior to procedure. ASA Grade Assessment: II - A patient with mild systemic disease. After reviewing the risks and benefits, the patient was deemed in satisfactory condition to undergo the procedure. After I obtained informed consent, the scope was passed under direct vision. Throughout the procedure, the patient's blood pressure, pulse, and oxygen saturations were monitored continuously. The adult colonoscope was introduced through the anus and advanced to the cecum, identified by appendiceal orifice and ileocecal valve. The colonoscopy was performed without difficulty. The patient tolerated the procedure well. The quality of the bowel preparation was good. The ileocecal valve and the appendiceal orifice were photographed. Scope In: 8:32:27 AM Scope Withdrawal Time 0 hours 16 minutes 6 seconds Scope Out: 8:52:29 AM Total Procedure Duration Time 0 hours 20 minutes 2 seconds Findings: The digital rectal exam findings include anterior anal tissue exuberate internal hemmorrhoids, no obvious fissure. Pertinent negatives include normal prostate (size, shape, and consistency). A 15 mm polyp was found in the hepatic flexure. The polyp was sessile. The polyp was removed with a cold snare. Resection and retrieval were complete. Area was successfully injected with 1 mL Linda ink for tattooing. Biopsies for histology were taken with a cold forceps from the entire colon for evaluation of microscopic colitis. Impression: - Anterior anal tissue exuberate internal hemmorrhoids, no obvious fissure found on digital rectal exam. - One 15 mm polyp at the hepatic flexure, removed with a cold snare. Resected and retrieved. Injected with linda ink for marking. - Biopsies were taken with a cold forceps from the entire colon for evaluation of microscopic colitis. Recommendation: - Discharge patient to home. - Resume previous diet. - Continue present medications. - Repeat colonoscopy in 5 years for surveillance. - Telephone my office for pathology results in 1 week. Procedure Code(s): --- Professional --- 66654, Colonoscopy, flexible; with removal of tumor(s), polyp(s), or other lesion(s) by snare technique 79943, Colonoscopy, flexible; with directed submucosal injection(s), any substance 81719, 59, Colonoscopy, flexible; with biopsy, single or multiple Diagnosis Code(s): --- Professional --- D12.3, Benign neoplasm of transverse colon (hepatic flexure or splenic flexure) R19.7, Diarrhea, unspecified CPT copyright 2017 [employer]. All rights reserved. The codes documented in this report are preliminary and upon superintendent sales review may be revised to meet current compliance requirements. Naveen Stone MD 07/17/2021 9:01:25 AM This report has been signed electronically. Number of Addenda: 0 Note Initiated On: 07/17/2021 8:23 AM
--- NOTE | 2021-07-17 09:02 | OP.CCLET_ITS ---
07/17/2021 Masoud Lundy Re : Colonoscopy procedure for Charles Bentley Dear Kamron This procedure was performed on Saturday, July 17, 2021. My impressions and recommendations are as follows: Impressions : - Anterior anal tissue exuberate internal hemmorrhoids, no obvious fissure found on digital rectal exam. - One 15 mm polyp at the hepatic flexure, removed with a cold snare. Resected and retrieved. Injected with nely ink for marking. - Biopsies were taken with a cold forceps from the entire colon for evaluation of microscopic colitis. Recommendations : - Discharge patient to home. - Resume previous diet. - Continue present medications. - Repeat colonoscopy in 5 years for surveillance. - Telephone my office for pathology results in 1 week. My findings are described in the full procedure note, which is enclosed. If I can be of further assistance, please feel free to contact me at Doctor phone number(s): Work: . Sincerely, Naveen Stone MD 07/17/2021 9:01:25 AM This report has been signed electronically.
--- NOTE | 2021-07-17 10:02 | SUR.PHASEII ---
[id number]-left message for patient to return call regarding resuming Eliquis per Dr. Stone.
--- NOTE | 2021-07-17 10:12 | SUR.PHASEII ---
pt called back and given info about when to restart eliquis
== END 2021-07-17 23:59 | disposition home or self-care (01) ==
LOC: EN 07:04 → AC 07:04
PROVIDERS: PCP Family Medicine; Referring Provider Family Medicine; Visit Provider Surgery
PROC: 0DJD8ZZ Inspection of Lower Intestinal Tract, Via Natural or Artificial Opening Endoscopic (ICD-10-PCS; CPT 45378; principal; 2021-07-17 08:10)
DX: D12.3 Benign neoplasm of transverse colon (principal); I42.8 Other cardiomyopathies; I48.19 Other persistent atrial fibrillation; K56.2 Volvulus; K52.9 Noninfective gastroenteritis and colitis, unspecified; I10 Essential (primary) hypertension; F17.220 Nicotine dependence, chewing tobacco, uncomplicated; E66.3 Overweight; Z68.31 Body mass index [BMI] 31.0-31.9, adult; Z79.01 Long term (current) use of anticoagulants; Z79.899 Other long term (current) drug therapy; Z86.16 Personal history of COVID-19; Z87.19 Personal history of other diseases of the digestive system; Z20.822 Contact with and (suspected) exposure to COVID-19
CPT/HCPCS: 45381; 45385; 45380; 87426; 88305; C9803; J7120; A4648; J2405

== ENCOUNTER 2022-05-17 12:15 | Observation (INO) | payer BC, SELFPAY ==
[2022-05-17 12:17] VITALS: BP 147/88; PULSE 103; RESP 17; TEMP 37.3; O2SAT 96; BMI 34.9
[2022-05-17 12:25] VITALS: BP 147/88; PULSE 102; RESP 16; O2SAT 95; O2SAT 96
--- NOTE | 2022-05-17 13:30 | CT_ITS ---
STUDY: CT CERVICAL SPINE WITHOUT CONTRAST REASON FOR EXAM: Male, 47 years old. 10'' fall. Loss of consciousness. RADIATION DOSAGE (If Supplied By Facility): CTDIvol = ( 20.70 ) mGy, DLP = ( 411.72 ) mGycm TECHNIQUE: High resolution transaxial imaging was performed without contrast material. Sagittal and coronal images were reconstructed. Individualized dose optimization techniques were used for this CT. COMPARISON: None FINDINGS: Normal craniovertebral junction. Normal anterior atlantoaxial articulation. Normal odontoid process. There is straightening of the normal cervical lordosis. Normal vertebral bodies and posterior osseous elements. C2-3: Normal endplates. Normal disc height and morphology. Normal central canal and intervertebral neuroforamina. C3-4: Normal endplates. Normal disc height and morphology. Normal central canal and intervertebral neuroforamina. C4-5: Normal endplates. Normal disc height and morphology. Normal central canal and intervertebral neuroforamina. C5-6: KANE 23 ( narrowing and spondylosis. C6-7: Moderate degree of disc space narrowing and spondylosis. Uncovertebral arthrosis. Mild degree of bilateral neural foraminal stenosis. C7-T1: Normal endplates. Normal disc height and morphology. Normal central canal and intervertebral neuroforamina. Normal visualized soft tissue structures. CT/Spine Cervical without Contras IMPRESSION: Marked degree of disc space narrowing and spondylosis at the C5-C6 and C6-C7 levels with a mild degree of bilateral neural foraminal stenosis at the C6-C7 level. Electronically Signed: Julio Cesar Alex MD at 14:46 EST ,
--- NOTE | 2022-05-17 13:30 | CT_ITS ---
STUDY: CT BRAIN WITHOUT CONTRAST REASON FOR EXAM: Male, 47 years old. 10'' fall. Loss of consciousness. RADIATION DOSAGE (If Supplied By Facility): CTDIvol = ( 47.06 ) mGy, DLP = ( 960.91 ) mGycm TECHNIQUE: Transaxial CT imaging of the brain was performed without administration of intravenous contrast material. Individualized dose optimization techniques were used for this CT. COMPARISON: No relevant priors. FINDINGS: Normal soft tissue structures. Normal calvarium. Normal size ventricles and extra-axial spaces for the patient''s age. Normal white matter tracts of the cerebral hemispheres. Normal basal ganglia and thalami. Normal brainstem. Normal cerebellum. There is no intracranial hemorrhage. There are no findings of an acute ischemic infarction. Normal visualized paranasal sinuses. CT/Brain/Head without Contrast IMPRESSION: Normal unenhanced CT scan of the brain. Electronically Signed: Julio Cesar Alex MD at 14:44 EST ,
--- NOTE | 2022-05-17 13:37 | ED.VIS.FALL ---
HPI <TAYO Kaiser - Last Filed: 05/17/22 21:52> HPI - Fall History of Present Illness Chief Complaint: Fall Narrative Narrative: Patient presents today after a fall that occurred earlier this afternoon. Patient states he works for [employer] and was up in somebody's attic when he slipped and fell 10 feet through the ceiling and landed on the ground. Patient is unsure if he hit his head but does not think that he did. He states he felt a little fuzzy and lightheaded upon getting up but is not sure if he lost consciousness, he does not think he did. Patient is on blood thinners. He states he basically did a split when he fell and now is experiencing pain in his inner upper thighs and groin. Patient is also complaining of lower back pain. Patient denies head pain, neck pain, extremity pain, dizziness, photophobia, nausea, vomiting, chest pain, and shortness of breath. [facility] <TAYO Kaiser - Last Filed: 05/17/22 21:52> [facility] Medical History Alcohol use Anxiety Asthma Atrial fibrillation with RVR (06/04/21) COVID Dietary restriction Elevated LFTs Essential hypertension History of echocardiogram Lesion of buccal mucosa Malrotation colon Marijuana smoker Non-ischemic cardiomyopathy Perianal abscess Persistent atrial fibrillation with rapid ventricular response (06/04/21) Polycythemia Shock liver Sleep-disordered breathing Tobacco dependence due to chewing tobacco Tobacco dependence due to cigarettes Wears glasses Home Medications multivitamin with minerals 1 ea PO DAILY SUPPLEMENT 07/20/19 [History Last Taken 05/17/22] atorvastatin 20 mg tablet 20 mg PO QHS #30 tabs 08/05/20 [Rx Last Taken 05/16/22] apixaban 5 mg tablet 5 mg PO BID #60 tabs 08/20/20 [Rx Last Taken 05/17/22] furosemide 40 mg tablet 40 mg PO QHS diuretic 06/15/21 [History Last Taken 05/16/22] empagliflozin 10 mg tablet (Jardiance) 10 mg PO DAILY diabetes 05/17/22 [History Last Taken 05/17/22] metoprolol succinate 25 mg tablet,extended release 24 hr 25 mg PO DAILY HTN 05/17/22 [History Last Taken 05/17/22] sacubitril 97 mg-valsartan 103 mg tablet (Entresto) 1 tab PO BID diabetes 05/17/22 [History Last Taken 05/17/22] Allergy/AdvReac Type Severity Reaction Status Date / Time Penicillins [cillins] Allergy NEEDS Verified 05/17/22 12:16 FOLLOW-UP Family History Mother Cancer Hx Lung CA. Father Heart disease Surgical History History of cardioversion (06/05/21) History of left heart catheterization (07/23/19) History of radiofrequency ablation procedure for cardiac arrhythmia (06/11/21) Hx of abdominal surgery Social History household members: spouse Smoking Status: Former smoker quit date: 07/07/19 Smokeless tobacco user: chewing tobacco alcohol intake: current alcohol intake frequency: holidays/special occasions only substance use type: does not use caffeine: No ROS <TAYO Kaiser - Last Filed: 05/17/22 21:52> ROS ED Constitutional Constitutional ED: Denies chills, fever(s) or sweats Eyes Eyes: Denies blurry vision, change in vision or diplopia ENT ENT ED: Denies rhinorrhea or sore throat Cardiovascular Cardiovascular: Denies chest pain, palpitations or racing heartbeat Respiratory/Chest Respiratory/Chest: Denies cough, dyspnea or dyspnea on exertion Gastrointestinal Gastrointestinal: Denies abdominal pain, nausea or vomiting Genitourinary Genitourinary ED: Denies dysuria, hematuria or urinary frequency Musculoskeletal Musculoskeletal: Reports back pain and myalgias; Denies arthralgias or neck pain Integumentary Denies abscess, Abrasions or rash Neurologic Neurologic: Denies headache(s), paresthesias or weakness Psychiatric Psychiatric: Denies anxiety, depression or suicidal ideation Hematologic/Lymphatic Hematologic/Lymphatic: Reports easy bleeding EXAM <TAYO Kaiser - Last Filed: 05/17/22 21:52> Physical Exam Const Vital Signs: 05/17/22 12:17 05/17/22 12:25 05/17/22 12:25 Temperature 99.2 F H Temperature Source Oral Pulse Rate 103 H 102 H Respiratory Rate 17 16 Respiratory Effort Normal Non-Labored Respiratory Depth Normal Respiratory Pattern Normal Blood Pressure 147/88 H 147/88 H Blood Pressure Mean 107 107 Pulse Ox 96 95 96 Oxygen Delivery Method Room Air Room Air Room Air 05/17/22 16:10 05/17/22 19:44 05/17/22 21:24 Temperature 97.9 F Temperature Source Temporal Pulse Rate 105 H 87 98 Respiratory Rate 14 16 Respiratory Effort Respiratory Depth Respiratory Pattern Blood Pressure 110/70 110/72 Blood Pressure Mean 83 84 Pulse Ox 99 99 Oxygen Delivery Method Room Air Room Air Positive well developed and obese General Appearance ED: well developed and NAD Nutritional Appearance: obese HEENT Reports normocephalic atraumatic; Negative for tenderness Eyes PERRL and EOMs intact bilaterally Neck full ROM, no lymphadenopathy and supple General: Negative for tenderness Chest Wall inspection of chest normal and palpation of chest normal Resp normal respiratory effort, no retractions and clear to auscultation bilaterally Effort and Inspection: Negative for pain with movement Auscultation: Negative for diminished lung sounds Cardio regular rate and regular rhythm GI non-tender, non-distended and no masses Palpation: soft Back/Spine Cervical Spine: cervical ROM normal and Negative for cervical spine tenderness Thoracic Spine / Upper Back: normal to inspection and thoracic ROM normal Lumbar Spine / Lower Back: normal to inspection, lumbar ROM normal and lumbar spinal tenderness Neuro oriented x3, CN's II-XII intact bilaterally, moves all extremities, no focal motor deficits and no sensory deficits noted Sensorium / Orientation: alert Motor Exam: strength 5/5 throughout Psych mental status grossly normal and thought process normal Skin Lesions: no lesions Rashes: no rashes Trauma: Negative for abrasion <Dr. Alondra Solares, DO - Last Filed: 05/17/22 23:14> Physical Exam Const Vital Signs: 05/17/22 12:17 05/17/22 12:25 05/17/22 12:25 Temperature 99.2 F H Temperature Source Oral Pulse Rate 103 H 102 H Respiratory Rate 17 16 Respiratory Effort Normal Non-Labored Respiratory Depth Normal Respiratory Pattern Normal Blood Pressure 147/88 H 147/88 H Blood Pressure Mean 107 107 Pulse Ox 96 95 96 Oxygen Delivery Method Room Air Room Air Room Air 05/17/22 16:10 05/17/22 19:44 05/17/22 21:24 Temperature 97.9 F Temperature Source Temporal Pulse Rate 105 H 87 98 Respiratory Rate 14 16 Respiratory Effort Respiratory Depth Respiratory Pattern Blood Pressure 110/70 110/72 Blood Pressure Mean 83 84 Pulse Ox 99 99 Oxygen Delivery Method Room Air Room Air [facility] <TAYO Kaiser - Last Filed: 05/17/22 21:52> [facility] Narrative Medical decision making narrative: Patient has been provided pain control. Brain CT and cervical spine CT unremarkable for acute changes. Left superior pubic ramus and left inferior pubic ramus fracture. Even after pain medications were provided patient was unable to ambulate with the help of a walker due to pain. Patient will benefit from admission for pain control and PT. Hospitalist was consulted and patient will be admitted for observation. Patient is agreeable with plan. Radiography Diagnostic Testing: Clinical Impression(s) from Imaging Studies Brain CT 05/17/22 13:30 IMPRESSION: Normal unenhanced CT scan of the brain. Electronically Signed: Julio Cesar Alex MD at 14:44 EST Reading Location ID and State: [id number] , Service support , Cervical Spine CT 05/17/22 13:30 IMPRESSION: Marked degree of disc space narrowing and spondylosis at the C5-C6 and C6-C7 levels with a mild degree of bilateral neural foraminal stenosis at the C6-C7 level. Electronically Signed: Julio Cesar Alex MD at 14:46 EST , Lumbar Spine X-Ray 05/17/22 14:30 IMPRESSION: Multilevel endplate spondylosis. No significant disc space narrowing is seen. Electronically Signed: Julio Cesar Alex MD at 14:52 EST , Pelvis X-Ray 05/17/22 15:40 IMPRESSION: Fracture of the left superior pubic ramus. Electronically Signed: Victorino Mondragon MD at 16:55 EST , Lumbar Spine CT 05/17/22 18:43 IMPRESSION: No acute bony abnormality. Electronically Signed: Victorino Mondragon MD at 20:19 EST , Pelvis CT 05/17/22 18:43 IMPRESSION: Comminuted and minimally displaced fracture of the left superior pubic ramus with nondisplaced fracture of the inferior pubic ramus medially. Electronically Signed: Victorino Mondragon MD at 20:15 EST , I have reviewed all x-rays and CTs. I agree with radiologist impressions. These have also been reviewed by attending ED physician. <Dr. Alondra Solares, DO - Last Filed: 05/17/22 23:14> MDM Radiography Diagnostic Testing: Clinical Impression(s) from Imaging Studies Brain CT 05/17/22 13:30 IMPRESSION: Normal unenhanced CT scan of the brain. Electronically Signed: Julio Cesar Alex MD at 14:44 EST , Cervical Spine CT 05/17/22 13:30 IMPRESSION: Marked degree of disc space narrowing and spondylosis at the C5-C6 and C6-C7 levels with a mild degree of bilateral neural foraminal stenosis at the C6-C7 level. Electronically Signed: Julio Cesar Alex MD at 14:46 EST , Lumbar Spine X-Ray 05/17/22 14:30 IMPRESSION: Multilevel endplate spondylosis. No significant disc space narrowing is seen. Electronically Signed: Julio Cesar Alex MD at 14:52 EST , Pelvis X-Ray 05/17/22 15:40 IMPRESSION: Fracture of the left superior pubic ramus. Electronically Signed: Victorino Mondragon MD at 16:55 EST , Lumbar Spine CT 05/17/22 18:43 IMPRESSION: No acute bony abnormality. Electronically Signed: Victorino Mondragon MD at 20:19 EST , Pelvis CT 05/17/22 18:43 IMPRESSION: Comminuted and minimally displaced fracture of the left superior pubic ramus with nondisplaced fracture of the inferior pubic ramus medially. Electronically Signed: Victorino Mondragon MD at 20:15 EST , Treatment and Re-Evaluation Narrative: I have personally performed a face to face assessment of the patient and have reviewed the DEBORA Note. I performed a substantive portion of the visit including all aspects of the following. My wiley findings include: History is patient is a 47-year-old male presenting for evaluation after fall. Patient works on [address] and was on a ladder working in an attic. He fell through the attic floor approximately 10 feet to the ground. He tried to catch himself right before he fell and ended up doing kind of the splits. Patient is complaining of low back pain and also significant groin pain. Denies any associated numbness or tingling. Denies any significant head injury. Patient is on Eliquis because of a history of atrial fibrillation. On exam patient seen in bed, mildly uncomfortable. Head normocephalic atraumatic. Abdomen is soft and nontender. No midline bony tenderness in the back. Pelvis is stable. Patient does have pain with palpation of the pelvis but is diffuse. No tenderness with palpation over the greater trochanter. No deformity the lower extremities. No significant pain with range of motion of the hips. Patient is unable to ambulate however because of pain in his legs. No other bony tenderness appreciated. Patient evaluated after fall from approximately 10 feet. Complicated as he is chronically anticoagulated on Eliquis. No signs of bleeding at this time. He is hemodynamically stable in the ER. He is given multiple aliquots of morphine for pain control. X-ray of the head and C-spine do not show any acute process. Pelvic x-ray obtained interpreted by myself does show a superior left rami fracture. Patient attempted ambulation but was unable to secondary to pain. Patient will require admission for pain control/PT OT evaluation. Injury itself is nonoperative. Did add on a CT of the pelvis for further evaluation of the fracture given his inability to ambulate as well as of the lumbar spine. CT of the pelvis did also show a nondisplaced fracture of the inferior pubic rami medially. Discharge Plan Dx/Rx/DC Orders Clinical Impression: Fall, Lower back pain, Closed fracture of pubic ramus, Fracture of superior ramus of left pubis, Closed fracture of inferior pubic ramus Disposition Disposition: Acute Care Hospital [facility] Discharge Date/Time: 05/17/22 21:25
[2022-05-17] MEDS: HYDROcodone Bitartrate/Apap 5/325 Tablet PO (13:54)
--- NOTE | 2022-05-17 14:30 | RAD_ITS ---
STUDY: X-RAY - LUMBAR SPINE REASON FOR EXAM: Male, 47 years old. Pain following a fall. TECHNIQUE: 5 view(s) of the lumbar spine were obtained including oblique views. COMPARISON: None FINDINGS: There is an exaggerated lumbar lordosis. There is no substantial scoliosis. There is a normal alignment of the vertebrae. There is multilevel endplate spondylosis of the lumbar vertebrae. Normal disc space heights. The soft tissue structures are unremarkable. RAD/L/S Spine Min 4 Views IMPRESSION: Multilevel endplate spondylosis. No significant disc space narrowing is seen. Electronically Signed: Julio Cesar Alex MD at 14:52 EST ,
[2022-05-17] MEDS: Morphine 4 MG/ML Syringe 8 MG IM (15:26)
--- NOTE | 2022-05-17 15:40 | RAD_ITS ---
INDICATION: fall EXAMINATION/TECHNIQUE: X-RAY - XR Pelvis 1 or 2 Views COMPARISON: CT pelvis 06/15/2021 FINDINGS: PELVIC BONES: Mildly displaced fracture of the left superior pubic ramus. No definite fracture is of the left inferior pubic ramus detected. Sacroiliac joints are unremarkable. No widening of the pubic symphysis. HIPS: The articular structures are unremarkable. No hip fracture. SOFT TISSUES: No soft tissue swelling or gas. RAD/Pelvis 1 or 2 Views IMPRESSION: Fracture of the left superior pubic ramus. Electronically Signed: Victorino Mondragon MD at 16:55 EST ,
[2022-05-17 16:10] VITALS: BP 110/70; PULSE 105; RESP 14; O2SAT 99
[2022-05-17] MEDS: Morphine 4 MG/ML Syringe 5 MG IM (17:28)
--- NOTE | 2022-05-17 18:19 | NURSING ---
CALLED [facility] ABOUT [facility]SF[facility]. THEY ARE WAITING TO SEE IF THEIR [facility] ACCEPTED THE PATIENT
--- NOTE | 2022-05-17 18:43 | CT_ITS ---
INDICATION: pubic fracture EXAMINATION: CT PELVIS BONE - CT Pelvis W/O Contrast Injection TECHNIQUE: Routine noncontrast bone CT protocol was performed of the pelvis. 2-D reformats were performed by the technologist. A radiation dose optimization technique was used for this scan. IV Contrast dosage and agent: None. COMPARISON: 06/15/2021 FINDINGS: Comminuted fracture of the left superior pubic ramus in overall near anatomic alignment. Fracture at the pubic symphysis extends minimally into the left inferior pubic ramus. Adjacent extraperitoneal pelvic hematoma. No widening of the pubic symphysis. SI joints unremarkable. CT/Pelvis without IV Contrast IMPRESSION: Comminuted and minimally displaced fracture of the left superior pubic ramus with nondisplaced fracture of the inferior pubic ramus medially. Electronically Signed: Victorino Mondragon MD at 20:15 EST ,
--- NOTE | 2022-05-17 18:43 | CT_ITS ---
INDICATION: Trauma, pubic ramus fracture EXAMINATION: CT LUMBAR SPINE - CT Spine Lumbar W/O Contrast Injection TECHNIQUE: Helically acquired images were obtained of the lumbar spine. 2D reformats were reviewed. A radiation dose optimization technique was used for this scan. IV Contrast dosage and agent: None. COMPARISON: 08/09/2017 FINDINGS: VERTEBRAE: No fracture or traumatic subluxation. No discrete lytic or blastic abnormality observed. Normal alignment. DISCS and SPINAL CANAL: Disc heights are preserved. VISUALIZED ABDOMEN: Visualized abdominal aorta is not dilated. CT/Spine Lumbar without Contrast IMPRESSION: No acute bony abnormality. Electronically Signed: Victorino Mondragon MD at 20:19 EST ,
[2022-05-17] MEDS: oxyCODONE 5 MG Tablet PO (19:40)
[2022-05-17 19:44] VITALS: PULSE 87
[2022-05-17 21:24] VITALS: BP 110/72; PULSE 98; RESP 16; TEMP 36.6; O2SAT 99
--- NOTE | 2022-05-17 21:29 | HP.PCM_ITS ---
[facility] - General General Date of Admission: 05/17/22 Date of Service: 05/17/22 Chief Complaint: Pubic rami fracture HPI Narrative RHYS GUDINO, is a 47 M who presents to the emergency room after sustaining a fall. Patient works in [employer] and was climbing to access a furnace or in the ceiling when he fell through the ceiling with approximately 10 feet fall with a hard landing. X-ray reveals pubic rami fracture. He felt as though he did the splits. His muscles feel weak and tender and has been unable to walk successfully without significant pain. No other injuries or pain reported. He denies loss of consciousness. He does have a past medical history of atrial fibrillation and has received a cardiac ablation and is ejection fraction improved from 15% all the way to normal level at last test. Patient is well- known to me as he is my private patient. He will be admitted to the general medical floor for physical therapy evaluation and treatment and pain control overnight. [facility] Medical History Alcohol use Anxiety Asthma Atrial fibrillation with RVR (06/04/21) COVID Dietary restriction Elevated LFTs Essential hypertension History of echocardiogram Lesion of buccal mucosa Malrotation colon Marijuana smoker Non-ischemic cardiomyopathy Perianal abscess Persistent atrial fibrillation with rapid ventricular response (06/04/21) Polycythemia Shock liver Sleep-disordered breathing Tobacco dependence due to chewing tobacco Tobacco dependence due to cigarettes Wears glasses Home Medications multivitamin with minerals 1 ea PO DAILY SUPPLEMENT 07/20/19 [History Last Taken 07/16/21] atorvastatin 20 mg tablet 20 mg PO QHS #30 tabs 08/05/20 [Rx Last Taken 07/16/21] apixaban 5 mg tablet 5 mg PO BID #60 tabs 08/20/20 [Rx Last Taken 07/15/21] furosemide 40 mg tablet 40 mg PO DAILY 06/15/21 [History Last Taken 07/16/21] empagliflozin 10 mg tablet (Jardiance) 10 mg PO DAILY 05/17/22 [History Last Taken Unknown] metoprolol succinate 25 mg tablet,extended release 24 hr 25 mg PO DAILY 05/17/22 [History Last Taken Unknown] sacubitril 97 mg-valsartan 103 mg tablet (Entresto) 1 tab PO BID 05/17/22 [History Last Taken Unknown] Allergy/AdvReac Type Severity Reaction Status Date / Time Penicillins [cillins] Allergy NEEDS Verified 05/17/22 12:16 FOLLOW-UP Family History Mother Cancer Hx Lung CA. Father Heart disease Surgical History History of cardioversion (06/05/21) History of left heart catheterization (07/23/19) History of radiofrequency ablation procedure for cardiac arrhythmia (06/11/21) Hx of abdominal surgery Social History household members: spouse Smoking Status: Former smoker quit date: 07/07/19 Smokeless tobacco user: chewing tobacco alcohol intake: current alcohol intake frequency: holidays/special occasions only substance use type: does not use caffeine: No ROS Constitutional Constitutional: Denies chills or fever(s) Eyes Eyes: Denies change in vision ENT HEENT: Denies abnormal hearing Cardiovascular Cardiovascular: Denies chest pain Respiratory/Chest Respiratory/Chest: Denies cough Gastrointestinal Gastrointestinal: Denies abdominal pain Genitourinary Genitourinary: Denies dysuria Musculoskeletal Musculoskeletal: Reports joint pain and muscle weakness Integumentary Integumentary: Denies dry skin Neurologic Neurologic: Denies confusion Psychiatric Psychiatric: Denies anxiety Vital Signs Vital Signs Vital Signs: 05/17/22 12:17 05/17/22 12:25 05/17/22 12:25 Temperature 99.2 F H Temperature Source Oral Pulse Rate 103 H 102 H Respiratory Rate 17 16 Respiratory Effort Normal Non-Labored Respiratory Depth Normal Respiratory Pattern Normal Blood Pressure 147/88 H 147/88 H Blood Pressure Mean 107 107 Pulse Ox 96 95 96 Oxygen Delivery Method Room Air Room Air Room Air 05/17/22 16:10 05/17/22 19:44 05/17/22 21:24 Temperature 97.9 F Temperature Source Temporal Pulse Rate 105 H 87 98 Respiratory Rate 14 16 Respiratory Effort Respiratory Depth Respiratory Pattern Blood Pressure 110/70 110/72 Blood Pressure Mean 83 84 Pulse Ox 99 99 Oxygen Delivery Method Room Air Room Air Weight Weight: 250 lb 14.177 oz Body Mass Index (BMI) 34.9 Physical Exam Const oriented x3 General Appearance: cooperative and well developed HEENT normocephalic and head/scalp atraumatic Eyes PERRL and EOMs intact bilaterally Neck no lymphadenopathy Lymph Lymphatic: no lymphadenopathy noted Resp normal respiratory effort, normal air movement and clear to auscultation bilaterally Cardio regular rate, regular rhythm, S1 normal heart sound and S2 normal heart sound GI normal to inspection, nondistended, normoactive bowel sounds Extremity Extremity Narrative: pelvic pain and lower leg proximal tenderness,no deformity Skin General Skin Exam: no breakdown Neuro no focal motor deficits and no sensory deficits noted Psych thought process normal, cooperative and affect normal Results Radiology Impression Brain CT 05/17/22 13:30 IMPRESSION: Normal unenhanced CT scan of the brain. Electronically Signed: Julio Cesar Alex MD at 14:44 EST , Cervical Spine CT 05/17/22 13:30 IMPRESSION: Marked degree of disc space narrowing and spondylosis at the C5-C6 and C6-C7 levels with a mild degree of bilateral neural foraminal stenosis at the C6-C7 level. Electronically Signed: Julio Cesar Alex MD at 14:46 EST , Lumbar Spine X-Ray 05/17/22 14:30 IMPRESSION: Multilevel endplate spondylosis. No significant disc space narrowing is seen. Electronically Signed: Julio Cesar Alex MD at 14:52 EST , Pelvis X-Ray 05/17/22 15:40 IMPRESSION: Fracture of the left superior pubic ramus. Electronically Signed: Victorino Mondragon MD at 16:55 EST , Lumbar Spine CT 05/17/22 18:43 IMPRESSION: No acute bony abnormality. Electronically Signed: Victorino Mondragon MD at 20:19 EST , Pelvis CT 05/17/22 18:43 IMPRESSION: Comminuted and minimally displaced fracture of the left superior pubic ramus with nondisplaced fracture of the inferior pubic ramus medially. Electronically Signed: Victorino Mondragon MD at 20:15 EST , Assessment & Plan Assessment/Plan (1) Closed fracture of pubic ramus: (2) Essential hypertension: PLAN: Plan 1 closed fracture of pubic ramus with significant pain and unable to ambulate?admit patient for observation overnight to general medical floor contin ue Dilaudid 1 mg IV every 2 hours as needed pain and physical therapy to evaluate and treat in the morning. We will add cyclobenzaprine 10 mg p.o. 3 times daily as needed for his muscle pain 2. Hypertension?continue routine home medications 3. DVT prophylaxis?patient is on anticoagulation Charges/Coding Visit Charges OBSV E&M: 56878 Initial observation care L2
[2022-05-17 21:38] VITALS: BMI 33.6
[2022-05-17 22:16] VITALS: BP 132/82; PULSE 95; RESP 16; TEMP 37.3; O2SAT 98
[2022-05-17] MEDS: HYDROmorphone 1 MG/ML Syringe IV (22:19)
[2022-05-17] MEDS: 0.9% Saline Lock 10 ML Syringe IV (22:20)
[2022-05-17] MEDS: SACUBITRIL/VALSARTAN 97-103 MG TABLET 1 EACH PO (23:41)
[2022-05-17] MEDS: Atorvastatin Calcium 20 MG Tablet PO (23:42)
[2022-05-17] MEDS: APIXABAN 5 MG TABLET PO (23:42)
[2022-05-18] MEDS: HYDROmorphone 1 MG/ML Syringe IV ×4 (01:26→11:11)
[2022-05-18] MEDS: 0.9% Saline Lock 10 ML Syringe IV ×3 (01:27→11:13)
[2022-05-18 04:34] VITALS: BP 127/78; PULSE 93; RESP 18; TEMP 37; O2SAT 95
[2022-05-18 06:54] LABS: Absolute Lymphocyte Count 1.29 X10^3/uL (0.83-4.51); Absolute Neutrophil Count 5.6 X10^3/uL (2.0-7.7); Basophil# 0.03 X10^3/uL; Basophil% 0.4 % (0-1); Eosinophil# 0.23 X10^3/uL; Eosinophils% 2.7 % (0-5); Hemoglobin 15.6 g/dL (13.0-16.5); Lymphocyte # 1.29 X10^3/ul (0.83-4.51); Lymphocyte % 15.3 % (19-41); Mean Corp Hgb Conc 32.5 g/dL (32-36); Mean Corpuscular Hgb 30.4 pg (27.0-32.0); Mean Corpuscular Volume 93.6 fL (80-94); Mean Platelet Vol. 9.5 fl (6.2-12.0); Monocyte# 1.22 X10^3/uL; Monocyte% 14.5 % (0-10); NRBC Flagged by Analyzer 0 % (0-5); Neutrophil # 5.64 X10^3/uL (2.7-7.7); Neutrophil % 66.7 % (47-70); Platelet Count 186 K/mm3 (150-450); RBC Distribution Width CV 12.6 % (11.6-14.6); RBC Distribution Width SD 43.4 fl (35.1-43.9); Red Blood Count 5.13 M/mm3 (4.6-6.2); White Blood Count 8.4 K/mm3 (4.4-11.0)
--- NOTE | 2022-05-18 07:19 | PN.HOSP_ITS ---
Subjective Subjective Patient is a 47-year-old gentleman who presented to the emergency room after falling through a ceiling. Imaging studies obtained on admission did show Comminuted and minimally displaced fracture of the left superior pubic ramus with nondisplaced fracture of the inferior pubic ramus medially. Objective Data Objective Data Vital Signs: Vital Signs Temp Pulse Resp BP Pulse Ox O2 Del Method 98.6 F 93 18 127/78 H 95 Room Air 05/18/22 04:34 05/18/22 04:34 05/18/22 04:34 05/18/22 04:34 05/18/22 04:34 05/18/22 04:34 Oxygen Delivery Method Room Air Weight: 109.5 kg Body Mass Index (BMI) 33.6 Intake & Output: Intake and Output for Last 24 Hours 05/16/22 05/17/22 05/18/22 23:59 23:59 23:59 Intake Total 500 / 500 Output Total 350 / 350 Balance 150 / 150 Lab / Micro Data Result Diagrams: 05/18/22 06:05 05/18/22 06:05 Labs: Laboratory Results - last 24 hr 05/18/22 06:05: WBC 8.4, RBC 5.13, Hgb 15.6, Hct 48.0, MCV 93.6, MCH 30.4, MCHC 32.5, RDW Std Deviation 43.4, RDW Coeff of [place] 12.6, Plt Count 186, MPV 9.5, Immature Gran % (Auto) 0.400, Neut % (Auto) 66.7, Lymph % (Auto) 15.3 L, [place] % (Auto) 14.5 H, Eos % (Auto) 2.7, Baso % (Auto) 0.4, Absolute Neuts (auto) 5.6, Absolute Lymphs (auto) 1.29, Nucleated RBC % 0 Radiography Diagnostic Testing: Radiology Impression Brain CT 05/17/22 13:30 IMPRESSION: Normal unenhanced CT scan of the brain. Electronically Signed: Julio Cesar Alex MD at 14:44 EST , Cervical Spine CT 05/17/22 13:30 IMPRESSION: Marked degree of disc space narrowing and spondylosis at the C5-C6 and C6-C7 levels with a mild degree of bilateral neural foraminal stenosis at the C6-C7 level. Electronically Signed: Julio Cesar Alex MD at 14:46 EST , Lumbar Spine X-Ray 05/17/22 14:30 IMPRESSION: Multilevel endplate spondylosis. No significant disc space narrowing is seen. Electronically Signed: Julio Cesar Alex MD at 14:52 EST , Pelvis X-Ray 05/17/22 15:40 IMPRESSION: Fracture of the left superior pubic ramus. Electronically Signed: Victorino Mondragon MD at 16:55 EST , Lumbar Spine CT 05/17/22 18:43 IMPRESSION: No acute bony abnormality. Electronically Signed: Victorino Mondragon MD at 20:19 EST , Pelvis CT 05/17/22 18:43 IMPRESSION: Comminuted and minimally displaced fracture of the left superior pubic ramus with nondisplaced fracture of the inferior pubic ramus medially. Electronically Signed: Victorino Mondragon MD at 20:15 EST , Physical Exam Narrative GENERAL: cooperative HEENT: Atraumatic; normocephalic EYES; Anicteric, Normal Conjunctiva NECK; supple, normal thyroid, RESPIRATORY: Diminished to auscultation CARDIOVASCULAR: Regular S1 S2, GI: soft, normoactive bowel sounds, : No Renal angle tenderness; EXTREMITIES: No edema, no clubbing, NEURO: Awake; no lateralizing signs. SKIN: No Rash PSYCH; Flat affect Assessment & Plan Assessment/Plan (1) Closed fracture of pubic ramus: (2) Essential hypertension: PLAN: Plan Patient is a 47-year-old gentleman who presented to the emergency room after falling through a ceiling. Imaging studies obtained on admission did show Comminuted and minimally displaced fracture of the left superior pubic ramus with nondisplaced fracture of the inferior pubic ramus medially. 1. Fall with pelvic fracture ?Imaging studies obtained on admission did show Comminuted and minimally displaced fracture of the left superior pubic ramus with nondisplaced fracture of the inferior pubic ramus medially. [facility]. Given patient significant pain consult was also placed to orthopedic surgery 2. Hypertension - Blood pressure controlled, home medications continued with dose adjustment as needed 3. Paroxysmal A. fib ? In sinus rhythm patient is on beta-blockers. Patient is on systemic anticoagulation with apixaban did continue 4. Dyslipidemia -Patient is on statin therapy, continued at home dose 5. Nonischemic dilated cardiomyopathy ? With known EF of 20%. Patient is on Entresto beta-blockers as well as Jardiance did continue 6. DVT prophylaxis ? Patient is on apixaban did Charges/Coding Visit Charges OBSV E&M: 03286 Subsequent observation care L3
[2022-05-18 07:20] LABS: BUN 11 mg/dL (7-18); Estimated Creatinine Clearance 110.39 ml/min; Glucose 135 mg/dL (74-106)
[2022-05-18 07:21] LABS: Anion Gap 5 (5-15); BUN/Creat Ratio 12.3 RATIO (10-20); Calcium,Total 8.8 mg/dL (8.5-10.1); Chloride 103 mmol/L (98-107); EST Glomerular Filtration Rate 97 mL/min (>60); Est Glom Filt Rate - Afr Amer 118 mL/min (>60); Potassium 3.7 mmol/L (3.5-5.1); Sodium Level 137 mmol/L (136-145)
[2022-05-18 07:25] VITALS: O2SAT 94
[2022-05-18] MEDS: Multivitamins,Ther W-Minerals Tablet 1 TABLET PO (08:16)
[2022-05-18 08:21] VITALS: BP 127/79; PULSE 96; RESP 16; TEMP 36.7; O2SAT 95
[2022-05-18] MEDS: APIXABAN 5 MG TABLET PO ×2 (09:45→21:09)
[2022-05-18 09:46] VITALS: PULSE 96
[2022-05-18] MEDS: SACUBITRIL/VALSARTAN 97-103 MG TABLET 1 EACH PO ×2 (09:46→21:09)
[2022-05-18] MEDS: Furosemide 40 MG Tablet PO (09:46)
[2022-05-18] MEDS: Metoprolol(XL)Succ 25 MG Tablet PO (09:46)
[2022-05-18] MEDS: Empagliflozin 10 MG Tablet PO (09:46)
[2022-05-18] MEDS: Docusate Sodium 100 MG Capsule PO (11:11)
--- NOTE | 2022-05-18 11:11 | CT_ITS ---
STUDY: CT ABDOMEN AND PELVIS WITH CONTRAST REASON FOR EXAM: Male, 47 years old. Fall. Pelvic fractures. RADIATION DOSAGE (If Supplied By Facility): CTDIvol = ( 16.88 ) mGy, DLP = ( 1499.03 ) mGycm TECHNIQUE: Transaxial images were obtained from the dome of the diaphragm to the symphysis pubis without oral contrast. IV 100mL Isovue-300 was administered. Sagittal and coronal images were reconstructed. Individualized dose optimization techniques were used for this CT. COMPARISON: Comparison is made with prior study dated 05/17/2022. FINDINGS: The visualized lung bases are unremarkable. The visualized portions of the heart are within normal limits. Normal liver. Normal gallbladder and extrahepatic biliary system. Normal spleen. Normal pancreas. Normal bilateral adrenal glands. Normal right kidney. Normal left kidney. Normal visualized stomach. Normal small intestine. Normal colon. The appendix is visualized and appears normal. Normal abdominal aorta. Normal inferior vena cava. Normal retroperitoneum. Normal urinary bladder. The balloon of the GAMBOA catheter appears to be distended in the prostatic urethra. Stable soft tissue changes in the left side of the pelvis and compared with the hematoma. Normal abdominal wall. Stable nondisplaced fracture of the left superior and inferior pubic rami. CT/Abdomen/Pelvis W IV Cont ONLY IMPRESSION: Stable examination. Electronically Signed: Julio Cesar Alex MD at 12:35 EST ,
[2022-05-18] MEDS: Gabapentin 100 MG Capsule PO ×2 (12:44→17:34)
--- NOTE | 2022-05-18 13:26 | CASEMGMT ---
Addendum entered by Margarita Aguilar 05/18/22 13:42: Referral sent to [facility] for FWW via careport at this time. Original Note: RN CM in to pt room, pt lying in bed. Pt states he has no DME in the home. Gave pt a verbal local in network DME list, pt chose [facility].
[2022-05-18 13:57] VITALS: BP 122/80; PULSE 97; RESP 16; TEMP 36.9; O2SAT 94
[2022-05-18] MEDS: Acetaminophen 500 MG Tablet 1000 MG PO ×2 (14:01→21:09)
--- NOTE | 2022-05-18 15:21 | PCM.CONS.GEN ---
Assessment & Plan Assessment/Plan (1) Fracture of superior ramus of left pubis: (2) Closed fracture of inferior pubic ramus: PLAN: Plan Left superior minimally displaced pubic rami fracture and left inferior nondisplaced pubic rami fracture Patient had serial CT scan which did not demonstrate any expanding hematoma On examination he has no sign of Quadriceps or Significant adductor rupture No orthopedic surgical intervention warranted patient may be weightbearing as tolerated and pain control HPI Consult Data Date of Consult: 05/18/22 HPI Narrative HPI Narrative: RHYS GUDINO, is a 47 MPleasant gentleman 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 [facility] Medical History Alcohol use Anxiety Asthma Atrial fibrillation with RVR (06/04/21) COVID Dietary restriction Elevated LFTs Essential hypertension History of echocardiogram Lesion of buccal mucosa Malrotation colon Marijuana smoker Non-ischemic cardiomyopathy Perianal abscess Persistent atrial fibrillation with rapid ventricular response (06/04/21) Polycythemia Shock liver Sleep-disordered breathing Tobacco dependence due to chewing tobacco Tobacco dependence due to cigarettes Wears glasses Home Medications multivitamin with minerals 1 ea PO DAILY SUPPLEMENT 07/20/19 [History Last Taken 05/17/22] atorvastatin 20 mg tablet 20 mg PO QHS #30 tabs 08/05/20 [Rx Last Taken 05/16/22] apixaban 5 mg tablet 5 mg PO BID #60 tabs 08/20/20 [Rx Last Taken 05/17/22] furosemide 40 mg tablet 40 mg PO QHS diuretic 06/15/21 [History Last Taken 05/16/22] empagliflozin 10 mg tablet (Jardiance) 10 mg PO DAILY diabetes 05/17/22 [History Last Taken 05/17/22] metoprolol succinate 25 mg tablet,extended release 24 hr 25 mg PO DAILY HTN 05/17/22 [History Last Taken 05/17/22] sacubitril 97 mg-valsartan 103 mg tablet (Entresto) 1 tab PO BID diabetes 05/17/22 [History Last Taken 05/17/22] Allergy/AdvReac Type Severity Reaction Status Date / Time Penicillins [cillins] Allergy NEEDS Verified 05/17/22 12:16 FOLLOW-UP Family History Mother Cancer Hx Lung CA. Father Heart disease Surgical History History of cardioversion (06/05/21) History of left heart catheterization (07/23/19) History of radiofrequency ablation procedure for cardiac arrhythmia (06/11/21) Hx of abdominal surgery Social History household members: spouse Smoking Status: Former smoker quit date: 07/07/19 Smokeless tobacco user: chewing tobacco alcohol intake: current alcohol intake frequency: holidays/special occasions only substance use type: does not use caffeine: No Physical Exam Const alert, oriented x3 and no apparent distress Extremity Extremity Narrative: Bilateral lower extremities neurovascular intact his compartments are soft there is no ecchymosis in the medial thigh or groin or hip areaHe is tender to palpation in the left superior pubic rami area. Lab / Micro Data Result Diagrams: 05/18/22 06:05 05/18/22 06:05 Labs: Laboratory Results - last 24 hr 05/18/22 06:05: WBC 8.4, RBC 5.13, Hgb 15.6, Hct 48.0, MCV 93.6, MCH 30.4, MCHC 32.5, RDW Std Deviation 43.4, RDW Coeff of [place] 12.6, Plt Count 186, MPV 9.5, Immature Gran % (Auto) 0.400, Neut % (Auto) 66.7, Lymph % (Auto) 15.3 L, [place] % (Auto) 14.5 H, Eos % (Auto) 2.7, Baso % (Auto) 0.4, Absolute Neuts (auto) 5.6, Absolute Lymphs (auto) 1.29, Nucleated RBC % 0 05/18/22 06:05: Sodium 137, Potassium 3.7, Chloride 103, Carbon Dioxide 29.0, Anion Gap 5, BUN 11, Creatinine 0.90, Estim Creat Clear Calc 110.39, Est GFR (MDRD) Af Amer 118, Est GFR (MDRD) Non-Af 97, BUN/Creatinine Ratio 12.3, Glucose 135 H, Calcium 8.8 Radiology Impression Pelvis X-Ray 05/17/22 15:40 IMPRESSION: Fracture of the left superior pubic ramus. Electronically Signed: Victorino Mondragon MD at 16:55 EST , Lumbar Spine CT 05/17/22 18:43 IMPRESSION: No acute bony abnormality. Electronically Signed: Victorino Mondragon MD at 20:19 EST , Pelvis CT 05/17/22 18:43 IMPRESSION: Comminuted and minimally displaced fracture of the left superior pubic ramus with nondisplaced fracture of the inferior pubic ramus medially. Electronically Signed: Victorino Mondragon MD at 20:15 EST , Abdomen/Pelvis CT 05/18/22 11:11 IMPRESSION: Stable examination. Electronically Signed: Julio Cesar Alex MD at 12:35 EST ,
[2022-05-18] MEDS: oxyCODONE 5 MG Tablet 10 MG PO ×2 (17:34→21:57)
[2022-05-18 20:00] VITALS: BP 129/86; PULSE 108; RESP 18; TEMP 37.2; O2SAT 94
[2022-05-18] MEDS: tiZANidine HCl 2 MG Tablet 4 MG PO (21:08)
[2022-05-18] MEDS: Atorvastatin Calcium 20 MG Tablet PO (21:09)
[2022-05-19 02:00] VITALS: BP 126/80; PULSE 102; RESP 18; TEMP 36.8; O2SAT 96
[2022-05-19] MEDS: oxyCODONE 5 MG Tablet 10 MG PO ×3 (02:47→14:34)
[2022-05-19] MEDS: Acetaminophen 500 MG Tablet 1000 MG PO ×2 (05:59→14:34)
[2022-05-19] MEDS: Docusate Sodium 100 MG Capsule PO (05:59)
[2022-05-19] MEDS: HYDROmorphone 1 MG/ML Syringe IV (06:07)
--- NOTE | 2022-05-19 07:06 | PCM.DC.SUM ---
Providers Date of Admission: 05/17/22 Date of Discharge: 05/19/22 Primary Care Physician: Masoud Lundy Consultations 05/18/22 09:35 Consult: Orthopedics Routine Consulting Provider: Jese Cheng Reason for Consult: PELVIC FRACTURE EMERGENT Consult: No MD Notified: Yes Date Notified: 05/18/22 Time Notified: 15:16 Method of Notification: Text Reason For Visit: PUBIC RAMI FRACTURE Diagnosis Discharge Diagnosis (1) Fracture of superior ramus of left pubis: Status: Acute Code(s): S32.512A - Fracture of superior rim of left pubis, initial encounter for closed fracture (2) Closed fracture of inferior pubic ramus: Status: Acute Code(s): S32.599A - Other specified fracture of unspecified pubis, initial encounter for closed fracture Plan Patient is a 47-year-old gentleman who presented to the emergency room after falling through a ceiling. Imaging studies obtained on admission did show Comminuted and minimally displaced fracture of the left superior pubic ramus with nondisplaced fracture of the inferior pubic ramus medially. 1. Fall with pelvic fracture ?Imaging studies obtained on admission did show Comminuted and minimally displaced fracture of the left superior pubic ramus with nondisplaced fracture of the inferior pubic ramus medially. Has been admitted to regular [facility] floor for pain management. Given patient significant pain consult was also placed to orthopedic surgery -Patient was seen in consultation by Dr. Elena patient was discharged 2 days after his admission with home health 2. Hypertension - Blood pressure controlled, home medications continued with dose adjustment as needed 3. Paroxysmal A. fib ? In sinus rhythm patient is on beta-blockers. Patient is on systemic anticoagulation with apixaban did continue 4. Dyslipidemia -Patient is on statin therapy, continued at home dose 5. Nonischemic dilated cardiomyopathy ? With known EF of 20%. Patient is on Entresto beta-blockers as well as Jardiance did continue 6. DVT prophylaxis ? Patient is on apixaban did Medications at Discharge Home Medications multivitamin with minerals 1 ea PO DAILY SUPPLEMENT 07/20/19 atorvastatin 20 mg tablet 20 mg PO QHS #30 tabs 08/05/20 apixaban 5 mg tablet 5 mg PO BID #60 tabs 08/20/20 furosemide 40 mg tablet 40 mg PO QHS diuretic 06/15/21 empagliflozin 10 mg tablet (Jardiance) 10 mg PO DAILY diabetes 05/17/22 metoprolol succinate 25 mg tablet,extended release 24 hr 25 mg PO DAILY HTN 05/17/22 sacubitril 97 mg-valsartan 103 mg tablet (Entresto) 1 tab PO BID diabetes 05/17/22 gabapentin 100 mg capsule 100 mg PO TIDCM #30 caps 05/19/22 oxycodone 5 mg tablet 10 mg PO Q4H PRN PRN Pain Score 4-10 5 days #20 tabs 05/19/22 tizanidine 2 mg tablet 4 mg PO Q8H PRN PRN spasms/musculoskeletal pain #20 tabs 05/19/22 Hospital Course Summary of Care Provided Minutes Spent on Discharge: 35 Physical Exam Narrative GENERAL: cooperative HEENT: Atraumatic; normocephalic EYES; Anicteric, Normal Conjunctiva NECK; supple, normal thyroid, RESPIRATORY: Diminished to auscultation CARDIOVASCULAR: Regular S1 S2, GI: soft, normoactive bowel sounds, : No Renal angle tenderness; EXTREMITIES: No edema, no clubbing, NEURO: Awake; no lateralizing signs. SKIN: No Rash PSYCH; Flat affect Weight / BMI Weight Weight: 109.5 kg Body Mass Index (BMI) 33.6 ABG / Lab / Microbiology Data Result Diagrams: 05/18/22 06:05 05/18/22 06:05 Laboratory: Laboratory Results - last 24 hr 05/18/22 06:05: Sodium 137, Potassium 3.7, Chloride 103, Carbon Dioxide 29.0, Anion Gap 5, BUN 11, Creatinine 0.90, Estim Creat Clear Calc 110.39, Est GFR (MDRD) Af Amer 118, Est GFR (MDRD) Non-Af 97, BUN/Creatinine Ratio 12.3, Glucose 135 H, Calcium 8.8 Radiography Diagnostic Testing: Radiology Impression Abdomen/Pelvis CT 05/18/22 11:11 IMPRESSION: Stable examination. Electronically Signed: Julio Cesar Alex MD at 12:35 EST , D/C Instructions Discharge Diet: No restrictions Discharge Activity: May Not Drive (Whilst taking oxycodone) and Use Walker Weight Bearing Status: Weight bearing as tolerated Call your doctor if you observe: Fever of 101 or Higher, Shortness of breath, Fainting spells and Chest pain Meaningful Use Info Meaningful Use Diagnoses (Choose all that apply): None applicable Discharge Plan Admission Admit Date/Time: 05/17/22 21:35 Attending Provider: Mike Rivas Primary Care Provider: Masoud Lundy Consulting Providers: Masoud Lundy ; Jese Cheng Instructions Patient Instructions: ED Pelvic Fracture Additional Instructions / Restrictions: Follow-up with orthopedic doctor. Please use the walker to walk for the next month or as directed by the orthopedic doctor. Discharge Orders/Prescriptions Prescriptions: New tizanidine 2 mg Tablet 4 mg PO Q8H PRN PRN (Reason: spasms/musculoskeletal pain) Qty: 20 0RF gabapentin 100 mg Capsule 100 mg PO TIDCM Qty: 30 0RF oxycodone 5 mg Tablet 10 mg PO Q4H PRN PRN (Reason: Pain Score 4-10) 5 Days Qty: 20 0RF Continued multivitamin with minerals 1 EACH tablet 1 ea PO DAILY furosemide 40 mg Tablet 40 mg PO QHS Jardiance 10 mg tablet 10 mg PO DAILY Entresto 97-103 mg tablet 1 tab PO BID metoprolol succinate 25 mg tablet extended release 24 hr 25 mg PO DAILY atorvastatin 20 mg tablet 20 mg PO QHS Qty: 30 11RF apixaban 5 mg tablet 5 mg PO BID Qty: 60 11RF Label Comments: per pt, last dose will be 07/16/21 for procedure on 07/17/[address] Stone's instructions Referrals / Follow Up: Jese Cheng DO [Med Staff - Active Staff] - 5-7 Days Masoud Lundy [Primary Care Provider] - Within 1 Week Disposition Disposition (needs filled in before D/C Order can be placed): Home Health Service Charges/Coding Visit Charges OBSV E&M: 47440 Observation care discharge
[2022-05-19 08:00] VITALS: BP 146/100; PULSE 99; RESP 18; TEMP 37.1; O2SAT 99
[2022-05-19 08:15] VITALS: O2SAT 93
[2022-05-19 09:38] VITALS: PULSE 99
[2022-05-19] MEDS: APIXABAN 5 MG TABLET PO (09:38)
[2022-05-19] MEDS: Metoprolol(XL)Succ 25 MG Tablet PO (09:38)
[2022-05-19] MEDS: Multivitamins,Ther W-Minerals Tablet 1 TABLET PO (09:38)
[2022-05-19] MEDS: Furosemide 40 MG Tablet PO (09:38)
[2022-05-19] MEDS: Empagliflozin 10 MG Tablet PO (09:39)
[2022-05-19] MEDS: Gabapentin 100 MG Capsule PO ×2 (09:39→12:30)
[2022-05-19] MEDS: SACUBITRIL/VALSARTAN 97-103 MG TABLET 1 EACH PO (09:40)
--- NOTE | 2022-05-19 11:26 | CASEMGMT ---
Addendum entered by Margarita Aguilar 05/19/22 13:31: Received tc from Teodora at [facility], states pt insurance covers visits at 40% making a visit cost $103.63. TIFFANY WILSON in to make pt aware, pt is agreeable to pay this. TC back to Teodora to make aware. They plan on seeing pt tomorrow, pt aware. Original Note: RN KATIE notified that pt is interested in C. TIFFANY WILSON in to pt room, patient was provided a list of [facility] providers including quality and resource use data and consistent with the patient?s preferred geographic region, medical needs, and insurance network were provided from the CarePort Guide. Pt chose [facility]. TC to Teodora at [facility], referral made, will await acceptance.
[2022-05-19] MEDS: tiZANidine HCl 2 MG Tablet 4 MG PO (12:30)
[2022-05-19 14:13] VITALS: BP 137/74; PULSE 82; RESP 16; TEMP 37.3; O2SAT 96
== END 2022-05-19 16:45 | disposition home health service (06) ==
LOC: ED 17:13 → MS3 21:40
PROVIDERS: Admitting Provider Family Medicine; Emergency Provider Emergency Medicine; PCP Family Medicine; Visit Provider Internal Medicine
DX: S32.512A Fracture of superior rim of left pubis, initial encounter for closed fracture (principal); S32.592A Other specified fracture of left pubis, initial encounter for closed fracture; I42.8 Other cardiomyopathies; I48.11 Longstanding persistent atrial fibrillation; F17.220 Nicotine dependence, chewing tobacco, uncomplicated; Z86.16 Personal history of COVID-19; Z79.01 Long term (current) use of anticoagulants; W17.89XA Other fall from one level to another, initial encounter; I10 Essential (primary) hypertension; J45.909 Unspecified asthma, uncomplicated; Z79.899 Other long term (current) drug therapy; Y93.89 Activity, other specified; Y99.0 Civilian activity done for income or pay; Y92.018 Other place in single-family (private) house as the place of occurrence of the external cause
CPT/HCPCS: 36415; 70450; 72110; 72125; 72131; 72170; 72192; 74177; 80048; 85025; 96372; 96374; 96376; 97116; 97162; 97530; 99218; 99285; Q9967; A4216; G0378

== ENCOUNTER 2022-07-15 15:30 | Outpatient (RCR) | payer BC, SELFPAY ==
--- NOTE | 2022-06-16 10:47 | HP.PTEVAL ---
Patient's Visit Information RHYS GUDINO is a 47 year old M referred to Physical Therapy by Dr. Masoud Lundy MD with a diagnosis of fracture multiple pubic rami. Date of Evaluation: 06/16/22 Physical Therapist: Kal Bustillos, JOONT, OCS, CSCS - Visit Plan Frequency: 2x /Week Plan: 2x/week for 4-6 weeks for. 1. rollout and stretch B quads/HS and piriformis. 2. gentl progression of strength hip muscles rotators and abd, flex, extension to WB without pain and progress. 3. Ensure gait without cane going well in therapy. Ensure resting from aggravating activities. - Subjective I have broken pelvis. Fell 12 feet out of ceiling onto concrete while working on furnace. That was a month ago. ER. X rays: Broken pelvis. REST and it was hard to walk for a week. had home therapy. Was on feet 14 hours yesterday. Very painful last night. Polished rims on trucks last night. Saw borussa and is doing well last week. No precautions. Will see in 2 weeks again. Using cane to get around but does not need it. Walks weird without it but safe. Pain last night to 7/10, 0/10 at rest. Always hurts early in day. Sleep is OK. Pain is tightness in L thigh. 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 Workers are doing the work. Basic ADLs are going well. Hobbies: Drag race and car stuff. Not much lately. - Pain L thigh Pain Intensity (Out of 10): 0 Pain Intensity Range: 0, 8 - Objective L. Walks with cane L UE, no pain today and I. [facility] bed and chair are I. Steps reciprocal with one rail I up and down. Able to walk without cane safely but some mild antalgia noticed after on feet for 5+ minutes. ankle and knee arom WFL and pain free today with 4+/5 strength. Hip AROM abd and flexion painful L groin but able, weak at 3+/5, extension also 3+, not painful. R side is 4 and no pain. reflexes 2/3 patella and achilles B. sensation LE WNL to gross light touch. End range abd and ext rotation L hip are slightly painful. - TEODORA and HERMAN L and R. - Balance/Special Test Scores Lower Extremity Functional Score: 27 - Goals Goal 1:: Ambulate community without cane when allowed by without gait deviations Goal Time Frame: 4-6 Weeks Goal 2:: I appropriate HEP to minimize non healing and future problems Goal Time Frame: 4-6 Weeks Goal 3:: hip abduction and flexion L without pain in groin Goal Time Frame: 4-6 Weeks Goal 4:: LEFS score 72 Goal Time Frame: 4-6 Weeks - Rehabilitation Potential Physical Therapy Diagnosis: pubic rami fracture Rehabilitation Potential: Good - Anticipated Interventions Patient/Client Instruction: Educate patient on: Condition, Plan of Care For the Purpose of:: To decrease pain, To increase ROM, To improve nutrient delivery to tissue, To improve muscle performance and motor function, To increase tolerance to activity/condition/position, To improve gait and locomotor functions Therapeutic Exercise to Include: Strength training, Flexibilty training, Gait and locomotor training, Passive ROM, Active ROM For the Purpose of:: To decrease pain, To improve nutrient delivery to tissue, To improve muscle performance and motor function, To improve gait and locomotor functions Manual Therapy Techniques to Include: Mobilization, Passive ROM, Soft tissue mobilization For the Purpose of:: To decrease pain, To increase ROM, To improve nutrient delivery to tissue Thank you for the opportunity to evaluate your patient. For Medicare and Medicare HMO plans, please review the plan of care and approve it. It will need to be FAXED BACK to us at [phone] for Medicare purposes. For Medicare only, by signing this I certify the plan of care. Please let me know if there are questions or concerns regarding this plan of care. Physician Signature: Date:
--- NOTE | 2022-07-15 16:39 | HP.PTDCSUM_ITS ---
It has been my pleasure to treat RHYS GUDINO referred by Dr. Masoud Lundy MD, with the diagnosis of fracture multiple pubic rami for a total of 6 visit(s). Discharge Date: 07/15/22 Please see the following information for a summary of their discharge status. Subjective: Pt arrived to therapy stating he is ready to be done with PT. Reports he feels he is 100% improved. Saw the Dr yesterday and fracture is completely healed. L thigh Pain Intensity (Out of 10): 0 % Improvement: 100 Objective/Function: Pt arrived to therapy stating he was ready to be d/c. Reviewed goals w/ patient and able to meet all 4 goals. Pt was able to ambulate 5 miles without pain yesterday, has no pain w/ L hip flexion, ext or abd. Pt is compliant with HEP and LEFS score of 80 today. Goal 1:: Ambulate community without cane when allowed by without gait d eviations Goal Progress: Goal Met Goal 2:: I appropriate HEP to minimize non healing and future problems Goal Progress: Goal Met Goal 3:: hip abduction and flexion L without pain in groin Goal Progress: Goal Met Goal 4:: LEFS score 72 Goal Progress: Goal Met Plan: d/c at patient request, doing very well. If there are questions or concerns regarding this patient's physical therapy, please feel free to call me at [phone]. Thank you for the referral of this patient. Sincerely, Kal Bustillos, DPT, OCS, CSCS Balance/Gait/Functional tests - Balance/Special Test Scores Lower Extremity Functional Score: 80
== END 2022-07-15 19:00 | disposition home or self-care (01) ==
LOC: PT 15:30
PROVIDERS: PCP Family Medicine; Referring Provider Family Medicine; Visit Provider Family Medicine
DX: S32.509A Unspecified fracture of unspecified pubis, initial encounter for closed fracture (principal)
CPT/HCPCS: 97110; 97161

== ENCOUNTER → 2023-06-20 | Outpatient (CLI) | payer BC, SELFPAY | END | disposition home or self-care (01) | LOC: LABSPEC 14:57 | PROVIDERS: PCP Family Medicine; Referring Provider Family Medicine; Visit Provider Family Medicine | DX: L02.91 Cutaneous abscess, unspecified (principal) | CPT/HCPCS: 87070; 87077; 87186; 87205 ==

== ENCOUNTER 2023-06-29 16:39 | Day surgery (SDC) | payer BC, SELFPAY ==
[2023-06-29] MEDS: Lactated Ringers 1,000 ML 15 ML IV (17:13)
[2023-06-29] MEDS: metroNIDAZOLE 500 MG/100 ML BAG 100 MG IV (17:14)
[2023-06-29 17:20] LABS: Hematocrit 49.6 % (40-54); Hemoglobin 16.9 g/dL (13.0-16.5); Mean Corp Hgb Conc 34.1 g/dL (32-36); Mean Corpuscular Hgb 30.2 pg (27.0-32.0); Mean Corpuscular Volume 88.6 fL (80-94); Mean Platelet Vol. 9.3 fl (6.2-12.0); Platelet Count 281 K/mm3 (150-450); RBC Distribution Width CV 12.3 % (11.6-14.6); RBC Distribution Width SD 40.2 fl (35.1-43.9); White Blood Count 14.3 K/mm3 (4.4-11.0)
[2023-06-29 17:24] VITALS: BP 128/87; PULSE 104; RESP 16; TEMP 37.1; O2SAT 96; BMI 33.5
--- OUTSIDE RECORDS SUMMARY | 2023-06-29 17:31 | XMS RPT_ITS | CCD ---
Author Name Unknown Address [address] [facility] [address] [place] [id number] Organization [facility] Care Team Providers Care Hotel Maintenance Technician Name Role Phone MALLAT, ALI Unavailable Unavailable MALLAT, ALI Unavailable Unavailable MALLAT, ALI F Unavailable Unavailable MALLAT, ALI F Unavailable Unavailable Elderbrock, Louie D Unavailable Unavailable Unknown, Pcp Unavailable Unavailable Electrophysiology Team Unavailable Unavailab Tres Edwards Unavailable Unavailable Medesthela, Kaitlin Unavailable Unavailable Unknown, Referring Provider Unavailable Unav ailable Masoud Alberto Unavailable Kamron, Dr. Masoud Hodge Primary Care Unavail able Kaitlin Peterson Attending Unavailable Katilin Peterson Referring Unavailable LASHAWN, OTTONIEL Attending Unavailable [...] to drug (disorder) 6 Anaphylaxis, Hives, Unknown [facility] Other [facility] (2 sources) OTHER; Translations: [OTHER] Propensity to adverse reactions (disorder) 6 [facility] Repository (2 sources) POISON MARCO; Translations: [POISON MARCO] Propensity to adverse reactions (disorder) 6 [facility] POISON OAK; Translations: [POISON OAK] Propensity to adverse reactions (disorder) 6 [facility] ([facility] source) Amoxicillin Drug Allergy Unknown [facility] (1 source) Penicillin Drug Allergy Unknown [facility] Medications Current Medications Medication Drug Class(es) Dates Sig (Normalized) Sig (Original) acetaminophen 325 mg / HYDROcodone bitartrate 5 mg oral tablet (1 source) Opioid Agonist Start: 06-19-2023 End: 06-22-2023 take 1 tablet by mouth every six hours HYDROcodone-aceta minophen (Gravette) 5-325 mg tablet Indications: pain Take 1 tablet by mouth every 6 hours for 3 days. 12 tablet 0 06/19/2023 06/22/2023 Active [id number] 200 actuat albuterol 0.09 mg/actuat metered dose [...] tab(s) orally once a day -.Meds to [facility] Quantity: 90 Refills: 2 Ordered: 12-Jun-2021 Fanny [...] 98.6 [degF] Miah Ruano MD Work Phone: [facility] 06-19-2023 10:51-0500 Diastolic blood pressure 92 mm[Hg] Miah Ruano MD Work Phone: [facility] 06-19-2023 10:51-0500 Heart rate 101 /min Miah Ruano MD Work Phone: [facility] 06-19-2023 10:51-0500 Respiratory rate 18 /min Miah Ruano MD Work Phone: [facility] 06-19-2023 10:51-0500 SaO2% (BldA) [Mass fraction] 97 % Miah Ruano MD Work Phone: [facility] 06-19-2023 10:51-0500 Systolic blood pressure 130 mm[Hg] Miah Ruano MD Work Phone: [facility] 01-20-2023 13:49-0400 Body height 180.34 cm Masoud Alberto Work Phone: CC-Gsyinccirk-Qdhjj nd [address] Work Phone: 01-20-2023 13:49-0400 Body mass index (BMI) [Ratio] 32.02 kg/m2 Masoud Mazariegoselsen Work Phone: DA-Ezojctffcg-Kvkuu nd [address] Work Phone: 01-20-2023 13:49-0400 Body surface area Derived from formula 2.24 m2 Masoud Alberto Work Phone: GU-Ekofyoopua-Hfjxu nd [address] Work Phone: 01-20-2023 13:49-0400 Body weight 104.13 kg Masoud Alberto Work Phone: BW-Ucrzuyetat-Jxkmd nd [address] Work Phone: 01-20-2023 13:49-0400 Diastolic blood pressure 82 mm[Hg] Masoud Alberto Work Phone: SR-Rrxyztylbi-Frwyb nd [address] Work Phone: 01-20-2023 13:49-0400 Heart rate 105 /min Masoud Alberto Work Phone: RM-Znujgzdohb-Dyjnj nd [address] Work Phone: 01-20-2023 13:49-0400 SaO2% (BldA) [Mass fraction] 96 % Masoud Alberto Work Phone: EQ-Qwukoojkgx-Sjzzt nd [address] Work Phone: 01-20-2023 13:49-0400 Systolic blood pressure 116 mm[Hg] Masoud Alberto Work Phone: HF-Tbqjpitlui-Mgzfa nd [address] Work Phone: 07-02-2022 11:40-0500 Body height 180.34 cm Masoud Alberto Work Phone: KG-Avjezdqzmq-Zmvpc nd [address] Work Phone: 07-02-2022 11:40-0500 Body mass index (BMI) [Ratio] 33.79 kg/m2 Masoud Alberto Work Phone: KA-Ymrbfudfny-Rpcjb nd [address] Work Phone: 07-02-2022 11:40-0500 Body surface area Derived from formula 2.29 m2 Masoud Alberto Work Phone: AO-Jtjlurrllw-Ozual nd [address] Work Phone: 07-02-2022 11:40-0500 Body weight 109.88 kg Masoud Alberto Work Phone: TK-Tovqsqqply-Dwlpi nd [address] Work Phone: 07-02-2022 11:40-0500 Diastolic blood pressure 90 mm[Hg] Masoud Alberto Work Phone: YW-Qyaihbzrmu-Zgaju nd [address] Work Phone: 07-02-2022 11:40-0500 Heart rate 103 /min Masoud Alberto Work Phone: KK-Nmmixiemae-Dzjcf nd [address] Work Phone: 07-02-2022 11:40-0500 SaO2% (BldA) [Mass fraction] 96 % Masoud Alberto Work Phone: JL-Ztbavztmdp-Ipqts nd [address] Work Phone: 07-02-2022 11:40-0500 Systolic blood pressure 118 mm[Hg] Masoud Alberto Work Phone: IC-Hfgqtjqymk-Ihmir nd [address] Work Phone: 12-30-2021 11:45-0400 Body height 180.34 cm Masoud Alberto Work Phone: HQ-Bqtttscunw-Anlxq nd [address] Work Phone: 12-30-2021 11:45-0400 Body mass index (BMI) [Ratio] 32.76 kg/m2 Masoud Alberto Work Phone: IR-Ucipwsirwa-Yozfr nd [address] Work Phone: 12-30-2021 11:45-0400 Body surface area Derived from formula 2.26 m2 Masoud Alberto Work Phone: EJ-Uupiayexgg-Dvraa nd [address] Work Phone: 12-30-2021 11:45-0400 Body weight 106.55 kg Masoud Alberto Work Phone: PV-Ekdqisfycs-Hjwhs nd [address] Work Phone: 12-30-2021 11:45-0400 Diastolic blood pressure 90 mm[Hg] Masoud Alberto Work Phone: GN-Khilzhzibu-Ejdau nd [address] Work Phone: 12-30-2021 11:45-0400 Heart rate 101 /min Masoud Alberto Work Phone: GL-Vdynfopspd-Fyvcd nd [address] Work Phone: 12-30-2021 11:45-0400 SaO2% (BldA) [Mass fraction] 97 % Masoud Alberto Work Phone: VK-Pmrdnhmqun-Brorg nd [address] Work Phone: 12-30-2021 11:45-0400 Systolic blood pressure 132 mm[Hg] Masoud Alberto Work Phone: AE-Rravntswbg-Damcp nd [address] Work Phone: 09-10-2021 10:29-0400 Body height 180.34 cm Masoud Alberto Work Phone: XE-Sjbefqipyc-Oxwbd nd [address] Work Phone: 09-10-2021 10:29-0400 Body mass index (BMI) [Ratio] 33.47 kg/m2 Masoud Alberto Work Phone: XJ-Cmdkqhquoa-Raegy nd [address] Work Phone: 09-10-2021 10:29-0400 Body surface area Derived from formula 2.28 m2 Masoud Alberto Work Phone: FK-Xbpaaebdsj-Eazgz nd [address] Work Phone: 09-10-2021 10:29-0400 Body weight 108.86 kg Masoud Alberto Work Phone: DM-Aiouxzejjl-Jeovp nd [address] Work Phone: 09-10-2021 10:29-0400 Diastolic blood pressure 82 mm[Hg] Masoud Alberto Work Phone: ZM-Fmlhgnxvqu-Hnaeb nd [address] Work Phone: 09-10-2021 10:29-0400 Heart rate 68 /min Masoud Alberto Work Phone: KV-Uqxhmoolle-Sjpst nd [address] Work Phone: 09-10-2021 10:29-0400 SaO2% (BldA) [Mass fraction] 95 % Masoud Alberto Work Phone: TT-Yccbqpwuqr-Ijsii nd [address] Work Phone: 09-10-2021 10:29-0400 Systolic blood pressure 128 mm[Hg] Masoud Alberto Work Phone: VQ-Qmsmmrozxf-Sihyx nd [address] Work Phone: 07-28-2021 14:13-0500 Diastolic blood pressure 82 mm[Hg] Referring Provider Unknown GX-Byiiuursuj-WXM [facility] [address] [place] Work Phone: 07-28-2021 14:13-0500 Heart rate 99 /min Referring Provider Unknown NN-Qdfphslqxw-UWY [facility] [address] [place] Work Phone: 07-28-2021 14:13-0500 Systolic blood pressure 136 mm[Hg] Referring Provider Unknown HD-Xrfpchwznk-MFE [facility] [address] [place] Work Phone: 07-28-2021 13:17-0500 Body height 180.34 cm Referring Provider Unknown MS-Trebaurycj-RUB [facility] [address] [place] Work Phone: 07-28-2021 13:17-0500 Body mass index (BMI) [Ratio] 32.78 kg/m2 Referring Provider Unknown JH-Saooowtzur-OZN [facility] [address] [place] Work Phone: 07-28-2021 13:17-0500 Body surface area Derived from formula 2.26 m2 Referring Provider Unknown KF-Xvzoharwic-EPZ [facility] [address] [place] Work Phone: 07-28-2021 13:17-0500 Body weight 106.6 kg Referring Provider Unknown EQ-Xctiatwslz-CGF [facility] [address] [place] Work Phone: 07-28-2021 13:17-0500 Diastolic blood pressure 93 mm[Hg] Referring Provider Unknown IN-Tnnmxooytt-SQS [facility] [address] [place] Work Phone: 07-28-2021 13:17-0500 Heart rate 108 /min Referring Provider Unknown XL-Tiqliqobyc-ORL [facility] [address] [place] Work Phone: 07-28-2021 13:17-0500 SaO2% (BldA) [Mass fraction] 96 % Referring Provider Unknown DQ-Xcnivziihh-RIM [facility] [address] [place] Work Phone: 07-28-2021 13:17-0500 Systolic blood pressure 148 mm[Hg] Referring Provider Unknown KF-Hwupxnlbnm-DAA [facility] [address] [place] Work Phone: 06-12-2021 11:15-0500 Body temperature 97.16 [degF] Pcp Unknown [facility] 06-12-2021 11:15-0500 Diastolic blood pressure 87 mm[Hg] Pcp Unknown [facility] 06-12-2021 11:15-0500 Heart rate 91 /min Pcp Unknown [facility] 06-12-2021 11:15-0500 Respiratory rate 18 /min Pcp Unknown [facility] 06-12-2021 11:15-0500 SaO2% (BldA) [Mass fraction] 97 % Pcp Unknown [facility] 06-12-2021 11:15-0500 Systolic blood pressure 128 mm[Hg] Pcp Unknown [facility] Encounters Encounter Date Encounter Type Care Provider Facility Start: 06-19-2023 End: 06-19-2023 Emergency department patient visit MASOUD ALBERTO [facility] Start: 06-19-2023 End: 06-19-2023 Emergency department patient visit Miah Ruano MD Work Phone: [facility] Emergency Medicine Procedures Date Procedure Procedure Detail Performing Clinician Start: 06-19-2023 VITAL SIGNS MASOUD VERDUZCO Start: 09-08-2021 Echocardiography Masoud Alberto Work Phone: Destructive procedure Masoud Alberto Work Phone: Plan of Treatment Date Care Activity Detail Author Start: 2027 Zoster Vaccines (1 of 2) Zoster Vaccines (1 of 2) [facility] Start: 08-18-2023 End: 08-18-2023 Patient encounter procedure 08/18/2023 1:45 PM EDT Office Visit [facility] Elias Ar[address] [place] [id number] Ottoniel Strickland MD [address] [place], [place] [address] [facility], [place] [address] [facility] Start: 07-21-2023 FUV, Provider: Ottoniel Strickland, Status: Pen, Time: 1:45 PM FUV, Provider: Ottoniel Strickland, Status: Pen, Time: 1:45 PM YG-Puqopsexes-Igtwks d [address] [place] [address] Work Phone: Start: 03-05-2023 Creatinine measurement Creatinine Level [facility] Start: 03-05-2023 Potassium measurement Potassium Level [facility] Start: 02-04-2023 Influenza vaccination Influenza Vaccine (#1) [facility] Start: 01-07-2023 FUV, Provider: Ottoniel Strickland, Status: Pen, Time: 11:30 AM FUV, Provider: Ottoniel Strickland, Status: Pen, Time: 11:30 AM WE-Svcwvyjjpe-Ebczyn d [address] Work Phone: Start: 09-08-2022 Echocardiography Echocardiogram [facility] Start: 07-02-2022 FUV, Provider: Ottoniel Strickland, Status: Pen, Time: 11:45 AM FUV, Provider: Ottoniel Strickland, Status: Pen, Time: 11:45 AM GI-Sztamckpwk-Lzjkep d [address] Work Phone: Start: 12-17-2021 FUV, Provider: Ottoniel Strickland, Status: Pen, Time: 9:30 AM FUV, Provider: Ottoniel Strickland, Status: Pen, Time: 9:30 AM QS-Tiunvfpsez-Ctzgnj d [address] Work Phone: Start: 10-06-2021 FUV, Provider: Kaitlin Peterson, Status: Pen, Time: 1:30 PM FUV, Provider: Kaitlin Peterson, Status: Pen, Time: 1:30 PM KE-Pklkblhpvs-OIY [facility] [address] [place] Work Phone: Start: 09-10-2021 NPV, Provider: Ottoniel Strickland, Status: Pen, Time: 10:30 AM NPV, Provider: Ottoniel Strickland, Status: Pen, Time: 10:30 AM [facility] Work Phone: Start: 09-08-2021 ECHO, Provider: JHONATAN RIZZOI ECHO 1,SMCECHO1, Status: Pen, Time: 1:00 PM ECHO, Provider: JHONATAN RIZZOI ECHO 1,SMCECHO1, Status: Pen, Time: 1:00 PM VW-Puunzukgyt-EJJ [facility] [address] [place] Work Phone: Start: 07-28-2021 Patient encounter procedure [facility] Start: 07-23-2021 DTaP/Tdap/Td Vaccines (2 - Td or Tdap) DTaP/Tdap/Td Vaccines (2 - Td or Tdap) [facility] Start: 06-16-2021 End: 06-17-2022 Amiodarone 200 mg Oral Tablet Every 24 Hours ; Tablet (CORDARONE; PACERONE)DOSE = 200 mg Oral Every 24 Hours Start: 16-Jun-2021 End: 16-Jun-2022 Ordered: 12-Jun-2021 Fanny Young [facility] Start: 06-12-2021 End: 06-13-2022 [facility] Start: 06-10-2021 Heart failure Heart failure Date: 10-Jun-2021 [facility] Start: 1995 Diabetes mellitus screening Diabetes Screening [facility] Start: 1983 Pneumococcal Vaccine: Pediatrics (0 to 5 Years) and At-Risk Patients (6 to 64 Years) (1 - PCV) Pneumococcal Vaccine: Pediatrics (0 to 5 Years) and At-Risk Patients (6 to 64 Years) (1 - PCV) [facility] Start: 1978 MMR Vaccines (1 of 1 - Standard series) MMR Vaccines (1 of 1 - Standard series) [facility] Start: 1977 COVID-19 Vaccine (#1) COVID-19 Vaccine (#1) [facility] Start: 1977 Hepatitis B Vaccines (1 of 3 - 3-dose series) Hepatitis B Vaccines (1 of 3 - 3-dose series) [facility] Start: 1977 HIV screening HIV Screening [facility] Start: 1977 Lipid panel Lipid Panel [facility] Start: 1977 Screening for malignant neoplasm of colon [facility] Start: 1977 Yearly Adult Physical Yearly Adult Physical [facility] Payers Date Payer Category Payer Unknown 2021 Unknown [id number] 1977 Unknown [id number] [id number] 1977 Unknown [id number] [id number] 1977 Unknown [id number] [id number]. [id number] 1977 Unknown [id number] 2.16. [id number] 1977 Unknown [id number] 2.16. [id number] 1977 Unknown [id number] [id number] Social History Date Type Detail Facility [facility] Tobacco smoking consumption unknown [facility] Consumes alcohol occasionally Consumes alcohol occasionally MF-Zozhpybxge-Mdhpgjl [address] Work Phone: Start: 1975 Sex Assigned At Not on file [facility] Work Phone: Gender identity Not on file [facility] ospitals [facility] Work Phone: Start: 06-09-2023 End: 06-19-2023 Exposure to SARS-CoV-2 (event) Not sure [facility] Work Phone: Functional Status Date Assessment Result Facility Functional observable [facility] Mental Status Date Assessment Result Facility 06-12-2021 Cognitive functions 12-Jun-19 228:26 [facility] Clinical Notes 11-23-2020 to 06-10-2021 <item> Note [...] with use of testosterone/steroids.Patient was admitted to [facility] as a transfer on 06/10/2021 from OSH ([place]) for A.fib with RVR, failed multiple cardioversions. [...] says he still snores. 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 UN-Tuxyvlfany-JCQ [facility] [address] [place] Work Phone: 06-10-2021 History of Present illness Narrative 46 year old male with a history of Afib x 3 years (on Eliquis), HTN, diastolic heart failure, recent COVID infection, and omphalocele presents today for hospital follow up post RFA. Social history includes previous ETOH abuse and body building with use of testosterone/steroids.Patient was admitted to [facility] as a transfer on 06/10/2021 from OSH ([place]) for A.fib with RVR, failed multiple cardioversions. [...] says he still snores. 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 [facility] Work Phone: 06-10-2021 History of Present illness Narrative 46-year-old gentleman with a medical history of atrial fibrillation (3 years in duration), hypertension, recent Covid infection, here to establish care.Patient was initially admitted at [facility] 06/10/2021 with atrial fibrillation and rapid ventricular [...] currently any medications for his heart failure. LR-Bcewzmcpww-Uucdupx [employer] Work Phone: 06-10-2021 History of Present illness Narrative 46-year-old gentleman with a medical history of atrial fibrillation (3 years in duration), hypertension, recent Covid infection, here to establish care.Patient was initially admitted at [facility] 06/10/2021 with atrial fibrillation and rapid ventricular [...] currently any medications for his heart failure. [employer] Work Phone: 06-10-2021 History of Present illness Narrative 46-year-old gentleman with a medical history of atrial fibrillation (3 years in duration), hypertension, recent Covid infection, here to establish care.Patient was initially admitted at [facility] 06/10/2021 with atrial fibrillation and rapid ventricular [...] edema. No bleeding complications from his Eliquis. SI-Wdcohmapkw-Drjpjjd [address] Work Phone: 06-10-2021 History of Present illness Narrative 47-year-old gentleman with a medical history of atrial fibrillation (3 years in duration), hypertension, recent Covid infection, here to establish care.Patient was initially admitted at [facility] 06/10/2021 with atrial fibrillation and rapid ventricular [...] a fractured pelvis. Has been recovering well FY-Pdthjipbfj-Qqtjjen [employer] Work Phone: 06-10-2021 History of Present illness Narrative 47-year-old gentleman with a medical history of atrial fibrillation (3 years in duration), hypertension, recent Covid infection, here to establish care.Patient was initially admitted at [facility] 06/10/2021 with atrial fibrillation and rapid ventricular [...] edema. No bleeding complications from his Eliquis. BP-Smjiixcrha-Vqwmtyq [employer] Work Phone: 11-23-2020 Note HNO ID: [id number] Author: Ricardo Harris APRN.[employer] Service: ? Author Type: Nurse Practitioner Type: [...] other allergen - SBO (small bowel obstruction) ([facility]) 08/10/2017 - Unspecified asthma, with status asthmaticus PAST SURGICAL HISTORY Procedure Laterality Date - VASECTOMY 07/09/11 ALLERGIES Environmental [Other], Penicillins, Poison Marco, and Poison [place] -This section reviewed with patient, no changes [...] - 2019 CORONAVIRUS Agrees to plan Ricardo Harris APRN.[facility] Evaluation note Psychological: Appro priate mood and [...] Well developed, no distress, alert and cooperative [facility] documented in this encounter [facility] Work Phone: Hospital Discharge instructions* Activity:activity as tolerated. May shower. May return to school/work Instructions:. May not drive for 2 day(s). * Additional Orders:Additional Instructions: Dear Mr. Gudino, You were hospitalized at [facility] for atrial fibrillation and underwent an ablation, [...] Continue to follow up with your primary marketing and promotions manager and primary care physician. * Call Provider If:Breathing faster than normal. Breathing harder than normal or having retractions. Temperature is greater than 102 degrees. Any new concerning symptoms. Passing out. * Follow Up Appointment 1:Physician/Dept/Service: Kaitlin Peterson CNP ( Electrophysiology)Reason forReferral: 6 week ablation follow upScheduled Date/Time: 28-Jul-2021 13:00Location: [facility], [address], [place], [place], [address]Hkcjy Number: Schedulers: [phone] * Follow Up Appointment 2:Physician/Dept/Service: CardiologyReason for Referral: Heart failure managementLocation: [place] Number: Schedulers: [phone]: You should receive a call in the next few days to schedule an appointment. If you do not receive a call in the next week, please call the scheduling number to schedule at appointment in the next 2 weeks. [facility] Summary Purpose Family History No Family History [...] Referred To Contact Diagnoses Abscess Rosalind Gaines, COORDINATOR OF ONLINE PROGRAMS-[employer] [address] [address] Referral ID Status Reason Start Date Expiration Date V isits Requested Visits Authorized [id number] Pending Review 1 1 Referral ID Status Reason Start Date Expiration Date V isits Requested Visits Authorized [id number] Pending Review 1 1 Specialty Diagnoses / Procedures Referred By Alejandro t Referred To Contact General Surgery Rosalind Gaines, COORDINATOR OF ONLINE PROGRAMS-[employer] [address] [place] [address] Referral ID Status Reason Start Date Expiration [...] DATE CREATED AUTHOR AUTHOR'S ORGANIZ ATION 11/25/2017 [facility] DATE CREATED AUTHOR AUTHOR'S ORGANIZ ATION 07/08/2021 [facility] DATE CREATED AUTHOR AUTHOR'S ORGANIZ ATION 03/09/2022 [facility] DATE CREATED AUTHOR AUTHOR'S ORGANIZ ATION 01/21/2023 [facility] DATE CREATED AUTHOR AUTHOR'S ORGANIZ ATION [...] BE BASED ON THE PRIMARY CLINICAL RECORDS. [facility] [employer] [facility]. provides no warranty or guarantee of the accuracy or completeness of information in this document.
[2023-06-29 17:34] LABS: Anion Gap 4 (5-15); BUN 11 mg/dL (7-18); BUN/Creat Ratio 14.2 RATIO (10-20); Calcium,Total 9.3 mg/dL (8.5-10.1); Chloride 108 mmol/L (98-107); Creatinine, Serum 0.78 mg/dL (0.70-1.30); EST Glomerular Filtration Rate 114 mL/min (>60); Est Glom Filt Rate - Afr Amer 138 mL/min (>60); Glucose 112 mg/dL (74-106); Potassium 3.9 mmol/L (3.5-5.1); Sodium Level 134 mmol/L (136-145)
--- NOTE | 2023-06-29 17:59 | PCM.HP.STD ---
HPI - General General Date of Service: 06/29/23 Chief Complaint: Left perianal abscess HPI Narrative RHYS GUDINO, is a 48 M who presents with a recently drained right perianal abscess but new pain on the left Visit Reasons: ABSCESS ON R BUTTOCK Chief Complaint: abcess R buttock Copy Operator Required: No Is patient in pain?: Yes Allergies Penicillins [cillins] Allergy (Verified 06/29/23 14:04) NEEDS FOLLOW-UP Medications apixaban 5 mg tablet 5 mg PO BID #60 tabs 08/20/20 [Rx Confirmed 06/29/23] furosemide 40 mg tablet 40 mg PO QHS diuretic 06/15/21 [History Confirmed 06/29/23] empagliflozin 10 mg tablet (Jardiance) 10 mg PO DAILY diabetes 05/17/22 [History Confirmed 06/29/23] metoprolol succinate 25 mg tablet,extended release 24 hr 25 mg PO DAILY HTN 05/17/22 [History Confirmed 06/29/23] sacubitril 97 mg-valsartan 103 mg tablet (Entresto) 1 tab PO BID diabetes 05/17/22 [History Confirmed 06/29/23] tizanidine 4 mg tablet 4 mg PO BID PRN muscle spasticity #30 tabs 06/09/22 [Rx Confirmed 06/29/23] PFSH Medical History Alcohol use Anxiety Asthma Atrial fibrillation with RVR (06/04/21) COVID Dietary restriction Elevated LFTs Essential hypertension History of echocardiogram Lesion of buccal mucosa Malrotation colon Marijuana smoker Non-ischemic cardiomyopathy Perianal abscess Persistent atrial fibrillation with rapid ventricular response (06/04/21) Polycythemia Shock liver Sleep-disordered breathing Tobacco dependence due to chewing tobacco Tobacco dependence due to cigarettes Wears glasses Surgical History History of cardioversion (06/05/21) History of left heart catheterization (07/23/19) History of radiofrequency ablation procedure for cardiac arrhythmia (06/11/21) Hx of abdominal surgery Family History Mother Cancer Hx Lung CA.Father Heart disease Social History household members: spouse Smoking Status: Former smoker quit date: 07/07/19 Smokeless tobacco user: chewing tobacco alcohol intake: current alcohol intake frequency: holidays/special occasions only substance use type: does not use caffeine: No HPI HPI HPI: 48-year-old gentleman is being referred by Dr. Masoud Lundy for concerns about a right buttock abscess. Written compromise surgical consult and recommendations will be returned to him. I have assisted the patient with a colonoscopy on July 17, 2021. That was the patient's first colonoscopy. Digital exam demonstrated internal hemorrhoids. Normal prostate. No fissure could be seen at that time. A 15 mm polyp was seen in the hepatic flexure it was tattooed and removed with a cold snare. Random colonic biopsies were obtained as well. Pathology demonstrated normal random biopsies. Fragment of hyperplastic polyp at the hepatic flexure. History also reports that June 15, [address] in the emergency room Dr. Carey Hernandes assisted with drainage of a perianal abscess. By report the patient had had [address] abscess[address]. A CT scan obtained suggested a 3.1 x 5.2 x 3.1 cm well-defined density in the peritoneum just distal to the anal verge in keeping with a diagnosis of perianal abscess. At that time the patient was on Eliquis therapy for atrial fibrillation and he was treated with doxycycline. 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 He had had his previous small bowel obstruction for which I had referred him to a tertiary center. The patient states a couple week ago he went to the [facility] emergency room. They placed him on doxycycline. He was still miserable because of a golf ball sized mass in the right perianal area. He then saw Dr. Masoud Lundy the next day who drained it. Cultures grew E. coli and group A strep. He was continued on doxycycline. That area seems to have resolved but now for the past day or so he has had tenderness anterior to the anus on the left. There is been no golf ball size mass as there was on the right. He additionally notes that he has terrible hemorrhoids. He claims a year ago he fell through the ceiling and fractured his pelvis in 4 places. He states that nothing quite feels the same since then. I asked him about his referral to [facility] when he had the small bowel obstruction with his history of omphalocele and malrotation. He states he was treated nonoperatively with no additional follow-up. [facility] Musculoskeletal: Yes back problems Cardio Cardiovascular: Yes atrial fibrillation and high blood pressure Psych Psychiatric: Yes anxiety Gastro Gastrointestinal: Yes diarrhea, Yes constipation, Yes blood in stool and Yes hemorrhoids Buck Hematologic: Yes blood thinners Additional Details: eliquis Exam Const General: cooperative, comfortable and no acute distress Resp Effort & Inspection: normal respiratory effort Cardio Rate: regular rate Rhythm: regular rhythm GI Other: Inspection of the perianal area reveals that the I&D site on the right appears to be completely healed. Directly right lateral there appears to be a small thrombosed internal hemorrhoid. He points to the left anterior area approximately 7:00. He is slightly tender there I cannot detect a bulge or mass or fluctuance. On digital exam he seems to have immediate tenderness and fullness anteriorly on the exam. He has exuberant hemorrhoids noted. Assessment and Plan Assessment and Plan (1) Perianal abscess: Status: Acute Plan: The patient's discomfort located 7 o'clock position left anterior is the opposite side from his recent I&D. It is not clear to me that he does not have a perirectal abscess. He had an abnormal digital exam anteriorly. He has exuberant hemorrhoids making the digital exam very difficult. I have asked him to stay NPO. I like to obtain a pelvic CT looking for a perirectal abscess. The patient is aware that if 1 is identified then I will recommend incision and drainage in an operating room setting. He has had an opportunity to ask and have questions answered. We will proceed on with urgent imaging. I appreciate the ongoing opportunity of assisting with the surgical care. Copy: Dr. Masoud Stone M.D., F.A.C.S. [facility]LY [facility] Medical History Alcohol use Anxiety Asthma Atrial fibrillation with RVR (06/04/21) COVID Dietary restriction Elevated LFTs Essential hypertension History of echocardiogram Lesion of buccal mucosa Malrotation colon Marijuana smoker Non-ischemic cardiomyopathy Perianal abscess Persistent atrial fibrillation with rapid ventricular response (06/04/21) Polycythemia Shock liver Sleep-disordered breathing Tobacco dependence due to chewing tobacco Tobacco dependence due to cigarettes Wears glasses Home Medications apixaban 5 mg tablet 5 mg PO BID #60 tabs 08/20/20 [Rx Last Taken 06/28/23] metoprolol succinate 25 mg tablet,extended release 24 hr 50 mg PO DAILY HTN 05/17/22 [History Last Taken 06/29/23] cephalexin 500 mg tablet 500 mg PO Q12H 06/29/23 [History Last Taken 06/28/23] ciprofloxacin HCl 500 mg tablet 500 mg PO BID #10 tabs 06/29/23 [Rx Last Taken Unknown] clindamycin HCl 300 mg capsule 300 mg PO Q8H 06/29/23 [History Last Taken 06/29/23] hydrocodone-acetaminophen 5-325mg 5mg-325mg 1 tab PO Q6H PRN pain 3 days #10 tabs 06/29/23 [Rx Last Taken Unknown] metronidazole 500 mg tablet 500 mg PO TID #15 tabs 06/29/23 [Rx Last Taken Unknown] Allergy/AdvReac Type Severity Reaction Status Date / Time Penicillins [cillins] Allergy hives and Verified 06/29/23 17:07 trouble breathing Family History Mother Cancer Hx Lung CA. Father Heart disease Surgical History History of cardioversion (06/05/21) History of left heart catheterization (07/23/19) History of radiofrequency ablation procedure for cardiac arrhythmia (06/11/21) Hx of abdominal surgery Social History household members: spouse Smoking Status: Former smoker quit date: 07/07/19 Smokeless tobacco user: chewing tobacco alcohol intake: current alcohol intake frequency: holidays/special occasions only substance use type: does not use caffeine: No ROS Constitutional Constitutional: Reports systems reviewed and no addt'l complaints, except as documented Cardiovascular Cardiovascular: Denies chest pain Respiratory/Chest Respiratory/Chest: Denies shortness of breath at rest Gastrointestinal Gastrointestinal: Denies abdominal pain, change in bowel habits, hematochezia or melena Vital Signs Vital Signs Vital Signs: 06/29/23 17:24 06/29/23 17:24 Temperature 98.7 F Temperature Source Temporal Pulse Rate 104 H Respiratory Rate 16 Respiratory Pattern Normal Blood Pressure 128/87 H Blood Pressure Mean 100 Blood Pressure Source Monitor Blood Pressure Position Semi-Fowlers Blood Pressure Location Left Arm Pulse Ox 96 Oxygen Delivery Method Room Air Weight Weight: 240 lb 4.862 oz Body Mass Index (BMI) 33.5 Physical Exam Const alert, oriented x3 and no apparent distress General Appearance: cooperative and comfortable Eyes General Eye: normal appearance of both eyes Neck General: normal visual inspection Chest inspection of chest normal Resp Effort and Inspection: able to speak in complete sentences and symmetric chest movement Auscultation: clear to auscultation bilaterally Cardio regular rate and regular rhythm GI soft to palpation, non-tender and non-distended GI Narrative: Patient points to an area of tenderness and induration left perianal 7 o'clock position. Extremity no calf tenderness Neuro oriented x3 Psych thought process normal Results Lab / Micro Data 06/29/23 17:10 06/29/23 17:10 Labs: Laboratory Results - last 24 hr 06/29/23 17:10: WBC 14.3 H, RBC 5.60, Hgb 16.9 H, Hct 49.6, MCV 88.6, MCH 30.2, MCHC 34.1, RDW Std Deviation 40.2, RDW Coeff of Carol Ann 12.3, Plt Count 281, MPV 9.3, Sodium 134 L, Potassium 3.9, Chloride 108 H, Carbon Dioxide 22.0, Anion Gap 4 L, BUN 11, Creatinine 0.78, Estim Creat Clear Calc 148.60, Est GFR (MDRD) Af Amer 138, Est GFR (MDRD) Non-Af 114, BUN/Creatinine Ratio 14.2, Glucose 112 H, Calcium 9.3 Assessment & Plan Assessment/Plan (1) Perianal abscess: PLAN: Patient CT scan is interpreted as a phlegmon in the left perianal area. The patient states that even since 2:00 when I saw him the pain is progressively increasing. I believe that the patient has a early left 7 o'clock position perianal abscess that I am recommending to him an incision and drainage of the area. He is aware of technique, benefit, risk, alternatives. His white count is slightly elevated. We are scheduled in the operating room and I will proceed as noted hopefully being able to get a good disruption of any loculations that may be present. He is aware that we will then use wicking to help further resolve his infection. I have already prescribed him metronidazole and ciprofloxacin for home use. Naveen Stone M.D., F.A.C.S.
--- NOTE | 2023-06-29 18:02 | DCINST_ITS ---
Discharge Instructions Procedure General Surgery Diet Discharge Diet: Light diet - advance as tolerated (if you have questions about your diet instructions, please talk to you doctor.) Activity Discharge Activity: May Not Drive (for 3-5 days or while taking narcotic pain medicine.) Return to work on:: 07/01/23 May shower in (days): 1 Lifting Restrictions: 10 pounds Dressing / Incision Additional Dressing/Incision Instructions:: You may shower or tub bathe as needed to cleanse the area Advance the wick daily until completely removed as discussed. You may use absorptive dressings to handle drainage. Pain medication and antibiotics have been prescribed. If you are not having any bleeding at the incision and drainage site you may restart your anticoagulants tomorrow. If you are concerned about bleeding then hold your anticoagulant for 1 additional day. Follow Up Care Please Follow Up With: Naveen Stone MD When: Call [phone] to make an appointment to be seen in about 5 days. ( Tuesday) Test Results: Test results from this visit will be discussed in further detail at your follow- up appointment, if applicable. Discharge Plan Admission Primary Reason for Your Visit: Left perianal abscess Attending Provider: Naveen Stone Primary Care Provider: Masoud Lundy Discharge Orders/Prescriptions Prescriptions: New metronidazole 500 mg tablet 500 mg PO TID Qty: 15 0RF ciprofloxacin HCl 500 mg tablet 500 mg PO BID Qty: 10 0RF hydrocodone-acetaminophen 5-325 mg tablet 1 tab PO Q6H PRN (Reason: pain) 3 Days Qty: 10 0RF Continued metoprolol succinate 25 mg tablet extended release 24 hr 50 mg PO DAILY clindamycin HCl 300 mg capsule 300 mg PO Q8H cephalexin 500 mg tablet 500 mg PO Q12H Patient Comments: take 1 tablet by mouth three times a day apixaban 5 mg tablet 5 mg PO BID Qty: 60 11RF Patient Comments: per pt, last dose will be 07/16/21 for procedure on 07/17/[address] Stone's instructions Referrals / Follow Up: Masoud Lundy MD [Primary Care Provider] - Disposition Disposition (needs filled in before D/C Order can be placed): Home, Self Care
[2023-06-29] MEDS: Ciprofloxacin 400 MG/200 ML BAG 200 MG IV (19:42)
[2023-06-29] MEDS: BUPIVACAINE LIPOSOME/PF 20 ML VIAL OPERA.SITE (19:53)
[2023-06-29] MEDS: Bupivacaine Mpf 0.5% 30 ML VIAL (19:53)
--- NOTE | 2023-06-29 20:02 | PCM.OPRPT ---
Report of Operation Date of Procedure: 06/29/23 Pre-Operative Diagnosis: Left perianal abscess Post-Operative Diagnosis: Horseshoe anterior perianal abscess Surgery/Procedure Performed:: Incision and drainage horseshoe anterior perianal abscess Description of Surgical Findings:: Timeout informed consent was obtained. 48-year-old gentleman taken the operating underwent general anesthesia with intubation ciprofloxacin and metronidazole were given intravenously therapeutically preoperatively he was intubated and placed prone position with careful shoulder and facial padding and the padding was performed. He was placed in a jackknife position. The perianal area was clipper and Betadine prep. Left anterior 7 o'clock position I used a finder needle 22-gauge and identified a cc of pus this was sent for aerobic and anaerobic culture and sensitivity. I used a 15 blade and made a curvilinear incision at that site rather deeply approximately 3 to centimeters deep entered a likely abscess pocket and upon palpation it became evident that this was a horseshoe anterior perianal abscess extending to the right. This would correlate with the patient's very recent history of an incision and drainage of right perianal abscess. That incision though most of been very small as it was completely healed. I made an additional counterincision right anterior and got clean access to that component of the horseshoe. Irrigated the abscess cavity placed 1/2 inch Zoila drain drainage between the 2 and secured at the skin with 3-0 nylon. Cover dressings were applied followed Pantene dressings. Sponge instrument and needle counts were reported to surgically correct. Blood loss 20 cc. He tolerated the procedure well. The ernesto-incisional perianal area was anesthetized with 20 cc of Exparel mixed with 30 cc of 0.5% Marcaine. Specimens none other than the cultures. Drains half-inch Zoila blood loss 20 cc Naveen Stone M.D., F.A.C.S. Surgeon: Naveen Stone Type of Anesthesia: General and Local Anesthesiologist: Chidi Martinez
[2023-06-29 20:15] VITALS: BP 128/87; BP 142/81; PULSE 98; RESP 18; TEMP 37.1; O2SAT 95
[2023-06-29 20:20] VITALS: BP 128/87; BP 144/85; PULSE 82; RESP 18; O2SAT 97
[2023-06-29 20:25] VITALS: BP 128/87; BP 139/89; PULSE 82; RESP 18; TEMP 37.5; O2SAT 98
[2023-06-29 21:05] VITALS: BP 122/82; BP 128/87; PULSE 84; RESP 18; O2SAT 97
[2023-06-29] MEDS: HYDROcodone Bitartrate/Apap 5/325 Tablet PO (21:44)
[2023-06-29 21:50] VITALS: BP 128/87
== END 2023-06-29 21:51 | disposition home or self-care (01) ==
PROVIDERS: PCP Family Medicine; Referring Provider Surgery; Visit Provider Surgery
PROC: (CPT 46040; principal; 2023-06-29 18:30)
DX: K61.0 Anal abscess (principal); I42.8 Other cardiomyopathies; I48.19 Other persistent atrial fibrillation; K61.31 Horseshoe abscess; I10 Essential (primary) hypertension; G47.33 Obstructive sleep apnea (adult) (pediatric); F12.90 Cannabis use, unspecified, uncomplicated; Z79.01 Long term (current) use of anticoagulants; Z79.899 Other long term (current) drug therapy; Z87.891 Personal history of nicotine dependence; Z86.16 Personal history of COVID-19
CPT/HCPCS: 46045; 80048; 85027; 87070; 87075; 87077; 87186; 87205; J7120; J0744; J2405

== ENCOUNTER → 2023-06-29 | Outpatient (CLI) | payer BC, SELFPAY ==
--- NOTE | 2023-06-29 14:12 | CT_ITS ---
STUDY: CT PELVIS WITHOUT CONTRAST REASON FOR EXAM: Male, 48 years old. Potential abscess -- Oral contrast only RADIATION DOSAGE (If Supplied By Facility): CTDIvol = ( 28.18 ) mGy, DLP = ( 1179.22 ) mGycm TECHNIQUE: Transaxial imaging of the pelvis was performed with oral contrast, and without intravenous administration of contrast material. Individualized dose optimization techniques were used for this CT. COMPARISON: Pelvic radiograph July 14, 2022. CT pelvis and abdomen May 18, 2022. FINDINGS: Normal urinary bladder. Oral contrast noted in the small large bowel. Left perianal soft tissue density measuring 3.9 x 1.6 cm in AP and transverse dimensions. It measures 30 Hounsfield units. Local subcutaneous induration. There is no pelvic fluid. There is no pelvic mass lesion or lymphadenopathy. Central cystic lesion noted within the prostate measuring 2.1 x 1.5 cm in AP and transverse dimensions. Normal visualized pelvic arteries. Normal abdominal wall. Normal osseous structures. CT/Pelvis without IV Contrast IMPRESSION: Probable small left perianal phlegmon. No organized abscess noted at this time Electronically Signed: Michael Orantes MD at 16:46 EST ,
--- OUTSIDE RECORDS SUMMARY | 2023-06-29 15:08 | XMS RPT_ITS | CCD ---
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 Masoud Hodge Primary Care Unavail able Kaitlin Peterson Attending Unavailable Kaitlin Peterson Referring Unavailable LASHAWN, OTTONIEL Attending Unavailable Kamron, Dr. Masoud Hodge Primary Care Unavail able Unavailable Unavailable Lashawn Ottoniel Attending Unavailable Lashawn, Ottoniel Referring Unavailable Kamron, Dr. Masoud Hodge Primary Care Unavail able Dr. Masoud Alberto Primary Care Unavail able Lashawn, Ottoniel Attending Unavailable Lashawn, Ottoniel Referring Unavailable Dr. Masoud Alberto Primary Care Unavail able Lashawn, Ottoniel Attending Unavailable Lashawn, Ottoniel Referring Unavailable Masoud Alberto MD Primary Care Provider MASOUD ALBERTO Primary Care Unavailable MIAH RUANO Attending Unavailable Allergies Allergy Classification Reported Allergen(s) Allergy Type Date of Onset Reaction(s) Facility (18 sources) Penicillins; Translations: [PENICILLINS] Propensity to adverse reactions to drug (disorder) 6 Anaphylaxis, Hives, Unknown [facility] Other [place] Repository (2 sources) OTHER; Translations: [OTHER] Propensity to adverse reactions (disorder) 6 [facility] Repository (2 sources) POISON MARCO; Translations: [POISON MARCO] Propensity to adverse reactions (disorder) [facility] POISON OAK; Translations: [POISON OAK] Propensity to adverse reactions (disorder) [facility] Amoxicillin Drug Allergy Unknown [facility] (1 source) Penicillin Drug Allergy Unknown [facility] Medications Current Medications Medication Drug Class(es) Dates Sig (Normalized) Sig (Original) acetaminophen 325 mg / HYDROcodone bitartrate 5 mg oral tablet (1 source) Opioid Agonist Start: 06-19-2023 End: 06-22-2023 take 1 tablet by mouth every six hours HYDROcodone-aceta minophen (Adams) 5-325 mg tablet Indications: pain Take 1 tablet by mouth every 6 hours for 3 days. 12 tablet 0 06/19/2023 06/22/2023 Active [id number] 200 actuat albuterol 0.09 mg/actuat metered dose inhaler (1 source) beta2-Adrenergic Agonist albuterol 90 mcg/inh inhalation aerosol ; 2 puff(s) inhaled 1 to 2 times a day Quantity: 0 Refills: 0 Ordered: 10-Jun-2021 Darron Shankar Generic Substitution Allowed amiodarone hydrochloride 200 mg oral tablet (9 sources) Antiarrhythmic Start: 06-12-2021 End: 03-08-2022 take 1 tablet by mouth once daily amiodarone 200 mg oral tablet ; 1 tab(s) orally once a day -.Meds to [facility] Quantity: 90 Refills: 2 Ordered: 12-Jun-2021 Fanny Young Start: 12-Jun-2021 End: 08-Mar-2022 Generic Substitution Allowed Comments: Avoid grapefruit and grapefruit juice while taking this medication.Avoid prolonged or excessive exposure to direct and/or artificial sunlight while taking this medication.Do not take this drug if you are .It is very important that you take or use this exactly as directed. Do not skip doses or discontinue unless directed by your doctor.May cause drowsiness or dizziness. Completed/Discontinued Medications Medication Drug Class(es) Dates Sig (Normalized) Sig (Original) empagliflozin 10 mg oral tablet (6 sources) Sodium-Glucose Cotransporter 2 Inhibitor Start: 12-30-2021 take 1 tablet by mouth once daily Jardiance 10 MG Oral Tablet TAKE 1 TABLET BY MOUTH ONCE DAILY Quantity: 90 Refills: 3 Ordered: 30-Dec-2021 Ottoniel Strickland MD Start : 30-Dec-2021 Active furosemide 40 mg oral tablet (14 sources) Loop Diuretic Start: 07-30-2022 take 1 tablet by mouth once daily Furosemide 40 MG Oral Tablet TAKE 1 TABLET BY MOUTH DAILY Quantity: 30 Refills: 0 Ordered: 30-Jul-2022 Ottoniel Strickland MD Start : 30-Jul-2022 Active Problems Active Problems Problem Classification Problem Date Documented Da te Episodic/Chronic Cardiac dysrhythmias (20 sources) Atrial fibrillation; Translations: [Chronic atrial fibrillation] Onset: 09-08-2021 06-06-2021 Chronic Past or Other Problems Problem Classification Problem Date Documented Da te Episodic/Chronic Unclassified (1 source) Unspecified intestinal obstruction, unspecified as to partial versus complete obstruction Onset: 08-09-2017 Results Test Name Value Interpretation Reference Range Facil ity Vital Signs Date Time Vital Sign Value Performing Clinician Facility 06-19-2023 10:51-0500 Body temperature 98.6 [degF] Miah Ruano MD Work Phone: [facility] 06-19-2023 10:51-0500 Diastolic blood pressure 92 mm[Hg] Miah Ruano MD Work Phone: [facility] 06-19-2023 10:51-0500 Heart rate 101 /min Miah Ruano MD Work Phone: [facility] 06-19-2023 10:51-0500 Respiratory rate 18 /min Miah Ruano MD Work Phone: [facility] 06-19-2023 10:51-0500 SaO2% (BldA) [Mass fraction] 97 % Miah Ruano MD Work Phone: [facility] 06-19-2023 10:51-0500 Systolic blood pressure 130 mm[Hg] Miah Ruano MD Work Phone: [facility] 01-20-2023 13:49-0400 Body height 180.34 cm Masoud Alberto Work Phone: NV-Hypewaopnz-Zgpdm [address] Work Phone: 01-20-2023 13:49-0400 Body mass index (BMI) [Ratio] 32.02 kg/m2 Masoud Mazariegoselsen Work Phone: QB-Jvobngtogn-Nvlxg nd [address] Work Phone: 01-20-2023 13:49-0400 Body surface area Derived from formula 2.24 m2 Masoud Alberto Work Phone: GY-Jdzchweftn-Auhga [address] Work Phone: 01-20-2023 13:49-0400 Body weight 104.13 kg Masoud Alberto Work Phone: RB-Ukobzynqge-Kscvg nd [address] Work Phone: 01-20-2023 13:49-0400 Diastolic blood pressure 82 mm[Hg] Masoud Alberto Work Phone: II-Nmvddxswue-Jrzjz nd [address] Work Phone: 01-20-2023 13:49-0400 Heart rate 105 /min Masoud Alberto Work Phone: OT-Ztrlgkmnwa-Xxxny [address] Work Phone: 01-20-2023 13:49-0400 SaO2% (BldA) [Mass fraction] 96 % Masoud Alberto Work Phone: IC-Xxrkfeniqa-Pfwer nd [address] Work Phone: 01-20-2023 13:49-0400 Systolic blood pressure 116 mm[Hg] Masoud Alberto Work Phone: WF-Irboqcoabn-Poycs [address] Work Phone: 07-02-2022 11:40-0500 Body height 180.34 cm Masoud Alberto Work Phone: FN-Phmxvaojit-Yqegf nd [address] Work Phone: 07-02-2022 11:40-0500 Body mass index (BMI) [Ratio] 33.79 kg/m2 Masoud Alberto Work Phone: PX-Fjorgbbroe-Igkvq nd [address] Work Phone: 07-02-2022 11:40-0500 Body surface area Derived from formula 2.29 m2 Masoud Alberto Work Phone: IY-Oexxpzvzcf-Ygcoj nd [address] Work Phone: 07-02-2022 11:40-0500 Body weight 109.88 kg Masoud Alberto Work Phone: KD-Ilirvkrqdv-Ayhqj nd [address] Work Phone: 07-02-2022 11:40-0500 Diastolic blood pressure 90 mm[Hg] Masoud Alberto Work Phone: IH-Aqptlhxaop-Dfetz [address] Work Phone: 07-02-2022 11:40-0500 Heart rate 103 /min Masoud Alberto Work Phone: RF-Vhnrpypycu-Uvmox nd [address] Work Phone: 07-02-2022 11:40-0500 SaO2% (BldA) [Mass fraction] 96 % Masoud Alberto Work Phone: PV-Ynimqkidwe-Pemrc nd [address] Work Phone: 07-02-2022 11:40-0500 Systolic blood pressure 118 mm[Hg] Masoud Alberto Work Phone: BY-Tnseanisph-Isfzw nd [address] Work Phone: 12-30-2021 11:45-0400 Body height 180.34 cm Masoud Alberto Work Phone: BB-Gcfzjleuut-Wxrgc [address] Work Phone: 12-30-2021 11:45-0400 Body mass index (BMI) [Ratio] 32.76 kg/m2 Masoud Alberto Work Phone: IX-Fjeiwimbnk-Wugui [address] Work Phone: 12-30-2021 11:45-0400 Body surface area Derived from formula 2.26 m2 Masoud Alberto Work Phone: QJ-Kknofbckoc-Sgiwh nd [address] Work Phone: 12-30-2021 11:45-0400 Body weight 106.55 kg Masoud Alberto Work Phone: XE-Zbsxertkck-Dgsjb nd [address] Work Phone: 12-30-2021 11:45-0400 Diastolic blood pressure 90 mm[Hg] Masoud Alberto Work Phone: IE-Iurstqmfbg-Ezmux nd [address] Work Phone: 12-30-2021 11:45-0400 Heart rate 101 /min Masoud Alberto Work Phone: NK-Hucesoobuo-Athtj nd [address] Work Phone: 12-30-2021 11:45-0400 SaO2% (BldA) [Mass fraction] 97 % Masoud Alberto Work Phone: TL-Rmhwfdwiup-Dsfti [address] Work Phone: 12-30-2021 11:45-0400 Systolic blood pressure 132 mm[Hg] Masoud Alberto Work Phone: LY-Llhbtehuzi-Iaimh nd [address] Work Phone: 09-10-2021 10:29-0400 Body height 180.34 cm Masoud Alberto Work Phone: OF-Tmespeidlg-Jnyen nd [address] Work Phone: 09-10-2021 10:29-0400 Body mass index (BMI) [Ratio] 33.47 kg/m2 Masoud Alberto Work Phone: WG-Qkcbiddmdn-Oykif [address] Work Phone: 09-10-2021 10:29-0400 Body surface area Derived from formula 2.28 m2 Masoud Alberto Work Phone: FR-Fsuwishldx-Mmubs [address] Work Phone: 09-10-2021 10:29-0400 Body weight 108.86 kg Masoud Alberto Work Phone: UB-Tdcscjaczw-Sofey nd [address] Work Phone: 09-10-2021 10:29-0400 Diastolic blood pressure 82 mm[Hg] Masoud Alberto Work Phone: YE-Vbuvebgczh-Bbjjq nd [address] Work Phone: 09-10-2021 10:29-0400 Heart rate 68 /min Masoud Alberto Work Phone: QQ-Zrjsrhpunx-Rdemg nd [address] Work Phone: 09-10-2021 10:29-0400 SaO2% (BldA) [Mass fraction] 95 % Masoud Alberto Work Phone: LE-Bfudcyomip-Wubbw [address] Work Phone: 09-10-2021 10:29-0400 Systolic blood pressure 128 mm[Hg] Masoud Alberto Work Phone: RO-Xtnnizkmkg-Zcrrw nd [address] Work Phone: 07-28-2021 14:13-0500 Diastolic blood pressure 82 mm[Hg] Referring Provider Unknown XJ-Xxhsxikhjv-QTV [facility] [address] [place] Work Phone: 07-28-2021 14:13-0500 Heart rate 99 /min Referring Provider Unknown NK-Tvzwfipvzq-ABW [facility] [address] [place] Work Phone: 07-28-2021 14:13-0500 Systolic blood pressure 136 mm[Hg] Referring Provider Unknown RC-Izlkbxkodg-DUS [facility] [address] [place] Work Phone: 07-28-2021 13:17-0500 Body height 180.34 cm Referring Provider Unknown ER-Gpntrwlecp-UPP [facility] [address] [place] Work Phone: 07-28-2021 13:17-0500 Body mass index (BMI) [Ratio] 32.78 kg/m2 Referring Provider Unknown YB-Ycydfognbf-RFT [facility] [address] [place] Work Phone: 07-28-2021 13:17-0500 Body surface area Derived from formula 2.26 m2 Referring Provider Unknown YA-Rypnogrzaq-CIR [facility] [address] [place] Work Phone: 07-28-2021 13:17-0500 Body weight 106.6 kg Referring Provider Unknown HO-Aikcuqhqng-MSM [facility] [address] [place] Work Phone: 07-28-2021 13:17-0500 Diastolic blood pressure 93 mm[Hg] Referring Provider Unknown WT-Kajdxfhxur-HDS [facility] [address] [place] Work Phone: 07-28-2021 13:17-0500 Heart rate 108 /min Referring Provider Unknown VL-Kcrhiimcoj-UJZ [facility] [address] [place] Work Phone: 07-28-2021 13:17-0500 SaO2% (BldA) [Mass fraction] 96 % Referring Provider Unknown CI-Klfhpqkloa-JQY [facility] [address] [place] Work Phone: 07-28-2021 13:17-0500 Systolic blood pressure 148 mm[Hg] Referring Provider Unknown JM-Duppwydtgu-ONZ [facility] [address] [place] Work Phone: 06-12-2021 11:15-0500 Body temperature 97.16 [degF] Pcp Unknown [facility] 06-12-2021 11:15-0500 Diastolic blood pressure 87 mm[Hg] Pcp Unknown [facility] 06-12-2021 11:15-0500 Heart rate 91 /min Pcp Unknown [facility] 06-12-2021 11:15-0500 Respiratory rate 18 /min Pcp Unknown [facility] 06-12-2021 11:15-0500 SaO2% (BldA) [Mass fraction] 97 % Pcp Unknown [facility] 06-12-2021 11:15-0500 Systolic blood pressure 128 mm[Hg] Pcp Unknown [facility] Encounters Encounter Date Encounter Type Care Provider Facility Start: 06-19-2023 End: 06-19-2023 Emergency department patient visit MASOUD ALBERTO [facility] Start: 06-19-2023 End: 06-19-2023 Emergency department patient visit Miah Ruano MD Work Phone: [facility] Emergency Medicine Procedures Date Procedure Procedure Detail Performing Clinician Start: 06-19-2023 VITAL SIGNS MASOUD VERDUZCO Start: 09-08-2021 Echocardiography Masoud Alberto Work Phone: Destructive procedure Masoud Alberto Work Phone: Plan of Treatment Date Care Activity Detail Author Start: 2027 Zoster Vaccines (1 of 2) Zoster Vaccines (1 of 2) [facility] Start: 08-18-2023 End: 08-18-2023 Patient encounter procedure 08/18/2023 1:45 PM EDT Office Visit [facility] Building [facility] [address] [place] [id number] Ottoniel Strickland MD [address] [place], [place] [address] [facility], [place] [address] [facility] Start: 07-21-2023 FUV, Provider: Ottoniel Strickland, Status: Pen, Time: 1:45 PM FUV, Provider: Ottoniel Strickland, Status: Pen, Time: 1:45 PM RX-Lqueqtrqba-Hmusfc d [address] [place] [address] Work Phone: Start: 03-05-2023 Creatinine measurement Creatinine Level [facility] Start: 03-05-2023 Potassium measurement Potassium Level [facility] Start: 02-04-2023 Influenza vaccination Influenza Vaccine (#1) [facility] Start: 01-07-2023 FUV, Provider: Ottoniel Strickland, Status: Pen, Time: 11:30 AM FUV, Provider: Ottoniel Strickland, Status: Pen, Time: 11:30 AM PD-Nteiznsqvp-Yusfjh d [address] Work Phone: Start: 09-08-2022 Echocardiography Echocardiogram [facility] Start: 07-02-2022 FUV, Provider: Ottoniel Strickland, Status: Pen, Time: 11:45 AM FUV, Provider: Ottoniel Strickland, Status: Pen, Time: 11:45 AM GH-Derrhguimm-Lzmasd d [address] Work Phone: Start: 12-17-2021 FUV, Provider: Ottoniel Strickland, Status: Pen, Time: 9:30 AM FUV, Provider: Ottoniel Strickland, Status: Pen, Time: 9:30 AM CZ-Zgnpkbypfd-Sxaggn d [address] Work Phone: Start: 10-06-2021 FUV, Provider: Kaitlin Peterson, Status: Pen, Time: 1:30 PM FUV, Provider: Kaitlin Petesron, Status: Pen, Time: 1:30 PM JL-Sowzqwsijf-GVT [facility] [address] [place] Work Phone: Start: 09-10-2021 NPV, Provider: Ottoniel Strickland, Status: Pen, Time: 10:30 AM NPV, Provider: Ottoniel Strickland, Status: Pen, Time: 10:30 AM [facility] Work Phone: Start: 09-08-2021 ECHO, Provider: JHONATAN RIZZOI ECHO 1,SMCECHO1, Status: Pen, Time: 1:00 PM ECHO, Provider: JHONATAN RIZZOI ECHO 1,SMCECHO1, Status: Pen, Time: 1:00 PM CA-Bbgrvbqdwk-MVS [facility] [address] [place] Work Phone: Start: 07-28-2021 Patient encounter procedure [facility] Start: 07-23-2021 DTaP/Tdap/Td Vaccines (2 - Td or Tdap) DTaP/Tdap/Td Vaccines (2 - Td or Tdap) [facility] Start: 06-16-2021 End: 06-17-2022 Amiodarone 200 mg Oral Tablet Every 24 Hours ; Tablet (CORDARONE; PACERONE)DOSE = 200 mg Oral Every 24 Hours Start: 16-Jun-2021 End: 16-Jun-2022 Ordered: 12-Jun-2021 Fanny Young [facility] Start: 06-12-2021 End: 06-13-2022 [facility] Start: 06-10-2021 Heart failure Heart failure Date: 10-Jun-2021 [facility] Start: 1995 Diabetes mellitus screening Diabetes Screening [facility] Start: 1983 Pneumococcal Vaccine: Pediatrics (0 to 5 Years) and At-Risk Patients (6 to 64 Years) (1 - PCV) Pneumococcal Vaccine: Pediatrics (0 to 5 Years) and At-Risk Patients (6 to 64 Years) (1 - PCV) [facility] Start: 1978 MMR Vaccines (1 of 1 - Standard series) MMR Vaccines (1 of 1 - Standard series) [facility] Start: 1977 COVID-19 Vaccine (#1) COVID-19 Vaccine (#1) [facility] Start: 1977 Hepatitis B Vaccines (1 of 3 - 3-dose series) Hepatitis B Vaccines (1 of 3 - 3-dose series) [facility] Start: 1977 HIV screening HIV Screening [facility] Start: 1977 Lipid panel Lipid Panel [facility] Start: 1977 Screening for malignant neoplasm of colon [facility] Start: 1977 Yearly Adult Physical Yearly Adult Physical [facility] Payers Date Payer Category Payer Unknown 2021 Unknown [id number] 1977 Unknown [id number] 1977 Unknown [id number] 1977 Unknown [id number] [id number]. [id number] 1977 Unknown [id number] [id number]. [id number] 1977 Unknown [id number] 2.16. [id number] 1977 Unknown [id number] Social History Date Type Detail Facility [facility] Tobacco smoking consumption unknown [facility] Consumes alcohol occasionally Consumes alcohol occasionally FE-Wlegpvpzvj-Gvnvwwc [address] Work Phone: Start: 1975 Sex Assigned At Not on file [facility] Work Phone: Gender identity Not on file [facility] ospitals [facility] Work Phone: Start: 06-09-2023 End: 06-19-2023 Exposure to SARS-CoV-2 (event) Not sure [facility] Work Phone: Functional Status Date Assessment Result Facility Functional observable [facility] Mental Status Date Assessment Result Facility 06-12-2021 Cognitive functions 12-Jun-19 228:26 [facility] Clinical Notes 11-23-2020 to 06-10-2021 <item> Note Date & Type Note Facility 06-10-2021 History of Present illness Narrative 46 year old male with a history of Afib x 3 years (on Eliquis), HTN, diastolic heart failure, recent COVID infection, and omphalocele presents today for hospital follow up post RFA. Social history includes previous ETOH abuse and body building with use of testosterone/steroids.Patient was admitted to [facility] as a transfer on 06/10/2021 from OSH ([facility]) for A.fib with RVR, failed multiple cardioversions. When he arrived, his heart rate was still in the 160s. Patient was started on amiodarone infusion and metoprolol. He then received digoxin 0.5mg IV then 0.25mg x2. He unfortunately experienced shock liver from prolonged episodes of hypotensionHe underwent PVI on 06/11/[address] Garvin and has been in sinus rhythm since. He was started on amiodarone. He also underwent IV diuresis. He was discharge on 06/12/2021 on Eliquis, Amiodarone, Entresto, metoprolol succinate, Atorvastatin, pantoprazole, and FurosemideEcho 06/10/2021 EF 15-20%, thought to be tachy mediated, previous EF 05/2020 was 40%He did have a recent colonoscopy 07/17/2021 due to a perianal abscess. He stopped his Eliquis for 2 days prior.ECG 06/10/2021 Afib HR 130 bpm, QRS 94 ms QTc 488 msECG 07/28/2021 NSR HR 99 bpm, QRS 86 ms QTc 482 msTODAY Patient is feeling great. His previous Afib symptoms included SOB, LE edema, inability to sleep, and overall fatigue. He has had no SOB since the ablation. The edema has also resolved and he is amazed at how defined his legs are now. He is finally sleeping through the night, but his says he still snores. 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 He is amazed at the increase in his energy. He denies any chest pain, SOB, HUITRON, dizziness, diaphoresis, lower extremity edema, orthopnea, and syncope. He has noticed that his resting heart rate is a little higher than before, but denies any symptoms with it. At rest he is in the 80s, sometimes when he is working at the computer it can get into the low 100s, but usually he is stressed at the time. The patient's is concerned about his anxiety. SH-Mqxzmpaqvt-CGP [facility] [address] [place] Work Phone: 06-10-2021 History of Present illness Narrative 46 year old male with a history of Afib x 3 years (on Eliquis), HTN, diastolic heart failure, recent COVID infection, and omphalocele presents today for hospital follow up post RFA. Social history includes previous ETOH abuse and body building with use of testosterone/steroids.Patient was admitted to [facility] as a transfer on 06/10/2021 from OSH ([facility]) for A.fib with RVR, failed multiple cardioversions. When he arrived, his heart rate was still in the 160s. Patient was started on amiodarone infusion and metoprolol. He then received digoxin 0.5mg IV then 0.25mg x2. He unfortunately experienced shock liver from prolonged episodes of hypotensionHe underwent PVI on 06/11/[address] Garvin and has been in sinus rhythm since. He was started on amiodarone. He also underwent IV diuresis. He was discharge on 06/12/2021 on Eliquis, Amiodarone, Entresto, metoprolol succinate, Atorvastatin, pantoprazole, and FurosemideEcho 06/10/2021 EF 15-20%, thought to be tachy mediated, previous EF 05/2020 was 40%He did have a recent colonoscopy 07/17/2021 due to a perianal abscess. He stopped his Eliquis for 2 days prior.ECG 06/10/2021 Afib HR 130 bpm, QRS 94 ms QTc 488 msECG 07/28/2021 NSR HR 99 bpm, QRS 86 ms QTc 482 msTODAY Patient is feeling great. His previous Afib symptoms included SOB, LE edema, inability to sleep, and overall fatigue. He has had no SOB since the ablation. The edema has also resolved and he is amazed at how defined his legs are now. He is finally sleeping through the night, but his says he still snores. 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 He is amazed at the increase in his energy. He denies any chest pain, SOB, HUITRON, dizziness, diaphoresis, lower extremity edema, orthopnea, and syncope. He has noticed that his resting heart rate is a little higher than before, but denies any symptoms with it. At rest he is in the 80s, sometimes when he is working at the computer it can get into the low 100s, but usually he is stressed at the time. The patient's is concerned about his anxiety. [facility] Work Phone: 06-10-2021 History of Present illness Narrative 46-year-old gentleman with a medical history of atrial fibrillation (3 years in duration), hypertension, recent Covid infection, here to establish care.Patient was initially admitted at [facility] 06/10/2021 with atrial fibrillation and rapid ventricular rates after failing multiple cardioversions. He was started on amiodarone; underwent PVI 06/11/2021 and has been in sinus rhythm since.Echocardiogram performed 06/10/2021 the EF was noted to be 15-20% presumably tachycardia mediated.Problem #1 paroxysmal atrial fibrillation-Status post PVI 06/11/2021-Current medications include amiodarone 200 mg daily, Eliquis 5 mg twice daily, Toprol 25 mg dailyProblem #2 ACC/AHA stage C HFrEF-Last echocardiogram performed 09/2021 shows EF 40-45%-Current GDMT includes Entresto 24-26 mg twice daily, Toprol 25 mg dailyCurrently feels great. Denies any chest discomfort or shortness of breath. Denies any orthopnea/PND/lower extremity edema. No bleeding complications from his Eliquis.He has no significant interval events.Symptoms: The patient is currently asymptomatic.Medications: The patient is not on currently any medications for his heart failure. MS-Bjwmythpof-Oacw[facility]y [employer] Work Phone: 06-10-2021 History of Present illness Narrative 46-year-old gentleman with a medical history of atrial fibrillation (3 years in duration), hypertension, recent Covid infection, here to establish care.Patient was initially admitted at [facility] 06/10/2021 with atrial fibrillation and rapid ventricular rates after failing multiple cardioversions. He was started on amiodarone; underwent PVI 06/11/2021 and has been in sinus rhythm since.Echocardiogram performed 06/10/2021 the EF was noted to be 15-20% presumably tachycardia mediated.Problem #1 paroxysmal atrial fibrillation-Status post PVI 06/11/2021-Current medications include amiodarone 200 mg daily, Eliquis 5 mg twice daily, Toprol 25 mg dailyProblem #2 ACC/AHA stage C HFrEF-Last echocardiogram performed 09/2021 shows EF 40-45%-Current GDMT includes Entresto 24-26 mg twice daily, Toprol 25 mg dailyCurrently feels great. Denies any chest discomfort or shortness of breath. Denies any orthopnea/PND/lower extremity edema. No bleeding complications from his Eliquis.He has no significant interval events.Symptoms: The patient is currently asymptomatic.Medications: The patient is not on currently any medications for his heart failure. [employer] Work Phone: 06-10-2021 History of Present illness Narrative 46-year-old gentleman with a medical history of atrial fibrillation (3 years in duration), hypertension, recent Covid infection, here to establish care.Patient was initially admitted at [facility] 06/10/2021 with atrial fibrillation and rapid ventricular rates after failing multiple cardioversions. He was started on amiodarone; underwent PVI 06/11/2021 and has been in sinus rhythm since.Echocardiogram performed 06/10/2021 the EF was noted to be 15-20% presumably tachycardia mediated.Problem #1 paroxysmal atrial fibrillation-Status post PVI 06/11/2021-Currently in sinus rhythm. Taking Toprol 25 mg daily, Eliquis 5 mg twice dailyProblem #2 ACC/AHA stage C HFrEF-Last echocardiogram performed 09/2021 shows EF 40-45%-Current GDMT includes Entresto 49-51 mg twice daily , Toprol 25 mg dailyCurrently feels great. Denies any chest discomfort or shortness of breath. Denies any orthopnea/PND/lower extremity edema. No bleeding complications from his Eliquis. [facility] [address] [place] Work Phone: 06-10-2021 History of Present illness Narrative 47-year-old gentleman with a medical history of atrial fibrillation (3 years in duration), hypertension, recent Covid infection, here to establish care.Patient was initially admitted at [facility] [place] 06/10/2021 with atrial fibrillation and rapid ventricular rates after failing multiple cardioversions. He was started on amiodarone; underwent PVI 06/11/2021 and has been in sinus rhythm since.Echocardiogram performed 06/10/2021 the EF was noted to be 15-20% presumably tachycardia mediated.Problem #1 paroxysmal atrial fibrillation-Status post PVI 06/11/2021-Currently in sinus rhythm. Taking Toprol 25 mg daily, Eliquis 5 mg twice dailyProblem #2 ACC/AHA stage C HFrEF-Last echocardiogram performed 09/2021 shows EF 40-45%-Current GDMT includes full dose Entresto, Jardiance 10 mg, Toprol 25 mg dailyCurrently feels great. Denies any chest discomfort or shortness of breath. Denies any orthopnea/PND/lower extremity edema. No bleeding complications from his Eliquis. Recently had a fall resulting in a fractured pelvis. Has been recovering well [facility] [employer] Work Phone: 06-10-2021 History of Present illness Narrative 47-year-old gentleman with a medical history of atrial fibrillation (3 years in duration), hypertension, recent Covid infection, here to establish care.Patient was initially admitted at [facility] [place] 06/10/2021 with atrial fibrillation and rapid ventricular rates after failing multiple cardioversions. He was started on amiodarone; underwent PVI 06/11/2021 and has been in sinus rhythm since.Echocardiogram performed 06/10/2021 the EF was noted to be 15-20% presumably tachycardia mediated.Problem #1 paroxysmal atrial fibrillation-Status post PVI 06/11/2021-Currently in sinus rhythm. Taking Toprol 25 mg daily, Eliquis 5 mg twice dailyProblem #2 ACC/AHA stage C HFrEF-Last echocardiogram performed 09/2021 shows EF 40-45%-Current GDMT includes full dose Entresto, Jardiance 10 mg, Toprol 25 mg daily, Aldactone 12.5 mg dailyCurrently feels great. Denies any chest discomfort or shortness of breath. Denies any orthopnea/PND/lower extremity edema. No bleeding complications from his Eliquis. [facility] [employer] Work Phone: 11-23-2020 Note HNO ID: [id number] Author: Ricardo Harris APRN.[employer] Service: ? Author Type: Nurse Practitioner Type: Progress Notes Filed: 11/23/2020 10:55 AM Note Text: Subjective HPI HPI Rhys Gudino is a 45 year old male who presents today for CC of fever, cough, st, nasal congestion. This started 5 days ago. Has tried otc medication for relief. Symptoms are worsened by nothing. Had covid 6 months ago. Patient has been taking pseudophed regularly, has hx of afib, states knows hr has been elevated lately. Denies cp, sob. Chronic taste/smell changes after last covid infection. .Patient presents with: Sore Throat: x 5 days PAST MEDICAL HISTORY Diagnosis Date - Allergic rhinitis due to other allergen - SBO (small bowel obstruction) ([facility]) 08/10/2017 - Unspecified asthma, with status asthmaticus PAST SURGICAL HISTORY Procedure Laterality Date - VASECTOMY 07/09/11 ALLERGIES Environmental [Other], Penicillins, Poison Marco, and Poison Rye -This section reviewed with patient, no changes MEDICATIONS fexofenadine-pseudoephedrine (SULMA-D) 60-120 mg ORAL per tablet Take 1 tablet by mouth twice daily as needed. No family history on file. Social History Tobacco Use - Smoking status: Never Smoker - Smokeless tobacco: Never Used - Tobacco comment: No one in the household smokes' Substance Use Topics - Alcohol use: Yes Comment: occasional - Drug use: No ROS Objective Blood pressure 120/80, pulse 114, temperature 36.8 ?C (98.2 ?F), resp. rate 16, weight 109.3 kg (241 lb), SpO2 97 %. Physical Exam Constitutional: General: He is not in acute distress. Appearance: He is not toxic-appearing or diaphoretic. HENT: Head: Normocephalic and atraumatic. Right Ear: Hearing, tympanic membrane, ear canal and external ear normal. Left Ear: Hearing, tympanic membrane, ear canal and external ear normal. Nose: Right Sinus: Frontal sinus tenderness present. Left Sinus: Frontal sinus tenderness present. Mouth/Throat: Pharynx: Uvula midline. Posterior oropharyngeal erythema present. No pharyngeal swelling, oropharyngeal exudate or uvula swelling. Tonsils: Tonsillar exudate present. No tonsillar abscesses. 1+ on the right. 1+ on the left. Eyes: General: Lids are normal. No scleral icterus. Right eye: No discharge. Left eye: No discharge. Conjunctiva/sclera: Conjunctivae normal. Pupils: Pupils are equal, round, and reactive to light. Neck: Trachea: Trachea normal. Cardiovascular: Rate and Rhythm: Normal rate and regular rhythm. Heart sounds: Normal heart sounds. Pulmonary: Effort: Pulmonary effort is normal. Breath sounds: Normal breath sounds. Musculoskeletal: Cervical back: Normal range of motion and neck supple. Lymphadenopathy: Cervical: No cervical adenopathy. Skin: Findings: No rash. Neurological: Mental Status: He is alert and oriented to person, place, and time. ASSESSMENT/PLAN: 1. URI, acute - ICD9: 465.9, ICD10: J06.9 (primary diagnosis) - Discussed viral etiology and rationale for treatment. - Alere Strep Test negative, no culture pending - Symptomatic treatment with prn analgesia - Supportive care with fluids and rest - Follow up in 3-5 days if symptoms persist or sooner if worsening of symptoms Discussed quarantine, social distancing otc medications discussed Push fluids -If you experience chest pain/shortness of breath go to ER - 2019 CORONAVIRUS 2. Sore throat - ICD9: 462, ICD10: J02.9 - suspect viral - Alere Strep Test negative, no culture pending - Discussed supportive care treatment with fluids, rest and analgesia. - The patient should follow up in 3-5 days if symptoms persist or worsen - Call back if drooling, increased temperature, symptoms of dehydration and/or still sick in one week - STREP A MOLECULAR (POC) - 2019 CORONAVIRUS 3. Sinus pressure - ICD9: 478.19, ICD10: J34.89 Hold antibiotic rx for 3-4 days if s/s not resolving/worsening fill and take. - Supportive care with plenty of fluids, rest, and analgesia prn. - Follow up in 3-5 days if symptoms persist or worsen. - DOXYCYCLINE MONOHYDRATE 100 MG TABLET - 2019 CORONAVIRUS Agrees to plan Ricardo Hraris APRN.[facility] Evaluation note Psychological: Appro priate mood and behaviorNeurological: Awake/alert/oriented x3. No focal neurological deficits noted on examExtremities: normal extremities, no cyanosis edema. Groin sites looks clean without any hematoma or active bleedingCardiovascular: Regular, rate and rhythm, no murmurs, 2+ equal pulses of the extremities, normal S 1and S 2Respiratory/Thorax: Patent airways, CTAB, normal breath sounds with good chest expansion, thorax symmetricHead/Neck: Neck supple, No JVDSkin: Warm and dry, no lesions, no rashesConstitutional: Well developed, no distress, alert and cooperative [facility] documented in this encounter [facility] Work Phone: Hospital Discharge instructions* Activity:activity as tolerated. May shower. May return to school/work Instructions:. May not drive for 2 day(s). * Additional Orders:Additional Instructions: Dear Mr. Gudino, You were hospitalized at [facility] for atrial fibrillation and underwent an ablation, which converted the atrial fibrillation into a regular heart rhythm. Please take amiodarone 400 mg two times daily (morning and evening) until . On 06/16 please start taking amiodarone 200 mg daily. You will have follow-up appointments schedule with cardiology and EP. It was a pleasure taking care of you!* You will need to continue blood thinner (Eliquis) until instructed otherwise. It is important not to interrupt blood thinner for any reason (other than an emergency) during the 1st month after ablation.* You will be on Pantoprazole (a heartburn medicine) for 4 weeks to protect the esophagus as it can become irritated with ablation. It is very important that you take this medication.* All other medications will generally remain the same unless you are told otherwise. Resume taking your home medications today as listed on the discharge instructions.* In the first week post-ablation you should take it easy. No heavy lifting or heavy exercise, no treadmill. You can use the stairs if needed but go slowly and minimize the numberof times up and down.* Some minor bruising is common at each groin access site with minor soreness as if you had banged the area. Bruising may occasionally be seen to extend down the leg. This is normal as is an occasional small quarter sized bump in the area. If larger swelling or more significantpain occurs at the area, please contact the office or go the nearest Emergency Room.* You may have some minor chest pain for the next week or so. The pain will often worsen with a deep breath and be better when leaning forward. This is pericardial chest pain from the ablation and is generally not of concern. It should resolve within a week although it might increase for a day or so after the ablation.* If you develop unexplained fevers exceeding 100 degrees anytime within the first 3 weeks post-ablation, you need to contact the office. Low grade fevers of around 99 degrees are common in the first day or so post- ablation.* Atrial fibrillation (AFib) can recur in all patients who undergo thisablation for up to 4-8 weeks post-ablation. The ablation itself can cause inflammation (pericarditis) in the atria and this can cause AFib. Some patients will actually experience an increased amount of atrial arrhythmia early after ablation. Approximately 1/3 of patients will have this early recurrence of AFib. Medications should be continued and your heart rate controlled. 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 * Call Provider If:Breathing faster than normal. Breathing harder than normal or having retractions. Temperature is greater than 102 degrees. Any new concerning symptoms. Passing out. * Follow Up Appointment 1:Physician/Dept/Service: Kaitlin Peterson CNP ( Electrophysiology)Reason forReferral: 6 week ablation follow upScheduled Date/Time: 28-Jul-2021 13:00Location: [facility] [address] - [address], [place], [place], [address]Dbghd Number: Schedulers: [phone] * Follow Up Appointment 2:Physician/Dept/Service: CardiologyReason for Referral: Heart failure managementLocation: [place] Number: Schedulers: [phone]: You should receive a call in the next few days to schedule an appointment. If you do not receive a call in the next week, please call the scheduling number to schedule at appointment in the next 2 weeks. [facility] Summary Purpose Family History No Family History Records FoundUnknown Family Member Name Dates Details Family history of lung cance r: Mother(V16.1, Z80.1) Status:Active Family history of suicide: F ather(V17.0, Z81.8) Status:Active Unknown Family Member Name Dates Details Family history of lung cance r: Mother(V16.1, Z80.1) Status:Active Family history of suicide: F ather(V17.0, Z81.8) Status:Active Unknown Family Member Name Dates Details Family history of lung cance r: Mother(V16.1, Z80.1) Status:Active Family history of suicide: F ather(V17.0, Z81.8) Status:Active Unknown Family Member Name Dates Details Family history of lung cance r: Mother(V16.1, Z80.1) Status:Active Family history of suicide: F ather(V17.0, Z81.8) Status:Active Unknown Family Member Name Dates Details Family history of lung cance r: Mother(V16.1, Z80.1) Status:Active Family history of suicide: F ather(V17.0, Z81.8) Status:Active Unknown Family Member Name Dates Details Family history of lung cance r: Mother(V16.1, Z80.1) Status:Active Family history of suicide: F ather(V17.0, Z81.8) Status:Active Unknown Family Member Name Dates Details Family history of lung cance r: Mother(V16.1, Z80.1) Status:Active Family history of suicide: F ather(V17.0, Z81.8) Status:Active Unknown Family Member Name Dates Details Family history of lung cance r: Mother(V16.1, Z80.1) Status:Active Family history of suicide: F ather(V17.0, Z81.8) Status:Active Unknown Family Member Name Dates Details Family history of suicide: F ather(V17.0, Z81.8) Status:Active Family history of lung cance r: Mother(V16.1, Z80.1) Status:Active Unknown Family Member Name Dates Details Family history of lung cance r: Mother(V16.1, Z80.1) Status:Active Family history of suicide: F ather(V17.0, Z81.8) Status:Active Advance Directives No Advanced Directives Records FoundNo Advanced Directives Records FoundNo Advanced Directives Records FoundNo Advanced Directives Records FoundNo Advanced Directives Records FoundNo Advanced Directives Records FoundNo Advanced Directives Records Found Chief Complaint RADHASHIRA GUDINO is being seen for a 6 week follow-up of atrial fibrillation, cardiomyopathy, heart failure and s/p PVI 06/11/[address] Garvin.RHYS GUDINO is being seen for a 6 week follow-up of atrial fibrillation, cardiomyopathy, heart failure and s/p PVI 06/11/[address] Garvin.Heart failure with reduced ejection fractionHeart failure with reduced ejection fractionHFrEFFailure with reduced ejection fractionHFrEF Reason for Referral Specialty Diagnoses / Procedures Referred By Alejandro triplett Referred To Contact Diagnoses Abscess Rosalind Gaines, [employer]IPPER SETTER [employer] [address] [address] Referral ID Status Reason Start Date Expiration Date V isits Requested Visits Authorized [id number] Pending Review 1 1 Referral ID Status Reason Start Date Expiration Date V isits Requested Visits Authorized [id number] Pending Review 1 1 Specialty Diagnoses / Procedures Referred By Alejandro t Referred To Contact General Surgery Rosalind Gaines, ZIPPER SETTER [employer] [address] [place] [address] Referral ID Status Reason Start Date Expiration Date Visits Requested Visits Authorized [id number] Authorized Specialty Services Required 06/19/2023 06/18/2024 1 1 Additional Source Comments (unrecognized sect ion and content) No Status Records FoundNo Status Records FoundNo Status Records FoundNo Status Records FoundNo Status Records FoundNo Status Records FoundNo Status Records Found INFORMATION SOURCE (unrecogn ized section and content) DATE CREATED AUTHOR AUTHOR'S ORGANIZ ATION 11/25/2017 [facility] DATE CREATED AUTHOR AUTHOR'S ORGANIZ ATION 07/08/2021 [facility] DATE CREATED AUTHOR AUTHOR'S ORGANIZ ATION 03/09/2022 [facility] DATE CREATED AUTHOR AUTHOR'S ORGANIZ ATION 01/21/2023 [facility] DATE CREATED AUTHOR AUTHOR'S ORGANIZ ATION 01/21/2023 [employer] DATE CREATED AUTHOR AUTHOR'S ORGANIZ ATION 06/26/2023 [facility] <item> Privacy Markings (unrecogniz ed section and content) Section Author: Meron Mercedes PROHIBITION ON REDISCLOSURE OF CONFIDENTIAL INFORMATION This notice accompanies a disclosure of information concerning a client made to you with the consent of such client. Reason for Visit (unrecogniz ed section and content) Care Teams (unrecognized sec tion and content) FOR RECORDS PERTAINING TO PATIENTS WHO ARE OR HAVE BEEN ENROLLED IN A CHEMICAL DEPENDENCY/SUBSTANCEABUSE PROGRAM, SOME INFORMATION MAY BE OMITTED. This clinical summary was aggregated from multiple sources. Caution should be exercised in using it in the provision of clinical care. This summary normalizes information from multiple sources, and as a consequence, information in this document may materially change the coding, format and clinical context of patient data. In addition, data may be omitted in some cases. CLINICAL DECISIONS SHOULD BE BASED ON THE PRIMARY CLINICAL RECORDS. [facility]. provides no warranty or guarantee of the accuracy or completeness of information in this document.
== END | disposition home or self-care (01) ==
LOC: CT 14:12
PROVIDERS: PCP Family Medicine; Referring Provider Surgery; Visit Provider Surgery
DX: K61.1 Rectal abscess (principal)
CPT/HCPCS: 72192